=== PATIENT | female | born 1970 | race Caucasian/White ===

== ENCOUNTER 2016-03-28 22:19 | Emergency (ER) | payer MEDICARE ==
[2016-03-28] MEDS ORDERED: AMBIEN10 M1 JT (22:26)
[2016-03-28] MEDS ORDERED: ASPIRIN ADULT L81 M1 PO (22:26)
[2016-03-28] MEDS ORDERED: AMLODIPINE BESYL5 MG PO (22:26)
[2016-03-28 23:05] LABS: ALBUMIN 3.7 gm/dl (3.1-4.5); BILIRUBIN, TOTAL 0.3 mg/dl (0.2-1.0); POTASSIUM 3.6 mmol/L (3.5-5.1); TOTAL PROTEIN 7.6 gm/dL (6.4-8.2)
[2016-03-28 23:08] LABS: BASO % 0.4 % (0.0-1.0); EOS # 0.2 10*3/uL (0.0-0.4); EOS % 3.6 % (1.0-4.0); HEMATOCRIT 38.3 % (37.0-47.0); HEMOGLOBIN 12.3 g/dl (12.0-16.0); IG # 0.1 10*3/uL (0.0-0.1); LYMPH # 1.9 10*3/uL (1.3-4.4); LYMPH % 28.1 % (27.0-41.0); MEAN CELL VOLUME 95.8 fl (81.0-99.0); MEAN CORPUSCULAR HGB 30.8 pg (27.0-31.0); MEAN CORPUSCULAR HGB CONC 32.1 g/dl (33.0-37.0); MEAN PLATELET VOLUME 10.4 fl (9.6-12.3); MONO # 0.4 10*3/uL (0.1-1.0); MONO % 6.4 % (3.0-9.0); NEUT # 4.1 10*3/uL (2.3-7.9); NEUT % 60.6 % (47.0-73.0); PLATELET COUNT AUTOMATED 208 10*3/uL (130-400); RED CELL DISTRI WIDTH 13.5 % (0-14.5); WHITE BLOOD COUNT 6.7 10*3/uL (4.8-10.8)
[2016-03-28 23:16] LABS: PROTHROMBIN TIME 10.4 SECONDS (9.0-12.4)
[2016-03-29] MEDS ORDERED: PERCOCET 325 MG1 TA2 PO (00:53)
== END 2016-03-29 00:59 | disposition home or self-care (01) ==
LOC: ED 22:19
PROVIDERS: Emergency Medicine
DX: I89.0 Lymphedema, not elsewhere classified (principal); M79.605 Pain in left leg; Z79.82 Long term (current) use of aspirin

== ENCOUNTER 2016-08-04 22:24 | Inpatient (IN) | payer OTHER ==
[~2016-08-04] VITALS: Ht 165.1 cm; Wt 137.4 kg
--- NOTE | ~2016-08-04 | PR ---
[place], [place] PROGRESS NOTE NAME: STERLING PAN [facility] #: [id number] UNIT #: [id number] ROOM: 406 DOCTOR: JERARDO ESQUIVEL MD BIRTHDATE: [birth year] DOS: 08/07/2016 SUBJECTIVE: The patient was seen today 08/07/2016 at her bedside for followup of chest pain. 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 Unfortunately, we have not yet been able to confirm that with the records from that hospital. She came in to the hospital on this occasion because of cellulitis on her left leg. She did admit that she had been having more episodes of anginal lately. She also noted that the character of the pain had changed. We were therefore asked to assess her. In the hospital, she did not show any signs of acute coronary injury; however, the myocardial perfusion study did show a small area of inferior ischemia. There was no transient cavity dilation seen and left ventricular size and function were normal. Therefore, the study was abnormal, but fairly low risk. Typically, in patients with Prinzmetal angina, their nuclear studies are normal. It is probable therefore that she has developed true atherosclerotic coronary artery disease on top of vasospastic angina. Diltiazem may still be the best drug for this and we did adjust the dose while she was here. She had been on amlodipine, but this was stopped because it might contribute to her leg swelling. She does have severe lymphedema and this contributed to her presenting cellulitis. In the hospital, her cellulitis has improved and she is now anxious for discharge. She has had no further chest pain. PHYSICAL EXAMINATION: VITAL SIGNS: Today, her pulse is 86 and regular, blood pressure 110/87. She is afebrile. She weighs 137.4 kg and has a body mass index of 50.4. NECK: Supple. She has no jugular distention. Carotids are full. She has no bruits. LUNGS: Respirations are unlabored. Her chest is clear to auscultation and percussion. HEART: Has a regular rhythm with a fourth heart sound, but no third heart sound or murmur. The PMI is not displaced. She has no precordial heave, lift or thrill. ABDOMEN: Soft and normoactive without masses, organomegaly or bruits. EXTREMITIES: Showed lymphedema, but no pitting edema. Peripheral pulses are palpable in the feet. IMPRESSION: 1. History of Prinzmetal angina. Documentation unfortunately is lacking at this time. 2. Admission to hospital on 08/14/2016 with the chest pain, myocardial infarction ruled out. 3. Pharmacologic stress test 08/06/2016 showed a small area of inferior completely reversible ischemia. Ejection fraction is 80% and there is no transient cavity dilation. The test was felt to be abnormal, but low risk. Medical therapy was recommended. [place], [place] PROGRESS NOTE NAME: STERLING PAN UNIT #: [id number] ROOM: 406 DOCTOR: JERARDO ESQUIVEL MD BIRTHDATE: [birth year] 4. History of lymphedema with superimposed cellulitis. PLAN: The patient is currently on diltiazem for prophylaxis against Prinzmetal angina. Hopefully, this will help protect her from typical angina as well. She is also on isosorbide mononitrate. We will recommend that she be discharged to home and will follow up with her in the office in the next few weeks. We thank the hospitalist physicians for asking our advice regarding her care. JERARDO ESQUIVEL MD CM:PNTRANS [id number] JERARDO ESQUIVEL MD 08/08/16 0718 interface
--- NOTE | ~2016-08-04 | PR ---
[place], [place] PROGRESS NOTE NAME: STERLING PAN UNIT #: [id number] ROOM: 406 DOCTOR: JERARDO ESQUIVEL MD BIRTHDATE: [birth year] DOS: 08/06/2016 SUBJECTIVE: The patient was seen at her bedside today, 08/06/2016, for followup of atypical chest pain in a patient with a history of Prinzmetal angina. Her pains have resolved. She had a rough morning because she has poor IV access and had to undergo multiple sticks before a reliable IV could be obtained. PHYSICAL EXAMINATION: VITAL SIGNS: Today, her pulse is 77 and regular, blood pressure 105/64. She is afebrile. She weighs 137.4 kg and has a body mass index of 50.4. NECK: Supple. She has no jugular distention. Carotids are full. LUNGS: Respirations are unlabored. Chest is clear to auscultation and percussion. She has no presacral edema or chest wall tenderness. HEART: Regular rhythm. She has a fourth heart sound, but no third heart sound or murmur. The PMI is not displaced. She has no precordial heave, lift or thrill. ABDOMEN: Soft and normally active without masses, organomegaly or bruits. EXTREMITIES: Do show lymphedema and localized cellulitis as noted previously. LABORATORY DATA: An echocardiogram done on 08/05/2016 showed normal left ventricular size with mild concentric left ventricular hypertrophy, ejection fraction 60-65%, grade 2 diastolic relaxation abnormalities, mild left atrial enlargement. No other significant abnormalities. CBC has remained unremarkable. Serial troponins have all been normal. IMPRESSION: 1. Chest pain in patient with history of Prinzmetal angina. The patient does admit that her pain character has changed over the years, and she has not had a recent evaluation. We are therefore going to proceed with a pharmacologic stress testing today. 2. Cellulitis being evaluated and managed by her primary team. PLAN: We are waiting any records from her previous hospitalizations in [place] where the diagnosis of Prinzmetal angina was made. We will make further recommendations based upon the results of her stress testing. I thank the hospitalist group for asking our advice regarding her care. [place], [place] PROGRESS NOTE NAME: STERLING PAN UNIT #: [id number] ROOM: [facility] DOCTOR: JERARDO ESQUIVEL MD BIRTHDATE: [birth year] JERARDO ESQUIVEL MD CM:PNTRANS [id number] JERARDO ESQUIVEL MD 08/07/16 0046 interface
--- NOTE | ~2016-08-04 | ST ---
[place], [place] EXERCISE STRESS TEST REPORT [id number] UNIT #: [id number] ROOM: 406 DOCTOR: JERARDO ESQUIVEL MD BIRTHDATE: [birth year] DOS: 08/06/2016 PHARMACOLOGIC STRESS TEST INDICATIONS: Chest pain, history of Prinzmetal angina. PROCEDURE: The patient was given a rapid infusion of regadenoson 0.4 mg intravenously followed by a saline flush. She had no specific symptoms in her chest, but she "felt funny". Her resting heart rate of 71 des to 101 with the infusion. The resting blood pressure of 100/60 fell to 90/70. Her resting electrocardiogram showed nonspecific T-wave flattening. She did not have any diagnostic changes with the infusion. Forty seconds after the infusion of regadenoson, she was given radionuclide IV. IMPRESSION: 1. Well tolerated infusion of regadenoson. 2. Radionuclide administered. Please see the separately reported imaging study for further details of the patient's stress test results. JERARDO ESQUIVEL MD CM:STRESS:EXERCISE STRESS TEST REPORT [id number] JERARDO ESQUIVEL MD
[~2016-08-04 22:24] MED LIST: AMBIEN10 M1 JT; AMLODIPINE BESYL5 MG PO; ASPIRIN ADULT L81 M1 PO; PERCOCET 325 MG1 TA2 PO
[2016-08-04 22:34] VITALS: BP 112/66
[2016-08-04] MEDS ORDERED: SERTRALINE HYD100 MG PO (23:06)
[2016-08-04] MEDS ORDERED: REMERON15 M2 PO (23:06)
[2016-08-04] MEDS ORDERED: SEROQUEL100 MG PO (23:07)
[2016-08-04] MEDS ORDERED: OMEPRAZOLE40 MG PO (23:07)
[2016-08-04] MEDS ORDERED: CYCLOBENZAPRINE10 MG PO (23:07)
[2016-08-04] MEDS ORDERED: HYDROXYZINE PAM50 MG PO (23:08)
[2016-08-04 23:15] LABS: BASO % 0.5 % (0.0-1.0); EOS # 0.2 10*3/uL (0.0-0.4); EOS % 2.6 % (1.0-4.0); HEMATOCRIT 38.4 % (37.0-47.0); HEMOGLOBIN 12.4 g/dl (12.0-16.0); LYMPH # 2.2 10*3/uL (1.3-4.4); LYMPH % 28.8 % (27.0-41.0); MEAN CELL VOLUME 92.8 fl (81.0-99.0); MEAN CORPUSCULAR HGB CONC 32.3 g/dl (33.0-37.0); MEAN PLATELET VOLUME 10.3 fl (9.6-12.3); MONO # 0.5 10*3/uL (0.1-1.0); MONO % 6.3 % (3.0-9.0); NEUT # 4.7 10*3/uL (2.3-7.9); NEUT % 61.4 % (47.0-73.0); PLATELET COUNT AUTOMATED 214 10*3/uL (130-400); RED BLOOD COUNT 4.14 10*6/uL (4.10-5.10); RED CELL DISTRI WIDTH 13.2 % (0-14.5); WHITE BLOOD COUNT 7.6 10*3/uL (4.8-10.8)
[2016-08-04 23:25] LABS: PROTHROMBIN TIME 10.7 SECONDS (9.0-12.4)
[2016-08-04 23:32] LABS: ALBUMIN 3.7 gm/dl (3.1-4.5); ALKALINE PHOSPHATASE 83 U/L (45-117); BILIRUBIN, TOTAL 0.2 mg/dl (0.2-1.0); BUN 11 mg/dl (7-24); CARBON DIOXIDE 26 mmol/L (21-32); CHLORIDE 105 mmol/L (98-107); EST GLOM FILT AFRICAN AMERICAN > 60 ml/min; GLUCOSE 106 mg/dL (65-99); MAGNESIUM 2.2 mg/dL (1.5-2.1); POTASSIUM 4.3 mmol/L (3.5-5.1); SGOT/AST 7 IU/L (3-35); SGPT/ALT 13 U/L (12-78); SODIUM 140 mmol/L (136-145); TOTAL PROTEIN 6.9 gm/dL (6.4-8.2)
[2016-08-04 23:33] LABS: TROPONIN I < 0.015 ng/ml (<0.045)
[2016-08-04] MEDS ORDERED: DIAZEPAM10 M1 PO (23:35)
[2016-08-04 23:36] VITALS: BP 101/65
[2016-08-05] VITALS (9 sets, daily range): BP systolic 99–123; BP diastolic 64–88
[2016-08-05 06:54] LABS: BASO % 0.6 % (0.0-1.0); EOS # 0.2 10*3/uL (0.0-0.4); EOS % 3.1 % (1.0-4.0); HEMATOCRIT 37.8 % (37.0-47.0); HEMOGLOBIN 12.3 g/dl (12.0-16.0); IG # 0.1 10*3/uL (0.0-0.1); LYMPH # 2.2 10*3/uL (1.3-4.4); LYMPH % 32.8 % (27.0-41.0); MEAN CELL VOLUME 93.3 fl (81.0-99.0); MEAN CORPUSCULAR HGB 30.4 pg (27.0-31.0); MEAN CORPUSCULAR HGB CONC 32.5 g/dl (33.0-37.0); MEAN PLATELET VOLUME 10.5 fl (9.6-12.3); MONO # 0.5 10*3/uL (0.1-1.0); MONO % 7.8 % (3.0-9.0); NEUT # 3.8 10*3/uL (2.3-7.9); PLATELET COUNT AUTOMATED 207 10*3/uL (130-400); RED BLOOD COUNT 4.05 10*6/uL (4.10-5.10); RED CELL DISTRI WIDTH 13.3 % (0-14.5); WHITE BLOOD COUNT 6.8 10*3/uL (4.8-10.8)
[2016-08-05 07:28] LABS: BUN 10 mg/dl (7-24); CARBON DIOXIDE 29 mmol/L (21-32); CHLORIDE 103 mmol/L (98-107); CHOLESTEROL 156 mg/dL (<200); EST GLOM FILT AFRICAN AMERICAN > 60 ml/min; GLUCOSE 84 mg/dL (65-99); POTASSIUM 4.1 mmol/L (3.5-5.1); SODIUM 138 mmol/L (136-145); TRIGLYCERIDES 100 mg/dl (<150); VLDL CHOLESTEROL 20 mg/dL (6-40)
[2016-08-05 07:29] LABS: HEMOGLOBIN A1c 5.3 % (4.8-5.6)
[2016-08-05 07:57] LABS: HDL CHOLESTEROL 56 mg/dl (40-60); LDL CHOLESTEROL 80 mg/dL (9-159)
[2016-08-06] VITALS: BP 105/64
[2016-08-06 08:00] VITALS: BP 110/60
[2016-08-06 12:00] VITALS: BP 118/80
[2016-08-06 16:00] VITALS: BP 102/62
[2016-08-06 20:00] VITALS: BP 119/73
[2016-08-07] VITALS: BP 120/66
[2016-08-07 08:00] VITALS: BP 114/70
[2016-08-07] MEDS ORDERED: DILTIAZEM 24HR120 MG PO (10:16)
[2016-08-07] MEDS ORDERED: D-1000 185 MG-11 TAB PO (10:16)
[2016-08-07] MEDS ORDERED: NYSTOP100000 U/G T (10:16)
[2016-08-07] MEDS ORDERED: SEPTRA DS 800 M1 TAB PO (10:16)
[2016-08-07] MEDS ORDERED: DOXYCYCLINE100 M3 PO (10:16)
[2016-08-07] MEDS ORDERED: IMDUR SA30 MG PO (10:16)
[2016-08-07] MEDS ORDERED: HYDROCODONE BIT1 T11 PO (10:18)
[2016-08-07 12:00] VITALS: BP 110/87
[2016-08-07] MEDS ORDERED: ULTRAM50 MG PO (15:07)
[2016-08-07] MEDS ORDERED: DILTIAZEM HYDR180 M2 PO (15:55)
== END 2016-08-07 16:05 | disposition home or self-care (01) | DRG 603 ==
LOC: ED 22:24 → EDHOLD 08-05 01:00 → 4E 08-05 01:00
PROVIDERS: Emergency Medicine Emergency Medical Services; Internal Medicine
PROC: 3E073KZ Introduction of Other Diagnostic Substance into Coronary Artery, Percutaneous Approach (ICD-10-PCS; principal; 2016-08-06)
PROC: 4A02XM4 Measurement of Cardiac Total Activity, External Approach (ICD-10-PCS; principal; 2016-08-06)
DX: L03.116 Cellulitis of left lower limb (principal); I20.1 Angina pectoris with documented spasm; I50.32 Chronic diastolic (congestive) heart failure; Z68.42 Body mass index [BMI] 45.0-49.9, adult; E66.01 Morbid (severe) obesity due to excess calories; G47.33 Obstructive sleep apnea (adult) (pediatric); F32.9 Major depressive disorder, single episode, unspecified; F41.9 Anxiety disorder, unspecified; R73.9 Hyperglycemia, unspecified; L30.4 Erythema intertrigo; E55.9 Vitamin D deficiency, unspecified; Z90.49 Acquired absence of other specified parts of digestive tract; Z79.82 Long term (current) use of aspirin; Z80.42 Family history of malignant neoplasm of prostate; Z98.891 History of uterine scar from previous surgery; Z79.899 Other long term (current) drug therapy; Z98.51 Tubal ligation status; Z98.84 Bariatric surgery status; Z85.41 Personal history of malignant neoplasm of cervix uteri; Z92.21 Personal history of antineoplastic chemotherapy; Z85.89 Personal history of malignant neoplasm of other organs and systems; Z80.8 Family history of malignant neoplasm of other organs or systems; M94.0 Chondrocostal junction syndrome [Tietze]; Q82.0 Hereditary lymphedema

== ENCOUNTER 2016-10-10 18:00 | Inpatient (IN) | payer OTHER ==
[~2016-10-10] VITALS: Ht 165.1 cm; Wt 140.3 kg
[~2016-10-10 18:00] MED LIST changes: +CYCLOBENZAPRINE10 MG PO; +D-1000 185 MG-11 TAB PO; +DIAZEPAM10 M1 PO; +DILTIAZEM 24HR120 MG PO; +DILTIAZEM HYDR180 M2 PO; +DOXYCYCLINE100 M3 PO; +HYDROCODONE BIT1 T11 PO; +HYDROXYZINE PAM50 MG PO; +IMDUR SA30 MG PO; +NYSTOP100000 U/G T; +OMEPRAZOLE40 MG PO; +REMERON15 M2 PO; +SEPTRA DS 800 M1 TAB PO; +SEROQUEL100 MG PO; +SERTRALINE HYD100 MG PO; +ULTRAM50 MG PO
[2016-10-10 18:32] LABS: BASO % 0.5 % (0.0-1.0); EOS # 0.2 10*3/uL (0.0-0.4); EOS % 2.1 % (1.0-4.0); HEMATOCRIT 39.6 % (37.0-47.0); HEMOGLOBIN 12.7 g/dl (12.0-16.0); IG # 0.1 10*3/uL (0.0-0.1); LYMPH # 1.9 10*3/uL (1.3-4.4); LYMPH % 25.2 % (27.0-41.0); MEAN CELL VOLUME 89.8 fl (81.0-99.0); MEAN CORPUSCULAR HGB 28.8 pg (27.0-31.0); MEAN CORPUSCULAR HGB CONC 32.1 g/dl (33.0-37.0); MEAN PLATELET VOLUME 10.5 fl (9.6-12.3); MONO # 0.4 10*3/uL (0.1-1.0); MONO % 5.5 % (3.0-9.0); NEUT % 65.9 % (47.0-73.0); PLATELET COUNT AUTOMATED 270 10*3/uL (130-400); RED BLOOD COUNT 4.41 10*6/uL (4.10-5.10); RED CELL DISTRI WIDTH 12.7 % (0-14.5); WHITE BLOOD COUNT 7.5 10*3/uL (4.8-10.8)
[2016-10-10 18:43] LABS: PROTHROMBIN TIME 10.8 SECONDS (9.0-12.4)
[2016-10-10 18:49] LABS: ALBUMIN 3.7 gm/dl (3.1-4.5); ALKALINE PHOSPHATASE 104 U/L (45-117); BILIRUBIN, TOTAL 0.3 mg/dl (0.2-1.0); BUN 12 mg/dl (7-24); CARBON DIOXIDE 24 mmol/L (21-32); CHLORIDE 105 mmol/L (98-107); EST GLOM FILT AFRICAN AMERICAN > 60 ml/min; GLUCOSE 118 mg/dL (65-99); MAGNESIUM 1.8 mg/dL (1.5-2.1); POTASSIUM 3.7 mmol/L (3.5-5.1); SGOT/AST 10 IU/L (3-35); SGPT/ALT 21 U/L (12-78); SODIUM 138 mmol/L (136-145); TOTAL PROTEIN 7.3 gm/dL (6.4-8.2)
[2016-10-10 18:51] LABS: TROPONIN I < 0.015 ng/ml (<0.045)
[2016-10-10] MEDS ORDERED: ZANAFLEX4 M2 PO (18:56)
[2016-10-10] MEDS ORDERED: CLARITIN10 MG PO (18:56)
[2016-10-10] MEDS ORDERED: IMDUR SA30 MG PO (18:57)
[2016-10-10] MEDS ORDERED: MEDROXYPROGESTE10 M1 PO (18:57)
[2016-10-10] MEDS ORDERED: CLONAZEPAM1 MG PO (18:57)
[2016-10-10] MEDS ORDERED: OXCARBAZEPINE150 MG PO (18:58)
[2016-10-10 19:12] VITALS: BP 142/99
[2016-10-10 20:00] VITALS: BP 127/79
[2016-10-10] MEDS ORDERED: NYSTATIN1 EAC3 MC (21:01)
[2016-10-10] MEDS ORDERED: D-1000 185 MG-11 TAB PO (21:02)
[2016-10-11] VITALS: BP 115/72
[2016-10-11 00:26] LABS: CPK 81 U/L (26-192)
[2016-10-11 00:31] LABS: CKMB < 0.5 ng/ml (0.5-3.6)
[2016-10-11 06:38] LABS: BASO % 0.6 % (0.0-1.0); EOS # 0.2 10*3/uL (0.0-0.4); EOS % 2.6 % (1.0-4.0); HEMATOCRIT 40.6 % (37.0-47.0); HEMOGLOBIN 12.9 g/dl (12.0-16.0); IG # 0.1 10*3/uL (0.0-0.1); LYMPH # 2.2 10*3/uL (1.3-4.4); LYMPH % 32.1 % (27.0-41.0); MEAN CELL VOLUME 91.9 fl (81.0-99.0); MEAN CORPUSCULAR HGB 29.2 pg (27.0-31.0); MEAN CORPUSCULAR HGB CONC 31.8 g/dl (33.0-37.0); MEAN PLATELET VOLUME 10.5 fl (9.6-12.3); MONO # 0.4 10*3/uL (0.1-1.0); MONO % 6.1 % (3.0-9.0); NEUT % 57.7 % (47.0-73.0); PLATELET COUNT AUTOMATED 263 10*3/uL (130-400); RED BLOOD COUNT 4.42 10*6/uL (4.10-5.10); RED CELL DISTRI WIDTH 12.9 % (0-14.5); WHITE BLOOD COUNT 6.9 10*3/uL (4.8-10.8)
[2016-10-11 06:44] LABS: CKMB < 0.5 ng/ml (0.5-3.6); CPK 65 U/L (26-192)
[2016-10-11 06:59] LABS: PROTHROMBIN TIME 10.9 SECONDS (9.0-12.4)
[2016-10-11 07:04] LABS: BUN 14 mg/dl (7-24); CARBON DIOXIDE 28 mmol/L (21-32); CHLORIDE 105 mmol/L (98-107); CHOLESTEROL 184 mg/dL (<200); EST GLOM FILT AFRICAN AMERICAN > 60 ml/min; GLUCOSE 87 mg/dL (65-99); HDL CHOLESTEROL 49 mg/dl (40-60); LDL CHOLESTEROL 111 mg/dL (9-159); POTASSIUM 4.2 mmol/L (3.5-5.1); SODIUM 139 mmol/L (136-145); TRIGLYCERIDES 120 mg/dl (<150); VLDL CHOLESTEROL 24 mg/dL (6-40)
[2016-10-11 07:11] LABS: FREE T4 0.78 ng/dl (0.76-1.46)
[2016-10-11 07:27] LABS: HEMOGLOBIN A1c 5.8 % (4.8-5.6)
[2016-10-11 07:37] LABS: FOLIC ACID 16.43 ng/mL (>5.38); VITAMIN D, 25-HYDROXY 13.7 ng/mL (30-100)
[2016-10-11 08:00] VITALS: BP 132/86
[2016-10-11 12:00] VITALS: BP 118/80
[2016-10-11 12:39] LABS: CPK 72 U/L (26-192)
[2016-10-11 12:45] LABS: CKMB < 0.5 ng/ml (0.5-3.6)
[2016-10-11 16:00] VITALS: BP 142/99
[2016-10-11] MEDS ORDERED: DILTIAZEM CD240 MG PO (19:47)
[2016-10-11] MEDS ORDERED: D-1000 185 MG-11 TAB PO (19:47)
[2016-10-11 20:00] VITALS: BP 120/75
[2016-10-12] VITALS: BP 120/83
[2016-10-12 06:30] LABS: BASO % 0.3 % (0.0-1.0); EOS # 0.2 10*3/uL (0.0-0.4); EOS % 2.7 % (1.0-4.0); HEMATOCRIT 37.8 % (37.0-47.0); HEMOGLOBIN 11.7 g/dl (12.0-16.0); LYMPH # 1.6 10*3/uL (1.3-4.4); LYMPH % 25.3 % (27.0-41.0); MEAN CELL VOLUME 92.4 fl (81.0-99.0); MEAN CORPUSCULAR HGB 28.6 pg (27.0-31.0); MEAN PLATELET VOLUME 10.5 fl (9.6-12.3); MONO # 0.4 10*3/uL (0.1-1.0); MONO % 6.1 % (3.0-9.0); NEUT # 4.1 10*3/uL (2.3-7.9); PLATELET COUNT AUTOMATED 236 10*3/uL (130-400); RED BLOOD COUNT 4.09 10*6/uL (4.10-5.10); RED CELL DISTRI WIDTH 12.9 % (0-14.5); WHITE BLOOD COUNT 6.3 10*3/uL (4.8-10.8)
== END 2016-10-12 06:35 | disposition short-term general hospital (02) | DRG 311 ==
LOC: ED 18:00 → EDHOLD 18:55 → 5E 19:35
PROVIDERS: Emergency Medicine; Internal Medicine; Internal Medicine Cardiovascular Disease
DX: I20.1 Angina pectoris with documented spasm (principal); I50.32 Chronic diastolic (congestive) heart failure; Z68.43 Body mass index [BMI] 50.0-59.9, adult; F41.9 Anxiety disorder, unspecified; Z85.41 Personal history of malignant neoplasm of cervix uteri; F32.9 Major depressive disorder, single episode, unspecified; G47.33 Obstructive sleep apnea (adult) (pediatric); Z90.49 Acquired absence of other specified parts of digestive tract; Z98.84 Bariatric surgery status; Z80.42 Family history of malignant neoplasm of prostate; K21.9 Gastro-esophageal reflux disease without esophagitis; I89.0 Lymphedema, not elsewhere classified; E66.9 Obesity, unspecified; Z79.82 Long term (current) use of aspirin; Z79.899 Other long term (current) drug therapy

== ENCOUNTER 2017-01-04 13:51 | Inpatient (IN) | payer OTHER ==
[~2017-01-04] VITALS: Ht 152.4 cm; Wt 137.9 kg
[~2017-01-04 13:51] MED LIST changes: +CLARITIN10 MG PO; +CLONAZEPAM1 MG PO; +DILTIAZEM CD240 MG PO; +MEDROXYPROGESTE10 M1 PO; +NYSTATIN1 EAC3 T; +OXCARBAZEPINE150 MG PO; -REMERON15 M2 PO; +REMERON30 M1 PO; +ZANAFLEX4 M2 PO
[2017-01-04 13:55] VITALS: BP 107/72
[2017-01-04 15:29] LABS: BILIRUBIN NEGATIVE (NEGATIVE); BLOOD 3+ (NEGATIVE); CLARITY CLOUDY (CLEAR); GLUCOSE NEGATIVE (NEGATIVE); KETONE NEGATIVE (NEGATIVE); LEUKO ESTERASE TRACE (NEGATIVE); NITRITE NEGATIVE (NEGATIVE); PH 6.5 (5.0-9.0); UROBILINOGEN 0.2 E.U./dl (0.2-1.0)
[2017-01-04 15:34] LABS: HEMATOCRIT 40.7 % (37.0-47.0); HEMOGLOBIN 12.8 g/dl (12.0-16.0); MEAN CELL VOLUME 90.8 fl (81.0-99.0); MEAN CORPUSCULAR HGB 28.6 pg (27.0-31.0); MEAN CORPUSCULAR HGB CONC 31.4 g/dl (33.0-37.0); MEAN PLATELET VOLUME 10.8 fl (9.6-12.3); PLATELET COUNT AUTOMATED 211 10*3/uL (130-400); RED BLOOD COUNT 4.48 10*6/uL (4.10-5.10); RED CELL DISTRI WIDTH 15.5 % (0-14.5); WHITE BLOOD COUNT 14.2 10*3/uL (4.8-10.8)
[2017-01-04 15:39] LABS: COLOR RED (YELLOW)
[2017-01-04 15:40] LABS: BACTERIA 3+; EPITHELIAL CELLS 40-45; RBC TNTC rbc/hpf (0-2)
[2017-01-04 15:49] LABS: ALBUMIN 4.1 gm/dl (3.1-4.5); CREATININE 1.32 mg/dL (0.55-1.02); POTASSIUM 4.5 mmol/L (3.5-5.1); TOTAL PROTEIN 8.3 gm/dL (6.4-8.2)
[2017-01-04 15:53] LABS: TOTAL CELLS COUNTED 100 #CELLS
[2017-01-04 15:54] LABS: PLATELET SUFFICIENCY NORMAL (NORMAL); POLYCHROMASIA SLIGHT
--- NOTE | 2017-01-04 17:27 | NUR ---
PATIENT HAS NORMAL SALINE, AND ZOSYN RUNNING AT TIME OF ADMISSION
[2017-01-04] MEDS ORDERED: POTASSIUM CHLO20 ME3 PO (17:34)
[2017-01-04] MEDS ORDERED: LASIX20 MG PO (17:34)
--- NOTE | 2017-01-04 17:44 | NUR ---
[facility] , under the services of JUAN Maxwell DO with a diagnosis of CELLULITIS. Chief complaint is PAIN LEFT LEG. Patient arrived via bed from ER. Monitor applied. Initial assessment completed. Vital signs taken and recorded. JUAN MAXWELL DO notified of admission to the unit. Orders received. See assessment for past medical history, medications and allergies. Patient and/or family oriented to unit. [facility] visitation policy reviewed. Clothing/patient valuable form completed. CURRY GOVEA
--- NOTE | 2017-01-04 18:29 | NUR ---
MORPHINE GIVEN FOR C/O LEFT LEG PAIN. RATES 8/10 ON PAIN SCALE. WILL MONITOR.
[2017-01-04 18:32] VITALS: BP 100/66
[2017-01-04 20:00] VITALS: BP 133/71
--- NOTE | 2017-01-04 21:20 | NUR ---
MEDICATED WITH NORCO PER PRN ORDER FOR C/O PAIN.
--- NOTE | 2017-01-04 22:40 | NUR ---
MEDICATED WITH MORPHINE PER PRN ORDER FOR C/O PAIN. PT STATES NORCO NOT EFFECTIVE.
[2017-01-05] VITALS: BP 120/76
--- NOTE | 2017-01-05 01:39 | NUR ---
PRN ZOFRAN GIVEN FOR PT. C/O NAUSEA AT THIS TIME. WILL MONITOR EFFECT.
--- NOTE | 2017-01-05 03:17 | NUR ---
PRN MORPHINE GIVEN FOR PT. C/O LEFT LEG PAIN RATING A 8/10. WILL MONITOR EFFECT. PRN RESTORIL GIVEN PER PT. REQUEST FOR INSOMINA. WILL MONITOR EFFECT.
--- NOTE | 2017-01-05 03:37 | NUR ---
PRN MORPHINE AND RESTORIL APPEAR EFFECTIVE. PT. IS SLEEPING COMFORTABLY WITH CPAP IN PLACE, CALL LIGHT IN REACH, AND HOB ELEVATED. RESPIRATIONS ARE EASY AND REGULAR.
--- NOTE | 2017-01-05 05:33 | NUR ---
PRN NORCO GIVEN PER PT. REQUEST FOR LEFT LEG PAIN RATING A 7/10. WILL MONITOR EFFECT.
--- NOTE | 2017-01-05 06:00 | NUR ---
PRN NORCO SEEMS TO BE EFFECTIVE. PT IS RESTING COMFORTABLY WITH CPAP IN PLACE, HOB ELEVATED, AND CALL LIGHT IN REACH. RESPIRATIONS ARE EASY AND REGULAR.
[2017-01-05 06:24] LABS: ACT PARTIAL THROMBO TIME 26.9 SECONDS (20.8-31.5); ALBUMIN 3.1 gm/dl (3.1-4.5); BASO % 0.1 % (0.0-1.0); CREATININE 1.18 mg/dL (0.55-1.02); EOS # 0.1 10*3/uL (0.0-0.4); EOS % 0.6 % (1.0-4.0); FREE T4 1.15 ng/dl (0.76-1.46); HEMATOCRIT 34.7 % (37.0-47.0); HEMOGLOBIN 10.8 g/dl (12.0-16.0); INTERNATIONAL NORM RATIO 1.1 (2.0-3.5); LYMPH # 0.6 10*3/uL (1.3-4.4); LYMPH % 6.8 % (27.0-41.0); MAGNESIUM 2.3 mg/dL (1.5-2.1); MEAN CELL VOLUME 92.8 fl (81.0-99.0); MEAN CORPUSCULAR HGB 28.9 pg (27.0-31.0); MEAN CORPUSCULAR HGB CONC 31.1 g/dl (33.0-37.0); MEAN PLATELET VOLUME 11.4 fl (9.6-12.3); MONO # 0.4 10*3/uL (0.1-1.0); MONO % 4.8 % (3.0-9.0); NEUT % 87.1 % (47.0-73.0); PHOSPHOROUS 2.7 mg/dL (2.5-4.9); PLATELET COUNT AUTOMATED 188 10*3/uL (130-400); POTASSIUM 3.9 mmol/L (3.5-5.1); RED BLOOD COUNT 3.74 10*6/uL (4.10-5.10); RED CELL DISTRI WIDTH 15.9 % (0-14.5); TOTAL PROTEIN 6.5 gm/dL (6.4-8.2); WHITE BLOOD COUNT 8.1 10*3/uL (4.8-10.8)
[2017-01-05 06:28] LABS: THYROID STIM HORMONE (HS) 1.27 uIU/ml (0.358-4.75)
[2017-01-05 08:00] VITALS: BP 117/73
--- NOTE | 2017-01-05 08:13 | NUR ---
Animal Feeder in to talk to patient. Patient states lives at HOME with HER BOYFRIEND. There are A FEW steps in the home. Physician: ROSANA Pharmacy: [facility] Home health services: NONE Patient's level of ADLs: INDEPENDENT Patient has working utilities: YES DME: WALKER/CPAP Follow-up physician's appointment after d/c: WILL BE MADE PRIOR TO DC Does patient want to access PORTAL?: Discharge plan HOME. JULIA KIM
[2017-01-05 08:40] LABS: VITAMIN D, 25-HYDROXY 7.3 ng/mL (30-100)
[2017-01-05] MEDS ORDERED: Diltiazem180 MG PO (11:11)
[2017-01-05 12:00] VITALS: BP 112/80
[2017-01-05 16:00] VITALS: BP 118/74
--- NOTE | 2017-01-05 16:05 | NUR ---
Pt. recieved/requested pain medication as ordered. Verbalized relief. Resp are easy, nonlabored. Visiting with family. No distress noted at this time.
[2017-01-05 20:00] VITALS: BP 125/59
--- NOTE | 2017-01-05 21:45 | NUR ---
MEDICATED WITH MORPHINE PER PRN ORDER FOR C/O PAIN.
--- NOTE | 2017-01-05 23:45 | NUR ---
CONTACTED DR. ROSS IN REGARDS TO PTS. LOW BP OF 80/58. DR. ROSS ORDEREED NS FLUID BOLUS 1L AT 999/HR. WILL ASSESS PT. DURING AND AFTER ADM.
--- NOTE | 2017-01-06 01:39 | NUR ---
DR. ROSS NOTIFIED AT THIS TIME OF PTS. BP OF 110/82 AFTER FLUID BOLUS. PT. TOLERATED BOLUS WITHOUT C/O SOB OR CP.
[2017-01-06 08:00] VITALS: BP 102/57
--- NOTE | 2017-01-06 08:50 | NUR ---
PT C/O LEFT LEG PAIN. RATES IT 10/04. REQUESTS PRN MORPHINE SULFATE 2 MG VIA IV. MORPHINE ADMINISTERED AT THIS TIME. WILL MONTIOR EFFECTIVENESS. CALL LIGHT IN REACH.
[2017-01-06 12:00] VITALS: BP 108/57
[2017-01-06 16:00] VITALS: BP 92/50
[2017-01-06 20:00] VITALS: BP 96/56
[2017-01-07] VITALS: BP 88/49
[2017-01-07 06:52] LABS: BASO % 0.4 % (0.0-1.0); EOS # 0.2 10*3/uL (0.0-0.4); EOS % 5.1 % (1.0-4.0); HEMATOCRIT 31.8 % (37.0-47.0); HEMOGLOBIN 9.7 g/dl (12.0-16.0); LYMPH # 1.1 10*3/uL (1.3-4.4); LYMPH % 23.9 % (27.0-41.0); MEAN CELL VOLUME 94.9 fl (81.0-99.0); MEAN CORPUSCULAR HGB CONC 30.5 g/dl (33.0-37.0); MONO # 0.3 10*3/uL (0.1-1.0); MONO % 5.8 % (3.0-9.0); NEUT # 2.9 10*3/uL (2.3-7.9); NEUT % 64.1 % (47.0-73.0); PLATELET COUNT AUTOMATED 168 10*3/uL (130-400); RED BLOOD COUNT 3.35 10*6/uL (4.10-5.10); RED CELL DISTRI WIDTH 15.6 % (0-14.5); WHITE BLOOD COUNT 4.5 10*3/uL (4.8-10.8)
[2017-01-07 07:15] LABS: BUN 9 mg/dl (7-24); CHLORIDE 106 mmol/L (98-107); CREATININE 0.97 mg/dL (0.55-1.02); POTASSIUM 4.2 mmol/L (3.5-5.1); SODIUM 139 mmol/L (136-145)
[2017-01-07 08:00] VITALS: BP 109/66
--- NOTE | 2017-01-07 08:38 | NUR ---
PT C/O LEFT LEG PAIN. MORPHINE SULFATE 2 MG ADMNISTERED VIA IV. WILL MONITOR FOR EFFECTIVENESS. CALL LIGHT IN REACH.
[2017-01-07 12:00] VITALS: BP 124/76
[2017-01-07] MEDS ORDERED: DOXYCYCLINE100 M3 PO (12:10)
[2017-01-07] MEDS ORDERED: NORCO 5/325 PO (12:10)
--- NOTE | 2017-01-07 13:55 | NUR ---
Pt declined pneumovac after scanning and opening. States she took it 2 years ago.
--- NOTE | 2017-01-07 14:04 | NUR ---
Discharge instructions reviewed with patient/family. Patient receptive and verbalizes understanding. Follow-up care arranged. Written instructions given to patient/family. MICHAEL GONSALEZ
== END 2017-01-07 14:04 | disposition home or self-care (01) | DRG 871 ==
LOC: ED 13:51 → 4E 16:10 → EDHOLD 16:10 → 4E 16:22
PROVIDERS: Hospitalist; Internal Medicine; Nurse Practitioner; ADMIT Emergency Medicine
PROC: 5A09357 Assistance with Respiratory Ventilation, Less than 24 Consecutive Hours, Continuous Positive Airway Pressure (ICD-10-PCS; principal; 2017-01-06)
DX: A41.9 Sepsis, unspecified organism (principal); N17.0 Acute kidney failure with tubular necrosis; Z68.43 Body mass index [BMI] 50.0-59.9, adult; I50.32 Chronic diastolic (congestive) heart failure; I20.1 Angina pectoris with documented spasm; E66.01 Morbid (severe) obesity due to excess calories; L03.116 Cellulitis of left lower limb; R65.20 Severe sepsis without septic shock; I89.0 Lymphedema, not elsewhere classified; F32.9 Major depressive disorder, single episode, unspecified; N18.3 Chronic kidney disease, stage 3 (moderate); F41.9 Anxiety disorder, unspecified; G47.33 Obstructive sleep apnea (adult) (pediatric); K21.9 Gastro-esophageal reflux disease without esophagitis; Z79.82 Long term (current) use of aspirin; Z79.899 Other long term (current) drug therapy; Z90.49 Acquired absence of other specified parts of digestive tract; Z98.891 History of uterine scar from previous surgery; Z98.51 Tubal ligation status; Z98.84 Bariatric surgery status; Z80.42 Family history of malignant neoplasm of prostate; Z80.8 Family history of malignant neoplasm of other organs or systems; Z92.21 Personal history of antineoplastic chemotherapy

== ENCOUNTER 2017-01-15 17:13 | Emergency (ER) | payer OTHER ==
[~2017-01-15] VITALS: Ht 165.1 cm; Wt 137.9 kg
[~2017-01-15 17:13] MED LIST changes: +Diltiazem180 MG PO; +LASIX20 MG PO; +NORCO 5/325 PO; +POTASSIUM CHLO20 ME3 PO
[2017-01-15 17:51] LABS: BASO % 0.3 % (0.0-1.0); EOS # 0.1 10*3/uL (0.0-0.4); EOS % 1.7 % (1.0-4.0); HEMATOCRIT 38.4 % (37.0-47.0); HEMOGLOBIN 11.9 g/dl (12.0-16.0); LYMPH # 1.7 10*3/uL (1.3-4.4); MEAN CELL VOLUME 91.9 fl (81.0-99.0); MEAN CORPUSCULAR HGB 28.5 pg (27.0-31.0); MEAN PLATELET VOLUME 10.8 fl (9.6-12.3); MONO # 0.4 10*3/uL (0.1-1.0); MONO % 5.8 % (3.0-9.0); NEUT # 4.8 10*3/uL (2.3-7.9); NEUT % 67.5 % (47.0-73.0); PLATELET COUNT AUTOMATED 280 10*3/uL (130-400); RED BLOOD COUNT 4.18 10*6/uL (4.10-5.10); RED CELL DISTRI WIDTH 14.6 % (0-14.5); WHITE BLOOD COUNT 7.1 10*3/uL (4.8-10.8)
[2017-01-15 18:05] LABS: ALBUMIN 3.9 gm/dl (3.1-4.5); ALKALINE PHOSPHATASE 97 U/L (45-117); BUN 11 mg/dl (7-24); CHLORIDE 102 mmol/L (98-107); CREATININE 1.17 mg/dL (0.55-1.02); SGOT/AST 13 IU/L (3-35); SGPT/ALT 25 U/L (12-78); SODIUM 136 mmol/L (136-145); TOTAL PROTEIN 7.6 gm/dL (6.4-8.2)
[2017-01-15] MEDS ORDERED: NYSTATIN CREAM15 GM T (18:12)
== END 2017-01-15 17:33 | disposition home or self-care (01) ==
LOC: ED 17:13
PROVIDERS: Nurse Practitioner Family
DX: L30.8 Other specified dermatitis (principal); I10 Essential (primary) hypertension; Z90.49 Acquired absence of other specified parts of digestive tract; Z98.51 Tubal ligation status

== ENCOUNTER 2017-02-22 10:04 | Inpatient (IN) | payer OTHER ==
[~2017-02-22] VITALS: Ht 165.1 cm; Wt 139.4 kg
[~2017-02-22 10:04] MED LIST changes: +NYSTATIN CREAM15 GM T
[2017-02-22 10:39] LABS: HEMATOCRIT 37.4 % (37.0-47.0); HEMOGLOBIN 11.9 g/dl (12.0-16.0); MEAN CORPUSCULAR HGB 28.3 pg (27.0-31.0); MEAN CORPUSCULAR HGB CONC 31.8 g/dl (33.0-37.0); MEAN PLATELET VOLUME 11.3 fl (9.6-12.3); PLATELET COUNT AUTOMATED 175 10*3/uL (130-400); RED CELL DISTRI WIDTH 13.9 % (0-14.5); WHITE BLOOD COUNT 17.2 10*3/uL (4.8-10.8)
[2017-02-22 10:52] LABS: ACT PARTIAL THROMBO TIME 27.3 SECONDS (20.8-31.5); INTERNATIONAL NORM RATIO 1.2 (2.0-3.5)
[2017-02-22 10:55] LABS: ALBUMIN 3.6 gm/dl (3.1-4.5); ALKALINE PHOSPHATASE 65 U/L (45-117); BUN 11 mg/dl (7-24); CHLORIDE 104 mmol/L (98-107); CREATININE 1.27 mg/dL (0.55-1.02); POTASSIUM 3.6 mmol/L (3.5-5.1); SGOT/AST 6 IU/L (3-35); SGPT/ALT 16 U/L (12-78); SODIUM 135 mmol/L (136-145); TOTAL PROTEIN 7.2 gm/dL (6.4-8.2)
[2017-02-22 10:59] LABS: TROPONIN I < 0.015 ng/ml (<0.045)
[2017-02-22 11:00] VITALS: BP 120/43
[2017-02-22 11:08] LABS: BASOPHILS 1 % (0-1); TOTAL CELLS COUNTED 100 #CELLS
[2017-02-22 11:09] LABS: PLATELET SUFFICIENCY NORMAL (NORMAL)
[2017-02-22 12:00] VITALS: BP 158/98
[2017-02-22 13:55] LABS: BILIRUBIN NEGATIVE (NEGATIVE); BLOOD 1+ (NEGATIVE); CLARITY CLEAR (CLEAR); COLOR YELLOW (YELLOW); GLUCOSE NEGATIVE (NEGATIVE); KETONE NEGATIVE (NEGATIVE); LEUKO ESTERASE NEGATIVE (NEGATIVE); NITRITE NEGATIVE (NEGATIVE); PH 6.5 (5.0-9.0); SPECIFIC GRAVITY <= 1.005 (1.005-1.030); UROBILINOGEN 0.2 E.U./dl (0.2-1.0)
[2017-02-22 14:05] LABS: BACTERIA 1+
[2017-02-22 14:21] VITALS: BP 102/67
[2017-02-22] MEDS ORDERED: PERCOCET 5-3251 EACH PO (14:22)
[2017-02-22] MEDS ORDERED: TRAZODONE150 MG PO (14:23)
[2017-02-22] MEDS ORDERED: CETIRIZINE10 MG PO (14:23)
[2017-02-22] MEDS ORDERED: BACITRACIN 500U30 GM T (14:24)
--- NOTE | 2017-02-22 15:42 | NUR ---
PATIENT GIVEN NORCO PER PATIENT REQUEST FOR LEFT LOWER LEG PAIN RATED 8/10 AND DESCRIBED A THROBBING PAIN. WILL CONTINUE TO MONITOR AND REASSESS.
--- NOTE | 2017-02-22 15:45 | NUR ---
WOUND ORDERS RECEIVED.
[2017-02-22 16:00] VITALS: BP 109/67
--- NOTE | 2017-02-22 16:40 | NUR ---
WOUD DRESSING APPLIED PER ORDERS. PATIENT TOLERATED WELL WITH MINIMAL PAIN. CALL LIGHT WITHIN REACH.
--- NOTE | 2017-02-22 16:45 | NUR ---
PAIN MEDICATION HAS BEEN EFFECTIVE. PATIENT RESTING COMFORTABLY IN THE BED. PATIENT RATES PAIN A 3/10 AND TOLERABLE AT THIS TIME. CALL LIGHT IS WITHIN REACH. WILL CONTINUE TO MONITOR.
--- NOTE | 2017-02-22 18:57 | NUR ---
PATIENT RESTING COMFORTABLY IN THE BED. PATIENT WHERES A C-PAP WHEN SLEEPING. PATIENT HAS EDEMA IN THE LOWER EXTREMITIES AND A WOUND TO THE LEFT LEG. PATIENT HAS OCCASIONAL PAIN IN THAT LEG, BUT HAD NO PAIN UPON ASSESSMENT. NO FURTHER REQUESTS AT THIS TIME. CALL LIGHT WITHIN REACH.
[2017-02-22 20:00] VITALS: BP 108/53
--- NOTE | 2017-02-22 20:46 | NUR ---
PT REQUESTED PAIN MEDICATION FOR PAIN OF LEFT LOWER LEG FROM THE KNEE TO THE ANKLE. PAIN IS RATED AT 8 OUT OF 10 AND DESCRIBED CONSTANT AND THROBBING. PRN TYLENOL GIVEN. WILL CONTINUE TO MONITOR.
--- NOTE | 2017-02-22 21:13 | NUR ---
PER PT, TYLENOL WAS INEFFECTIVE FOR PAIN MANAGEMENT. SPOKE WITH THE DOCTOR EARLIER. AWAITING PHARMACY TO PROFILE NEW ORDERS. WILL CONTINUE TO MONITOR.
--- NOTE | 2017-02-22 23:00 | NUR ---
PT REQUESTED PAIN MEDICATION FOR PAIN OF THE BLE. PAIN RATED AT 8 OUT OF 10. PER PT, TYLENOL WAS INEFFECTTIVE FOR PAIN MGMT EARLIER. PAIN IS CONSTANT AND THROBBING. MORPHINE GIVEN. WILL CONTINUE TO MONITOR.
--- NOTE | 2017-02-22 23:42 | NUR ---
PER PT, PRN MORPHINE WAS EFFECTIVE FOR PAIN MANAGEMENT. PAIN IS NOW RATED AT 2 OUT OF 10. WILL CONTINUE TO MONITOR.
[2017-02-23] VITALS (7 sets, daily range): BP systolic 81–104; BP diastolic 41–70
--- NOTE | 2017-02-23 03:43 | NUR ---
24HR CHART CHECK COMPLETED.
--- NOTE | 2017-02-23 04:25 | NUR ---
PT REQUESTED PRN PAIN MEDICATION FOR BILAT LOWER LEG PAIN. PAIN IS RATED AT 7 OUT OF 10 AND IS DESCRIBED CONSTANT AND THROBBING. PRN PERCOCET GIVEN. WILL CONTINUE TO MONITOR.
--- NOTE | 2017-02-23 05:12 | NUR ---
PER PT, PRN PERCOCET WAS INEFECTIVE FOR PAIN MANAGEMENT. PAIN IS STILL RATED A 7/8 OUT OF 10. PT STATED SHE WOULD "WAIT ANOTHER HOUR TO SEE HOW IT DOES". WILL CONTINUE TO MONITOR.
[2017-02-23 07:23] LABS: BASO % 0.3 % (0.0-1.0); EOS # 0.1 10*3/uL (0.0-0.4); EOS % 1.3 % (1.0-4.0); HEMATOCRIT 32.6 % (37.0-47.0); HEMOGLOBIN 10.1 g/dl (12.0-16.0); LYMPH % 12.7 % (27.0-41.0); MEAN CELL VOLUME 91.3 fl (81.0-99.0); MEAN CORPUSCULAR HGB 28.3 pg (27.0-31.0); MEAN PLATELET VOLUME 11.5 fl (9.6-12.3); MONO # 0.4 10*3/uL (0.1-1.0); MONO % 4.4 % (3.0-9.0); NEUT # 6.4 10*3/uL (2.3-7.9); NEUT % 80.8 % (47.0-73.0); PLATELET COUNT AUTOMATED 145 10*3/uL (130-400); RED BLOOD COUNT 3.57 10*6/uL (4.10-5.10); RED CELL DISTRI WIDTH 14.1 % (0-14.5)
--- NOTE | 2017-02-23 07:34 | NUR ---
PT REQUESTED MEDICATION FOR PAIN OF THE LEFT LEG. PAIN RATED AT 7 OUT OF 10 AND DESCRIBED CONSTANT AND THROBBING. PRN MORPHINE GIVEN. WILL CONTINUE TO MONITOR.
--- NOTE | 2017-02-23 07:43 | NUR ---
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
[2017-02-23 07:54] LABS: ALBUMIN 2.9 gm/dl (3.1-4.5); BUN 17 mg/dl (7-24); CHLORIDE 104 mmol/L (98-107); CHOLESTEROL 95 mg/dL (<200); CREATININE 1.09 mg/dL (0.55-1.02); PHOSPHOROUS 3.2 mg/dL (2.5-4.9); POTASSIUM 3.4 mmol/L (3.5-5.1); SGOT/AST 3 IU/L (3-35); SGPT/ALT 15 U/L (12-78); SODIUM 135 mmol/L (136-145); TRIGLYCERIDES 113 mg/dl (<150); VLDL CHOLESTEROL 23 mg/dL (6-40)
[2017-02-23 08:00] LABS: ALKALINE PHOSPHATASE 61 U/L (45-117); FREE T4 0.99 ng/dl (0.76-1.46); HDL CHOLESTEROL 33 mg/dl (40-60); LDL CHOLESTEROL 39 mg/dL (9-159); THYROID STIM HORMONE (HS) 0.859 uIU/ml (0.358-4.75); TOTAL PROTEIN 6.1 gm/dL (6.4-8.2)
[2017-02-23 08:30] LABS: VITAMIN D, 25-HYDROXY 9.2 ng/mL (30-100)
--- NOTE | 2017-02-23 08:30 | NUR ---
PRN PAIN MED EFFECTIVE, PT REPORTS 4/10 PAIN TO LEFT LOWER LEG.
--- NOTE | 2017-02-23 09:00 | NUR ---
Transition Teacher in to talk to patient. Patient states lives at home with boyfriend. There are no steps in the home. Physician: [place] [facility]: [facility] Home health services: none Patient's level of ADLs: MINIMAL ASSIST Patient has working utilities: all working DME: [facility] Follow-up physician's appointment after d/c: will be made by hospitalist nurse director upon discharge Does patient want to access PORTAL?: no Discharge plan discussed with patient, patient was on cpap at this time, asked case management to come back later. KAREN NGO
--- NOTE | 2017-02-23 10:43 | NUR ---
PHYSICAL THERAPY Nursing screen received on this patient. Chart review reveals PT referral appropriate. Requested PT orders at d/c planning. Mini Li,PT
--- NOTE | 2017-02-23 11:50 | NUR ---
PRN PAIN MED GIVEN FOR PT REPORT 7/10 LEFT LOWER LEG PAIN.
--- NOTE | 2017-02-23 12:50 | NUR ---
PRN PAIN MED EFFECTIVE, PT REPORTS HER PAIN 4/10 TOLEFT LOWER LEG.
--- NOTE | 2017-02-23 13:08 | NUR ---
STERLING PAN [id number] Please refer to the physician's history and physical for past medical history, comorbid conditions, and allergies. Diagnosis: LEFT LEG CELLULITIS SEPSIS Luis Score: 19,LOW OR NO RISK WOUND DESCRIPTIONS: Location of the wound: left lower leg under fold Type of wound: Thickness: Partial Size: 0.3cm x 3cm x 0.1cm Tunneling: none Undermining: none Sinus Tract: none Presence of Exudate: Serous Amount: Light Color: [place] Odor: None Periwound Skin Appearance: Normal Wound edges: approximated Pain (associated with wound): patient states tender to touch when assessed How does patient state this happened? patient states she noticed area a couple days ago but not sure how it happened Surface the patient is resting on: Isoflex SKIN PREVENTION RECOMMENDATION: 1. Pressure redistribution support surface as appropriate 2. Elevate heels 3. Remove boots/TEDS every shift and reapply 4. Head of bed 30 degrees as tolerated 5. Assess nutrition and hydration 6. Manage moisture 7. Avoid the use of containment devices while in bed 8. Use absorptive products on surfaces limit layers of linens on bed 9. Turn and reposition every 1-2 hours in bed and every 1 hour in chair as tolerated 10. Weight shifts every 15 minutes while up in chair 11. Offloading with pillows or device to keep heels elevated off bed 12. Monitor skin at least every shift 13. Inspect under medical devices twice a day WOUND TREATMENT RECOMMENDATIONS: Continue current orders.
--- NOTE | 2017-02-23 13:49 | NUR ---
Patient was ambulating into the bathroom upon arrival for Occupational Therapy. Patient stated "it takes me a while". OTR offered to return at a later time. Dalia Dominguez OTR/Jarrod
--- NOTE | 2017-02-23 13:51 | NUR ---
PHYSICAL THERAPY PAtient eating lunch and on way to restroom. Mini Li,PT
--- NOTE | 2017-02-23 14:21 | NUR ---
PRN ZOFRAN GIVEN FOR PT REPORT NAUSEA.
--- NOTE | 2017-02-23 15:21 | NUR ---
PRN ZOFRAN EFFECTIVE, PT DENIES NAUSEA.
--- NOTE | 2017-02-23 15:23 | NUR ---
PHYSICAL THERAPY PAtient respetfully declines PT this date due to pain and edema. Requests another day. Will check on patient tomorrow. Thank you for this referral. Mini Li,PT
--- NOTE | 2017-02-23 16:19 | NUR ---
Patient approached for Occupational Therapy evaluation this date on 4. Patient reports that she is independent in all mobility, xfers and self care and did not require an OT evaluation at this time. D/C OT referral at this time. Thank you for this referral. Dalia Dominguez OTR/l
--- NOTE | 2017-02-23 17:10 | NUR ---
PRN PAIN MED GIVEN FOR PT REPORT 7/10 LEFT LOWER LEG PAIN.
--- NOTE | 2017-02-23 18:10 | NUR ---
PRN PAIN MED EFFECTIVE, PT REPORTS PAIN 5/10 TO LEFT LOWER LEG.
--- NOTE | 2017-02-23 20:30 | NUR ---
SPOKE WITH DR. SANTACRUZ AT THIS TIME. PATIENT REQUESTING DOSE OF MORPHINE FOR NIGHTTIME DUE TO THE CELLULITIS IN HER LEG BEING MORE PAINFUL THAN HER USUAL LYMPHEDEMA PAIN. DR. SANTACRUZ NOTIFIED THAT PATIENT HAS 1MG THIS MORNING AND THAT THIS WAS EFFECTIVE. PATIENTS BLOOD PRESSURE 104/68. DR. SANTACRUZ NOTIFIED THAT SHE WAS RUNNING LOW, BUT JUST FINISHED A BAG OF NORMAL SALINE. DR. SANTACRUZ STATED SHE WOULD PUT IN FOR THE MORPHINE AND TO KEEP A CLOSE EYE OUT ON THE BLOOD PRESSURE
[2017-02-24] VITALS: BP 104/59
--- NOTE | 2017-02-24 03:02 | NUR ---
PRN PERCOCET GIVEN FOR PT COMPLAINTS OF LEG PAIN RATING IT A 7 OUT OF 10. CALL LIGHT WITHIN REACH, WILL MONITOR
--- NOTE | 2017-02-24 04:00 | NUR ---
PRN MEDICATION APPEARS EFFECTIVE, PT SLEEPING
[2017-02-24 06:00] LABS: ALBUMIN 2.9 gm/dl (3.1-4.5); ALKALINE PHOSPHATASE 53 U/L (45-117); BUN 12 mg/dl (7-24); CHLORIDE 106 mmol/L (98-107); CREATININE 0.93 mg/dL (0.55-1.02); POTASSIUM 3.8 mmol/L (3.5-5.1); SGOT/AST 5 IU/L (3-35); SGPT/ALT 15 U/L (12-78); SODIUM 136 mmol/L (136-145)
[2017-02-24 06:04] LABS: BASO % 0.2 % (0.0-1.0); EOS # 0.1 10*3/uL (0.0-0.4); EOS % 2.7 % (1.0-4.0); HEMATOCRIT 32.5 % (37.0-47.0); HEMOGLOBIN 9.9 g/dl (12.0-16.0); LYMPH # 1.1 10*3/uL (1.3-4.4); LYMPH % 20.8 % (27.0-41.0); MEAN CELL VOLUME 92.1 fl (81.0-99.0); MEAN CORPUSCULAR HGB CONC 30.5 g/dl (33.0-37.0); MEAN PLATELET VOLUME 12.1 fl (9.6-12.3); MONO # 0.3 10*3/uL (0.1-1.0); MONO % 5.9 % (3.0-9.0); NEUT # 3.7 10*3/uL (2.3-7.9); PLATELET COUNT AUTOMATED 169 10*3/uL (130-400); RED BLOOD COUNT 3.53 10*6/uL (4.10-5.10); RED CELL DISTRI WIDTH 14.2 % (0-14.5); WHITE BLOOD COUNT 5.2 10*3/uL (4.8-10.8)
[2017-02-24 08:00] VITALS: BP 96/68
--- NOTE | 2017-02-24 09:00 | NUR ---
case coordinator visits with patient, patient denies any home needs
[2017-02-24 12:00] VITALS: BP 119/62
--- NOTE | 2017-02-24 14:42 | NUR ---
PHYSICAL THERAPY PAtient requests no PT this date secondary to Sever LE pain. Patient reports Ambulating to restroom multiple times daily. This PT inquired if patient needed wh alker to assist with decreasing pain LE- patient refused. Will check on patient at a later date. Thank you for this referral. Mini Li,PT
[2017-02-24 15:12] LABS: RETICULOCYTE % 1.08 % (0.50-2.50)
[2017-02-24 15:25] LABS: IRON 12 ug/dL (50-170); TOTAL IRON BINDING CAPACITY 243 ug/dl (250-450)
[2017-02-24 16:00] VITALS: BP 109/72
[2017-02-24 20:00] VITALS: BP 108/37; BP 112/73
--- NOTE | 2017-02-24 20:04 | NUR ---
patient medicated slowly with 1 mg morphine as per prn order for c/o lower leg pain. rated pain a 8/10 with 10 being the worst. see emar. reinforced use of call light.
--- NOTE | 2017-02-24 22:00 | NUR ---
MEDICATION GIVEN EARLIER EFFECTIVE FOR PAIN.
[2017-02-25] VITALS: BP 100/64; BP 136/70
--- NOTE | 2017-02-25 03:48 | NUR ---
PATIENT MEDICATED WITH PERCOCET PER PRN ORDER AND PATIENT REQUEST FOR C/O L. LEG PAIN. RATED PAIN A 7-8/10 WITH 10 BEING THE WORST. SEE EMAR. REINFORCED USE OF CALL LIGHT.
[2017-02-25 07:12] LABS: HEMATOCRIT 33.5 % (37.0-47.0); HEMOGLOBIN 10.5 g/dl (12.0-16.0); MEAN CELL VOLUME 93.1 fl (81.0-99.0); MEAN CORPUSCULAR HGB 29.2 pg (27.0-31.0); MEAN CORPUSCULAR HGB CONC 31.3 g/dl (33.0-37.0); MEAN PLATELET VOLUME 11.9 fl (9.6-12.3); PLATELET COUNT AUTOMATED 173 10*3/uL (130-400); WHITE BLOOD COUNT 4.4 10*3/uL (4.8-10.8)
[2017-02-25 07:32] LABS: BUN 9 mg/dl (7-24); CHLORIDE 107 mmol/L (98-107); CREATININE 0.92 mg/dL (0.55-1.02); POTASSIUM 4.1 mmol/L (3.5-5.1); SODIUM 137 mmol/L (136-145)
[2017-02-25 08:00] VITALS: BP 97/57
[2017-02-25 08:00] LABS: PLATELET SUFFICIENCY NORMAL (NORMAL); TOTAL CELLS COUNTED 100 #CELLS
[2017-02-25] MEDS ORDERED: Vitamin D PO (09:06)
[2017-02-25] MEDS ORDERED: CEPHALEXIN500 M1 PO (09:08)
[2017-02-25] MEDS ORDERED: FEROSUL325 M1 PO (09:08)
--- NOTE | 2017-02-25 09:37 | NUR ---
case management visits with patient, patient states she is probably going home today and denies any home needs
--- NOTE | 2017-02-25 10:30 | NUR ---
PHYSICAL THERAPY Per d/c planning patient being discharged this date. saigecristino Li,PT
--- NOTE | 2017-02-25 10:43 | NUR ---
[facility] Discharge instructions reviewed with patient/family. Patient receptive and verbalizes understanding. Follow-up care arranged. Written instructions given to patient/family. CURRY GOVEA
== END 2017-02-25 10:43 | disposition home or self-care (01) | DRG 872 ==
LOC: ED 10:04 → EDHOLD 13:03 → 4E 13:03
PROVIDERS: Emergency Medicine; Registered Nurse; Student in an Organized Health Care Education/Training Program; ADMIT Emergency Medicine
PROC: 5A09357 Assistance with Respiratory Ventilation, Less than 24 Consecutive Hours, Continuous Positive Airway Pressure (ICD-10-PCS; principal; 2017-02-22)
PROC: 5A09357 Assistance with Respiratory Ventilation, Less than 24 Consecutive Hours, Continuous Positive Airway Pressure (ICD-10-PCS; 2017-02-23)
DX: A41.9 Sepsis, unspecified organism (principal); I20.1 Angina pectoris with documented spasm; I95.9 Hypotension, unspecified; E44.0 Moderate protein-calorie malnutrition; I50.32 Chronic diastolic (congestive) heart failure; E66.01 Morbid (severe) obesity due to excess calories; L03.116 Cellulitis of left lower limb; Z68.43 Body mass index [BMI] 50.0-59.9, adult; D50.9 Iron deficiency anemia, unspecified; I89.0 Lymphedema, not elsewhere classified; N18.9 Chronic kidney disease, unspecified; F32.9 Major depressive disorder, single episode, unspecified; F41.9 Anxiety disorder, unspecified; E55.9 Vitamin D deficiency, unspecified; G47.33 Obstructive sleep apnea (adult) (pediatric); R00.1 Bradycardia, unspecified; D64.9 Anemia, unspecified; Z90.49 Acquired absence of other specified parts of digestive tract; Z98.51 Tubal ligation status; Z80.42 Family history of malignant neoplasm of prostate; Z79.82 Long term (current) use of aspirin; Z79.1 Long term (current) use of non-steroidal anti-inflammatories (NSAID); Z79.899 Other long term (current) drug therapy

== ENCOUNTER 2017-03-09 14:14 | Inpatient (IN) | payer OTHER ==
[~2017-03-09] VITALS: Ht 165.1 cm; Wt 143.9 kg
[~2017-03-09 14:14] MED LIST changes: +BACITRACIN 500U30 GM T; +CEPHALEXIN500 M1 PO; +CETIRIZINE10 MG PO; +FEROSUL325 M1 PO; +PERCOCET 5-3251 EACH PO; +TRAZODONE150 MG PO; +Vitamin D PO
[2017-03-09 14:23] VITALS: BP 129/84
[2017-03-09 14:37] LABS: BASO % 0.3 % (0.0-1.0); EOS # 0.1 10*3/uL (0.0-0.4); EOS % 1.4 % (1.0-4.0); HEMATOCRIT 36.4 % (37.0-47.0); HEMOGLOBIN 11.1 g/dl (12.0-16.0); LYMPH # 1.3 10*3/uL (1.3-4.4); LYMPH % 19.7 % (27.0-41.0); MEAN CELL VOLUME 91.5 fl (81.0-99.0); MEAN CORPUSCULAR HGB 27.9 pg (27.0-31.0); MEAN CORPUSCULAR HGB CONC 30.5 g/dl (33.0-37.0); MEAN PLATELET VOLUME 11.2 fl (9.6-12.3); MONO # 0.4 10*3/uL (0.1-1.0); MONO % 5.7 % (3.0-9.0); NEUT # 4.7 10*3/uL (2.3-7.9); NEUT % 72.3 % (47.0-73.0); PLATELET COUNT AUTOMATED 224 10*3/uL (130-400); RED BLOOD COUNT 3.98 10*6/uL (4.10-5.10); RED CELL DISTRI WIDTH 14.1 % (0-14.5); WHITE BLOOD COUNT 6.5 10*3/uL (4.8-10.8)
[2017-03-09 14:49] LABS: ACT PARTIAL THROMBO TIME 24.8 SECONDS (20.8-31.5)
[2017-03-09 15:00] LABS: ALBUMIN 3.7 gm/dl (3.1-4.5); ALKALINE PHOSPHATASE 80 U/L (45-117); BUN 9 mg/dl (7-24); CHLORIDE 103 mmol/L (98-107); CREATININE 1.09 mg/dL (0.55-1.02); POTASSIUM 3.8 mmol/L (3.5-5.1); SGOT/AST 14 IU/L (3-35); SGPT/ALT 25 U/L (12-78); SODIUM 139 mmol/L (136-145)
[2017-03-09 15:02] LABS: TROPONIN I < 0.015 ng/ml (<0.045)
[2017-03-09 15:08] VITALS: BP 128/74
[2017-03-09 15:22] VITALS: BP 138/70
--- NOTE | 2017-03-09 15:42 | NUR ---
PT MEDICATED PER EMAR. WILL CONT TO MONITOR.
[2017-03-09 16:00] VITALS: BP 144/84
--- NOTE | 2017-03-09 16:15 | NUR ---
PT REPORTS RELIEF AFTER MORPHINE ADMIN. STABLE AND READY FOR TRANSPORT.
--- NOTE | 2017-03-09 16:30 | NUR ---
Time: 1629 A 47 year old FEMALE admitted to 5E under services of JAQUELIN GUILLORY DO. Pt. arrived via bed from ER. Chief complaint: CHEST PAIN, CELLULITIS. CADEN GUERRERO
--- NOTE | 2017-03-09 16:40 | NUR ---
DR. MARTINEZ IN TO SEE PATIENT AND DISCUSS CHEST PAIN AND CELLULITIS.
[2017-03-09 16:45] VITALS: BP 144/84
--- NOTE | 2017-03-09 17:00 | NUR ---
PICTURES OF WOUNDS TAKEN, CONSENT SIGNED, REHABILITATION WORKER AWARE OF WOUNDS AND PHOTOS. NO WOUND ORDERS YET.
--- NOTE | 2017-03-09 18:58 | NUR ---
PATIENT GIVEN NORCO PER PATIENT REQUEST FOR LEG AND CHEST PAIN RATED A 6/10 AND DESCRIBED A THROBBING PAIN. WILL CONTINUE TO MONITOR AND REASSESS.
--- NOTE | 2017-03-09 19:52 | NUR ---
PT HAD EMESIS AFTER ADMINISTRATION OF PAIN MEDICATION, WAS GIVEN ZOFRAN FOR NAUSEA BUT PT EJECTED PAIN PILL THAT WAS GIVEN PREVIOUSLY WITH EMESIS. DR HARRISON NOTIFIED AND PUT IN ORDER FOR ONE TIME ROSLYN HEIGHTS. WILL MONITOR FOR EFFECTIVENESS.
[2017-03-09 20:00] VITALS: BP 124/79
--- NOTE | 2017-03-09 21:32 | NUR ---
PT MEDICATED WITH NORCO FOR C/O CHEST PAIN 6/10 AND LEG PAIN RATED 8/10. WILL MONITOR EFFECTIVENESS.
[2017-03-10] VITALS: BP 90/68
[2017-03-10 00:05] VITALS: BP 90/68
--- NOTE | 2017-03-10 00:13 | NUR ---
DR HARRISON NOTIFIED OF PATIENTS MANUAL BP OF 90/68 AND NO RELIEF OF PAIN AFTER MEDICATION. NO FURTHER EMESIS NOTED. PT REMAINS SEATED IN BED WITH CALL LIGHT IN REACH.
--- NOTE | 2017-03-10 00:45 | NUR ---
CALLED TO CONFIRM FLUID ORDER ON PT WHO HAS CHRONIC LYMPHEDEMA. DR HARRISON GAVE VERBAL ORDER OF NS @125/hr.
[2017-03-10 04:00] VITALS: BP 84/52
[2017-03-10 06:46] LABS: BASO % 0.6 % (0.0-1.0); EOS # 0.1 10*3/uL (0.0-0.4); EOS % 2.2 % (1.0-4.0); HEMOGLOBIN 10.1 g/dl (12.0-16.0); LYMPH # 1.8 10*3/uL (1.3-4.4); LYMPH % 35.8 % (27.0-41.0); MEAN CELL VOLUME 91.4 fl (81.0-99.0); MEAN CORPUSCULAR HGB CONC 30.6 g/dl (33.0-37.0); MEAN PLATELET VOLUME 11.5 fl (9.6-12.3); MONO # 0.3 10*3/uL (0.1-1.0); MONO % 6.5 % (3.0-9.0); NEUT # 2.7 10*3/uL (2.3-7.9); NEUT % 54.7 % (47.0-73.0); PLATELET COUNT AUTOMATED 208 10*3/uL (130-400); RED BLOOD COUNT 3.61 10*6/uL (4.10-5.10); RED CELL DISTRI WIDTH 14.1 % (0-14.5); WHITE BLOOD COUNT 4.9 10*3/uL (4.8-10.8)
[2017-03-10 06:56] LABS: ALBUMIN 3.4 gm/dl (3.1-4.5); ALKALINE PHOSPHATASE 62 U/L (45-117); BUN 10 mg/dl (7-24); CHLORIDE 105 mmol/L (98-107); PHOSPHOROUS 4.3 mg/dL (2.5-4.9); POTASSIUM 3.9 mmol/L (3.5-5.1); SGOT/AST 14 IU/L (3-35); SGPT/ALT 20 U/L (12-78); SODIUM 139 mmol/L (136-145); TOTAL PROTEIN 6.3 gm/dL (6.4-8.2)
[2017-03-10 08:00] VITALS: BP 102/60
--- NOTE | 2017-03-10 09:00 | NUR ---
Basket Person in to talk to patient. Patient states lives at home with boyfriend. There are few steps in the home. Physician: [place] [facility]: [facility] Home health services: none Patient's level of ADLs: MINIMAL ASSIST Patient has working utilities: all working DME: cpap, walker Follow-up physician's appointment after d/c: will be made by hospitalist nurse director upon discharge Does patient want to access PORTAL?: no Discharge plan discussed with patientm patient lives at home with boyfriend, she uses a walker for ambulation, patient states she will be going back home when able. she also stated she would like to have VNA, but isn't sure if her insurance would cover it, will have planner internship contact local VNA and see if they take patient's insurance. KAREN NGO
[2017-03-10 09:10] VITALS: BP 108/80
--- NOTE | 2017-03-10 09:20 | NUR ---
MEDICATED WITH PRN PO PERCOCET FOR C/O CHEST AND BILATERAL LEGS PAIN.
--- NOTE | 2017-03-10 11:35 | NUR ---
PRN PO PERCOCET NOT EFFECTIVE AT ALL FOR CHEST PAIN OR BILATERAL LEGS PAIN, PER PATIENT. PHONED DR. ALAMO, WHO IS REVIEWING HER CHART.
--- NOTE | 2017-03-10 11:52 | NUR ---
DISCHARGE ORDERS HAVE BEEN ENTERED.
--- NOTE | 2017-03-10 12:00 | NUR ---
WOUND PHOTOS NOT TAKEN PRIOR TO DISCHARGE D/T PATIENT WILL BE DISCHARGED LESS THAN 24 HOURS AFTER ADMISSION.
--- NOTE | 2017-03-10 12:29 | NUR ---
Discharge instructions reviewed with patient. Patient receptive and verbalizes understanding. Follow-up care arranged. Written instructions given to patient. PATIENT FINISHING LUNCH, TAKING AFTERNOON MEDICATIONS, PLANS TO VISIT A FRIEND IN ER BY WHEELCHAIR BEFORE LEAVING ER LOBBY FOR HOME BY PRIVATE VEHICLE WITH RELATIVE. JULIAN FISCHER
--- NOTE | 2017-03-10 12:56 | NUR ---
PATIENT DISCHARGED TO ER [facility].
== END 2017-03-10 12:56 | disposition home or self-care (01) | DRG 391 ==
LOC: ED 14:14 → 5E 16:02 → EDHOLD 16:02 → 5E 16:04
PROVIDERS: Emergency Medicine; Internal Medicine; ADMIT Internal Medicine
DX: K21.9 Gastro-esophageal reflux disease without esophagitis (principal); N17.0 Acute kidney failure with tubular necrosis; E66.01 Morbid (severe) obesity due to excess calories; I50.32 Chronic diastolic (congestive) heart failure; I20.1 Angina pectoris with documented spasm; Z68.43 Body mass index [BMI] 50.0-59.9, adult; F41.9 Anxiety disorder, unspecified; R07.89 Other chest pain; D64.9 Anemia, unspecified; G47.33 Obstructive sleep apnea (adult) (pediatric); F32.9 Major depressive disorder, single episode, unspecified; B37.2 Candidiasis of skin and nail; E55.9 Vitamin D deficiency, unspecified; I89.0 Lymphedema, not elsewhere classified; Z79.82 Long term (current) use of aspirin; Z79.899 Other long term (current) drug therapy; Z90.49 Acquired absence of other specified parts of digestive tract; Z98.51 Tubal ligation status; Z98.891 History of uterine scar from previous surgery; Z72.89 Other problems related to lifestyle; Z80.8 Family history of malignant neoplasm of other organs or systems; Z85.41 Personal history of malignant neoplasm of cervix uteri

== ENCOUNTER → 2017-05-17 | Outpatient (CLI) | payer OTHER ==
[2017-05-19 00:02] LABS: CLONAZEPAM (KLONOPIN),SERUM 8 ng/mL (20-70)
== END | disposition home or self-care (01) ==
LOC: LAB 14:57
PROVIDERS: Nurse Practitioner Family
DX: F31.32 Bipolar disorder, current episode depressed, moderate (principal)

== ENCOUNTER 2017-05-28 18:03 | Inpatient (IN) | payer OTHER ==
[~2017-05-28] VITALS: Ht 165.1 cm; Wt 133.6 kg
--- NOTE | ~2017-05-28 | EKG ---
[place], [place] ELECTROCARDIOGRAM REPORT NAME: STERLING PAN UNIT #: [id number] ROOM: 426 DOCTOR: ROSE MONTALVO,NAVEED BIRTHDATE: [birth year] DOS: 05/28/2017 TIME: 2111 hours IMPRESSION: 1. Sinus rhythm. 2. Low voltage complex. 3. Nonspecific ST-T changes. 4. Prolonged QT interval. NAVEED ROSE MD CM:EKGRPT:ELECTROCARDIOGRAM REPORT [id number] NAVEED ROSE MD
--- NOTE | ~2017-05-28 | EKG ---
[place], [place] ELECTROCARDIOGRAM REPORT NAME: STERLING PAN UNIT #: [id number] ROOM: 426 DOCTOR: ROSE MONTALVO,NAVEED BIRTHDATE: [birth year] DOS: 05/28/2017 TIME: 1807 hours. IMPRESSION: 1. Sinus rhythm, sinus tachycardia. 2. Borderline left atrial enlargement. 3. Low voltage in the precordial leads. 4. Nondiagnostic lateral ST-T changes. 5. Baseline artifacts. NAVEED ROSE MD CM:EKGRPT:ELECTROCARDIOGRAM REPORT [id number] NAVEED ROSE MD
--- NOTE | ~2017-05-28 | CON ---
[place], [place] REPORT OF CONSULTATION NAME: STERLING PAN [facility] #: [id number] UNIT #: [id number] ROOM: 426 DOCTOR: NAVEED ROSE MD BIRTHDATE: [birth year] DOS: 05/29/2017 REASON FOR CONSULTATION: Chest pain and shortness of breath. HISTORY OF PRESENT ILLNESS: The patient is a 47-year-old patient with history of Prinzmetal angina, lymphedema, was presented to the hospital for chest pain and also some dyspnea. She describes intermittent chest pain in the midsternal area at rest. This pain is the heavy feeling with some radiation to the left arm. She did take 2 sublingual nitroglycerin which helped her pain for a short period and then the pain recurred. She also noted to have some redness in the left leg as well as bilateral edema. She also complained of mild exertional dyspnea, but no PND, no fever and chills, no cough. No palpitation or dizziness. No neurologic symptoms. No genitourinary symptoms. She did have a cardiac catheterization about a year ago in [place] and was told that she has Prinzmetal angina. Cardiology consulted for further recommendations. REVIEW OF SYSTEMS: Review of the 8 systems negative except as mentioned above. PAST MEDICAL HISTORY: 1. Prinzmetal angina. 2. Lymphedema. 3. Anemia. 4. Morbid obesity. 5. Anxiety. 6. Obstructive sleep apnea. PAST SURGICAL HISTORY: History of cholecystectomy, gastric bypass, tonsillectomy, tubal ligation and . SOCIAL HISTORY: The patient does not smoke or use illicit drugs. Occasional social alcohol. FAMILY HISTORY: Father had prostate cancer and lymphedema. Mother at the age of 22, cause is suicide. ALLERGIES: Reviewed. HOME MEDICATIONS: Reviewed. PHYSICAL EXAMINATION: VITAL SIGNS: Blood pressure 120/80, pulse 68, respiration is 18, weight 133.5 kilos with a BMI 49. GENERAL: The patient is alert, oriented, no acute distress. HEENT: Pupils round. No jaundice. Tongue was moist. NECK: Supple, no distended neck veins, no carotid bruit. CHEST: Symmetrical, nontender. LUNGS: Clear to auscultation bilaterally. HEART: Regular rhythm, no S3. ABDOMEN: Obese. Bowel sounds normal. EXTREMITIES: The patient bilateral edema as well as some left leg redness. [place], [place] REPORT OF CONSULTATION NAME: STERLING PAN UNIT #: [id number] ROOM: 426 DOCTOR: ROSE MONTALVO,NAVEED BIRTHDATE: [birth year] Distal pulses are fair. RECTAL: Deferred. NEUROLOGIC: The patient is alert, oriented. No focal neurologic deficit. REVIEW OF THE DIAGNOSTIC TESTS: EKG, labs, and imaging studies reviewed. Her CK-MB and troponins are negative x 1. Hemoglobin 11.2, creatinine 1.12. IMPRESSION: 1. Chest pain, atypical, so far cardiac enzymes are unremarkable, the patient had a cardiac catheterization about a year ago, showed no significant obstructive disease. 2. History of Prinzmetal angina. 3. Anemia. Monitor her hemoglobins. 4. Abrmt-oi-wuhzbqv kidney disease. 5. Lymphedema of the left leg cellulitis. 6. Morbid obesity. RECOMMENDATIONS: 1. Continue current medications. 2. Cycle her cardiac enzymes. 3. The patient had a stress test a few months ago. 4. No further cardiac testing at this time. 5. Risk factor modification was discussed. 6. If the blood pressure tolerates, consider calcium channel blockers for her Prinzmetal angina. NAVEED ROSE MD CM:CONSTR:REPORT OF CONSULTATION 0023 05/30/17 0909 interface
--- NOTE | ~2017-05-28 | EKG ---
[place], [place] ELECTROCARDIOGRAM REPORT NAME: STERLING PAN UNIT #: [id number] ROOM: 426 DOCTOR: ROSE MONTALVO,NAVEED BIRTHDATE: [birth year] DOS: 05/28/2017 TIME: 2345 hours IMPRESSION: 1. Sinus rhythm. 2. Low voltage complexes. 3. Nonspecific ST-T changes. 4. Prolonged QT interval, consider drugs or electrolyte imbalance. NAVEED ROSE MD CM:EKGRPT:ELECTROCARDIOGRAM REPORT 1203 1258 NAVEED ROSE MD
[2017-05-28 18:12] VITALS: BP 114/67
[2017-05-28] MEDS ORDERED: AMITRIPTYLINE100 M1 PO (18:33)
[2017-05-28 18:45] LABS: HEMATOCRIT 38.1 % (37.0-47.0); HEMOGLOBIN 11.7 g/dl (12.0-16.0); MEAN CELL VOLUME 91.6 fl (81.0-99.0); MEAN CORPUSCULAR HGB 28.1 pg (27.0-31.0); MEAN CORPUSCULAR HGB CONC 30.7 g/dl (33.0-37.0); MEAN PLATELET VOLUME 11.2 fl (9.6-12.3); PLATELET COUNT AUTOMATED 180 10*3/uL (130-400); RED BLOOD COUNT 4.16 10*6/uL (4.10-5.10); RED CELL DISTRI WIDTH 13.7 % (0-14.5); WHITE BLOOD COUNT 13.6 10*3/uL (4.8-10.8)
[2017-05-28 18:55] LABS: ACT PARTIAL THROMBO TIME 26.3 SECONDS (20.8-31.5); INTERNATIONAL NORM RATIO 1.1 (2.0-3.5)
[2017-05-28 19:03] LABS: ALBUMIN 3.4 gm/dl (3.1-4.5); ALKALINE PHOSPHATASE 81 U/L (45-117); BUN 15 mg/dl (7-24); CHLORIDE 101 mmol/L (98-107); CREATININE 1.32 mg/dL (0.55-1.02); POTASSIUM 4.2 mmol/L (3.5-5.1); SGOT/AST 14 IU/L (3-35); SGPT/ALT 17 U/L (12-78); SODIUM 137 mmol/L (136-145); TOTAL PROTEIN 7.2 gm/dL (6.4-8.2)
[2017-05-28 19:04] LABS: TOTAL CELLS COUNTED 100 #CELLS
[2017-05-28 19:05] LABS: PLATELET SUFFICIENCY NORMAL (NORMAL); POLYCHROMASIA SLIGHT; TROPONIN I < 0.015 ng/ml (<0.045)
[2017-05-28 19:12] VITALS: BP 114/67
[2017-05-28 19:39] VITALS: BP 118/85
[2017-05-28 20:16] VITALS: BP 113/93
[2017-05-28] MEDS ORDERED: FEOSOL325 MG PO (20:57)
[2017-05-28 21:30] VITALS: BP 113/72; BP 113/73
[2017-05-29] VITALS: BP 98/50
[2017-05-29 06:29] LABS: BASO % 0.2 % (0.0-1.0); EOS # 0.2 10*3/uL (0.0-0.4); EOS % 1.9 % (1.0-4.0); HEMATOCRIT 33.2 % (37.0-47.0); HEMOGLOBIN 10.2 g/dl (12.0-16.0); LYMPH # 1.3 10*3/uL (1.3-4.4); LYMPH % 15.6 % (27.0-41.0); MEAN CORPUSCULAR HGB 28.6 pg (27.0-31.0); MEAN CORPUSCULAR HGB CONC 30.7 g/dl (33.0-37.0); MEAN PLATELET VOLUME 11.4 fl (9.6-12.3); MONO # 0.4 10*3/uL (0.1-1.0); MONO % 4.8 % (3.0-9.0); NEUT # 6.4 10*3/uL (2.3-7.9); NEUT % 77.1 % (47.0-73.0); PLATELET COUNT AUTOMATED 169 10*3/uL (130-400); RED BLOOD COUNT 3.57 10*6/uL (4.10-5.10); RED CELL DISTRI WIDTH 13.8 % (0-14.5); WHITE BLOOD COUNT 8.3 10*3/uL (4.8-10.8)
[2017-05-29 06:54] LABS: ACT PARTIAL THROMBO TIME 30.7 SECONDS (20.8-31.5); BUN 14 mg/dl (7-24); CHLORIDE 105 mmol/L (98-107); CHOLESTEROL 112 mg/dL (<200); CREATININE 1.12 mg/dL (0.55-1.02); INTERNATIONAL NORM RATIO 1.1 (2.0-3.5); POTASSIUM 3.9 mmol/L (3.5-5.1); SODIUM 139 mmol/L (136-145); TRIGLYCERIDES 87 mg/dl (<150); VLDL CHOLESTEROL 17 mg/dL (6-40)
[2017-05-29 07:05] LABS: HDL CHOLESTEROL 48 mg/dl (40-60); LDL CHOLESTEROL 47 mg/dL (9-159)
[2017-05-29 08:00] VITALS: BP 120/80
[2017-05-29 12:00] VITALS: BP 99/66
[2017-05-29 16:00] VITALS: BP 88/52; BP 92/56
[2017-05-29 18:01] VITALS: BP 82/52
[2017-05-29 20:00] VITALS: BP 108/64
[2017-05-30] VITALS: BP 102/67
[2017-05-30 05:55] VITALS: BP 122/78
[2017-05-30 06:39] LABS: BASO % 0.4 % (0.0-1.0); EOS # 0.2 10*3/uL (0.0-0.4); HEMATOCRIT 36.8 % (37.0-47.0); HEMOGLOBIN 11.2 g/dl (12.0-16.0); LYMPH # 1.1 10*3/uL (1.3-4.4); LYMPH % 22.3 % (27.0-41.0); MEAN CELL VOLUME 94.1 fl (81.0-99.0); MEAN CORPUSCULAR HGB 28.6 pg (27.0-31.0); MEAN CORPUSCULAR HGB CONC 30.4 g/dl (33.0-37.0); MEAN PLATELET VOLUME 11.4 fl (9.6-12.3); MONO # 0.3 10*3/uL (0.1-1.0); MONO % 6.6 % (3.0-9.0); NEUT # 3.3 10*3/uL (2.3-7.9); NEUT % 65.9 % (47.0-73.0); PLATELET COUNT AUTOMATED 194 10*3/uL (130-400); RED BLOOD COUNT 3.91 10*6/uL (4.10-5.10); RED CELL DISTRI WIDTH 13.9 % (0-14.5)
[2017-05-30 07:26] LABS: CHLORIDE 103 mmol/L (98-107); POTASSIUM 4.6 mmol/L (3.5-5.1); SODIUM 138 mmol/L (136-145)
[2017-05-30 07:35] LABS: ALKALINE PHOSPHATASE 76 U/L (45-117); BUN 12 mg/dl (7-24); SGOT/AST 10 IU/L (3-35); SGPT/ALT 17 U/L (12-78); TOTAL PROTEIN 6.8 gm/dL (6.4-8.2)
[2017-05-30 08:00] VITALS: BP 99/62
[2017-05-30 12:00] VITALS: BP 100/82
[2017-05-30 16:00] VITALS: BP 116/77
[2017-05-30 20:00] VITALS: BP 109/65
[2017-05-31] VITALS: BP 110/70
[2017-05-31 06:20] LABS: BASO % 0.6 % (0.0-1.0); EOS # 0.2 10*3/uL (0.0-0.4); HEMATOCRIT 33.1 % (37.0-47.0); HEMOGLOBIN 10.2 g/dl (12.0-16.0); LYMPH # 1.3 10*3/uL (1.3-4.4); LYMPH % 26.9 % (27.0-41.0); MEAN CELL VOLUME 93.2 fl (81.0-99.0); MEAN CORPUSCULAR HGB 28.7 pg (27.0-31.0); MEAN CORPUSCULAR HGB CONC 30.8 g/dl (33.0-37.0); MEAN PLATELET VOLUME 11.4 fl (9.6-12.3); MONO # 0.3 10*3/uL (0.1-1.0); MONO % 6.6 % (3.0-9.0); NEUT # 2.9 10*3/uL (2.3-7.9); NEUT % 60.3 % (47.0-73.0); PLATELET COUNT AUTOMATED 181 10*3/uL (130-400); RED BLOOD COUNT 3.55 10*6/uL (4.10-5.10); RED CELL DISTRI WIDTH 13.7 % (0-14.5); WHITE BLOOD COUNT 4.8 10*3/uL (4.8-10.8)
[2017-05-31 06:30] LABS: ALBUMIN 2.9 gm/dl (3.1-4.5); ALKALINE PHOSPHATASE 65 U/L (45-117); BUN 11 mg/dl (7-24); CHLORIDE 103 mmol/L (98-107); CREATININE 1.02 mg/dL (0.55-1.02); POTASSIUM 4.3 mmol/L (3.5-5.1); SGOT/AST 10 IU/L (3-35); SGPT/ALT 15 U/L (12-78); SODIUM 140 mmol/L (136-145); TOTAL PROTEIN 6.2 gm/dL (6.4-8.2)
[2017-05-31 08:00] VITALS: BP 106/71
[2017-05-31] MEDS ORDERED: B12,B-12,B 12500 MC1 PO (11:59)
[2017-05-31] MEDS ORDERED: NATURE'S BLEND F1 MG PO (11:59)
[2017-05-31] MEDS ORDERED: CEPHALEXIN500 M1 PO (11:59)
== END 2017-05-31 13:51 | disposition home or self-care (01) | DRG 871 ==
LOC: ED 18:03 → 4E 20:23 → EDHOLD 20:23 → 4E 20:25
PROVIDERS: Emergency Medicine; Internal Medicine; Student in an Organized Health Care Education/Training Program
PROC: 5A09357 Assistance with Respiratory Ventilation, Less than 24 Consecutive Hours, Continuous Positive Airway Pressure (ICD-10-PCS; principal; 2017-05-30)
DX: A41.9 Sepsis, unspecified organism (principal); N17.0 Acute kidney failure with tubular necrosis; E66.01 Morbid (severe) obesity due to excess calories; I20.1 Angina pectoris with documented spasm; I50.32 Chronic diastolic (congestive) heart failure; Z68.42 Body mass index [BMI] 45.0-49.9, adult; L03.116 Cellulitis of left lower limb; E53.8 Deficiency of other specified B group vitamins; R73.9 Hyperglycemia, unspecified; I89.0 Lymphedema, not elsewhere classified; F32.9 Major depressive disorder, single episode, unspecified; F41.9 Anxiety disorder, unspecified; G47.33 Obstructive sleep apnea (adult) (pediatric); E55.9 Vitamin D deficiency, unspecified; N18.3 Chronic kidney disease, stage 3 (moderate); G89.29 Other chronic pain; K21.9 Gastro-esophageal reflux disease without esophagitis; D64.9 Anemia, unspecified; Z79.899 Other long term (current) drug therapy; Z85.41 Personal history of malignant neoplasm of cervix uteri; Z92.21 Personal history of antineoplastic chemotherapy; Z90.49 Acquired absence of other specified parts of digestive tract; Z90.89 Acquired absence of other organs; Z98.51 Tubal ligation status; Z98.84 Bariatric surgery status; Z81.8 Family history of other mental and behavioral disorders; Z84.89 Family history of other specified conditions; Z79.82 Long term (current) use of aspirin

== ENCOUNTER 2017-09-07 15:46 | Inpatient (IN) | payer OTHER ==
[~2017-09-07] VITALS: Ht 165.1 cm; Wt 134.9 kg
[~2017-09-07 15:46] MED LIST changes: +AMITRIPTYLINE100 M1 PO; +B12,B-12,B 12500 MC1 PO; +FEOSOL325 MG PO; +NATURE'S BLEND F1 MG PO
[2017-09-07 15:50] VITALS: BP 101/60
[2017-09-07 16:15] VITALS: BP 102/64
[2017-09-07 16:35] LABS: HEMATOCRIT 40.9 % (37.0-47.0); HEMOGLOBIN 12.9 g/dl (12.0-16.0); MEAN CELL VOLUME 91.5 fl (81.0-99.0); MEAN CORPUSCULAR HGB 28.9 pg (27.0-31.0); MEAN CORPUSCULAR HGB CONC 31.5 g/dl (33.0-37.0); MEAN PLATELET VOLUME 11.8 fl (9.6-12.3); PLATELET COUNT AUTOMATED 177 10*3/uL (130-400); RED BLOOD COUNT 4.47 10*6/uL (4.10-5.10); RED CELL DISTRI WIDTH 13.9 % (0-14.5); WHITE BLOOD COUNT 13.6 10*3/uL (4.8-10.8)
[2017-09-07 16:44] LABS: ACT PARTIAL THROMBO TIME 23.9 SECONDS (20.8-31.5); INTERNATIONAL NORM RATIO 1.1 (2.0-3.5)
[2017-09-07 16:53] LABS: ALBUMIN 3.8 gm/dl (3.1-4.5); ALKALINE PHOSPHATASE 82 U/L (45-117); BUN 13 mg/dl (7-24); CHLORIDE 101 mmol/L (98-107); CREATININE 1.58 mg/dL (0.55-1.02); SGOT/AST 77 IU/L (3-35); SGPT/ALT 55 U/L (12-78); SODIUM 134 mmol/L (136-145); TOTAL PROTEIN 7.9 gm/dL (6.4-8.2)
[2017-09-07 16:55] LABS: TROPONIN I < 0.015 ng/ml (<0.045)
[2017-09-07 17:00] VITALS: BP 92/57
[2017-09-07 17:00] LABS: PLATELET SUFFICIENCY NORMAL (NORMAL); TOTAL CELLS COUNTED 100 #CELLS
[2017-09-07 18:16] VITALS: BP 93/54
[2017-09-07] MEDS ORDERED: NITROSTAT0.4 MG SL (18:36)
[2017-09-07 18:37] VITALS: BP 95/58
[2017-09-07] MEDS ORDERED: NORVASC5 MG PO (18:37)
[2017-09-07 20:00] VITALS: BP 96/50
[2017-09-08] VITALS: BP 104/65
[2017-09-08 08:00] VITALS: BP 108/69
[2017-09-08 08:22] LABS: HEMATOCRIT 37.1 % (37.0-47.0); HEMOGLOBIN 11.3 g/dl (12.0-16.0); MEAN CELL VOLUME 92.5 fl (81.0-99.0); MEAN CORPUSCULAR HGB 28.2 pg (27.0-31.0); MEAN CORPUSCULAR HGB CONC 30.5 g/dl (33.0-37.0); MEAN PLATELET VOLUME 11.5 fl (9.6-12.3); PLATELET COUNT AUTOMATED 160 10*3/uL (130-400); RED BLOOD COUNT 4.01 10*6/uL (4.10-5.10); RED CELL DISTRI WIDTH 14.1 % (0-14.5); WHITE BLOOD COUNT 13.1 10*3/uL (4.8-10.8)
[2017-09-08 08:41] LABS: ALBUMIN 3.2 gm/dl (3.1-4.5); CREATININE 1.34 mg/dL (0.55-1.02); PHOSPHOROUS 2.4 mg/dL (2.5-4.9); POTASSIUM 3.7 mmol/L (3.5-5.1); TOTAL PROTEIN 7.1 gm/dL (6.4-8.2)
[2017-09-08 08:49] LABS: THYROID STIM HORMONE (HS) 0.603 uIU/ml (0.358-4.75); TOTAL CELLS COUNTED 100 #CELLS
[2017-09-08 08:50] LABS: PLATELET SUFFICIENCY NORMAL (NORMAL)
[2017-09-08 09:54] LABS: VITAMIN D, 25-HYDROXY 13.1 ng/mL (30-100)
[2017-09-08 12:00] VITALS: BP 91/54
[2017-09-08 16:00] VITALS: BP 91/66
[2017-09-08 20:00] VITALS: BP 126/88; BP 92/60
[2017-09-09] VITALS: BP 109/65
[2017-09-09 07:35] LABS: ALBUMIN 3.1 gm/dl (3.1-4.5); CREATININE 1.21 mg/dL (0.55-1.02); TOTAL PROTEIN 6.7 gm/dL (6.4-8.2)
[2017-09-09 07:36] LABS: POTASSIUM 4.8 mmol/L (3.5-5.1)
[2017-09-09 08:00] VITALS: BP 106/62
[2017-09-09 09:00] LABS: BASO % 0.2 % (0.0-1.0); EOS # 0.1 10*3/uL (0.0-0.4); EOS % 1.5 % (1.0-4.0); HEMATOCRIT 34.6 % (37.0-47.0); HEMOGLOBIN 10.7 g/dl (12.0-16.0); LYMPH % 10.9 % (27.0-41.0); MEAN CELL VOLUME 93.8 fl (81.0-99.0); MEAN CORPUSCULAR HGB CONC 30.9 g/dl (33.0-37.0); MEAN PLATELET VOLUME 11.7 fl (9.6-12.3); MONO # 0.5 10*3/uL (0.1-1.0); MONO % 5.6 % (3.0-9.0); NEUT # 7.2 10*3/uL (2.3-7.9); NEUT % 81.3 % (47.0-73.0); PLATELET COUNT AUTOMATED 153 10*3/uL (130-400); RED BLOOD COUNT 3.69 10*6/uL (4.10-5.10); RED CELL DISTRI WIDTH 14.4 % (0-14.5); WHITE BLOOD COUNT 8.9 10*3/uL (4.8-10.8)
[2017-09-09 12:00] VITALS: BP 99/71
[2017-09-09 16:00] VITALS: BP 96/51
[2017-09-09 20:00] VITALS: BP 98/66
[2017-09-10] VITALS: BP 114/76
[2017-09-10 06:13] LABS: BASO % 0.3 % (0.0-1.0); EOS # 0.2 10*3/uL (0.0-0.4); EOS % 2.4 % (1.0-4.0); HEMATOCRIT 35.8 % (37.0-47.0); HEMOGLOBIN 10.8 g/dl (12.0-16.0); LYMPH # 1.2 10*3/uL (1.3-4.4); LYMPH % 18.2 % (27.0-41.0); MEAN CORPUSCULAR HGB 28.6 pg (27.0-31.0); MEAN CORPUSCULAR HGB CONC 30.2 g/dl (33.0-37.0); MEAN PLATELET VOLUME 11.4 fl (9.6-12.3); MONO # 0.5 10*3/uL (0.1-1.0); MONO % 7.2 % (3.0-9.0); NEUT # 4.5 10*3/uL (2.3-7.9); NEUT % 71.3 % (47.0-73.0); PLATELET COUNT AUTOMATED 174 10*3/uL (130-400); RED BLOOD COUNT 3.77 10*6/uL (4.10-5.10); RED CELL DISTRI WIDTH 14.4 % (0-14.5); WHITE BLOOD COUNT 6.4 10*3/uL (4.8-10.8)
[2017-09-10 06:38] LABS: BUN 11 mg/dl (7-24); CHLORIDE 105 mmol/L (98-107); CREATININE 1.02 mg/dL (0.55-1.02); POTASSIUM 4.1 mmol/L (3.5-5.1); SODIUM 138 mmol/L (136-145)
[2017-09-10 08:00] VITALS: BP 104/65
[2017-09-10 12:00] VITALS: BP 107/64
[2017-09-10 16:00] VITALS: BP 109/75
[2017-09-10 20:00] VITALS: BP 113/83
[2017-09-11] VITALS: BP 101/62
[2017-09-11 08:00] VITALS: BP 116/76
[2017-09-11] MEDS ORDERED: DOXYCYCLINE100 M3 PO (08:42)
[2017-09-11] MEDS ORDERED: LEVAQUIN750 M1 PO (08:42)
[2017-09-11 12:00] VITALS: BP 126/88
== END 2017-09-11 12:20 | disposition home or self-care (01) | DRG 871 ==
LOC: ED 15:46 → EDHOLD 17:30 → 5E 17:30
PROVIDERS: Emergency Medicine; Internal Medicine; Internal Medicine Hospice and Palliative Medicine
PROC: 5A09357 Assistance with Respiratory Ventilation, Less than 24 Consecutive Hours, Continuous Positive Airway Pressure (ICD-10-PCS; principal; 2017-09-10)
DX: A41.9 Sepsis, unspecified organism (principal); N17.0 Acute kidney failure with tubular necrosis; E87.1 Hypo-osmolality and hyponatremia; I20.1 Angina pectoris with documented spasm; E66.01 Morbid (severe) obesity due to excess calories; I50.32 Chronic diastolic (congestive) heart failure; L03.116 Cellulitis of left lower limb; Z68.42 Body mass index [BMI] 45.0-49.9, adult; Z85.41 Personal history of malignant neoplasm of cervix uteri; R65.20 Severe sepsis without septic shock; B95.5 Unspecified streptococcus as the cause of diseases classified elsewhere; F32.9 Major depressive disorder, single episode, unspecified; I89.0 Lymphedema, not elsewhere classified; F41.9 Anxiety disorder, unspecified; E55.9 Vitamin D deficiency, unspecified; G47.33 Obstructive sleep apnea (adult) (pediatric); Z90.49 Acquired absence of other specified parts of digestive tract; Z98.51 Tubal ligation status; Z98.891 History of uterine scar from previous surgery; Z79.82 Long term (current) use of aspirin; Z79.899 Other long term (current) drug therapy; Z98.84 Bariatric surgery status; Z80.42 Family history of malignant neoplasm of prostate; Z80.7 Family history of other malignant neoplasms of lymphoid, hematopoietic and related tissues

== ENCOUNTER 2017-10-10 13:02 | Inpatient (IN) | payer OTHER ==
[~2017-10-10] VITALS: Ht 152.4 cm; Wt 128.8 kg
[~2017-10-10 13:02] MED LIST changes: +LEVAQUIN750 M1 PO; +NITROSTAT0.4 MG SL; +NORVASC5 MG PO
[2017-10-10 13:05] VITALS: BP 130/86
[2017-10-10 13:24] VITALS: BP 123/46
[2017-10-10 14:01] LABS: HEMATOCRIT 37.1 % (37.0-47.0); HEMOGLOBIN 11.5 g/dl (12.0-16.0); MEAN CELL VOLUME 92.3 fl (81.0-99.0); MEAN CORPUSCULAR HGB 28.6 pg (27.0-31.0); MEAN PLATELET VOLUME 10.9 fl (9.6-12.3); PLATELET COUNT AUTOMATED 163 10*3/uL (130-400); RED BLOOD COUNT 4.02 10*6/uL (4.10-5.10); RED CELL DISTRI WIDTH 14.4 % (0-14.5); WHITE BLOOD COUNT 13.9 10*3/uL (4.8-10.8)
[2017-10-10 14:12] LABS: ALBUMIN 3.7 gm/dl (3.1-4.5); CREATININE 1.25 mg/dL (0.55-1.02); POTASSIUM 4.4 mmol/L (3.5-5.1); TOTAL PROTEIN 7.5 gm/dL (6.4-8.2)
[2017-10-10 14:13] VITALS: BP 104/48
[2017-10-10 14:15] LABS: TOTAL CELLS COUNTED 100 #CELLS
[2017-10-10 14:16] LABS: PLATELET SUFFICIENCY NORMAL (NORMAL); POLYCHROMASIA SLIGHT
[2017-10-10 16:27] VITALS: BP 108/63
[2017-10-10 17:30] VITALS: BP 105/48
[2017-10-10 20:00] VITALS: BP 123/80
[2017-10-11] VITALS: BP 105/56
[2017-10-11 06:39] LABS: BASO % 0.1 % (0.0-1.0); EOS # 0.1 10*3/uL (0.0-0.4); EOS % 1.5 % (1.0-4.0); HEMOGLOBIN 10.6 g/dl (12.0-16.0); LYMPH # 0.8 10*3/uL (1.3-4.4); MEAN CELL VOLUME 95.1 fl (81.0-99.0); MEAN CORPUSCULAR HGB 28.8 pg (27.0-31.0); MEAN CORPUSCULAR HGB CONC 30.3 g/dl (33.0-37.0); MEAN PLATELET VOLUME 11.4 fl (9.6-12.3); MONO # 0.3 10*3/uL (0.1-1.0); MONO % 3.5 % (3.0-9.0); NEUT # 7.5 10*3/uL (2.3-7.9); NEUT % 85.2 % (47.0-73.0); PLATELET COUNT AUTOMATED 140 10*3/uL (130-400); RED BLOOD COUNT 3.68 10*6/uL (4.10-5.10); RED CELL DISTRI WIDTH 14.6 % (0-14.5); WHITE BLOOD COUNT 8.8 10*3/uL (4.8-10.8)
[2017-10-11 06:57] LABS: BUN 11 mg/dl (7-24); CHLORIDE 106 mmol/L (98-107); POTASSIUM 4.3 mmol/L (3.5-5.1); SODIUM 137 mmol/L (136-145)
[2017-10-11 07:01] LABS: ALKALINE PHOSPHATASE 80 U/L (45-117); CREATININE 1.14 mg/dL (0.55-1.02); PHOSPHOROUS 2.7 mg/dL (2.5-4.9); SGOT/AST 13 IU/L (3-35); SGPT/ALT 17 U/L (12-78); TOTAL PROTEIN 6.5 gm/dL (6.4-8.2)
[2017-10-11 08:00] VITALS: BP 98/58
[2017-10-11 12:00] VITALS: BP 90/66
[2017-10-11 16:00] VITALS: BP 114/65
[2017-10-11 20:00] VITALS: BP 107/66
[2017-10-12] VITALS: BP 130/88
[2017-10-12 06:48] LABS: BASO % 0.4 % (0.0-1.0); EOS # 0.2 10*3/uL (0.0-0.4); EOS % 3.8 % (1.0-4.0); LYMPH % 17.7 % (27.0-41.0); MEAN CELL VOLUME 95.1 fl (81.0-99.0); MEAN CORPUSCULAR HGB 28.8 pg (27.0-31.0); MEAN CORPUSCULAR HGB CONC 30.3 g/dl (33.0-37.0); MEAN PLATELET VOLUME 11.6 fl (9.6-12.3); MONO # 0.4 10*3/uL (0.1-1.0); MONO % 6.9 % (3.0-9.0); NEUT # 3.9 10*3/uL (2.3-7.9); NEUT % 70.7 % (47.0-73.0); PLATELET COUNT AUTOMATED 156 10*3/uL (130-400); RED BLOOD COUNT 3.47 10*6/uL (4.10-5.10); RED CELL DISTRI WIDTH 14.6 % (0-14.5); WHITE BLOOD COUNT 5.5 10*3/uL (4.8-10.8)
[2017-10-12 06:49] LABS: BUN 10 mg/dl (7-24); CHLORIDE 108 mmol/L (98-107); CREATININE 1.16 mg/dL (0.55-1.02); POTASSIUM 4.5 mmol/L (3.5-5.1); SODIUM 140 mmol/L (136-145)
[2017-10-12 08:00] VITALS: BP 128/77
[2017-10-12 12:00] VITALS: BP 111/65
[2017-10-12 16:00] VITALS: BP 125/77
[2017-10-12 20:00] VITALS: BP 118/85
[2017-10-13] VITALS: BP 121/86
[2017-10-13 07:06] LABS: BASO % 0.4 % (0.0-1.0); EOS # 0.3 10*3/uL (0.0-0.4); EOS % 5.1 % (1.0-4.0); HEMATOCRIT 33.1 % (37.0-47.0); HEMOGLOBIN 9.9 g/dl (12.0-16.0); LYMPH # 1.3 10*3/uL (1.3-4.4); LYMPH % 26.2 % (27.0-41.0); MEAN CELL VOLUME 95.9 fl (81.0-99.0); MEAN CORPUSCULAR HGB 28.7 pg (27.0-31.0); MEAN CORPUSCULAR HGB CONC 29.9 g/dl (33.0-37.0); MONO # 0.3 10*3/uL (0.1-1.0); MONO % 6.1 % (3.0-9.0); PLATELET COUNT AUTOMATED 171 10*3/uL (130-400); RED BLOOD COUNT 3.45 10*6/uL (4.10-5.10); RED CELL DISTRI WIDTH 14.3 % (0-14.5); WHITE BLOOD COUNT 4.9 10*3/uL (4.8-10.8)
[2017-10-13 07:26] LABS: ALKALINE PHOSPHATASE 77 U/L (45-117); BUN 9 mg/dl (7-24); CHLORIDE 107 mmol/L (98-107); CREATININE 1.11 mg/dL (0.55-1.02); POTASSIUM 4.2 mmol/L (3.5-5.1); SGOT/AST 9 IU/L (3-35); SGPT/ALT 9 U/L (12-78); SODIUM 141 mmol/L (136-145); TOTAL PROTEIN 6.7 gm/dL (6.4-8.2)
[2017-10-13 08:00] VITALS: BP 121/90
[2017-10-13 12:00] VITALS: BP 145/99
[2017-10-13] MEDS ORDERED: ZYVOX600 MG PO (12:52)
[2017-10-13] MEDS ORDERED: AUGMENTIN 875-875 MG PO (12:53)
[2017-11-05] MEDS ORDERED: VITAMIN D-32000 UNIT PO (10:46)
[2017-11-05] MEDS ORDERED: METOCLOPRAMIDE H5 M1 PO (10:46)
[2017-11-05] MEDS ORDERED: CLINDAMYCIN HC300 MG PO (10:47)
== END 2017-10-13 13:30 | disposition home or self-care (01) | DRG 871 ==
LOC: ED 13:02 → 5E 14:27 → EDHOLD 14:27 → 5E 14:41
PROVIDERS: Internal Medicine; Nurse Practitioner Family
PROC: 5A09357 Assistance with Respiratory Ventilation, Less than 24 Consecutive Hours, Continuous Positive Airway Pressure (ICD-10-PCS; principal; 2017-10-12)
DX: A41.9 Sepsis, unspecified organism (principal); N17.0 Acute kidney failure with tubular necrosis; E87.1 Hypo-osmolality and hyponatremia; E44.1 Mild protein-calorie malnutrition; L03.116 Cellulitis of left lower limb; I50.32 Chronic diastolic (congestive) heart failure; Z68.42 Body mass index [BMI] 45.0-49.9, adult; R65.20 Severe sepsis without septic shock; D64.9 Anemia, unspecified; S81.801A Unspecified open wound, right lower leg, initial encounter; I89.0 Lymphedema, not elsewhere classified; F41.9 Anxiety disorder, unspecified; F32.9 Major depressive disorder, single episode, unspecified; G47.33 Obstructive sleep apnea (adult) (pediatric); E66.01 Morbid (severe) obesity due to excess calories; E55.9 Vitamin D deficiency, unspecified; Z79.82 Long term (current) use of aspirin; Z79.899 Other long term (current) drug therapy; Z90.49 Acquired absence of other specified parts of digestive tract; Z98.51 Tubal ligation status; Z98.84 Bariatric surgery status; Z81.8 Family history of other mental and behavioral disorders; Z80.42 Family history of malignant neoplasm of prostate

== ENCOUNTER 2017-12-05 13:30 | Inpatient (IN) | payer OTHER ==
[~2017-12-05] VITALS: Ht 165.1 cm; Wt 130.8 kg
--- NOTE | ~2017-12-05 | EKG ---
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: Emmie Martins : 1970 Requested By: JUAN LOVE Order Number: [id number] Reading MD: Montez Jaramillo MD Measurements Intervals [place] Rate: 97 P: 35 NC: 140 QRS: -14 QRSD: 109 T: 65 QT: 352 QTc: 447 Interpretive Statements Sinus rhythm Probable left atrial enlargement Low voltage, precordial leads Borderline T wave abnormalities Compared to ECG 11/02/2017 04:25:25 Low QRS voltage now present T-wave abnormality now present Intraventricular conduction delay no longer present Electronically Signed On 12-07-2017 13:33:09 PDT by Montez Jaramillo MD CM:EKGRPT:ELECTROCARDIOGRAM REPORT 1343 1333 JUAN GUTHRIE DRAFT REPORT JUAN LOVE DO
--- NOTE | ~2017-12-05 | PROC NOTE ---
[place], [place] PROCEDURE NOTE NAME: STERLING PAN [facility] #: [id number] UNIT #: [id number] ROOM: 404 DOCTOR: FELECIA NYE BIRTHDATE: [birth year] DOS: 12/06/2017 MODIFIED BARIUM SWALLOW LOCATION: [facility], room 404, bed 1. ORDERING PHYSICIAN: Dr. Cruz. RADIOLOGIST: Dr. Ulrich. BACKGROUND INFORMATION: The patient is a 47-year-old female who is seen for a modified barium swallow. This test was ordered due to dysphagia. The patient reports that she has been experiencing a feeling of foods sticking in her throat. She also reported a history of reflux with a recent episode of aspirating material that had refluxed during the night. Further medical history includes cervical cancer, anxiety, CHF, GERD and sleep apnea. The patient did report wearing CPAP at night. For today's assessment, she reported respiratory status as within normal limits and was not requiring oxygen. She currently receives a renal diet with regular food consistency and thin liquid. She was able to follow all commands without difficulty. Oral peripheral examination revealed presence of natural teeth, which were in good condition. Lingual, labial and buccal skills were within normal limits in terms of strength, range of motion and coordination. METHODS AND MATERIALS USED FOR THE EXAM: The patient was positioned in the lateral plane and the exam was viewed under fluoroscopy. The patient was presented with a variety of consistencies to assess swallowing skills including applesauce mixed with barium presented in half teaspoon amounts, barium-coated cookie and sandwich taken in bite size pieces and thin liquid barium taken by cup and straw. ORAL PHASE: Unremarkable. PHARYNGEAL PHASE: Unremarkable. ESOPHAGEAL PHASE: This phase of the swallow was not formally assessed during this exam. IMPRESSIONS AND RECOMMENDATIONS: Based upon assessment results, this 47-year-old patient presents with oral and pharyngeal swallowing skills that are within normal limits. Recommend the patient remain on present renal diet with the use of safe swallow precautions such as chewing thoroughly, alternating liquid and solid and eating slowly. No followup therapy is warranted at this time. Results and recommendations of the assessment were shared with the patient. The patient was also educated on reflux precautions and she verbalized understanding of all information provided. Thank you very much for this referral. Should you have any questions regarding this patient, please contact the speech pathologist at [phone]. [place], [place] PROCEDURE NOTE NAME: STERLING PAN UNIT #: [id number] ROOM: 404 DOCTOR: FELECIA NYE BIRTHDATE: [birth year] FELECIA NYE CM:PROCNOTE:PROCEDURE NOTE 1418 [id number] FELECIA NYE
[~2017-12-05 13:30] MED LIST changes: +AUGMENTIN 875-875 MG PO; +CLINDAMYCIN HC300 MG PO; +METOCLOPRAMIDE H5 M1 PO; +VITAMIN D-32000 UNIT PO; +ZYVOX600 MG PO
[2017-12-05 13:47] VITALS: BP 140/91
[2017-12-05 14:06] LABS: BASO % 0.4 % (0.0-1.0); EOS # 0.2 10*3/uL (0.0-0.4); EOS % 2.8 % (1.0-4.0); HEMATOCRIT 35.3 % (37.0-47.0); LYMPH # 1.4 10*3/uL (1.3-4.4); LYMPH % 18.2 % (27.0-41.0); MEAN CELL VOLUME 91.2 fl (81.0-99.0); MEAN CORPUSCULAR HGB 28.4 pg (27.0-31.0); MEAN CORPUSCULAR HGB CONC 31.2 g/dl (33.0-37.0); MEAN PLATELET VOLUME 10.7 fl (9.6-12.3); MONO # 0.4 10*3/uL (0.1-1.0); MONO % 4.8 % (3.0-9.0); NEUT # 5.6 10*3/uL (2.3-7.9); PLATELET COUNT AUTOMATED 246 10*3/uL (130-400); RED BLOOD COUNT 3.87 10*6/uL (4.10-5.10); RED CELL DISTRI WIDTH 14.3 % (0-14.5); WHITE BLOOD COUNT 7.7 10*3/uL (4.8-10.8)
[2017-12-05 14:21] LABS: ACT PARTIAL THROMBO TIME 20.9 SECONDS (20.8-31.5)
[2017-12-05 15:30] LABS: ALBUMIN 3.4 gm/dl (3.1-4.5); ALKALINE PHOSPHATASE 79 U/L (45-117); BUN 13 mg/dl (7-24); CHLORIDE 106 mmol/L (98-107); CREATININE 1.28 mg/dL (0.55-1.02); LIPASE 110 U/L (73-393); POTASSIUM 5.6 mmol/L (3.5-5.1); SGOT/AST 26 IU/L (3-35); SGPT/ALT 17 U/L (12-78); SODIUM 138 mmol/L (136-145); TOTAL PROTEIN 7.1 gm/dL (6.4-8.2)
[2017-12-05 15:32] LABS: BETA-HCG, QUANT < 1.0 mIU/mL (1-3); TROPONIN I < 0.015 ng/ml (<0.045)
[2017-12-05 17:16] VITALS: BP 118/81
[2017-12-05 17:40] VITALS: BP 128/80
[2017-12-05 20:00] VITALS: BP 122/93
[2017-12-06] VITALS: BP 107/86
[2017-12-06 06:16] LABS: BASO % 0.4 % (0.0-1.0); EOS # 0.2 10*3/uL (0.0-0.4); EOS % 2.8 % (1.0-4.0); HEMATOCRIT 35.8 % (37.0-47.0); HEMOGLOBIN 10.7 g/dl (12.0-16.0); LYMPH # 1.2 10*3/uL (1.3-4.4); LYMPH % 15.6 % (27.0-41.0); MEAN CELL VOLUME 93.7 fl (81.0-99.0); MEAN CORPUSCULAR HGB CONC 29.9 g/dl (33.0-37.0); MEAN PLATELET VOLUME 9.9 fl (9.6-12.3); MONO # 0.5 10*3/uL (0.1-1.0); NEUT # 5.7 10*3/uL (2.3-7.9); NEUT % 74.3 % (47.0-73.0); PLATELET COUNT AUTOMATED 252 10*3/uL (130-400); RED BLOOD COUNT 3.82 10*6/uL (4.10-5.10); RED CELL DISTRI WIDTH 14.4 % (0-14.5); WHITE BLOOD COUNT 7.6 10*3/uL (4.8-10.8)
[2017-12-06 06:43] LABS: ALBUMIN 3.7 gm/dl (3.1-4.5); CREATININE 1.22 mg/dL (0.55-1.02); PHOSPHOROUS 4.3 mg/dL (2.5-4.9); TOTAL PROTEIN 7.2 gm/dL (6.4-8.2)
[2017-12-06 06:45] LABS: POTASSIUM 4.2 mmol/L (3.5-5.1)
[2017-12-06] MEDS ORDERED: REGLAN5 MG PO (08:17)
[2017-12-06 12:00] VITALS: BP 132/82
[2017-12-06 16:00] VITALS: BP 106/74
[2017-12-06 20:00] VITALS: BP 107/57
[2017-12-07] VITALS: BP 110/68
[2017-12-07 06:16] LABS: BASO % 0.5 % (0.0-1.0); EOS # 0.2 10*3/uL (0.0-0.4); EOS % 3.8 % (1.0-4.0); HEMATOCRIT 36.3 % (37.0-47.0); HEMOGLOBIN 11.1 g/dl (12.0-16.0); LYMPH # 1.6 10*3/uL (1.3-4.4); LYMPH % 25.9 % (27.0-41.0); MEAN CELL VOLUME 93.3 fl (81.0-99.0); MEAN CORPUSCULAR HGB 28.5 pg (27.0-31.0); MEAN CORPUSCULAR HGB CONC 30.6 g/dl (33.0-37.0); MEAN PLATELET VOLUME 9.9 fl (9.6-12.3); MONO # 0.4 10*3/uL (0.1-1.0); MONO % 6.1 % (3.0-9.0); NEUT # 3.9 10*3/uL (2.3-7.9); NEUT % 62.7 % (47.0-73.0); PLATELET COUNT AUTOMATED 249 10*3/uL (130-400); RED BLOOD COUNT 3.89 10*6/uL (4.10-5.10); RED CELL DISTRI WIDTH 14.4 % (0-14.5); WHITE BLOOD COUNT 6.3 10*3/uL (4.8-10.8)
[2017-12-07 06:42] LABS: ALBUMIN 3.5 gm/dl (3.1-4.5); ALKALINE PHOSPHATASE 104 U/L (45-117); BUN 13 mg/dl (7-24); CHLORIDE 104 mmol/L (98-107); CREATININE 0.98 mg/dL (0.55-1.02); POTASSIUM 4.7 mmol/L (3.5-5.1); SGOT/AST 16 IU/L (3-35); SGPT/ALT 23 U/L (12-78); SODIUM 137 mmol/L (136-145)
[2017-12-07] MEDS ORDERED: CYMBALTA30 MG PO (11:39)
[2017-12-07 12:00] VITALS: BP 117/77
[2017-12-07 16:00] VITALS: BP 101/69; BP 115/72
[2017-12-07 20:00] VITALS: BP 106/75
[2017-12-08] VITALS: BP 109/66
[2017-12-08 06:45] LABS: BUN 16 mg/dl (7-24); CHLORIDE 105 mmol/L (98-107); CREATININE 1.07 mg/dL (0.55-1.02); POTASSIUM 5.5 mmol/L (3.5-5.1); SODIUM 136 mmol/L (136-145)
[2017-12-08 07:54] VITALS: BP 106/73
[2017-12-08 08:00] VITALS: BP 106/73
[2017-12-08 12:00] VITALS: BP 113/75
[2017-12-08 16:00] VITALS: BP 111/52
[2017-12-08 20:00] VITALS: BP 113/76
[2017-12-09] VITALS: BP 125/86
[2017-12-09 07:05] LABS: BUN 14 mg/dl (7-24); CHLORIDE 103 mmol/L (98-107); CREATININE 0.96 mg/dL (0.55-1.02); POTASSIUM 4.5 mmol/L (3.5-5.1); SODIUM 136 mmol/L (136-145)
[2017-12-09 08:00] VITALS: BP 126/73
[2017-12-09] MEDS ORDERED: VISTARIL50 MG PO (08:32)
[2017-12-09] MEDS ORDERED: TUMERIC (08:34)
[2017-12-09 12:00] VITALS: BP 123/78
[2017-12-09] MEDS ORDERED: CLINDAMYCIN HC300 MG PO (13:24)
[2018-02-15] MEDS ORDERED: Percocet 325 MG1 TAB PO (10:28)
[2018-02-16] MEDS ORDERED: DOXYCYCLINE100 M3 PO (10:36)
[2018-02-16] MEDS ORDERED: AQUAPHOR396 GM T (10:36)
== END 2017-12-09 13:45 | disposition home or self-care (01) | DRG 602 ==
LOC: ED 13:30 → 4E 16:37 → EDHOLD 16:37 → 4E 16:42
PROVIDERS: Emergency Medicine; Internal Medicine
PROC: 5A09357 Assistance with Respiratory Ventilation, Less than 24 Consecutive Hours, Continuous Positive Airway Pressure (ICD-10-PCS; principal; 2017-12-06)
PROC: BD1BYZZ Fluoroscopy of Mouth/Oropharynx using Other Contrast (ICD-10-PCS; principal; 2017-12-06)
DX: L03.116 Cellulitis of left lower limb (principal); N17.0 Acute kidney failure with tubular necrosis; I20.1 Angina pectoris with documented spasm; I50.32 Chronic diastolic (congestive) heart failure; Z68.42 Body mass index [BMI] 45.0-49.9, adult; G47.33 Obstructive sleep apnea (adult) (pediatric); I89.0 Lymphedema, not elsewhere classified; R13.10 Dysphagia, unspecified; E87.5 Hyperkalemia; F41.9 Anxiety disorder, unspecified; D64.9 Anemia, unspecified; E83.41 Hypermagnesemia; R79.89 Other specified abnormal findings of blood chemistry; R91.8 Other nonspecific abnormal finding of lung field; F32.9 Major depressive disorder, single episode, unspecified; K21.9 Gastro-esophageal reflux disease without esophagitis; N18.9 Chronic kidney disease, unspecified; E66.01 Morbid (severe) obesity due to excess calories; Z85.41 Personal history of malignant neoplasm of cervix uteri; Z92.21 Personal history of antineoplastic chemotherapy; Z79.82 Long term (current) use of aspirin; Z79.899 Other long term (current) drug therapy; Z98.891 History of uterine scar from previous surgery; Z90.49 Acquired absence of other specified parts of digestive tract; Z98.51 Tubal ligation status; Z98.84 Bariatric surgery status; Z80.42 Family history of malignant neoplasm of prostate; Z84.89 Family history of other specified conditions

== ENCOUNTER 2017-12-20 12:35 | Inpatient (IN) | payer OTHER ==
[2017-12-20] VITALS (7 sets, daily range): BP systolic 96–144; BP diastolic 63–93
[~2017-12-20] VITALS: Ht 165.1 cm; Wt 135.8 kg
--- NOTE | ~2017-12-20 | EKG ---
[place], [place] ELECTROCARDIOGRAM REPORT NAME: STERLING PAN UNIT #: [id number] ROOM: 406 DOCTOR: ASHWINI DRAFT REPORT BIRTHDATE: [birth year] [facility] Test Date: 2017-12-20 Test Time: 12:53:16 Pat Name: STERLING PAN Department: Room: 406 Gender: F Matrix Plater: EKG.PA : 1970 Requested By: JUAN LOVE Order Number: [id number] Reading MD: Fozia Fenton MD Measurements Intervals [place] Rate: 85 P: 38 NJ: 137 QRS: -10 QRSD: 107 T: QT: 379 QTc: 451 Interpretive Statements Sinus rhythm Low voltage, precordial leads Borderline T abnormalities, anterior leads Compared to ECG 12/05/2017 13:43:19 No significant changes Electronically Signed On 12-21-2017 12:05:20 PDT by Fozia Fenton MD CM:EKGRPT:ELECTROCARDIOGRAM REPORT 1253 1205 JUAN GUTHRIE DRAFT REPORT JUAN LOVE DO
[~2017-12-20 12:35] MED LIST changes: +CYMBALTA30 MG PO; +REGLAN5 MG PO; +TUMERIC; +VISTARIL50 MG PO
[2017-12-20 13:26] LABS: BASO % 0.5 % (0.0-1.0); EOS # 0.2 10*3/uL (0.0-0.4); EOS % 2.5 % (1.0-4.0); HEMATOCRIT 34.4 % (37.0-47.0); HEMOGLOBIN 10.8 g/dl (12.0-16.0); LYMPH # 1.1 10*3/uL (1.3-4.4); LYMPH % 18.4 % (27.0-41.0); MEAN CORPUSCULAR HGB 28.6 pg (27.0-31.0); MEAN CORPUSCULAR HGB CONC 31.4 g/dl (33.0-37.0); MEAN PLATELET VOLUME 9.9 fl (9.6-12.3); MONO # 0.4 10*3/uL (0.1-1.0); MONO % 6.2 % (3.0-9.0); NEUT # 4.2 10*3/uL (2.3-7.9); NEUT % 71.6 % (47.0-73.0); PLATELET COUNT AUTOMATED 235 10*3/uL (130-400); RED BLOOD COUNT 3.78 10*6/uL (4.10-5.10); RED CELL DISTRI WIDTH 14.6 % (0-14.5); WHITE BLOOD COUNT 5.9 10*3/uL (4.8-10.8)
[2017-12-20 13:34] LABS: ACT PARTIAL THROMBO TIME 23.5 SECONDS (20.8-31.5)
[2017-12-20 13:42] LABS: ALBUMIN 3.4 gm/dl (3.1-4.5); ALKALINE PHOSPHATASE 73 U/L (45-117); BUN 11 mg/dl (7-24); CHLORIDE 104 mmol/L (98-107); CREATININE 1.02 mg/dL (0.55-1.02); LIPASE 92 U/L (73-393); POTASSIUM 4.4 mmol/L (3.5-5.1); SGOT/AST 8 IU/L (3-35); SGPT/ALT 18 U/L (12-78); SODIUM 138 mmol/L (136-145); TOTAL PROTEIN 7.2 gm/dL (6.4-8.2)
[2017-12-20 13:43] LABS: BETA-HCG, QUANT < 1.0 mIU/mL (1-3); TROPONIN I < 0.015 ng/ml (<0.045)
[2017-12-21] VITALS: BP 111/63
[2017-12-21 06:23] LABS: BASO % 0.7 % (0.0-1.0); EOS # 0.3 10*3/uL (0.0-0.4); HEMATOCRIT 33.7 % (37.0-47.0); HEMOGLOBIN 10.2 g/dl (12.0-16.0); LYMPH # 1.5 10*3/uL (1.3-4.4); LYMPH % 27.3 % (27.0-41.0); MEAN CELL VOLUME 93.9 fl (81.0-99.0); MEAN CORPUSCULAR HGB 28.4 pg (27.0-31.0); MEAN CORPUSCULAR HGB CONC 30.3 g/dl (33.0-37.0); MEAN PLATELET VOLUME 11.8 fl (9.6-12.3); MONO # 0.4 10*3/uL (0.1-1.0); MONO % 6.6 % (3.0-9.0); NEUT # 3.3 10*3/uL (2.3-7.9); NEUT % 59.7 % (47.0-73.0); PLATELET COUNT AUTOMATED 168 10*3/uL (130-400); RED BLOOD COUNT 3.59 10*6/uL (4.10-5.10); RED CELL DISTRI WIDTH 14.6 % (0-14.5); WHITE BLOOD COUNT 5.5 10*3/uL (4.8-10.8)
[2017-12-21 06:29] LABS: ALBUMIN 3.1 gm/dl (3.1-4.5); ALKALINE PHOSPHATASE 74 U/L (45-117); BUN 13 mg/dl (7-24); CHLORIDE 104 mmol/L (98-107); CREATININE 1.05 mg/dL (0.55-1.02); PHOSPHOROUS 3.9 mg/dL (2.5-4.9); POTASSIUM 4.5 mmol/L (3.5-5.1); SGOT/AST 17 IU/L (3-35); SGPT/ALT 17 U/L (12-78); SODIUM 137 mmol/L (136-145); TOTAL PROTEIN 6.6 gm/dL (6.4-8.2)
[2017-12-21 12:00] VITALS: BP 111/60
[2017-12-21] MEDS ORDERED: CLINDAMYCIN HC300 MG PO (13:06)
[2018-02-15] MEDS ORDERED: Percocet 325 MG1 TAB PO (10:28)
[2018-02-16] MEDS ORDERED: DOXYCYCLINE100 M3 PO (10:36)
[2018-02-16] MEDS ORDERED: AQUAPHOR396 GM T (10:36)
== END 2017-12-21 15:25 | disposition home or self-care (01) | DRG 603 ==
LOC: ED 12:35 → 4E 15:12 → EDHOLD 15:12 → 4E 15:39
PROVIDERS: Emergency Medicine; Registered Nurse
DX: L03.115 Cellulitis of right lower limb (principal); I20.1 Angina pectoris with documented spasm; I50.32 Chronic diastolic (congestive) heart failure; I89.0 Lymphedema, not elsewhere classified; F32.9 Major depressive disorder, single episode, unspecified; F41.9 Anxiety disorder, unspecified; G47.33 Obstructive sleep apnea (adult) (pediatric); E55.9 Vitamin D deficiency, unspecified; E66.01 Morbid (severe) obesity due to excess calories; K21.9 Gastro-esophageal reflux disease without esophagitis; D64.9 Anemia, unspecified; R79.89 Other specified abnormal findings of blood chemistry; Z80.42 Family history of malignant neoplasm of prostate; Z84.89 Family history of other specified conditions; Z79.82 Long term (current) use of aspirin; Z79.899 Other long term (current) drug therapy

== ENCOUNTER 2018-01-07 14:41 | Emergency (ER) | payer OTHER ==
[~2018-01-07] VITALS: Ht 165.1 cm; Wt 131.5 kg
[2018-01-07 15:37] LABS: BASO % 0.5 % (0.0-1.0); EOS # 0.2 10*3/uL (0.0-0.4); EOS % 2.9 % (1.0-4.0); HEMATOCRIT 36.6 % (37.0-47.0); HEMOGLOBIN 11.4 g/dl (12.0-16.0); LYMPH # 1.5 10*3/uL (1.3-4.4); LYMPH % 22.6 % (27.0-41.0); MEAN CELL VOLUME 91.7 fl (81.0-99.0); MEAN CORPUSCULAR HGB 28.6 pg (27.0-31.0); MEAN CORPUSCULAR HGB CONC 31.1 g/dl (33.0-37.0); MEAN PLATELET VOLUME 10.1 fl (9.6-12.3); MONO # 0.2 10*3/uL (0.1-1.0); MONO % 3.6 % (3.0-9.0); NEUT # 4.6 10*3/uL (2.3-7.9); NEUT % 69.9 % (47.0-73.0); PLATELET COUNT AUTOMATED 289 10*3/uL (130-400); RED BLOOD COUNT 3.99 10*6/uL (4.10-5.10); RED CELL DISTRI WIDTH 14.6 % (0-14.5); WHITE BLOOD COUNT 6.6 10*3/uL (4.8-10.8)
[2018-01-07 15:50] LABS: ALBUMIN 3.8 gm/dl (3.1-4.5); CREATININE 1.29 mg/dL (0.55-1.02); POTASSIUM 4.4 mmol/L (3.5-5.1); TOTAL PROTEIN 7.9 gm/dL (6.4-8.2)
[2018-01-07] MEDS ORDERED: ZANTAC 150150 MG PO (16:11)
[2018-02-15] MEDS ORDERED: Percocet 325 MG1 TAB PO (10:28)
[2018-02-16] MEDS ORDERED: DOXYCYCLINE100 M3 PO (10:36)
[2018-02-16] MEDS ORDERED: AQUAPHOR396 GM T (10:36)
== END 2018-01-07 16:25 | disposition home or self-care (01) ==
LOC: ED 14:41
PROVIDERS: Nurse Practitioner Family
DX: R11.10 Vomiting, unspecified (principal); R03.0 Elevated blood-pressure reading, without diagnosis of hypertension; R21 Rash and other nonspecific skin eruption; R05 Cough; I50.32 Chronic diastolic (congestive) heart failure; K21.9 Gastro-esophageal reflux disease without esophagitis; E66.01 Morbid (severe) obesity due to excess calories; Z90.49 Acquired absence of other specified parts of digestive tract; Z85.41 Personal history of malignant neoplasm of cervix uteri; Z79.2 Long term (current) use of antibiotics; Z79.899 Other long term (current) drug therapy

== ENCOUNTER 2018-01-17 11:49 | Emergency (ER) | payer OTHER ==
[~2018-01-17] VITALS: Ht 170.1 cm
--- NOTE | ~2018-01-17 | EKG ---
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: Kelly Henao : 1970 Requested By: TIEN BROWN Order Number: [id number] Reading MD: Jacinta Soliz MD Measurements Intervals [place] Rate: 107 P: 22 NV: 95 QRS: -1 QRSD: 107 T: 164 QT: 317 QTc: 423 Interpretive Statements Sinus tachycardia Probable left atrial enlargement Low voltage, precordial leads Abnormal R-wave progression, early transition Nonspecific T abnrm, anterolateral leads Compared to ECG 12/20/2017 12:53:16 Sinus rhythm no longer present T-wave abnormality no longer present Electronically Signed On 01-20-2018 12:06:21 PDT by Jacinta Soliz MD CM:EKGRPT:ELECTROCARDIOGRAM REPORT 1154 1206 TIEN MARADIAGA DRAFT REPORT TIEN BROWN M.D.
[~2018-01-17 11:49] MED LIST changes: +ZANTAC 150150 MG PO
[2018-01-17 13:20] LABS: HEMATOCRIT 35.4 % (37.0-47.0); HEMOGLOBIN 11.4 g/dl (12.0-16.0); MEAN CELL VOLUME 88.1 fl (81.0-99.0); MEAN CORPUSCULAR HGB 28.4 pg (27.0-31.0); MEAN CORPUSCULAR HGB CONC 32.2 g/dl (33.0-37.0); MEAN PLATELET VOLUME 10.5 fl (9.6-12.3); PLATELET COUNT AUTOMATED 210 10*3/uL (130-400); RED BLOOD COUNT 4.02 10*6/uL (4.10-5.10); RED CELL DISTRI WIDTH 14.1 % (0-14.5); WHITE BLOOD COUNT 15.4 10*3/uL (4.8-10.8)
[2018-01-17 13:37] LABS: ALBUMIN 3.6 gm/dl (3.1-4.5); ALKALINE PHOSPHATASE 80 U/L (45-117); BUN 15 mg/dl (7-24); CHLORIDE 105 mmol/L (98-107); POTASSIUM 5.2 mmol/L (3.5-5.1); SGOT/AST 14 IU/L (3-35); SGPT/ALT 20 U/L (12-78); SODIUM 141 mmol/L (136-145); TOTAL PROTEIN 7.6 gm/dL (6.4-8.2)
[2018-01-17 13:38] LABS: TROPONIN I < 0.015 ng/ml (<0.045)
[2018-01-17 13:43] LABS: TOTAL CELLS COUNTED 100 #CELLS
[2018-01-17 13:44] LABS: PLATELET SUFFICIENCY NORMAL (NORMAL)
[2018-01-17] MEDS ORDERED: LEVOFLOXACIN500 MG PO (16:16)
[2018-02-15] MEDS ORDERED: Percocet 325 MG1 TAB PO (10:28)
[2018-02-16] MEDS ORDERED: DOXYCYCLINE100 M3 PO (10:36)
[2018-02-16] MEDS ORDERED: AQUAPHOR396 GM T (10:36)
== END 2018-01-17 16:22 | disposition home or self-care (01) ==
LOC: ED 11:49
PROVIDERS: Emergency Medicine
DX: L03.116 Cellulitis of left lower limb (principal); R00.0 Tachycardia, unspecified; I50.32 Chronic diastolic (congestive) heart failure; K21.9 Gastro-esophageal reflux disease without esophagitis; E66.01 Morbid (severe) obesity due to excess calories; Z79.2 Long term (current) use of antibiotics; Z79.82 Long term (current) use of aspirin; Z79.899 Other long term (current) drug therapy; Z90.49 Acquired absence of other specified parts of digestive tract; Z98.890 Other specified postprocedural states

== ENCOUNTER 2018-04-01 21:42 | Inpatient (IN) | payer OTHER ==
[~2018-04-01] VITALS: Ht 165.1 cm; Wt 146.1 kg
--- NOTE | ~2018-04-01 | CON ---
[place], [place] REPORT OF CONSULTATION [id number] UNIT #: [id number] ROOM: 407 DOCTOR: GEREMIAS KC,JUNE BIRTHDATE: [birth year] DOS: HISTORY OF PRESENT ILLNESS: The patient is a pleasant 48-year-old obese female with chronic lymphedema of her lower extremities. She was admitted with a sudden onset of redness and pain and increased edema in the left lower extremity. She was admitted yesterday. She was started on IV vancomycin. She has had significant improvement of the erythema since her max temp at home was 100.2. She has had issues with recurrent cellulitis due to her lymphedema. She has had no fevers in patient. Again, she has had significant improvement of her symptoms. Her blood cultures remained sterile. Denies any associated symptoms such as nausea, vomiting, cough, shortness of breath or rash, etc. PAST MEDICAL AND SURGICAL HISTORY: As above as well as anxiety, cervical cancer, CHF, depression, GERD, morbid obesity, normocytic anemia, obstructive sleep apnea, Prinzmetal angina, vitamin D deficiency, cholecystectomy, gastric bypass, tonsillectomy, tubal ligation and . SOCIAL HISTORY: Nonsmoker. No illicit drug use. Occasional alcohol use. FAMILY MEDICAL HISTORY: Father with prostate cancer and lymphedema. Mother at the age of 22 from suicide. Three siblings alive and well. ALLERGIES: Only seasonal allergies. CURRENT MEDICATIONS: Include Klonopin, Elavil, vancomycin, Feosol, Lovenox, Cymbalta, vitamin D, aspirin, Zanaflex, Zyrtec, morphine, Restoril, Zofran, milk of mag, Dulcolax, [place] and Tylenol. LABORATORY DATA: WBC is 11.1 yesterday on admission, today at around 7.7. Platelets 234. BUN 13, creatinine 1.12. LFTs within normal limits. Cultures as reviewed above. REVIEW OF SYSTEMS: As above in history of present illness. PHYSICAL EXAMINATION: VITAL SIGNS: Temp 98.0, pulse 80, respirations 20 and BP 106/59. GENERAL: A 48-year-old female, in no acute distress. HEENT: Normocephalic, no thrush. Mucous membranes pink and moist. NECK: Supple. LUNGS: Clear to auscultation bilaterally. Respirations even and unlabored. HEART: Regular rhythm. No murmur appreciated. ABDOMEN: Soft, obese, nondistended. EXTREMITIES: Lymphedema, bilateral lower extremities. Edema increased of the left lower extremity with a faint pink to the leg. Skin is intact. No signs of tinea pedis. SKIN: Warm, dry, free of rashes. Left upper extremity, Hep-Lock. No phlebitis. ASSESSMENT: Cellulitis of the left lower extremity, recurrent due to her [place], [place] REPORT OF CONSULTATION NAME: STERLING PAN UNIT #: [id number] ROOM: 407 DOCTOR: GEREMIAS KCJUNE BIRTHDATE: [birth year] lymphedema. PLAN: We had a discussion regarding the need for her to receive lymphedema therapy. She changed insurances as of the first of the year and can now afford the copayment to go. We discussed [place] lymphedema therapy as a possible alternative. She is going to see her family physician once she is discharged for an official referral. From an infectious disease standpoint tomorrow, she could be changed over to doxycycline 100 mg p.o. b.i.d. as well as Keflex 500 mg p.o. q. 6 hours and discharge on those for an additional 7 days of treatment. PETE ARCHULETA CNP Kriss Ca MD CM:CONSTR:REPORT OF CONSULTATION 1607 04/03/18 0209 interface
--- NOTE | ~2018-04-01 | PR ---
[place], [place] PROGRESS NOTE NAME: [facility]LING PAN [id number] UNIT #: [id number] ROOM: 407 DOCTOR: CRISTINA MONTALVO,JEREMIAH BIRTHDATE: [birth year] DOS: 04/03/2018 ADDENDUM This is an addendum to the progress note done by the nurse practitioner, Luba Soliz. I agree with the assessment and plan made by the nurse practitioner Luba Soliz. I reviewed the labs and imaging and made the necessary changes in the note. Jeremiah Evans MD CM:PNTRANS 1908 0824 JEREMIAH EVANS MD 05/04/18 0829 interface
--- NOTE | ~2018-04-01 | PR ---
[place], [place] PROGRESS NOTE NAME: STERLING PAN UNIT #: [id number] ROOM: 407 DOCTOR: GEREMIAS KCJUNE BIRTHDATE: [birth year] DOS: 04/03/2018 SUBJECTIVE: The patient is a 48-year-old morbidly obese female being followed for a left lower extremity cellulitis. She has chronic lymphedema of her lower extremities. She is doing well on IV vancomycin, has had improvement of her left leg erythema and discomfort. She does still feel some flu-like symptoms of just being achy and tired, but no nausea, vomiting or diarrhea. She has been afebrile. Further review of systems is unremarkable. LABORATORY DATA: BUN 13, creatinine 1.06. Vancomycin trough 18.3. PHYSICAL EXAMINATION: VITAL SIGNS: Temperature 98.0, pulse 74, respirations 20, BP 112/69. GENERAL: A 48-year-old morbidly obese female, in no acute distress. HEAD, EYES, EARS, NOSE AND THROAT: Normocephalic. No thrush. LUNGS: Clear to auscultation bilaterally. Respirations even and unlabored. HEART: Regular rhythm. No murmur appreciated. ABDOMEN: Soft, obese. EXTREMITIES: Bilateral lower extremity lymphedema with slight increase in edema of the left lower extremity, faint pinkness residual. No open wounds. No tinea pedis. ASSESSMENT: Left lower extremity cellulitis, recurrent due to lymphedema. PLAN: As I previously discussed with the patient, she is going to see her primary care physician and work on referral for lymphedema therapy in the area as well as she could be discharged from an Infectious Diseases' standpoint. I will switch her over to doxycycline and Keflex, which I would continue for another 7 days. I did discuss with her instructions for taking the doxycycline including avoiding calcium for an hour before and an hour after as well as photosensitivity and to take with food if she has issues with nausea with it. JUNE YAMINI ARCHULETA [place], [place] PROGRESS NOTE NAME: STERLING PAN UNIT #: [id number] ROOM: 407 DOCTOR: GEREMIAS KC BIRTHDATE: [birth year] Kriss Ca MD CM:ZHANNA 1142 1153 JUNE GEREMIAS KC 04/03/18 1329 interface
--- NOTE | ~2018-04-01 | CON ---
[place], [place] REPORT OF CONSULTATION NAME: STERLING PAN UNIT #: [id number] ROOM: 407 DOCTOR: KRISS CA MD BIRTHDATE: [birth year] DOS: 04/01/2018 ADDENDUM This is an addendum to the consult note done by the nurse practitioner, Luba Soliz. I reviewed the labs and imaging, agree with the assessment and plan. Made the necessary changes in the note. Kriss Ca MD CM:CONSTR:REPORT OF CONSULTATION 1909 05/04/18 0829 interface
[~2018-04-01 21:42] MED LIST changes: +AQUAPHOR396 GM T; +LEVOFLOXACIN500 MG PO; +Percocet 325 MG1 TAB PO
[2018-04-01 21:44] VITALS: BP 133/52
[2018-04-01 22:17] LABS: BASO % 0.3 % (0.0-1.0); EOS # 0.2 10*3/uL (0.0-0.4); EOS % 1.8 % (1.0-4.0); HEMATOCRIT 36.1 % (37.0-47.0); HEMOGLOBIN 10.7 g/dl (12.0-16.0); LYMPH % 9.4 % (27.0-41.0); MEAN CELL VOLUME 90.3 fl (81.0-99.0); MEAN CORPUSCULAR HGB 26.8 pg (27.0-31.0); MEAN CORPUSCULAR HGB CONC 29.6 g/dl (33.0-37.0); MEAN PLATELET VOLUME 10.6 fl (9.6-12.3); MONO # 0.4 10*3/uL (0.1-1.0); MONO % 3.2 % (3.0-9.0); NEUT # 9.4 10*3/uL (2.3-7.9); NEUT % 84.8 % (47.0-73.0); PLATELET COUNT AUTOMATED 262 10*3/uL (130-400); RED CELL DISTRI WIDTH 14.6 % (0-14.5); WHITE BLOOD COUNT 11.1 10*3/uL (4.8-10.8)
[2018-04-01 22:33] LABS: ALBUMIN 3.8 gm/dl (3.1-4.5); CREATININE 1.18 mg/dL (0.55-1.02); POTASSIUM 4.1 mmol/L (3.5-5.1); TOTAL PROTEIN 8.1 gm/dL (6.4-8.2)
[2018-04-01 22:41] VITALS: BP 101/59
--- NOTE | 2018-04-01 22:51 | NUR ---
PER PATIENT PAIN MEDICATION WAS UNEFFECTIVE
[2018-04-02] VITALS: BP 125/63
[2018-04-02 00:30] VITALS: BP 125/63
--- NOTE | 2018-04-02 00:30 | NUR ---
A 48, admitted to , under the services of ROBLES Mcclure DO with a diagnosis of Cellulitis of Left Lower Extremity. Chief complaint is Cellulitis. Patient arrived via stretcher from ER. Monitor applied. Initial assessment completed. Vital signs taken and recorded. ROBLES MCCLURE DO notified of admission to the unit. Orders received. See assessment for past medical history, medications and allergies. Patient and/or family oriented to unit. [address] visitation policy reviewed. Patients home medications and pharmacy were updated and verified. Clothing/patient valuable form completed. MERCY VO
--- NOTE | 2018-04-02 01:30 | NUR ---
Notified that patients home medications were verified and updated.
--- NOTE | 2018-04-02 02:30 | NUR ---
[place] given per patient request for pain in her left leg. Patient rates pain 8/10. Will monitor.
--- NOTE | 2018-04-02 03:15 | NUR ---
[place] effective. Patient asleep with respirations >12.
--- NOTE | 2018-04-02 04:30 | NUR ---
Left a message with 's answering service regarding consult for chronic lymphedema.
[2018-04-02 06:05] LABS: BUN 13 mg/dl (7-24); CHLORIDE 105 mmol/L (98-107); CREATININE 1.12 mg/dL (0.55-1.02); POTASSIUM 4.2 mmol/L (3.5-5.1); SODIUM 136 mmol/L (136-145)
--- NOTE | 2018-04-02 06:17 | NUR ---
Morphine given per patient request for pain rated 7/10 in her left leg. Will monitor.
[2018-04-02 06:35] LABS: BASO % 0.3 % (0.0-1.0); EOS # 0.2 10*3/uL (0.0-0.4); HEMATOCRIT 31.1 % (37.0-47.0); HEMOGLOBIN 9.1 g/dl (12.0-16.0); LYMPH # 1.1 10*3/uL (1.3-4.4); LYMPH % 13.7 % (27.0-41.0); MEAN CELL VOLUME 90.1 fl (81.0-99.0); MEAN CORPUSCULAR HGB 26.4 pg (27.0-31.0); MEAN CORPUSCULAR HGB CONC 29.3 g/dl (33.0-37.0); MEAN PLATELET VOLUME 10.2 fl (9.6-12.3); MONO # 0.5 10*3/uL (0.1-1.0); NEUT # 5.8 10*3/uL (2.3-7.9); NEUT % 75.4 % (47.0-73.0); PLATELET COUNT AUTOMATED 234 10*3/uL (130-400); RED BLOOD COUNT 3.45 10*6/uL (4.10-5.10); RED CELL DISTRI WIDTH 14.7 % (0-14.5); WHITE BLOOD COUNT 7.7 10*3/uL (4.8-10.8)
--- NOTE | 2018-04-02 06:55 | NUR ---
Morphine effective. Patient satisfied.
[2018-04-02 08:00] VITALS: BP 110/64
--- NOTE | 2018-04-02 08:00 | NUR ---
PT DOES NOT WANT DRESSING APPLIED TO SMALL SCABBED AREA LEFT LOWER EXTREMITY
--- NOTE | 2018-04-02 08:30 | NUR ---
D/C FLUIDS PER DR. BALDWIN. DR. BALDWIN IN TO SEE PATIENT
--- NOTE | 2018-04-02 10:42 | NUR ---
PT REQUESTING MUSCLE RELAXER, GIVEN SEE MAY. PT STATES PAIN LEFT LOWER EXTREMITY 11/04, MORPHINE GIVEN
--- NOTE | 2018-04-02 11:15 | NUR ---
PAIN MEDICATION EFFECTVE AT THIS TIME
[2018-04-02 12:00] VITALS: BP 106/59
--- NOTE | 2018-04-02 12:38 | NUR ---
PT WOKE UP AND STATES PAIN IN LEFT LOWER LEG IS NOW A 6, REQUESTING NORCO. GIVEN. SEE MAR
--- NOTE | 2018-04-02 13:30 | NUR ---
NORCO EFFECTIVE FOR PAIN
[2018-04-02 16:00] VITALS: BP 102/61; BP 106/59
--- NOTE | 2018-04-02 18:40 | NUR ---
PT COMPLAIN OF LEFT LEG PAIN 10/04. MORPHINE GIVEN. SEE MAR
--- NOTE | 2018-04-02 19:52 | NUR ---
MEDICATED WITH PRN ZANAFLEX FOR C/O LOWER BACK PAIN, WILL MONITOR
[2018-04-02 20:00] VITALS: BP 113/65
--- NOTE | 2018-04-02 20:45 | NUR ---
PHARMACIST AWARE OF NO VANC TROUGH BEING ORDERED
--- NOTE | 2018-04-02 21:52 | NUR ---
24 HR chart check completed.
--- NOTE | 2018-04-02 21:55 | NUR ---
MEDICATED WITH PRN NORCO FOR C/O LEG PAIN RATED 7/10 ON A 0/10 PAIN SCALE. WILL MONITOR
[2018-04-03] VITALS: BP 98/50
--- NOTE | 2018-04-03 00:39 | NUR ---
MEDICATED WITH PRN MORPHINE FOR C/O PAIN IN LEFT LEG RATED 7/10 ON A 0/10 PAIN SCALE
--- NOTE | 2018-04-03 02:06 | NUR ---
PATIENT RESTING IN BED WITH EYES CLOSED. RESPS EASY AND REGULAR. MEDICATION SEEMS EFFECTIVE
[2018-04-03 04:00] VITALS: BP 112/62
--- NOTE | 2018-04-03 04:06 | NUR ---
MEDICATED WITH PRN NORCO FOR C/O LEFT LOWER LEG PAIN RATED 6/10 ON A 0/10 PAIN SCALE
--- NOTE | 2018-04-03 07:22 | NUR ---
TOOK OVER CARE OF PT. PT RESTING IN BED, RESPIRATIONS EASY. EASILY AROUSED. ASSESSMENT COMPELTE. PT C/O PAIN. WILL MEDICATE HER WITH MEDS AVAILABLE IN [facility]. LEGS EDEMATOUS. IV SITE IN TACT. ALL SAFETY MEASURES IN PLACE. CALL LIGHT IN REACH.
[2018-04-03 08:00] VITALS: BP 112/69
--- NOTE | 2018-04-03 08:06 | NUR ---
PT C/O PAIN TO LLE, RATES IT 11/04. REQUESTS MEDICATION. NORCO 5-325 MG TABLET GIVEN AT THIS TIME. WILL MONITOR FOR EFFECTIVENESS. CALL LIGHT IN REACH.
--- NOTE | 2018-04-03 09:00 | NUR ---
Transit Planner in to talk to patient. Patient states lives at home with a roommate. There are 10 steps in the home. Physician: Dr. Nessa Duffy Pharmacy: [facility] Home health services: none Patient's level of ADLs: INDEPENDENT Patient has working utilities: yes DME: c-pap Follow-up physician's appointment after d/c: will be made by the hospitalist nurse director upon discharge Does patient want to access PORTAL?: no Discharge plan discussed with patient. She lives at home with a roommate. She is independent in her ADLs and ambulation. If she goes to [facility] she states she will use the electric scooter. Discussed home health care services and she denies any home needs at this time. When medically stable she will be discharged to home. BARBER PECK
--- NOTE | 2018-04-03 09:06 | NUR ---
ADRIAN EFFECTIVE PER PT.
[2018-04-03 10:07] LABS: BUN 13 mg/dl (7-24); CHLORIDE 104 mmol/L (98-107); CREATININE 1.06 mg/dL (0.55-1.02); POTASSIUM 4.4 mmol/L (3.5-5.1); SODIUM 137 mmol/L (136-145)
--- NOTE | 2018-04-03 10:21 | NUR ---
PT STATES THAT LLE IS CAUSING HER PAIN AGAIN, RATES IT A 9/10. MORPHINE GIVEN VIA IV AT THIS TIME. TOLERATED WELL. WILL MONITOR FOR EFFECTIVENESS. CALL LIGHT IN REACH.
--- NOTE | 2018-04-03 10:32 | NUR ---
STERLING PAN [id number] Please refer to the physician's history and physical for past medical history, comorbid conditions, and allergies. Diagnosis: CELLULITIS OF LEFT LOWER EXTREMITY Luis Score: 22,LOW OR NO RISK WOUND DESCRIPTIONS: Location of the wound: Left lateral lower leg Type of wound: Thickness: Partial Size: 0.6cm x 0.5cm x <0.1cm Tunneling: none Undermining: none Sinus Tract: none Presence of Exudate: Amount: None Color: Brown Odor: None Periwound Skin Appearance: Normal Wound edges: Closed. Intact scab. Pain (associated with wound): Denied at time of assessment. How does patient state this happened? Patient states this the same area that she has had problems with in the past. Patient states this area looks good compared to previous admissions. If wound is on legs/feet or hands, capillary refill time, pulses, color temp, sensation: Cap refill < 3 seconds. Surface the patient is resting on: Position Pro SKIN PREVENTION RECOMMENDATION: 1. Pressure redistribution support surface as appropriate 2. Elevate heels 3. Remove boots/TEDS every shift and reapply 4. Head of bed 30 degrees as tolerated 5. Assess nutrition and hydration 6. Manage moisture 7. Avoid the use of containment devices while in bed 8. Use absorptive products on surfaces limit layers of linens on bed 9. Turn and reposition every 1-2 hours in bed and every 1 hour in chair as tolerated 10. Weight shifts every 15 minutes while up in chair 11. Offloading with pillows or device to keep heels elevated off bed 12. Monitor skin at least every shift 13. Inspect under medical devices twice a day WOUND TREATMENT RECOMMENDATIONS: Patient requesting to leave area open to air at this time.
--- NOTE | 2018-04-03 11:27 | NUR ---
Dr. Fleming notified of wound care recommendations. Per Dr. Fleming's request recommendations were printed and placed in hospitalist's office.
--- NOTE | 2018-04-03 11:28 | NUR ---
MORPHINE EFFECTIVE AT THIS TIME. PT STATES THAT PAIN IS NOW A 2. WILL CONTINUE TO MONITOR. CALL LIGHT IN REACH.
[2018-04-03 12:00] VITALS: BP 115/67
[2018-04-03] MEDS ORDERED: DOXYCYCLINE MO100 M1 PO (12:24)
[2018-04-03] MEDS ORDERED: KEFLEX 500 MG E2 CAP PO (12:24)
--- NOTE | 2018-04-03 15:18 | NUR ---
Discharge instructions reviewed with patient/family. Patient receptive and verbalizes understanding. Follow-up care arranged. Written instructions given to patient/family. MICHAEL HOWARD
--- NOTE | 2018-04-03 15:18 | NUR ---
DISCHARGE PHOTOS OBTAINED ON PT
[2018-05-31] MEDS ORDERED: CEPHALEXIN500 M1 PO (15:33)
[2018-06-12] MEDS ORDERED: DOXYCYCLINE100 M3 PO (15:32)
[2018-06-12] MEDS ORDERED: PERCOCET 5-3251 EACH PO (15:33)
== END 2018-04-03 15:18 | disposition home or self-care (01) | DRG 603 ==
LOC: ED 21:42 → EDHOLD 23:04 → 4E 23:04
PROVIDERS: Family Medicine; Internal Medicine; Physician Assistant; ADMIT Internal Medicine
DX: L03.116 Cellulitis of left lower limb (principal); I50.32 Chronic diastolic (congestive) heart failure; I20.1 Angina pectoris with documented spasm; Z68.43 Body mass index [BMI] 50.0-59.9, adult; I89.0 Lymphedema, not elsewhere classified; K21.9 Gastro-esophageal reflux disease without esophagitis; E66.01 Morbid (severe) obesity due to excess calories; G47.33 Obstructive sleep apnea (adult) (pediatric); E55.9 Vitamin D deficiency, unspecified; D64.9 Anemia, unspecified; N18.3 Chronic kidney disease, stage 3 (moderate); F32.9 Major depressive disorder, single episode, unspecified; R00.0 Tachycardia, unspecified; Z88.9 Allergy status to unspecified drugs, medicaments and biological substances; Z90.49 Acquired absence of other specified parts of digestive tract; Z98.84 Bariatric surgery status; Z98.891 History of uterine scar from previous surgery; Z98.51 Tubal ligation status

== ENCOUNTER 2018-04-24 15:42 | Emergency (ER) | payer OTHER ==
[~2018-04-24] VITALS: Ht 165.1 cm; Wt 136.1 kg
--- NOTE | ~2018-04-24 | EKG ---
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
[~2018-04-24 15:42] MED LIST changes: +DOXYCYCLINE MO100 M1 PO; +KEFLEX 500 MG E2 CAP PO
[2018-04-24 16:59] LABS: BASO % 0.5 % (0.0-1.0); EOS # 0.1 10*3/uL (0.0-0.4); EOS % 2.4 % (1.0-4.0); HEMATOCRIT 34.6 % (37.0-47.0); HEMOGLOBIN 10.2 g/dl (12.0-16.0); LYMPH # 1.2 10*3/uL (1.3-4.4); MEAN CELL VOLUME 88.5 fl (81.0-99.0); MEAN CORPUSCULAR HGB 26.1 pg (27.0-31.0); MEAN CORPUSCULAR HGB CONC 29.5 g/dl (33.0-37.0); MEAN PLATELET VOLUME 10.9 fl (9.6-12.3); MONO # 0.4 10*3/uL (0.1-1.0); MONO % 6.3 % (3.0-9.0); NEUT # 4.1 10*3/uL (2.3-7.9); NEUT % 70.5 % (47.0-73.0); PLATELET COUNT AUTOMATED 266 10*3/uL (130-400); RED BLOOD COUNT 3.91 10*6/uL (4.10-5.10); RED CELL DISTRI WIDTH 14.6 % (0-14.5); WHITE BLOOD COUNT 5.9 10*3/uL (4.8-10.8)
[2018-04-24 17:12] LABS: ACT PARTIAL THROMBO TIME 24.1 SECONDS (20.8-31.5)
[2018-04-24 17:15] LABS: ALBUMIN 3.8 gm/dl (3.1-4.5); ALKALINE PHOSPHATASE 89 U/L (45-117); BUN 14 mg/dl (7-24); CHLORIDE 109 mmol/L (98-107); CREATININE 1.32 mg/dL (0.55-1.02); LIPASE 85 U/L (73-393); POTASSIUM 4.2 mmol/L (3.5-5.1); SGOT/AST 10 IU/L (3-35); SGPT/ALT 15 U/L (12-78); SODIUM 142 mmol/L (136-145); TOTAL PROTEIN 7.4 gm/dL (6.4-8.2)
[2018-04-24 17:16] LABS: TROPONIN I < 0.015 ng/ml (<0.045)
[2018-05-31] MEDS ORDERED: CEPHALEXIN500 M1 PO (15:33)
[2018-06-12] MEDS ORDERED: DOXYCYCLINE100 M3 PO (15:32)
[2018-06-12] MEDS ORDERED: PERCOCET 5-3251 EACH PO (15:33)
== END 2018-04-24 17:53 | disposition home or self-care (01) ==
LOC: ED 15:42
PROVIDERS: Nurse Practitioner Family
DX: S81.802A Unspecified open wound, left lower leg, initial encounter (principal); I50.32 Chronic diastolic (congestive) heart failure; N18.9 Chronic kidney disease, unspecified; K21.9 Gastro-esophageal reflux disease without esophagitis; E66.01 Morbid (severe) obesity due to excess calories; Z91.048 Other nonmedicinal substance allergy status; Z79.899 Other long term (current) drug therapy; Z79.82 Long term (current) use of aspirin; Z90.49 Acquired absence of other specified parts of digestive tract; X58.XXXA Exposure to other specified factors, initial encounter; Y93.89 Activity, other specified; Y92.098 Other place in other non-institutional residence as the place of occurrence of the external cause; Y99.8 Other external cause status

== ENCOUNTER 2018-05-14 15:10 | Inpatient (IN) | payer OTHER ==
[~2018-05-14] VITALS: Ht 165.1 cm; Wt 136.1 kg
--- NOTE | ~2018-05-14 | EKG ---
[place], [place] ELECTROCARDIOGRAM REPORT NAME: STERLING PAN UNIT #: [id number] ROOM: 408 DOCTOR: ASHWINI DRAFT REPORT BIRTHDATE: [birth year] [facility] Test Date: 2018-05-14 Test Time: 20:52:12 Pat Name: STERLING PAN Department: Room: 408 Gender: F Ordnance Mechanic: Octavio Rueda : 1970 Requested By: TIEN BROWN Order Number: [id number] Reading MD: Octavio Dominguez MD Measurements Intervals [place] Rate: 101 P: 41 MO: 118 QRS: 2 QRSD: 99 T: 60 QT: 321 QTc: 417 Interpretive Statements Sinus tachycardia Probable left atrial enlargement Low voltage, precordial leads Borderline T abnormalities, anterior leads No change from earlier ECG this date T-wave abnormality still present Electronically Signed On 05-14-2018 20:44:17 PST by Octavio Dominguez MD CM:EKGRPT:ELECTROCARDIOGRAM REPORT 51 43 TIEN MARADIAGA DRAFT REPORT TIEN BROWN M.D.
--- NOTE | ~2018-05-14 | EKG ---
[place], [place] ELECTROCARDIOGRAM REPORT NAME: STERLING PAN UNIT #: [id number] ROOM: 408 DOCTOR: ASHWINI DRAFT REPORT BIRTHDATE: [birth year] [facility] Test Date: 2018-05-14 Test Time: 15:14:42 Pat Name: STERLING PAN Department: Room: 408 Gender: F Custom Decorating Consultant: Octavio Rueda : 1970 Requested By: TIEN BROWN Order Number: [id number] Reading MD: Octavio Dominguez MD Measurements Intervals [place] Rate: 102 P: 46 UT: 127 QRS: -5 QRSD: 95 T: 57 QT: 317 QTc: 414 Interpretive Statements Sinus tachycardia Abnormal R-wave progression, early transition Borderline T abnormalities, anterior leads Compared to ECG 04/24/2018 16:30:14 Sinus rhythm no longer present T-wave abnormality still present Electronically Signed On 05-14-2018 20:38:16 PST by Octavio Dominguez MD CM:EKGRPT:ELECTROCARDIOGRAM REPORT [id number] TIEN MARADIAGA DRAFT REPORT TIEN BROWN M.D.
--- NOTE | ~2018-05-14 | EKG ---
[place], [place] ELECTROCARDIOGRAM REPORT NAME: STERLING PAN UNIT #: [id number] ROOM: 408 DOCTOR: ASHWINI DRAFT REPORT BIRTHDATE: [birth year] [facility] Test Date: 2018-05-14 Test Time: 18:01:49 Pat Name: STERLING PAN Department: Room: 408 Gender: F Viticulture Teacher: Any Donaldson : 1970 Requested By: TIEN BROWN Order Number: [id number] Reading MD: Octavio Dominguez MD Measurements Intervals [place] Rate: 89 P: 38 MS: 127 QRS: -1 QRSD: 99 T: 57 QT: 356 QTc: 434 Interpretive Statements Sinus rhythm Low voltage, precordial leads Borderline T abnormalities, anterior leads No change from earlier ECG this date Electronically Signed On 05-14-2018 20:41:18 PST by Octavio Dominguez MD CM:EKGRPT:ELECTROCARDIOGRAM REPORT 40 TIEN MARADIAGA DRAFT REPORT TIEN BROWN M.D.
[2018-05-14 15:12] VITALS: BP 123/70
[2018-05-14 15:58] LABS: BASO % 0.5 % (0.0-1.0); EOS # 0.2 10*3/uL (0.0-0.4); EOS % 2.4 % (1.0-4.0); HEMATOCRIT 39.5 % (37.0-47.0); HEMOGLOBIN 11.2 g/dl (12.0-16.0); LYMPH # 1.3 10*3/uL (1.3-4.4); LYMPH % 15.4 % (27.0-41.0); MEAN CELL VOLUME 89.4 fl (81.0-99.0); MEAN CORPUSCULAR HGB 25.3 pg (27.0-31.0); MEAN CORPUSCULAR HGB CONC 28.4 g/dl (33.0-37.0); MEAN PLATELET VOLUME 11.4 fl (9.6-12.3); MONO # 0.4 10*3/uL (0.1-1.0); MONO % 4.2 % (3.0-9.0); NEUT # 6.4 10*3/uL (2.3-7.9); NEUT % 77.1 % (47.0-73.0); PLATELET COUNT AUTOMATED 236 10*3/uL (130-400); RED BLOOD COUNT 4.42 10*6/uL (4.10-5.10); RED CELL DISTRI WIDTH 14.6 % (0-14.5); WHITE BLOOD COUNT 8.4 10*3/uL (4.8-10.8)
[2018-05-14 16:08] LABS: ACT PARTIAL THROMBO TIME 19.9 SECONDS (20.8-31.5)
[2018-05-14 16:13] LABS: ALBUMIN 3.9 gm/dl (3.1-4.5); ALKALINE PHOSPHATASE 114 U/L (45-117); BUN 13 mg/dl (7-24); CHLORIDE 109 mmol/L (98-107); CREATININE 1.24 mg/dL (0.55-1.02); POTASSIUM 3.7 mmol/L (3.5-5.1); SGOT/AST 8 IU/L (3-35); SGPT/ALT 15 U/L (12-78); SODIUM 143 mmol/L (136-145); TOTAL PROTEIN 8.4 gm/dL (6.4-8.2)
[2018-05-14 16:15] LABS: TROPONIN I < 0.015 ng/ml (<0.045)
--- NOTE | 2018-05-14 16:30 | NUR ---
MULTIPLE ATTEMPTS ERICA MADE TO START AN IV ACCESS WITH NO SUCCESS MADE AWARE KAREEN LONG RN.
[2018-05-14 16:40] VITALS: BP 112/68
[2018-05-14 18:20] VITALS: BP 110/70
--- NOTE | 2018-05-14 20:09 | NUR ---
AT THIS TIME PATIENT REPORTS THAT SOME OF HER LYMPHEDEMA FOLDS MAY BE REDDENED. UPON EXAMINATION TO LLE FOLD REVEALS REDNESS WITHOUT SEEPAGE/DRAINAGE.
--- NOTE | 2018-05-14 20:15 | NUR ---
REPORT GIVEN TO NATALIE LAW. [facility] TO TRANSPORT PATIENT TO FLOOR. IVF INFUSING.
[2018-05-14 20:30] VITALS: BP 116/68
--- NOTE | 2018-05-14 20:30 | NUR ---
A 48, admitted to 4E, under the services of ROBLES Mcclure DO with a diagnosis of CHEST PAIN. Chief complaint is CHEST PAIN. Patient arrived via stretcher from ER. Monitor applied. Initial assessment completed. Vital signs taken and recorded. ROBLES MCCLURE DO notified of admission to the unit. Orders received. See assessment for past medical history, medications and allergies. Patient and/or family oriented to unit. [facility] visitation policy reviewed. Clothing/patient valuable form completed. NATALIE BANKS
--- NOTE | 2018-05-14 21:05 | NUR ---
SPOKE TO REGARDING PATIENT'S C/O INTERMITTENT THROBBING CHEST PAIN RATED 7/10 AND ALSO LLL PAIN RATED 7/10. NEW ORDER RECEIVED FOR 1X DOSE OF NORCO 5/325. ALSO AWARE THAT PATIENT'S HOME MED REC UP TO DATE. INSTRUCTED TO ORDER HOME ZANAFLEX.
--- NOTE | 2018-05-14 22:22 | NUR ---
NOTIFIED OF PATIENT BRINGING IN CPAP FROM HOME. CPAP MACHINE HAS BEEN INSPECTED BY MAINTENANCE. INSTRUCTED TO PUT IN ORDER FOR USE AT HOME SETTINGS.
--- NOTE | 2018-05-14 23:36 | NUR ---
PATIENT IS STILL COMPLAINING OF LLL PAIN AND L SIDED CHEST PAIN THAT COMES AND GOES. STATES EARLIER MEDICATIONS HELPED HER CHRONIC BACK PAIN, BUT NOT HER LEG/CHEST PAIN. PT RATING THIS PAIN 7/10 SHE IS EATING NABILA CRACKERS AND PEANUT BUTTER. NEW ORDER RECEIVED FOR IV MORPHINE 2MG X1 DOSE NOW.
[2018-05-15] VITALS: BP 98/58
--- NOTE | 2018-05-15 00:20 | NUR ---
NOTIFIED OF BP 98/52 MANUALLY. DISCUSSED IV MORPHINE TO BE GIVEN BUT HAS NOT YET BEEN ADMINISTERED. INSTRUCTED TO HOLD IV MORPHINE. ALSO DISCUSSED TEMP 101.3 AND PO TYLENOL GIVEN FOR THIS. INSTRUCTED TO INCREASE FLUIDS TO 100 ML/HR JUST FOR THE REMAINDER OF THIS BAG. STATES SHE WILL LOOK AT CHART AND ORDER PAIN MEDICATION AFTER REVIEWING LABS, ETC.
--- NOTE | 2018-05-15 00:23 | NUR ---
IVF INCREASED TO 100 ML/HR PER 'S ORDER.
--- NOTE | 2018-05-15 00:36 | NUR ---
CALLED BACK. STATES TO TURN IV FLUIDS UP TO 125/HR FOR THE REST OF THIS BAG AND FOR THE NEXT BAG. IVF INCREASED PER ORDER. AWAITING PO MOTRIN AND IV VANC TO BE VERIFIED AND PROFILED.
--- NOTE | 2018-05-15 01:04 | NUR ---
PO MOTRIN ADMINISTERED PER ONE TIME ORDER FOR C/O PAIN IN L LEG AND PAIN IN CHEST RATED 7/10. PATIENT IN AND OUT OF SLEEP WHILE RN ASSESSING PT. IVF INFUSING AT 125/HR. WILL MONITOR. CALL LIGHT IN REACH.
[2018-05-15 04:00] VITALS: BP 104/58
[2018-05-15 06:22] LABS: HEMATOCRIT 33.5 % (37.0-47.0); HEMOGLOBIN 9.7 g/dl (12.0-16.0); MEAN CELL VOLUME 88.9 fl (81.0-99.0); MEAN CORPUSCULAR HGB 25.7 pg (27.0-31.0); MEAN PLATELET VOLUME 11.1 fl (9.6-12.3); PLATELET COUNT AUTOMATED 224 10*3/uL (130-400); RED BLOOD COUNT 3.77 10*6/uL (4.10-5.10); RED CELL DISTRI WIDTH 14.8 % (0-14.5); WHITE BLOOD COUNT 14.8 10*3/uL (4.8-10.8)
[2018-05-15 06:47] LABS: ALBUMIN 3.1 gm/dl (3.1-4.5); CREATININE 1.18 mg/dL (0.55-1.02); PHOSPHOROUS 3.7 mg/dL (2.5-4.9); POTASSIUM 4.1 mmol/L (3.5-5.1); TOTAL PROTEIN 6.8 gm/dL (6.4-8.2)
[2018-05-15 07:30] VITALS: BP 108/66
[2018-05-15 07:36] LABS: TOTAL CELLS COUNTED 100 #CELLS
[2018-05-15 07:37] LABS: OVALOCYTES FEW; PLATELET SUFFICIENCY NORMAL (NORMAL)
--- NOTE | 2018-05-15 07:53 | NUR ---
PT UP IN BED ON HER LAPTOP, WAITING FOR BREAKFAST, WILL CONTINUE TO MONITOR. CESILIA TELLO
--- NOTE | 2018-05-15 09:00 | NUR ---
Plate Colorer in to talk to patient. Patient states lives at home with roommate. There are few steps in the home. Physician: kiko shahid [facility]acy: [facility] health services: none Patient's level of ADLs: INDEPENDENT Patient has working utilities: all working DME: cpap Follow-up physician's appointment after d/c: will be made by hospitalist nurse director upon discharge Does patient want to access PORTAL?: no Discharge plan discussed with patient, patient lives at home with roommate, she states she is independent in adls, patient states she will be going home whena able and denies any home needs. KAREN NGO
--- NOTE | 2018-05-15 10:01 | NUR ---
GAVE PT ZANAFLEX (TIZANIDINE) AT 0942 D/T LOVER BACK PAIN PER PT. REQUEST. CESILIA RODRIGUEZ SPTHADCC
[2018-05-15 12:00] VITALS: BP 86/54
--- NOTE | 2018-05-15 12:00 | NUR ---
TOOK PTS BP MANUALLY X2 86/54, ASYMPTOMATIC AT THIS TIME, IV FLUIDS STILL INFUSING, PT SLEEPING, WILL CONTINUE TO MONITOR. CESILIA RODRIGUEZ SPNRCC
--- NOTE | 2018-05-15 13:33 | NUR ---
PT SLEEPING IN BED, NO COMPLAINTS AT THIS TIME. CESILIA RODRIGUEZ SPNRCC
--- NOTE | 2018-05-15 15:49 | NUR ---
PT MEDICATED WITH PRN PERCOCET FOR C/O LEFT LOWER EXTREMITY PAIN THAT SHE RATES 11/04. WILL REACCESS.
[2018-05-15 16:00] VITALS: BP 115/65
--- NOTE | 2018-05-15 18:15 | NUR ---
PT MEDICATED WITH ADDITIONAL 5/325 OF PERCOCET FOR C/O LEFT LOWER EXTREMITY PAIN. DOSE INCREASED TO 7.5/325 Q6H.
--- NOTE | 2018-05-15 19:16 | NUR ---
ASSUMED CARE OF PT AT THIS TIME. PATIENT IS AWAKE, SITTING UP IN BED, A&OX3. NO COMPLAINTS VOICED AT THIS TIME. WILL MONITOR. CALL LIGHT LEFT IN REACH.
[2018-05-15 20:00] VITALS: BP 108/60
--- NOTE | 2018-05-15 20:09 | NUR ---
PATIENT MEDICATED WITH PRN ZANAFLEX FOR C/O CHRONIC BACK PAIN WITH SPASMS. PO KLONOPIN ALSO ADMINISTERED AT THIS TIME PER ORDER. WILL MONITOR. CALL LIGHT IN REACH.
[2018-05-16] VITALS: BP 99/58
[2018-05-16 04:30] VITALS: BP 82/50; BP 88/43
--- NOTE | 2018-05-16 04:53 | NUR ---
NOTIFIED OF BP LOW AT 82/50 MANUALLY. NEW ORDERS TO FOLLOW.
[2018-05-16 06:18] LABS: BASO % 0.3 % (0.0-1.0); EOS # 0.2 10*3/uL (0.0-0.4); HEMATOCRIT 31.1 % (37.0-47.0); HEMOGLOBIN 9.1 g/dl (12.0-16.0); LYMPH # 1.3 10*3/uL (1.3-4.4); LYMPH % 16.6 % (27.0-41.0); MEAN CELL VOLUME 89.4 fl (81.0-99.0); MEAN CORPUSCULAR HGB 26.1 pg (27.0-31.0); MEAN CORPUSCULAR HGB CONC 29.3 g/dl (33.0-37.0); MEAN PLATELET VOLUME 11.4 fl (9.6-12.3); MONO # 0.5 10*3/uL (0.1-1.0); MONO % 6.7 % (3.0-9.0); NEUT # 5.6 10*3/uL (2.3-7.9); PLATELET COUNT AUTOMATED 210 10*3/uL (130-400); RED BLOOD COUNT 3.48 10*6/uL (4.10-5.10); RED CELL DISTRI WIDTH 14.9 % (0-14.5); WHITE BLOOD COUNT 7.6 10*3/uL (4.8-10.8)
[2018-05-16 06:44] LABS: BUN 11 mg/dl (7-24); CHLORIDE 107 mmol/L (98-107); CREATININE 0.96 mg/dL (0.55-1.02); SODIUM 138 mmol/L (136-145)
--- NOTE | 2018-05-16 06:46 | NUR ---
PATIENT'S DAUGHTER UPDATED ON STATUS.
[2018-05-16 08:00] VITALS: BP 107/54
--- NOTE | 2018-05-16 08:00 | NUR ---
PT MEDICATED WITH PRN PERCOCET FOR C/O LLE PAIN. PT RATES PAIN 11/04. WILL REACCESS.
--- NOTE | 2018-05-16 09:00 | NUR ---
PRN PERCOCET EFFECTIVE PER PT.
[2018-05-16 09:15] VITALS: BP 98/48
[2018-05-16 16:00] VITALS: BP 95/59
[2018-05-16 20:00] VITALS: BP 110/73
--- NOTE | 2018-05-16 22:19 | NUR ---
PO PERCOCET ADMINISTERED PER PRN ORDER FOR C/O PAIN IN LLL RATED 8/10. WILL MONITOR EFFECTIVENESS. CALL LIGHT IN REACH.
--- NOTE | 2018-05-16 23:06 | NUR ---
PATIENT STATES EARLIER MEDICATION WAS EFFECTIVE. WILL CONTINUE TO MONITOR.
[2018-05-17] VITALS: BP 111/63
--- NOTE | 2018-05-17 01:37 | NUR ---
PATIENT MEDCIATED WITH PO ZANAFLEX PER PRN ORDER FOR C/O PAIN/SPASMS IN BACK. WILL MONITOR EFFECTIVENESS. CALL LIGHT LEFT IN REACH.
--- NOTE | 2018-05-17 02:34 | NUR ---
EARLIER MEDICATION APPEARS EFFECTIVE. PATIENT ASLEEP IN BED. RESPIRATIONS EASY. NO S/S OF DISTRESS NOTED. WILL CONTINUE TO MONITOR.
[2018-05-17 07:57] LABS: BASO % 0.6 % (0.0-1.0); EOS # 0.3 10*3/uL (0.0-0.4); EOS % 5.2 % (1.0-4.0); HEMATOCRIT 31.9 % (37.0-47.0); LYMPH # 1.2 10*3/uL (1.3-4.4); LYMPH % 22.9 % (27.0-41.0); MEAN CELL VOLUME 90.1 fl (81.0-99.0); MEAN CORPUSCULAR HGB 25.4 pg (27.0-31.0); MEAN CORPUSCULAR HGB CONC 28.2 g/dl (33.0-37.0); MEAN PLATELET VOLUME 11.3 fl (9.6-12.3); MONO # 0.4 10*3/uL (0.1-1.0); MONO % 7.6 % (3.0-9.0); NEUT # 3.3 10*3/uL (2.3-7.9); NEUT % 62.9 % (47.0-73.0); PLATELET COUNT AUTOMATED 223 10*3/uL (130-400); RED BLOOD COUNT 3.54 10*6/uL (4.10-5.10); RED CELL DISTRI WIDTH 14.6 % (0-14.5); WHITE BLOOD COUNT 5.2 10*3/uL (4.8-10.8)
[2018-05-17 08:00] VITALS: BP 97/57
[2018-05-17 08:30] LABS: BUN 14 mg/dl (7-24); CHLORIDE 108 mmol/L (98-107); CREATININE 1.03 mg/dL (0.55-1.02); POTASSIUM 4.3 mmol/L (3.5-5.1); SODIUM 140 mmol/L (136-145)
--- NOTE | 2018-05-17 09:00 | NUR ---
case management visits with patient, patient states she will be going home when able and denies any home needs
--- NOTE | 2018-05-17 11:11 | NUR ---
PT COMPLAIN OF PAIN TO LEFT LOWER LEG 6 ON 1-10 SCALE, REQUESTED PERCOCET AT 0930. PT COOPERATIVE PLEASANT. EDUCATED ON KEEPING SKIN CLEAN AND INTACT WITH CARE. NO AREAS OF CONCERN NOTED. DR. ORTEZ ON THE UNIT TO SEE PT. DID DISCUSS DISCHARGE WITH PATIENT
[2018-05-17] MEDS ORDERED: KEFLEX500 M1 PO (11:51)
[2018-05-17] MEDS ORDERED: PERCOCET 7.5-31 EACH PO (11:51)
[2018-05-17] MEDS ORDERED: VIBRAMYCIN100 MG PO (11:51)
[2018-05-17 12:00] VITALS: BP 129/73
--- NOTE | 2018-05-17 13:03 | NUR ---
Discharge instructions reviewed with patient/family. Patient receptive and verbalizes understanding. Follow-up care arranged. Written instructions given to patient/family. HEPLOCK REMOVED FROM RIGHT ARM. PT PLEASANT ALERT AND ORIENTED RENUKA DUTTA
--- NOTE | 2018-05-17 13:40 | NUR ---
PT OFF THE FLOOR AT THIS TIME WITH ALL BELONGINGS. AMBULATED SELF, REFUSED [facility] TRANSPORT.
[2018-05-31] MEDS ORDERED: CEPHALEXIN500 M1 PO (15:33)
[2018-06-12] MEDS ORDERED: DOXYCYCLINE100 M3 PO (15:32)
[2018-06-12] MEDS ORDERED: PERCOCET 5-3251 EACH PO (15:33)
[2018-10-06] MEDS ORDERED: ZOLOFT100 MG PO (11:48)
[2018-10-07] MEDS ORDERED: ZANAFLEX CAPSULE6 MG PO (13:42)
[2018-10-08] MEDS ORDERED: HYDROCODONE-AC1 EAC1 PO (10:52)
[2018-10-08] MEDS ORDERED: CEPHALEXIN500 M1 PO (10:52)
[2018-10-08] MEDS ORDERED: VITAMIN D50000 UNIT PO (11:25)
== END 2018-05-17 13:40 | disposition home or self-care (01) | DRG 872 ==
LOC: ED 15:10 → EDHOLD 18:03 → 4E 18:03
PROVIDERS: Emergency Medicine; Internal Medicine; Internal Medicine Nephrology; ADMIT Internal Medicine
DX: A41.9 Sepsis, unspecified organism (principal); L03.116 Cellulitis of left lower limb; I20.1 Angina pectoris with documented spasm; I50.32 Chronic diastolic (congestive) heart failure; F32.9 Major depressive disorder, single episode, unspecified; D64.9 Anemia, unspecified; R07.89 Other chest pain; N18.3 Chronic kidney disease, stage 3 (moderate); E55.9 Vitamin D deficiency, unspecified; K21.9 Gastro-esophageal reflux disease without esophagitis; E66.01 Morbid (severe) obesity due to excess calories; G47.33 Obstructive sleep apnea (adult) (pediatric); F41.9 Anxiety disorder, unspecified; Z87.01 Personal history of pneumonia (recurrent); Z85.41 Personal history of malignant neoplasm of cervix uteri; Z92.21 Personal history of antineoplastic chemotherapy; Z90.49 Acquired absence of other specified parts of digestive tract; Z98.84 Bariatric surgery status; Z98.51 Tubal ligation status; Z98.891 History of uterine scar from previous surgery; Z80.42 Family history of malignant neoplasm of prostate; Z79.82 Long term (current) use of aspirin; Z79.899 Other long term (current) drug therapy

== ENCOUNTER 2018-06-17 13:32 | Emergency (ER) | payer OTHER ==
[~2018-06-17] VITALS: Ht 165.1 cm; Wt 136.1 kg
--- NOTE | ~2018-06-17 | EKG ---
[place], [place] ELECTROCARDIOGRAM REPORT NAME: STERLING PAN UNIT #: [id number] ROOM: DOCTOR: EPIPHANY DRAFT REPORT BIRTHDATE: [address] [facility] Test Date: 2018-06-17 Test Time: 13:37:37 Pat Name: STERLING PAN Department: Room: Gender: F Media Job Titles: Emmie Martins : 1970 Requested By: TIEN BROWN Order Number: [id number] Reading MD: Fozia Fenton Measurements Intervals [place] Rate: 98 P: 46 MI: 121 QRS: 1 QRSD: 84 T: 57 QT: 446 QTc: 570 Interpretive Statements Sinus rhythm Probable left atrial enlargement Low voltage, precordial leads Nonspecific T abnormalities, lateral leads Prolonged QT interval Compared to ECG 06/12/2018 14:34:55 Prolonged QT interval now present T-wave abnormality still present Electronically Signed On 06-18-2018 11:05:50 PDT by Fozia Fenton CM:EKGRPT:ELECTROCARDIOGRAM REPORT [id number] TIEN MARADIAGA DRAFT REPORT TIEN BROWN M.D.
--- NOTE | ~2018-06-17 | EKG ---
[place], [place] ELECTROCARDIOGRAM REPORT NAME: STERLING PAN UNIT #: [id number] ROOM: DOCTOR: EPIPHANY DRAFT REPORT BIRTHDATE: [birth year] [facility] Test Date: 2018-06-17 Test Time: 15:33:16 Pat Name: STERLING PAN Department: Room: Gender: F Strip Polisher: PRESTON : 1970 Requested By: TIEN BROWN Order Number: [id number] Reading MD: Fozia Fenton Measurements Intervals [place] Rate: 95 P: 26 CT: 129 QRS: 1 QRSD: 94 T: 45 QT: 451 QTc: 567 Interpretive Statements Sinus rhythm Probable left atrial enlargement Low voltage, precordial leads Borderline T abnormalities, anterior leads Prolonged QT interval Compared to ECG 06/12/2018 14:34:55 Prolonged QT interval now present T-wave abnormality still present Electronically Signed On 06-18-2018 11:06:13 PDT by Fozia Fenton CM:EKGRPT:ELECTROCARDIOGRAM REPORT [id number] TIEN MARADIAGA DRAFT REPORT TIEN BROWN M.D.
[~2018-06-17 13:32] MED LIST changes: +KEFLEX500 M1 PO; +PERCOCET 7.5-31 EACH PO; +VIBRAMYCIN100 MG PO
[2018-06-17 14:44] LABS: ALBUMIN 3.8 gm/dl (3.1-4.5); ALKALINE PHOSPHATASE 106 U/L (45-117); BUN 12 mg/dl (7-24); CHLORIDE 108 mmol/L (98-107); CREATININE 1.06 mg/dL (0.55-1.02); POTASSIUM 4.6 mmol/L (3.5-5.1); SGOT/AST 17 IU/L (3-35); SGPT/ALT 26 U/L (12-78); SODIUM 141 mmol/L (136-145); TOTAL PROTEIN 7.6 gm/dL (6.4-8.2)
[2018-06-17 14:45] LABS: TROPONIN I < 0.015 ng/ml (<0.045)
[2018-06-17 15:34] LABS: BASO % 0.4 % (0.0-1.0); EOS % 0.6 % (1.0-4.0); HEMATOCRIT 35.2 % (37.0-47.0); HEMOGLOBIN 10.5 g/dl (12.0-16.0); LYMPH # 0.3 10*3/uL (1.3-4.4); LYMPH % 6.1 % (27.0-41.0); MEAN CELL VOLUME 86.9 fl (81.0-99.0); MEAN CORPUSCULAR HGB 25.9 pg (27.0-31.0); MEAN CORPUSCULAR HGB CONC 29.8 g/dl (33.0-37.0); MONO # 0.5 10*3/uL (0.1-1.0); MONO % 9.4 % (3.0-9.0); NEUT % 83.1 % (47.0-73.0); PLATELET COUNT AUTOMATED 216 10*3/uL (130-400); RED BLOOD COUNT 4.05 10*6/uL (4.10-5.10); RED CELL DISTRI WIDTH 14.9 % (0-14.5); WHITE BLOOD COUNT 4.8 10*3/uL (4.8-10.8)
[2018-06-17 15:45] LABS: ACT PARTIAL THROMBO TIME 22.3 SECONDS (20.8-31.5)
[2018-06-17] MEDS ORDERED: TAMIFLU 75MG CA75 MG PO (17:17)
[2018-10-06] MEDS ORDERED: ZOLOFT100 MG PO (11:48)
[2018-10-07] MEDS ORDERED: ZANAFLEX CAPSULE6 MG PO (13:42)
[2018-10-08] MEDS ORDERED: CEPHALEXIN500 M1 PO (10:52)
[2018-10-08] MEDS ORDERED: HYDROCODONE-AC1 EAC1 PO (10:52)
[2018-10-08] MEDS ORDERED: VITAMIN D50000 UNIT PO (11:25)
== END 2018-06-17 17:22 | disposition home or self-care (01) ==
LOC: ED 13:32
PROVIDERS: Emergency Medicine
DX: J10.1 Influenza due to other identified influenza virus with other respiratory manifestations (principal); E66.01 Morbid (severe) obesity due to excess calories; K21.9 Gastro-esophageal reflux disease without esophagitis; I50.33 Acute on chronic diastolic (congestive) heart failure; Z79.899 Other long term (current) drug therapy; Z79.82 Long term (current) use of aspirin

== ENCOUNTER 2018-08-27 19:58 | Inpatient (IN) | payer MEDICARE ==
[2018-08-27] VITALS (7 sets, daily range): BP systolic 110–132; BP diastolic 50–84
[~2018-08-27] VITALS: Ht 165.1 cm; Wt 153.0 kg
--- NOTE | ~2018-08-27 | EKG ---
[place], [place] ELECTROCARDIOGRAM REPORT NAME: STERLING PAN UNIT #: [id number] ROOM: 402 DOCTOR: ASHWINI DRAFT REPORT BIRTHDATE: [birth year] [facility] Test Date: 2018-08-27 Test Time: 19:58:37 Pat Name: STERLING PAN Department: Room: 402 Gender: F [place] Seamer: : 1970 Requested By: DALILA TAMEZ Order Number: [id number] Reading MD: Jacinta Soliz MD Measurements Intervals [place] Rate: 88 P: 47 ID: 131 QRS: 7 QRSD: 98 T: 117 QT: 463 QTc: 561 Interpretive Statements Sinus rhythm Low voltage, precordial leads Nonspecific T abnrm, anterolateral leads Prolonged QT interval Baseline wander in lead(s) I,III,aVL Compared to ECG 06/17/2018 15:33:16 T-wave abnormality no longer present Electronically Signed On 08-29-2018 13:37:45 PDT by Jacinta Soliz MD CM:EKGRPT:ELECTROCARDIOGRAM REPORT 57 1337 DALILA GUTHRIE DRAFT REPORT DALILA TAMEZ DO
--- NOTE | ~2018-08-27 | EKG ---
[place], [place] ELECTROCARDIOGRAM REPORT NAME: STERLING PAN UNIT #: [id number] ROOM: 402 DOCTOR: ASHWINI DRAFT REPORT BIRTHDATE: [birth year] [facility] Test Date: 2018-08-28 Test Time: 01:31:26 Pat Name: STERLING PAN Department: Room: 402 Gender: F Director Outpatient Services: : 1970 Requested By: DALILA TAMEZ Order Number: [id number] Reading MD: Jacinta Soliz MD Measurements Intervals [place] Rate: 89 P: 45 AK: 125 QRS: 5 QRSD: 101 T: QT: 516 QTc: 629 Interpretive Statements Sinus rhythm Low voltage, precordial leads Borderline T abnormalities, lateral leads Prolonged QT interval Compared to ECG 06/17/2018 15:33:16 No significant changes Electronically Signed On 08-29-2018 13:38:02 PDT by Jacinta Soliz MD CM:EKGRPT:ELECTROCARDIOGRAM REPORT [id number] 1338 DALILA GUTHRIE DRAFT REPORT DALILA TAMEZ DO
--- NOTE | ~2018-08-27 | EKG ---
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
[~2018-08-27 19:58] MED LIST changes: +TAMIFLU 75MG CA75 MG PO
[2018-08-27 20:14] LABS: BASO % 0.5 % (0.0-1.0); EOS # 0.2 10*3/uL (0.0-0.4); EOS % 2.3 % (1.0-4.0); HEMOGLOBIN 10.1 g/dl (12.0-16.0); LYMPH # 1.5 10*3/uL (1.3-4.4); LYMPH % 23.7 % (27.0-41.0); MEAN CELL VOLUME 84.7 fl (81.0-99.0); MEAN CORPUSCULAR HGB 24.5 pg (27.0-31.0); MEAN CORPUSCULAR HGB CONC 28.9 g/dl (33.0-37.0); MEAN PLATELET VOLUME 10.6 fl (9.6-12.3); MONO # 0.4 10*3/uL (0.1-1.0); MONO % 5.7 % (3.0-9.0); NEUT # 4.3 10*3/uL (2.3-7.9); NEUT % 67.2 % (47.0-73.0); PLATELET COUNT AUTOMATED 252 10*3/uL (130-400); RED BLOOD COUNT 4.13 10*6/uL (4.10-5.10); RED CELL DISTRI WIDTH 16.1 % (0-14.5); WHITE BLOOD COUNT 6.5 10*3/uL (4.8-10.8)
[2018-08-27 20:24] LABS: ACT PARTIAL THROMBO TIME 22.5 SECONDS (20.0-32.1)
[2018-08-27 20:33] LABS: ALBUMIN 3.7 gm/dl (3.1-4.5); ALKALINE PHOSPHATASE 91 U/L (45-117); BUN 9 mg/dl (7-24); CHLORIDE 108 mmol/L (98-107); POTASSIUM 3.7 mmol/L (3.5-5.1); SGOT/AST 15 IU/L (3-35); SGPT/ALT 18 U/L (12-78); SODIUM 143 mmol/L (136-145); TOTAL PROTEIN 7.1 gm/dL (6.4-8.2)
[2018-08-27 20:34] LABS: TROPONIN I < 0.015 ng/ml (<0.045)
--- NOTE | 2018-08-27 23:21 | NUR ---
PATIENT IN BED ALERT AND ORIENTED. RESP EASY AND NONLABORED. NO DISTRESS NOTED. CONT SUB ARC OPERATOR AND PULSE OX IN PLACE AT THIS TIME. CALL LIGHT WITHIN REACH. RN WILL CONT TO MONITOR
[2018-08-28 01:10] VITALS: BP 133/82
[2018-08-28 02:37] VITALS: BP 144/89
--- NOTE | 2018-08-28 02:37 | NUR ---
A 48, admitted to , under the services of JAQUELIN Ramirez DO with a diagnosis of ELEVATED D DIMER,CHEST PAIN. Chief complaint is CHEST PAIN. Patient arrived via stretcher from ER. Monitor applied. Initial assessment completed. Vital signs taken and recorded. JAQUELIN RAMIREZ DO notified of admission to the unit. Orders received. See assessment for past medical history, medications and allergies. Patient and/or family oriented to unit. [facility] visitation policy reviewed. Clothing/patient valuable form completed. MICHAEL FERNANDES
[2018-08-28] MEDS ORDERED: SEROQUEL100 MG PO (02:56)
[2018-08-28] MEDS ORDERED: ZANAFLEX6 MG PO (02:56)
[2018-08-28] MEDS ORDERED: REMERON15 M2 PO (02:56)
[2018-08-28] MEDS ORDERED: KLONOPIN0.5 MG PO (02:57)
[2018-08-28] MEDS ORDERED: BUSPIRONE15 MG PO (02:57)
--- NOTE | 2018-08-28 03:24 | NUR ---
DR ARRIOLA CALLED TO INFORM THAT HOME MEDICATIONS ARE UP TO DATE. ALSO THAT PATIENT HAS 2 WOUNDS LOCATED ON HER RIGHT LOWER LEG AND POSTERIOR LEFT LOWER LEG IN FOLDS- USES NYSTATIN AT HOME. PATIENT REQUESTING PAIN MEDICATION STRONGER THAN NORCO FOR CHEST PAIN RATED 8/10- DR ARRIOLA AWARE. WAITING FOR NEW ORDERS.
--- NOTE | 2018-08-28 04:15 | NUR ---
PATIENT REQUESTING PAIN MEDICATION FOR CHEST PAIN RATED 8/10 ON 0/10 SCALE. NORCO ADMINISTERED PRESCRIBED. WILL MONITOR FOR EFFECTIVENESS.
[2018-08-28 06:23] LABS: BASO % 0.5 % (0.0-1.0); EOS # 0.1 10*3/uL (0.0-0.4); EOS % 1.8 % (1.0-4.0); HEMATOCRIT 33.9 % (37.0-47.0); HEMOGLOBIN 9.8 g/dl (12.0-16.0); LYMPH # 1.9 10*3/uL (1.3-4.4); LYMPH % 24.3 % (27.0-41.0); MEAN CORPUSCULAR HGB 24.6 pg (27.0-31.0); MEAN CORPUSCULAR HGB CONC 28.9 g/dl (33.0-37.0); MEAN PLATELET VOLUME 10.7 fl (9.6-12.3); MONO # 0.6 10*3/uL (0.1-1.0); MONO % 7.1 % (3.0-9.0); NEUT # 5.1 10*3/uL (2.3-7.9); NEUT % 65.8 % (47.0-73.0); PLATELET COUNT AUTOMATED 249 10*3/uL (130-400); RED BLOOD COUNT 3.99 10*6/uL (4.10-5.10); RED CELL DISTRI WIDTH 16.2 % (0-14.5); WHITE BLOOD COUNT 7.8 10*3/uL (4.8-10.8)
[2018-08-28 06:33] LABS: BUN 13 mg/dl (7-24); CHLORIDE 108 mmol/L (98-107); POTASSIUM 3.8 mmol/L (3.5-5.1); SODIUM 143 mmol/L (136-145)
--- NOTE | 2018-08-28 08:51 | NUR ---
STERLING PAN [id number] Please refer to the physician's history and physical for past medical history, comorbid conditions, and allergies. Diagnosis: D-DIMER, ELEVATED, CHEST PAIN Luis Score: 14,MODERATE RISK WOUND DESCRIPTIONS: Wound Number: 1 Location of the wound: right lower extremity medial fold Thickness: Partial Size: 0.1cm x 4.5cm x 0.1cm Tunneling: none Undermining: none Sinus Tract: none Presence of Exudate: Serous Amount: Light Color: Red Odor: None Periwound Skin Appearance: Edema Wound edges: approximated Pain (associated with wound): tender to touch How does patient state this happened? pt states she gets these areas all the time and just moved back and hasnt been able to follow up with the lymphedema clinic adivse her that lymphedema is now offered in the therapy center out in [facility] Wound Number: 2 Location of the wound: posterior left lower leg Thickness: Partial Size: 0.2cm x 0.9cm x 0.1cm Tunneling: none Undermining: none Sinus Tract: none Presence of Exudate: Serous Amount: Light Color: Red Odor: None Periwound Skin Appearance: Edema Wound edges: approximated Pain (associated with wound): tender to touch How does patient state this happened? pt states she gets these areas all the time and just moved back and hasnt been able to follow up with the lymphedema clinic adivse her that lymphedema is now offered in the therapy center out in [facility] Surface the patient is resting on: Isoflex SKIN PREVENTION RECOMMENDATION: 1. Pressure redistribution support surface as appropriate 2. Elevate heels 3. Remove boots/TEDS every shift and reapply 4. Head of bed 30 degrees as tolerated 5. Assess nutrition and hydration 6. Manage moisture 7. Avoid the use of containment devices while in bed 8. Use absorptive products on surfaces limit layers of linens on bed 9. Turn and reposition every 1-2 hours in bed and every 1 hour in chair as tolerated 10. Weight shifts every 15 minutes while up in chair 11. Offloading with pillows or device to keep heels elevated off bed 12. Monitor skin at least every shift 13. Inspect under medical devices twice a day WOUND TREATMENT RECOMMENDATIONS: Cleanse right lower extremity medial fold and posterior left lower leg with soap and water pat area dry then apply nystatin powder tid.
--- NOTE | 2018-08-28 09:55 | NUR ---
Dr. Olivares notified of wound care orders recommendations he stated to give them to Dr. Burrell I asked if it was okay for me to give them to Jennifer Wick and for her to give them to her he stated that was okay.
--- NOTE | 2018-08-28 10:13 | NUR ---
[place] given per patient request for c/o chest pain rated 7/10. Will monitor.
--- NOTE | 2018-08-28 10:50 | NUR ---
Patient states Va[place] helps a little. Patient exhibits no signs of distress.
--- NOTE | 2018-08-28 11:52 | NUR ---
Left a message with Marilyn regarding consult for Prinzmetal Angina. Physician to follow up at bedside.
[2018-08-28 12:00] VITALS: BP 107/67; BP 94/60
--- NOTE | 2018-08-28 14:09 | NUR ---
[place] given per patient c/o chest pain. Will monitor.
--- NOTE | 2018-08-28 15:05 | NUR ---
Patient states [place] not effective. States pain is still 7/10. Patient agrees to take Motrin.
[2018-08-28 16:00] VITALS: BP 106/47; BP 124/69
--- NOTE | 2018-08-28 16:41 | NUR ---
PATIENT ASKED FOR PAIN MEDICATION. I TOLD HER HE ORDERED MOTRIN AND EXPLAINED THE DOSAGE CHANGE IN HER IMDUR. PATIENT COMMUNICATED UNDERSTANDING AND ALSO WANTED TO KNOW WHEN SHE WOULD BE DISCHARGED. I TOLD HER WE HAVE NOT HEARD ANYTHING ABOUT A DISCHARGE YET SO WE WILL CONTINUE TO OBSERVE HER UNTIL DISCHARGE IS OKAY WITH ALL PHYSICIANS.
--- NOTE | 2018-08-28 19:40 | NUR ---
PATIENT RESTING IN BED WITH NO NEEDS MADE. DENIES CHEST PAIN AT THIS TIME. BED IN LOWEST PSOTIION, CALL LIGHT IN REACH
[2018-08-28 20:00] VITALS: BP 121/63
--- NOTE | 2018-08-28 21:57 | NUR ---
DR KLEIN AWARE OF PATIENT C/O CHEST PAIN. STATES TO GIVE THE NORCO EARLY
--- NOTE | 2018-08-28 22:06 | NUR ---
MEDICATED WITH PRN NORCO FOR C/O CHEST PAIN PER DR KLEIN. WILL MONITOR
[2018-08-29] VITALS: BP 100/61
--- NOTE | 2018-08-29 01:03 | NUR ---
24 HR chart check completed.
--- NOTE | 2018-08-29 05:47 | NUR ---
MEDICATED WITH PRN NORCO FOR C/O PAIN IN CHEST RATED 7/10 ON A 0/10 PAIN SCALE. WILL MONITOR
[2018-08-29 06:52] LABS: BASO % 0.5 % (0.0-1.0); EOS # 0.2 10*3/uL (0.0-0.4); EOS % 3.6 % (1.0-4.0); HEMATOCRIT 31.8 % (37.0-47.0); HEMOGLOBIN 9.1 g/dl (12.0-16.0); LYMPH # 1.4 10*3/uL (1.3-4.4); LYMPH % 31.6 % (27.0-41.0); MEAN CELL VOLUME 86.4 fl (81.0-99.0); MEAN CORPUSCULAR HGB 24.7 pg (27.0-31.0); MEAN CORPUSCULAR HGB CONC 28.6 g/dl (33.0-37.0); MEAN PLATELET VOLUME 10.5 fl (9.6-12.3); MONO # 0.4 10*3/uL (0.1-1.0); MONO % 8.1 % (3.0-9.0); NEUT # 2.5 10*3/uL (2.3-7.9); NEUT % 55.7 % (47.0-73.0); PLATELET COUNT AUTOMATED 203 10*3/uL (130-400); RED BLOOD COUNT 3.68 10*6/uL (4.10-5.10); RED CELL DISTRI WIDTH 16.6 % (0-14.5); WHITE BLOOD COUNT 4.4 10*3/uL (4.8-10.8)
[2018-08-29 07:13] LABS: BUN 12 mg/dl (7-24); CHLORIDE 109 mmol/L (98-107); CREATININE 0.94 mg/dL (0.55-1.02); POTASSIUM 3.8 mmol/L (3.5-5.1); SODIUM 142 mmol/L (136-145)
[2018-08-29 08:00] VITALS: BP 122/78
--- NOTE | 2018-08-29 09:00 | NUR ---
Lap Winder in to talk to patient. Patient states lives at home with roomate. There are few steps in the home. Physician: kiko shahid [facility]: none Patient's level of ADLs: MINIMAL ASSIST Patient has working utilities: all working DME: cpap Follow-up physician's appointment after d/c: will be made by hospitalist nurse director upon discharge Does patient want to access PORTAL?: no Discharge plan discussed with patient, patient lives at home with roomate, she stated she is slow but gets around, patient states she is independent in adls and ambulation, patient states she will be going home when able and denies any home needs. KAREN NGO
[2018-08-29 12:00] VITALS: BP 128/76
[2018-08-29] MEDS ORDERED: IMDUR SA60 M1 PO (12:51)
--- NOTE | 2018-08-29 15:54 | NUR ---
Discharge instructions reviewed with patient/family. Patient receptive and verbalizes understanding. Follow-up care arranged. Written instructions given to patient/family. Patient was educated on medication changes and to follow up visit scheduled next week and to also follow up with lymphedema clinic and cardiology as directed. Patient ambulated from unit with all personal belongings accounted for. [facility] VO
[2018-10-06] MEDS ORDERED: ZOLOFT100 MG PO (11:48)
[2018-10-07] MEDS ORDERED: ZANAFLEX CAPSULE6 MG PO (13:42)
[2018-10-08] MEDS ORDERED: CEPHALEXIN500 M1 PO (10:52)
[2018-10-08] MEDS ORDERED: HYDROCODONE-AC1 EAC1 PO (10:52)
[2018-10-08] MEDS ORDERED: VITAMIN D50000 UNIT PO (11:25)
== END 2018-08-29 15:54 | disposition home or self-care (01) | DRG 311 ==
LOC: ED 19:58 → 4E 08-28 00:49 → EDHOLD 08-28 00:49 → 4E 08-28 03:08
PROVIDERS: Emergency Medicine; Internal Medicine; ADMIT Internal Medicine
PROC: 5A09357 Assistance with Respiratory Ventilation, Less than 24 Consecutive Hours, Continuous Positive Airway Pressure (ICD-10-PCS; principal; 2018-08-29)
DX: I20.1 Angina pectoris with documented spasm (principal); I50.32 Chronic diastolic (congestive) heart failure; Z68.43 Body mass index [BMI] 50.0-59.9, adult; R79.89 Other specified abnormal findings of blood chemistry; R00.0 Tachycardia, unspecified; E66.01 Morbid (severe) obesity due to excess calories; G47.33 Obstructive sleep apnea (adult) (pediatric); F41.9 Anxiety disorder, unspecified; E55.9 Vitamin D deficiency, unspecified; I89.0 Lymphedema, not elsewhere classified; D64.9 Anemia, unspecified; K21.9 Gastro-esophageal reflux disease without esophagitis; E87.8 Other disorders of electrolyte and fluid balance, not elsewhere classified; F32.9 Major depressive disorder, single episode, unspecified; Z86.711 Personal history of pulmonary embolism; Z86.718 Personal history of other venous thrombosis and embolism; Z92.21 Personal history of antineoplastic chemotherapy; Z85.41 Personal history of malignant neoplasm of cervix uteri; Z90.49 Acquired absence of other specified parts of digestive tract; Z98.84 Bariatric surgery status; Z98.891 History of uterine scar from previous surgery; Z98.51 Tubal ligation status; Z82.49 Family history of ischemic heart disease and other diseases of the circulatory system; Z81.8 Family history of other mental and behavioral disorders; Z80.42 Family history of malignant neoplasm of prostate; Z84.89 Family history of other specified conditions; Z79.82 Long term (current) use of aspirin; Z79.899 Other long term (current) drug therapy

== ENCOUNTER 2018-09-05 14:24 | Emergency (ER) | payer MEDICARE ==
[~2018-09-05] VITALS: Ht 165.1 cm; Wt 151.5 kg
[~2018-09-05 14:24] MED LIST changes: +BUSPIRONE15 MG PO; +IMDUR SA60 M1 PO; +KLONOPIN0.5 MG PO; +REMERON15 M2 PO; +ZANAFLEX6 MG PO
[2018-09-05 15:02] LABS: HEMATOCRIT 32.5 % (37.0-47.0); HEMOGLOBIN 9.3 g/dl (12.0-16.0); MEAN CELL VOLUME 86.7 fl (81.0-99.0); MEAN CORPUSCULAR HGB 24.8 pg (27.0-31.0); MEAN CORPUSCULAR HGB CONC 28.6 g/dl (33.0-37.0); MEAN PLATELET VOLUME 11.6 fl (9.6-12.3); PLATELET COUNT AUTOMATED 193 10*3/uL (130-400); RED BLOOD COUNT 3.75 10*6/uL (4.10-5.10); RED CELL DISTRI WIDTH 17.5 % (0-14.5); WHITE BLOOD COUNT 14.2 10*3/uL (4.8-10.8)
[2018-09-05 15:18] LABS: ALBUMIN 3.5 gm/dl (3.1-4.5); ALKALINE PHOSPHATASE 86 U/L (45-117); BUN 9 mg/dl (7-24); CHLORIDE 108 mmol/L (98-107); CREATININE 1.09 mg/dL (0.55-1.02); POTASSIUM 4.2 mmol/L (3.5-5.1); SGOT/AST 12 IU/L (3-35); SGPT/ALT 20 U/L (12-78); SODIUM 140 mmol/L (136-145); TOTAL PROTEIN 6.9 gm/dL (6.4-8.2)
[2018-09-05 15:29] LABS: TOTAL CELLS COUNTED 100 #CELLS
[2018-09-05 15:30] LABS: OVALOCYTES FEW; PLATELET SUFFICIENCY NORMAL (NORMAL)
[2018-09-05] MEDS ORDERED: CLINDAMYCIN HC300 MG PO (16:34)
[2018-09-05] MEDS ORDERED: NORCO 5-325 TA1 EACH PO ×2 (16:40→16:42)
[2018-10-06] MEDS ORDERED: ZOLOFT100 MG PO (11:48)
[2018-10-07] MEDS ORDERED: ZANAFLEX CAPSULE6 MG PO (13:42)
[2018-10-08] MEDS ORDERED: CEPHALEXIN500 M1 PO (10:52)
[2018-10-08] MEDS ORDERED: HYDROCODONE-AC1 EAC1 PO (10:52)
[2018-10-08] MEDS ORDERED: VITAMIN D50000 UNIT PO (11:25)
== END 2018-09-05 16:44 | disposition home or self-care (01) ==
LOC: ED 14:24
PROVIDERS: Physician Assistant
DX: L03.116 Cellulitis of left lower limb (principal); I89.0 Lymphedema, not elsewhere classified; Z79.899 Other long term (current) drug therapy; Z79.82 Long term (current) use of aspirin; Z90.49 Acquired absence of other specified parts of digestive tract

== ENCOUNTER 2019-01-29 20:13 | Inpatient (IN) | payer OTHER ==
[~2019-01-29] VITALS: Ht 165.1 cm; Wt 131.5 kg
[2019-01-29] VITALS (7 sets, daily range): BP systolic 110–147; BP diastolic 54–79
[~2019-01-29 20:13] MED LIST changes: +HYDROCODONE-AC1 EAC1 PO; +NORCO 5-325 TA1 EACH PO; +VITAMIN D50000 UNIT PO; +ZANAFLEX CAPSULE6 MG PO; +ZOLOFT100 MG PO
--- NOTE | 2019-01-29 21:17 | NUR ---
PATIENT UP AND AMBULATORY TO THE RESTROOM AT THIS TIME.
[2019-01-29 21:23] LABS: ALBUMIN 4.4 gm/dl (3.1-4.5); ALKALINE PHOSPHATASE 97 U/L (45-117); BUN 12 mg/dl (7-24); CHLORIDE 110 mmol/L (98-107); CREATININE 1.29 mg/dL (0.55-1.02); POTASSIUM 3.8 mmol/L (3.5-5.1); SGOT/AST 46 IU/L (3-35); SGPT/ALT 27 U/L (12-78); SODIUM 141 mmol/L (136-145); TOTAL PROTEIN 8.1 gm/dL (6.4-8.2)
[2019-01-29 21:26] LABS: TROPONIN I < 0.015 ng/ml (<0.045)
[2019-01-29 21:41] LABS: BASO # 0.1 10*3/uL (0.0-0.1); BASO % 0.5 % (0.0-1.0); EOS # 0.2 10*3/uL (0.0-0.4); EOS % 1.5 % (1.0-4.0); HEMATOCRIT 42.7 % (37.0-47.0); HEMOGLOBIN 13.1 g/dl (12.0-16.0); LYMPH # 2.2 10*3/uL (1.3-4.4); MEAN CORPUSCULAR HGB 27.3 pg (27.0-31.0); MEAN CORPUSCULAR HGB CONC 30.7 g/dl (33.0-37.0); MEAN PLATELET VOLUME 11.3 fl (9.6-12.3); MONO # 0.6 10*3/uL (0.1-1.0); MONO % 6.2 % (3.0-9.0); PLATELET COUNT AUTOMATED 272 10*3/uL (130-400); RED CELL DISTRI WIDTH 17.8 % (0-14.5); WHITE BLOOD COUNT 10.2 10*3/uL (4.8-10.8)
[2019-01-30] VITALS (8 sets, daily range): BP systolic 95–145; BP diastolic 56–94
--- NOTE | 2019-01-30 03:55 | NUR ---
PATIENT C.O GENERALIZED PAIN AT THIS TIME. PATIENT GIVEN NORCO PRN MEDICATION. RN WILL CONT TO MONITOR PATIENT. CALL LIGHT WITHIN REACH.
--- NOTE | 2019-01-30 05:55 | NUR ---
PATIENT HAD ONE EPISODE OF EMESIS AT THIS TIME. PATIENT GIVEN 4MG OF ZOFRAN PRN ORDER AT THIS TIME. RN WILL CONT TO MONITOR.
--- NOTE | 2019-01-30 06:11 | NUR ---
PATIENT REFUSES WOUND PHOTOS.
[2019-01-30 06:12] LABS: BASO % 0.5 % (0.0-1.0); EOS # 0.2 10*3/uL (0.0-0.4); EOS % 2.3 % (1.0-4.0); LYMPH # 1.8 10*3/uL (1.3-4.4); LYMPH % 22.6 % (27.0-41.0); MEAN CELL VOLUME 89.4 fl (81.0-99.0); MEAN CORPUSCULAR HGB 27.5 pg (27.0-31.0); MEAN CORPUSCULAR HGB CONC 30.8 g/dl (33.0-37.0); MONO # 0.6 10*3/uL (0.1-1.0); MONO % 7.8 % (3.0-9.0); NEUT # 5.3 10*3/uL (2.3-7.9); NEUT % 66.4 % (47.0-73.0); PLATELET COUNT AUTOMATED 256 10*3/uL (130-400); RED BLOOD COUNT 4.36 10*6/uL (4.10-5.10); RED CELL DISTRI WIDTH 17.9 % (0-14.5); WHITE BLOOD COUNT 7.9 10*3/uL (4.8-10.8)
[2019-01-30 06:17] LABS: BUN 12 mg/dl (7-24); CHLORIDE 106 mmol/L (98-107); CHOLESTEROL 156 mg/dL (<200); CREATININE 1.04 mg/dL (0.55-1.02); HDL CHOLESTEROL 56 mg/dl (40-60); LDL CHOLESTEROL 70 mg/dL (9-159); PHOSPHOROUS 4.8 mg/dL (2.5-4.9); POTASSIUM 4.2 mmol/L (3.5-5.1); SODIUM 139 mmol/L (136-145); TRIGLYCERIDES 149 mg/dl (<150); VLDL CHOLESTEROL 30 mg/dL (6-40)
--- NOTE | 2019-01-30 07:25 | NUR ---
PT HAD LARGE CLEAR EMESIS.
--- NOTE | 2019-01-30 09:33 | NUR ---
COMPLAINS OF NAUSEA.
--- NOTE | 2019-01-30 09:46 | NUR ---
A 48, admitted to [facility], under the services of CRIS Conde DO with a diagnosis of CHEST PAIN. Chief complaint is CHEST PAIN. Patient arrived via stretcher from ER. Monitor applied. Initial assessment completed. Vital signs taken and recorded. CRIS CONDE DO notified of admission to the unit. Orders received. See assessment for past medical history, medications and allergies. Patient and/or family oriented to unit. [facility] visitation policy reviewed. Clothing/patient valuable form completed. JERE MARSHALL
[2019-01-30] MEDS ORDERED: Percocet 325 MG1 TAB PO (10:33)
--- NOTE | 2019-01-30 10:35 | NUR ---
PATIENT MED REC UP TO DATE PER PATIENT.
--- NOTE | 2019-01-30 11:02 | NUR ---
PT MEDICATED WITH ZOFRAN FOR C/O NAUSEA PER HIS REQUEST.
--- NOTE | 2019-01-30 11:44 | NUR ---
MEDICATED WITH NORCO FOR C/O SOME CHEST PAIN. NAUSEA BETTER.
--- NOTE | 2019-01-30 12:11 | NUR ---
A 48, admitted to 5E, under the services of CRIS Conde DO with a diagnosis of CHEST PAIN R/O OR. Chief complaint is LEFT SIDED CHEST PRESSURE. Patient arrived via ambulatory from ER. Monitor applied. Initial assessment completed. Vital signs taken and recorded. CRIS CONDE DO notified of admission to the unit. Orders received. See assessment for past medical history, medications and allergies. Patient and/or family oriented to unit. [facility] visitation policy reviewed. Clothing/patient valuable form completed. JERE RUFF
--- NOTE | 2019-01-30 14:10 | NUR ---
DR HUNG'S OFFICE MADE AWARE OF NEW CONSULT.
--- NOTE | 2019-01-30 14:27 | NUR ---
PT CONTINUES TO COMPLAIN OF LEFT SIDED CHEST PRESSURE, STATES NORCO IS NOT HELPING. SPOKE WITH DR MORSE, ALSO MADE AWARE OF UPDATED MED REC.
--- NOTE | 2019-01-30 14:28 | NUR ---
Mailroom Supervisor in to talk to patient. Patient states lives at home with a roommate. There are 10 steps in the home. Physician: Dr. Nessa Duffy Pharmacy: [facility] Home health services: none Patient's level of ADLs: INDEPENDENT Patient has working utilities: yes DME: c-pap Follow-up physician's appointment after d/c: will be made by the hospitalist nurse director upon discharge Does patient want to access PORTAL?: no Discharge plan discussed with patient. She lives at home with a roommate. She is independent in her ADLs and ambulation. If she goes to [facility] she states she will use the electric scooter. Discussed home health care services and she denies any home needs at this time. When medically stable she will be discharged to home. Her roommate will provide transportation on discharge. BARBER PECK
--- NOTE | 2019-01-30 16:10 | NUR ---
MEDICATED WITH IV PHENERGAN FOR COMPLAINTS OF NAUSEA, PT ALSO COMPLAINS OF CONTINUED LEFT SIDED CHEST PRESSURE, MEDICATED WITH PERCOCET, GIVEN ZANAFLEX FOR BACK SPASMS. WILL MONITOR FOR EFFECTIVENESS.
--- NOTE | 2019-01-30 23:33 | NUR ---
PATIENT ADMINISTERED MULTIPLE PRN MEDICATIONS FOR VARIOUS COMPLAINTS. RN WILL MONITOR FOR RELEIF
[2019-01-31] VITALS: BP 110/75
--- NOTE | 2019-01-31 00:45 | NUR ---
PATIENT RESTING SOUNDLY AFTER EARLIER MEDICATION ADMINISTRATION. WEARING OWN CPAP
--- NOTE | 2019-01-31 05:50 | NUR ---
STERLING PAN [id number] Please refer to the physician's history and physical for past medical history, comorbid conditions, and allergies. Diagnosis: CHEST PAIN Luis Score: 18,AT RISK WOUND DESCRIPTIONS: Wound Number: 1 Location of the wound: right lower extremity Thickness: Partial Size: 0.3cm x 2.0cm x 0.1cm Tunneling: none Undermining: none Sinus Tract: none Presence of Exudate: Serous Amount: Light Color: Red Odor: None Periwound Skin Appearance: Erythema Wound edges: approximated Pain (associated with wound): none at time of assessment How does patient state this happened? pt unable to state how this happened Surface the patient is resting on: Isoflex SKIN PREVENTION RECOMMENDATION: 1. Pressure redistribution support surface as appropriate 2. Elevate heels 3. Remove boots/TEDS every shift and reapply 4. Head of bed 30 degrees as tolerated 5. Assess nutrition and hydration 6. Manage moisture 7. Avoid the use of containment devices while in bed 8. Use absorptive products on surfaces limit layers of linens on bed 9. Turn and reposition every 1-2 hours in bed and every 1 hour in chair as tolerated 10. Weight shifts every 15 minutes while up in chair 11. Offloading with pillows or device to keep heels elevated off bed 12. Monitor skin at least every shift 13. Inspect under medical devices twice a day WOUND TREATMENT RECOMMENDATIONS: Cleanse right lower extremity with nss and apply nystatin powder every 8 hours then apply 4x4s per patient request Patient stated she will continue to care for these areas at home. This nurse informed her about the lymphedema clinic at the therapy center she stated that her co pay is to high since she needs to be seen 3 times per week she also stated she lashanda make her own follow up appointment in the wound care center since she needs to arrange it around her transportation.
[2019-01-31 06:26] LABS: BUN 13 mg/dl (7-24); CHLORIDE 105 mmol/L (98-107); CREATININE 1.04 mg/dL (0.55-1.02); POTASSIUM 3.8 mmol/L (3.5-5.1); SODIUM 140 mmol/L (136-145)
--- NOTE | 2019-01-31 06:28 | NUR ---
PATIENT ADMINISTERED MULTIPLE PRN MEDICATIONS FOR VARIUOS COMPLAINTS. RN WILL MONITOR FOR RELIEF
[2019-01-31 06:30] LABS: BASO % 0.4 % (0.0-1.0); EOS # 0.1 10*3/uL (0.0-0.4); EOS % 2.9 % (1.0-4.0); HEMATOCRIT 36.8 % (37.0-47.0); LYMPH # 1.7 10*3/uL (1.3-4.4); LYMPH % 35.7 % (27.0-41.0); MEAN CELL VOLUME 91.3 fl (81.0-99.0); MEAN CORPUSCULAR HGB 27.3 pg (27.0-31.0); MEAN CORPUSCULAR HGB CONC 29.9 g/dl (33.0-37.0); MONO # 0.4 10*3/uL (0.1-1.0); MONO % 8.7 % (3.0-9.0); NEUT # 2.5 10*3/uL (2.3-7.9); NEUT % 51.7 % (47.0-73.0); PLATELET COUNT AUTOMATED 199 10*3/uL (130-400); RED BLOOD COUNT 4.03 10*6/uL (4.10-5.10); WHITE BLOOD COUNT 4.8 10*3/uL (4.8-10.8)
[2019-01-31 07:55] VITALS: BP 106/56
--- NOTE | 2019-01-31 07:56 | NUR ---
PT REQUESTED AND RECEIVED PO PERCOCET PER PRN ORDER FOR C/O CHEST PAIN. ALSO REQUESTED ZANAFLEX PO PER PRN ORDER FOR C/O MUSCLE SPASMS. PT GIVEN IV PHENERGAN PER PRN ORDER FOR C/O NAUSEA. WILL MONITOR EFFECTIVENESS. VSS. CALL LIGHT WITHIN REACH. SEE SHIFT ASSESSMENT.
--- NOTE | 2019-01-31 10:16 | NUR ---
UA/UC SENT PER ORDER.
[2019-01-31 10:24] LABS: BILIRUBIN 1+ (NEGATIVE); BLOOD 2+ (NEGATIVE); CLARITY SL CLOUDY (CLEAR); COLOR YELLOW (YELLOW); GLUCOSE NEGATIVE (NEGATIVE); KETONE TRACE (NEGATIVE); LEUKO ESTERASE TRACE (NEGATIVE); NITRITE NEGATIVE (NEGATIVE); SPECIFIC GRAVITY 1.025 (1.005-1.030); UROBILINOGEN 0.2 E.U./dl (0.2-1.0)
[2019-01-31 10:41] LABS: BACTERIA 2+; EPITHELIAL CELLS 41-50; YEAST 1+
--- NOTE | 2019-01-31 11:00 | NUR ---
Manager Of Investigations in to see patient. No new needs or request at this time. She denies any home needs. When medically stable she will be discharged to home. Awaiting Dr. Jaramillo consult.
[2019-01-31 12:00] VITALS: BP 90/57
[2019-01-31] MEDS ORDERED: PHENERGAN25 M3 PO (14:04)
[2019-01-31] MEDS ORDERED: NATURE'S BLEND F1 MG PO (14:04)
[2019-01-31] MEDS ORDERED: AMLODIPINE BESYL5 MG PO (14:04)
[2019-01-31] MEDS ORDERED: KEFLEX 500 MG E2 CAP PO (14:04)
[2019-01-31] MEDS ORDERED: ZOFRAN4 MG PO (14:04)
--- NOTE | 2019-01-31 16:04 | NUR ---
FLU VACCINE GIVEN PER REQUEST.
--- NOTE | 2019-01-31 16:05 | NUR ---
Discharge instructions reviewed with patient/family. Patient receptive and verbalizes understanding. Follow-up care arranged. Written instructions given to patient/family. ROBERT CAMPOVERDE.
== END 2019-01-31 16:05 | disposition home or self-care (01) | DRG 313 ==
LOC: ED 20:13 → EDHOLD 22:38 → 5E 01-30 11:42
PROVIDERS: Emergency Medicine; Internal Medicine; Student in an Organized Health Care Education/Training Program; ADMIT Family Medicine
DX: R07.89 Other chest pain (principal); I20.1 Angina pectoris with documented spasm; L03.115 Cellulitis of right lower limb; I50.32 Chronic diastolic (congestive) heart failure; Z68.42 Body mass index [BMI] 45.0-49.9, adult; E55.9 Vitamin D deficiency, unspecified; E87.8 Other disorders of electrolyte and fluid balance, not elsewhere classified; R74.0 Nonspecific elevation of levels of transaminase and lactic acid dehydrogenase [LDH]; E66.01 Morbid (severe) obesity due to excess calories; R00.1 Bradycardia, unspecified; N18.3 Chronic kidney disease, stage 3 (moderate); E53.8 Deficiency of other specified B group vitamins; I89.0 Lymphedema, not elsewhere classified; F41.9 Anxiety disorder, unspecified; K21.9 Gastro-esophageal reflux disease without esophagitis; G47.33 Obstructive sleep apnea (adult) (pediatric); F32.9 Major depressive disorder, single episode, unspecified; Z98.891 History of uterine scar from previous surgery; Z90.49 Acquired absence of other specified parts of digestive tract; Z98.51 Tubal ligation status; Z79.82 Long term (current) use of aspirin; Z98.84 Bariatric surgery status; Z82.49 Family history of ischemic heart disease and other diseases of the circulatory system; Z80.42 Family history of malignant neoplasm of prostate; Z85.41 Personal history of malignant neoplasm of cervix uteri

== ENCOUNTER 2019-03-02 09:08 | Inpatient (IN) | payer OTHER ==
[~2019-03-02] VITALS: Ht 165.1 cm; Wt 130.4 kg
[~2019-03-02 09:08] MED LIST changes: +PHENERGAN25 M3 PO; +ZOFRAN4 MG PO
[2019-03-02 09:10] VITALS: BP 130/79
[2019-03-02 10:07] LABS: BASO % 0.3 % (0.0-1.0); EOS # 0.1 10*3/uL (0.0-0.4); EOS % 1.1 % (1.0-4.0); HEMATOCRIT 41.6 % (37.0-47.0); HEMOGLOBIN 12.8 g/dl (12.0-16.0); LYMPH # 0.8 10*3/uL (1.3-4.4); LYMPH % 6.1 % (27.0-41.0); MEAN CELL VOLUME 94.5 fl (81.0-99.0); MEAN CORPUSCULAR HGB 29.1 pg (27.0-31.0); MEAN CORPUSCULAR HGB CONC 30.8 g/dl (33.0-37.0); MONO # 0.5 10*3/uL (0.1-1.0); MONO % 3.9 % (3.0-9.0); NEUT # 10.9 10*3/uL (2.3-7.9); NEUT % 88.2 % (47.0-73.0); PLATELET COUNT AUTOMATED 224 10*3/uL (130-400); RED CELL DISTRI WIDTH 16.9 % (0-14.5); WHITE BLOOD COUNT 12.3 10*3/uL (4.8-10.8)
[2019-03-02 10:42] LABS: ALBUMIN 3.8 gm/dl (3.1-4.5); CREATININE 1.21 mg/dL (0.55-1.02); POTASSIUM 4.3 mmol/L (3.5-5.1); TOTAL PROTEIN 8.1 gm/dL (6.4-8.2)
[2019-03-02 10:43] LABS: TROPONIN I 0.151 ng/ml (<0.045)
--- NOTE | 2019-03-02 10:43 | NUR ---
CRITICAL LAB TROPONIN 0.151, CARLOS IT ARCHITECT NOTIFIED.
[2019-03-02 11:06] VITALS: BP 96/54
--- NOTE | 2019-03-02 11:32 | NUR ---
PT NOTED WITH ABRASION TO RIGHT FOREARM.
--- NOTE | 2019-03-02 11:41 | NUR ---
PTS IV IN THE R WRIST DID INFILTRATE WHICH WE DID PLACE WARM HEAT TO. NEW IV NOW PLACED #20 IN THE LEFT FOREARM BY NURSE VICTORIA.
[2019-03-02 11:48] LABS: BILIRUBIN NEGATIVE (NEGATIVE); BLOOD TRACE-INTACT (NEGATIVE); CLARITY CLEAR (CLEAR); COLOR YELLOW (YELLOW); GLUCOSE NEGATIVE (NEGATIVE); KETONE NEGATIVE (NEGATIVE); LEUKO ESTERASE NEGATIVE (NEGATIVE); NITRITE NEGATIVE (NEGATIVE); SPECIFIC GRAVITY <= 1.005 (1.005-1.030); UROBILINOGEN 0.2 E.U./dl (0.2-1.0)
--- NOTE | 2019-03-02 12:28 | NUR ---
GOT BED PLACEMENT. PT IN CT AT THIS TIME THUS DELAYING TRANSPORT TO THE FLOOR.
--- NOTE | 2019-03-02 12:48 | NUR ---
TROP 0.118. RODOLFO GILMAN MADE AWARE.
--- NOTE | 2019-03-02 12:58 | NUR ---
PT STILL IN CT. UN ABLE TO TRANSPORT PT TO THE FLOOR DUE TO BEING AWAY FROM THE DEPT FOR TESTING.
[2019-03-02 13:45] VITALS: BP 112/63
--- NOTE | 2019-03-02 13:45 | NUR ---
A 49, admitted to , under the services of ROBLES Mcclure DO with a diagnosis of CELLULITIS, ELVEATED TROPONIN. Chief complaint is FEVER, CHILLS, PAIN LLE. Patient arrived via ambulatory from ER. Monitor applied. Initial assessment completed. Vital signs taken and recorded. ROBLES MCCLURE DO notified of admission to the unit. Orders received. See assessment for past medical history, medications and allergies. Patient and/or family oriented to unit. [facility] visitation policy reviewed. Clothing/patient valuable form completed. JERE RUFF
--- NOTE | 2019-03-02 14:16 | NUR ---
MEDICATED WITH MORPHINE FOR COMPLAINTS OF LEFT LOWER EXTREMITY PAIN, PT RATES PAIN 7/10. WILL MONITOR FOR EFFECTIVENESS.
--- NOTE | 2019-03-02 14:25 | NUR ---
DR HARRISON MADE AWARE OF UPDATED MED REC,
--- NOTE | 2019-03-02 14:45 | NUR ---
PT STATES EARLIER MORPHINE HELPED WITH LEFT LOWER LEG PAIN. RESTING MORE COMFORTABLY.
--- NOTE | 2019-03-02 14:56 | NUR ---
DR WRIGHT MADE AWARE OF NEW CONSULT.
[2019-03-02 16:00] VITALS: BP 102/49
--- NOTE | 2019-03-02 16:53 | NUR ---
DR HARRISON MADE AWARE OF CRITICAL TROPONIN OF 0.105, WHICH IS TRENDING DOWN.
--- NOTE | 2019-03-02 17:35 | NUR ---
MEDICATED WITH PERCOCET AND ZANAFLEX FOR COMPLAINTS OF 8/10 LEFT LOWER LEG PAIN. WILL MONITOR FOR EFFECTIVENESS.
--- NOTE | 2019-03-02 18:46 | NUR ---
PT RESTING COMFORTABLY, EARLIER MEDICATIONS EFFECTIVE.
[2019-03-02 20:00] VITALS: BP 96/61
--- NOTE | 2019-03-02 21:00 | NUR ---
PT RESTING QUIETLY IN BED.
[2019-03-03] VITALS: BP 88/36
--- NOTE | 2019-03-03 00:16 | NUR ---
PATIENT REQUESTING PAIN MEDICATION FOR BILATERAL LEG PAIN. MORPHINE ADMINISTERED PRESCRIBED. WILL MONITOR FOR EFFECTIVENESS.
--- NOTE | 2019-03-03 02:07 | NUR ---
PT C/O LLE PAIN. MEDICATED W/PERCOCET. CALL LIGHT IN REACH.
[2019-03-03 02:33] VITALS: BP 105/67
--- NOTE | 2019-03-03 03:00 | NUR ---
PT STATES THAT PERCOCET WAS EFFECTIVE FOR PAIN RELIEF. PT AWAKE ON ON LAPTOP. CALL LIGHT IN REACH.
[2019-03-03 07:10] LABS: BASO % 0.5 % (0.0-1.0); EOS # 0.3 10*3/uL (0.0-0.4); EOS % 4.5 % (1.0-4.0); HEMATOCRIT 36.1 % (37.0-47.0); HEMOGLOBIN 10.8 g/dl (12.0-16.0); LYMPH # 1.5 10*3/uL (1.3-4.4); LYMPH % 24.6 % (27.0-41.0); MEAN CELL VOLUME 96.5 fl (81.0-99.0); MEAN CORPUSCULAR HGB 28.9 pg (27.0-31.0); MEAN CORPUSCULAR HGB CONC 29.9 g/dl (33.0-37.0); MONO # 0.6 10*3/uL (0.1-1.0); MONO % 8.9 % (3.0-9.0); NEUT # 3.8 10*3/uL (2.3-7.9); PLATELET COUNT AUTOMATED 174 10*3/uL (130-400); RED BLOOD COUNT 3.74 10*6/uL (4.10-5.10); RED CELL DISTRI WIDTH 17.1 % (0-14.5); WHITE BLOOD COUNT 6.2 10*3/uL (4.8-10.8)
[2019-03-03 07:16] LABS: ACT PARTIAL THROMBO TIME 28.5 SECONDS (20.0-32.1)
[2019-03-03 07:35] LABS: BUN 8 mg/dl (7-24); CHLORIDE 111 mmol/L (98-107); CHOLESTEROL 124 mg/dL (<200); CREATININE 0.95 mg/dL (0.55-1.02); PHOSPHOROUS 2.9 mg/dL (2.5-4.9); POTASSIUM 3.9 mmol/L (3.5-5.1); SGOT/AST 11 IU/L (3-35); SGPT/ALT 26 U/L (12-78); SODIUM 142 mmol/L (136-145); TOTAL PROTEIN 6.4 gm/dL (6.4-8.2); TRIGLYCERIDES 91 mg/dl (<150); VLDL CHOLESTEROL 18 mg/dL (6-40)
[2019-03-03 07:42] LABS: ALKALINE PHOSPHATASE 89 U/L (45-117); FREE T4 0.81 ng/dl (0.76-1.46); HDL CHOLESTEROL 40 mg/dl (40-60); LDL CHOLESTEROL 66 mg/dL (9-159)
[2019-03-03 07:56] LABS: VITAMIN D, 25-HYDROXY 20.2 ng/mL (30-100)
--- NOTE | 2019-03-03 08:36 | NUR ---
PT MEDICATED WITH MORPHINE 2MG IV AT HER REQUEST FOR C/O LEFT LOWER LEG PAIN TO CELLULITIS AREA.
--- NOTE | 2019-03-03 09:39 | NUR ---
PT STATED MORPHINE WAS EFFECTIVE IN EASING HER LEG PAIN.
[2019-03-03 12:00] VITALS: BP 98/63
--- NOTE | 2019-03-03 14:09 | NUR ---
PERCOCET GIVEN FOR PAIN TO LLE. WILL MONITOR FOR EFFECTIVENESS. CALL LIGHT IN REACH.
--- NOTE | 2019-03-03 15:09 | NUR ---
PERCOCET EFFECTIVE PER PT.
[2019-03-03 16:00] VITALS: BP 91/53
--- NOTE | 2019-03-03 18:23 | NUR ---
PT GIVEN MORPHINE AT THIS TIME FOR C/O PAIN TO LLE. WILL MONITOR FOR EFFECTIVENESS. IV ATB INFUSING PER ORDERS. CALL LIGHT IN REACH.
--- NOTE | 2019-03-03 19:23 | NUR ---
MORPHINE EFFECTIVE PER PT.
[2019-03-03 20:00] VITALS: BP 100/62; BP 93/52
--- NOTE | 2019-03-03 20:35 | NUR ---
PT A&Ox3 SITTING IN BED WATCHING TV AT THIS TIME. PT C/O BILATERAL LEG PAIN, LEFT MORE THAN RIGHT- NO PAIN MEDICATION DO AT THIS TIME. SEE ASSESSMENT. CALL LIGHT WITHIN REACH. WILL MONITOR.
--- NOTE | 2019-03-03 21:55 | NUR ---
PATIENT REQUESTING MEDICATION FOR BILATERAL LOWER EXTREMITY PAIN. ZANAFLEX AND PERCOCET ADMINISTERED PRESCRIBED. WILL MONITOR FOR EFFECTIVENESS.
--- NOTE | 2019-03-03 22:55 | NUR ---
PATIENT STATES THAT ZANAFLEX AND PERCOCET IS EFFECTIVE FOR BILATERAL LEG PAIN. WILL MONITOR.
[2019-03-04] VITALS: BP 98/55
--- NOTE | 2019-03-04 01:16 | NUR ---
PATIENT RESTING WITH EYES CLOSED ON HOME CPAP AT THIS TIME. WILL MONITOR.
--- NOTE | 2019-03-04 02:00 | NUR ---
PATIENT RESTING WITH EYES CLOSED.RESPIRATIONS EASY AND UNLABORED ON HOME CPAP.CALL LIGHT WITHIN REACH. WILL MONITOR.
--- NOTE | 2019-03-04 04:00 | NUR ---
PATIENT RESTING WITH EYES CLOSED AT THIS TIME. RESPIRATIONS EASY AND UNLABORED ON HOME CPAP. CALL LIGHT WITHIN REACH. WILL MONITOR.
--- NOTE | 2019-03-04 04:27 | NUR ---
24 HR chart check completed.
--- NOTE | 2019-03-04 06:04 | NUR ---
PATIENT RESTING WITH EYES CLOSED. RESPIRATIONS EASY AND UNLABORED ON HOME CPAP MACHINE. CALL LIGHT IN REACH. WILL MONITOR.
[2019-03-04 06:23] LABS: BASO % 0.4 % (0.0-1.0); EOS # 0.4 10*3/uL (0.0-0.4); EOS % 6.2 % (1.0-4.0); HEMATOCRIT 36.8 % (37.0-47.0); HEMOGLOBIN 11.1 g/dl (12.0-16.0); LYMPH # 1.8 10*3/uL (1.3-4.4); LYMPH % 31.3 % (27.0-41.0); MEAN CELL VOLUME 96.1 fl (81.0-99.0); MEAN CORPUSCULAR HGB CONC 30.2 g/dl (33.0-37.0); MEAN PLATELET VOLUME 12.1 fl (9.6-12.3); MONO # 0.5 10*3/uL (0.1-1.0); MONO % 8.3 % (3.0-9.0); NEUT % 52.9 % (47.0-73.0); PLATELET COUNT AUTOMATED 171 10*3/uL (130-400); RED BLOOD COUNT 3.83 10*6/uL (4.10-5.10); RED CELL DISTRI WIDTH 17.2 % (0-14.5); WHITE BLOOD COUNT 5.7 10*3/uL (4.8-10.8)
[2019-03-04 06:30] LABS: BUN 10 mg/dl (7-24); CHLORIDE 111 mmol/L (98-107); CREATININE 0.91 mg/dL (0.55-1.02); POTASSIUM 4.4 mmol/L (3.5-5.1); SODIUM 142 mmol/L (136-145)
[2019-03-04 08:00] VITALS: BP 110/60
--- NOTE | 2019-03-04 08:17 | NUR ---
PATIENT MEDICATED WITH PERCOCET AT THIS TIME FOR PAIN IN POSTERIOR LEFT LEG 11/04. WILL MONITOR FOR EFFECTIVENESS.
--- NOTE | 2019-03-04 10:14 | NUR ---
PT STATES PERCOCET INEFFECTIVE. MEDICATED WITH MORPHINE UPON REQUEST. WILL MONITOR.
[2019-03-04 12:00] VITALS: BP 124/76
--- NOTE | 2019-03-04 14:23 | NUR ---
MOPRHINE GIVEN PER ORDER AND UPON REQUEST FOR INCREASED LEG PAIN 12/05. WILL MONITOR.
--- NOTE | 2019-03-04 15:00 | NUR ---
PER PT, MORPHINE EFFECTIVE.
[2019-03-04 16:00] VITALS: BP 103/63
--- NOTE | 2019-03-04 16:26 | NUR ---
PATIENT TRANSFERRED UP TO 5E, REPORT GIVEN TO ANUJA.
--- NOTE | 2019-03-04 17:28 | NUR ---
PRN PERCOCET AND ZANFLEX GIVEN FOR C/O OF GENERALIZED PAIN RATING 5/10
[2019-03-04 20:00] VITALS: BP 101/64
--- NOTE | 2019-03-04 20:33 | NUR ---
ID STATES THAT SHE IS IN PAIN AND IS REQUESTING PAIN MEDICATIONS, HER PAIN IS STATED TO BE A 7/10. PRN MORPHINE IV IS GIVEN AT THIS TIME. WILL CONTINUE TO MONITOR THE PATIENT/ CALL LIGHT WITHIN REACH
--- NOTE | 2019-03-04 21:40 | NUR ---
PT STATES THAT HER PAIN IS BETTER NOW AND RATES IT A 3/10, WILL CONTINUE TO MONITOR THE PATIENT.
[2019-03-05] VITALS: BP 102/64
--- NOTE | 2019-03-05 02:50 | NUR ---
24 HR chart check completed.
--- NOTE | 2019-03-05 03:31 | NUR ---
PT TEARFUL STATING SHE IS IN PAIN RATING IT A 7/10. SHE SI REQEUSTING MEDICATION TO HELP. PRN PERCOCET PO IS GIVEN AT THIS TIME. WILL CONTINUE TO MONITOR THE PATIENT.
--- NOTE | 2019-03-05 04:26 | NUR ---
PT RE-EVALUATED AT THIS TIME, PT SLEEPING. RESPIRATIONS REGULAR RELAXED AND EASY. SIDERAILS UP. WILL CONTINUE TO MONITOR.
--- NOTE | 2019-03-05 05:00 | NUR ---
Patient sleeping. Respirations relaxed and easy. Siderails up . [place] on. DARIAN OBRIEN
--- NOTE | 2019-03-05 06:13 | NUR ---
STERLING PAN [id number] Please refer to the physician's history and physical for past medical history, comorbid conditions, and allergies. Diagnosis: ELEVATED TROPONIN I LEVEL CELLULITIS Luis Score: 20,LOW OR NO RISK WOUND DESCRIPTIONS: Wound Number: 1 Location of the wound: left lower extremity Thickness: Full Size: 2.2cm x 3.8cm x 0.1cm Tunneling: none Undermining: none Sinus Tract: none Presence of Exudate: Serous Amount: Light Color: Yellow, red, brown Odor: None Periwound Skin Appearance: Edema Wound edges: approximated Pain (associated with wound): tender to touch How does patient state this happened? pt states she is unable to follow up in the therapy center for the lymphedema clinic due to her copay with her insurance. she states area opened up on this past . patient stated she will follow up with her pcp due to her copay with the insuance and if they are unable to manage she will follow up in the wound care center patient states she already has the contact information Surface the patient is resting on: Isoflex SKIN PREVENTION RECOMMENDATION: 1. Pressure redistribution support surface as appropriate 2. Elevate heels 3. Remove boots/TEDS every shift and reapply 4. Head of bed 30 degrees as tolerated 5. Assess nutrition and hydration 6. Manage moisture 7. Avoid the use of containment devices while in bed 8. Use absorptive products on surfaces limit layers of linens on bed 9. Turn and reposition every 1-2 hours in bed and every 1 hour in chair as tolerated 10. Weight shifts every 15 minutes while up in chair 11. Offloading with pillows or device to keep heels elevated off bed 12. Monitor skin at least every shift 13. Inspect under medical devices twice a day WOUND TREATMENT RECOMMENDATIONS: D/C nystatin powder. Full thickness guidelines: Cleanse left lower extremity with nss and apply sureprep around the wound therahoney sheet to wound bed and apply abd pad or 4x4 or protection.
--- NOTE | 2019-03-05 06:22 | NUR ---
PT STATES THAT SHE IS IN PAIN IN THE LOWER LEFT LEG, RATING IT A 8/10. PRN MORPHINE IV IS GIVEN AT THIS TIME. WILL CONTINUE TO MONITOR THE PATIENT.
[2019-03-05 06:23] LABS: BASO % 0.6 % (0.0-1.0); EOS # 0.2 10*3/uL (0.0-0.4); EOS % 3.7 % (1.0-4.0); HEMATOCRIT 37.2 % (37.0-47.0); HEMOGLOBIN 11.3 g/dl (12.0-16.0); LYMPH # 1.3 10*3/uL (1.3-4.4); MEAN CELL VOLUME 95.9 fl (81.0-99.0); MEAN CORPUSCULAR HGB 29.1 pg (27.0-31.0); MEAN CORPUSCULAR HGB CONC 30.4 g/dl (33.0-37.0); MEAN PLATELET VOLUME 11.6 fl (9.6-12.3); MONO # 0.3 10*3/uL (0.1-1.0); MONO % 7.1 % (3.0-9.0); NEUT # 2.8 10*3/uL (2.3-7.9); NEUT % 59.3 % (47.0-73.0); PLATELET COUNT AUTOMATED 185 10*3/uL (130-400); RED BLOOD COUNT 3.88 10*6/uL (4.10-5.10); RED CELL DISTRI WIDTH 17.2 % (0-14.5); WHITE BLOOD COUNT 4.6 10*3/uL (4.8-10.8)
[2019-03-05 06:34] LABS: BUN 6 mg/dl (7-24); CREATININE 0.99 mg/dL (0.55-1.02)
--- NOTE | 2019-03-05 07:20 | NUR ---
ARRIVED ON SHIFT, INTRODUCED TO PATIENT, NO NEEDS VOICED AT THIS TIME, WHITE BOARD UPDATED, NO NEEDS VOICED AT THIS TIME.
[2019-03-05 08:00] VITALS: BP 153/86
[2019-03-05] MEDS ORDERED: DOXYCYCLINE100 M3 PO (08:21)
[2019-03-05 08:28] VITALS: BP 130/78
--- NOTE | 2019-03-05 09:25 | NUR ---
Discharge instructions reviewed with patient. Patient receptive and verbalizes understanding. Follow-up care arranged. Written instructions given to patient, REMOVED IV, ESCORTED VIA W/C BY NELIA BAKER
== END 2019-03-05 09:30 | disposition home or self-care (01) | DRG 602 ==
LOC: ED 09:08 → EDHOLD 12:07 → 4E 12:16 → 5E 03-04 16:25
PROVIDERS: Family Medicine; Nurse Practitioner Family; ADMIT Internal Medicine
DX: L03.116 Cellulitis of left lower limb (principal); N17.0 Acute kidney failure with tubular necrosis; I50.32 Chronic diastolic (congestive) heart failure; Z68.42 Body mass index [BMI] 45.0-49.9, adult; J98.11 Atelectasis; R79.89 Other specified abnormal findings of blood chemistry; R31.9 Hematuria, unspecified; R91.8 Other nonspecific abnormal finding of lung field; F32.9 Major depressive disorder, single episode, unspecified; G47.33 Obstructive sleep apnea (adult) (pediatric); E55.9 Vitamin D deficiency, unspecified; I89.0 Lymphedema, not elsewhere classified; K21.9 Gastro-esophageal reflux disease without esophagitis; J98.6 Disorders of diaphragm; I25.10 Atherosclerotic heart disease of native coronary artery without angina pectoris; F41.1 Generalized anxiety disorder; N18.3 Chronic kidney disease, stage 3 (moderate); E66.01 Morbid (severe) obesity due to excess calories; E53.8 Deficiency of other specified B group vitamins; Z86.718 Personal history of other venous thrombosis and embolism; Z85.41 Personal history of malignant neoplasm of cervix uteri; Z90.49 Acquired absence of other specified parts of digestive tract; Z98.51 Tubal ligation status; Z98.84 Bariatric surgery status; Z98.891 History of uterine scar from previous surgery; Z80.42 Family history of malignant neoplasm of prostate; Z82.49 Family history of ischemic heart disease and other diseases of the circulatory system; Z81.8 Family history of other mental and behavioral disorders; Z84.89 Family history of other specified conditions; Z79.82 Long term (current) use of aspirin; Z79.899 Other long term (current) drug therapy

== ENCOUNTER 2019-03-22 13:01 | Inpatient (IN) | payer OTHER ==
[~2019-03-22] VITALS: Ht 165.1 cm; Wt 127.1 kg
[2019-03-22] VITALS (7 sets, daily range): BP systolic 123–143; BP diastolic 78–91
[2019-03-22 13:41] LABS: BASO % 0.3 % (0.0-1.0); EOS # 0.1 10*3/uL (0.0-0.4); EOS % 1.7 % (1.0-4.0); HEMOGLOBIN 12.3 g/dl (12.0-16.0); LYMPH # 1.4 10*3/uL (1.3-4.4); LYMPH % 20.1 % (27.0-41.0); MEAN CELL VOLUME 97.8 fl (81.0-99.0); MEAN CORPUSCULAR HGB 30.1 pg (27.0-31.0); MEAN CORPUSCULAR HGB CONC 30.8 g/dl (33.0-37.0); MEAN PLATELET VOLUME 11.1 fl (9.6-12.3); MONO # 0.5 10*3/uL (0.1-1.0); MONO % 7.3 % (3.0-9.0); NEUT % 70.2 % (47.0-73.0); PLATELET COUNT AUTOMATED 203 10*3/uL (130-400); RED BLOOD COUNT 4.09 10*6/uL (4.10-5.10); WHITE BLOOD COUNT 7.1 10*3/uL (4.8-10.8)
[2019-03-22 13:56] LABS: ALBUMIN 3.5 gm/dl (3.1-4.5); ALKALINE PHOSPHATASE 70 U/L (45-117); BUN 12 mg/dl (7-24); CHLORIDE 111 mmol/L (98-107); CREATININE 1.05 mg/dL (0.55-1.02); POTASSIUM 3.8 mmol/L (3.5-5.1); SGOT/AST 13 IU/L (3-35); SGPT/ALT 19 U/L (12-78); SODIUM 142 mmol/L (136-145); TOTAL PROTEIN 6.4 gm/dL (6.4-8.2)
[2019-03-22 13:58] LABS: TROPONIN I < 0.015 ng/ml (<0.045)
[2019-03-22 14:27] LABS: ACT PARTIAL THROMBO TIME 23.9 SECONDS (20.0-32.1)
--- NOTE | 2019-03-22 14:46 | NUR ---
VITALS DOCUMENTED PRIOR TO ADMINISTERING MEDICATION WNL, WILL CONTINUE TO MONITOR, CONTINOUS PULSE OX
--- NOTE | 2019-03-22 15:04 | NUR ---
MORPHINE EFFECTIVE FOR PAIN. PATIENT RESTING COMFORTABLY. STABLE AND READY FOR TRANSPORT TO INPATIENT ROOM.;
--- NOTE | 2019-03-22 15:51 | NUR ---
SPOKE WITH DR FOFANA REGARDING PT CONSULT FOR MEDICAL MANAGENT FOR PT ADMITTED UNDER DR DIGGS.
--- NOTE | 2019-03-22 16:37 | NUR ---
DR SANDOVAL NOTIFED OF UPDATED MED REC.
--- NOTE | 2019-03-22 16:41 | NUR ---
DR MOREIRA IN TO SEE PT.
--- NOTE | 2019-03-22 16:51 | NUR ---
A 49, admitted to , under the services of LAKEISHA Chavarria MD with a diagnosis of chest pain. Chief complaint is chest pain. Patient arrived via bed from ER. Monitor applied. Initial assessment completed. Vital signs taken and recorded. LAKEISHA CHAVARRIA MD notified of admission to the unit. Orders received. See assessment for past medical history, medications and allergies. Patient and/or family oriented to unit. [address] visitation policy reviewed. Clothing/patient valuable form completed. Vaccinated for the flu this season. Skin warm, dry, & intact. No wounds on admission. TIERNEY,INSE
--- NOTE | 2019-03-22 17:25 | NUR ---
PRN ZANAFLEX AND PERCOCET ADMINISTERED PRESCRIBED FOR PT C/O CHEST PRESSURE AND LYMPHEDEMA PAIN. WILL CONTINUE TO MONITOR.
--- NOTE | 2019-03-22 19:02 | NUR ---
DR LEE NOTIFIED OF PATIENTS REQUEST FOR MORPHINE FOR "BREAK THROUGH PAIN". STATES SHE WILL REVIEW THE CHART. NO NEW ORDERS AT THIS TIME.
--- NOTE | 2019-03-22 19:53 | NUR ---
MADE AWARE THAT PATIENT IS HAVING 8/10 CHEST PAIN. STATED THAT PERCOCET WAS NOT GREATLY EFFECTIVE AND THAT MORPHINE HAD HELPED EARLIER. STATED TO PLACE AN ORDER FOR NITRO SL.
--- NOTE | 2019-03-22 20:35 | NUR ---
MADE AWARE THAT NITRO IS INEFFECTIVE, PAIN STIL 11/04. STATED TO PLACE ORDER FOR TUMS
--- NOTE | 2019-03-22 21:30 | NUR ---
INFORMED INFORMED THAT TUMS WERE NOT EFFECTIVE. STATED TO PLACE ORDER FOR 1MG MORPHINE IV.
--- NOTE | 2019-03-22 21:42 | NUR ---
PATIENT MEDICATED WITH X1 DOSE MORPHINE FOR CHEST PAIN 11/04. WILL MONITOR
--- NOTE | 2019-03-22 22:42 | NUR ---
MORPHINE EFFECTIVE FOR CHEST PAIN
[2019-03-23] VITALS: BP 111/81
--- NOTE | 2019-03-23 05:53 | NUR ---
PATIENT MEDICATED WITH PERCOCET FOR C/O 10/04 CHEST PAIN. WILL MONITOR
[2019-03-23 06:45] LABS: BASO % 0.6 % (0.0-1.0); EOS # 0.2 10*3/uL (0.0-0.4); EOS % 3.9 % (1.0-4.0); HEMATOCRIT 40.2 % (37.0-47.0); HEMOGLOBIN 12.2 g/dl (12.0-16.0); LYMPH # 1.7 10*3/uL (1.3-4.4); LYMPH % 31.6 % (27.0-41.0); MEAN CELL VOLUME 100.2 fl (81.0-99.0); MEAN CORPUSCULAR HGB 30.4 pg (27.0-31.0); MEAN CORPUSCULAR HGB CONC 30.3 g/dl (33.0-37.0); MEAN PLATELET VOLUME 11.4 fl (9.6-12.3); MONO # 0.4 10*3/uL (0.1-1.0); MONO % 8.2 % (3.0-9.0); NEUT # 2.9 10*3/uL (2.3-7.9); PLATELET COUNT AUTOMATED 180 10*3/uL (130-400); RED BLOOD COUNT 4.01 10*6/uL (4.10-5.10); WHITE BLOOD COUNT 5.4 10*3/uL (4.8-10.8)
[2019-03-23 06:49] LABS: BUN 15 mg/dl (7-24); CHLORIDE 107 mmol/L (98-107); CREATININE 0.96 mg/dL (0.55-1.02); PHOSPHOROUS 4.4 mg/dL (2.5-4.9); POTASSIUM 3.6 mmol/L (3.5-5.1); SODIUM 141 mmol/L (136-145)
--- NOTE | 2019-03-23 09:00 | NUR ---
Sales Marketing in to talk to patient. Patient states lives at home with roommate. There are few steps in the home. Physician: kiko shahid [facility] [place] [facility]: none Patient's level of ADLs: INDEPENDENT Patient has working utilities: all working DME: cpap Follow-up physician's appointment after d/c: will be made by hospitalist nurse director upon discharge Does patient want to access PORTAL?: no Discharge plan discussed with patient, she states she lives at home with roommate, she is independent in adls and ambulation, she states she will be returning home when medically stable, patient denies any home needs. [employer]EN [employer]
[2019-03-23] MEDS ORDERED: PREDNISONE10 MG PO (11:45)
--- NOTE | 2019-03-23 11:46 | NUR ---
ONE TIME TORADOL ADMINISTERED PRESCRIBED.
[2019-03-23 12:00] VITALS: BP 132/88
--- NOTE | 2019-03-23 12:54 | NUR ---
PT STATES THE TORADOL WAS EFFECTIVE.
--- NOTE | 2019-03-23 13:13 | NUR ---
HEP LOCK REMOVED. PT TOLERATED WELL. TELEPACK REMOVED AND PLACED IN NURSES STATION IN YELLOW BIN.
--- NOTE | 2019-03-23 13:14 | NUR ---
Discharge instructions reviewed with patient/family. Patient receptive and verbalizes understanding. Follow-up care arranged. Written instructions given to patient/family. INES TIERNEY
== END 2019-03-23 13:14 | disposition home or self-care (01) | DRG 205 ==
LOC: ED 13:01 → 4E 14:26 → EDHOLD 14:26 → 4E 15:02
PROVIDERS: Emergency Medicine; Family Medicine; ADMIT Family Medicine
DX: M94.0 Chondrocostal junction syndrome [Tietze] (principal); N17.0 Acute kidney failure with tubular necrosis; I50.32 Chronic diastolic (congestive) heart failure; E44.1 Mild protein-calorie malnutrition; Z68.42 Body mass index [BMI] 45.0-49.9, adult; I13.0 Hypertensive heart and chronic kidney disease with heart failure and stage 1 through stage 4 chronic kidney disease, or unspecified chronic kidney disease; R00.0 Tachycardia, unspecified; R73.9 Hyperglycemia, unspecified; E87.8 Other disorders of electrolyte and fluid balance, not elsewhere classified; N18.3 Chronic kidney disease, stage 3 (moderate); I89.0 Lymphedema, not elsewhere classified; E66.01 Morbid (severe) obesity due to excess calories; G47.33 Obstructive sleep apnea (adult) (pediatric); F32.9 Major depressive disorder, single episode, unspecified; F41.9 Anxiety disorder, unspecified; R91.8 Other nonspecific abnormal finding of lung field; E55.9 Vitamin D deficiency, unspecified; K21.9 Gastro-esophageal reflux disease without esophagitis; D75.89 Other specified diseases of blood and blood-forming organs; E53.8 Deficiency of other specified B group vitamins; Z85.41 Personal history of malignant neoplasm of cervix uteri; Z92.21 Personal history of antineoplastic chemotherapy; Z90.49 Acquired absence of other specified parts of digestive tract; Z98.51 Tubal ligation status; Z98.84 Bariatric surgery status; Z98.891 History of uterine scar from previous surgery; Z82.49 Family history of ischemic heart disease and other diseases of the circulatory system; Z80.42 Family history of malignant neoplasm of prostate; Z81.8 Family history of other mental and behavioral disorders; Z79.82 Long term (current) use of aspirin; Z79.899 Other long term (current) drug therapy

== ENCOUNTER 2019-04-02 12:10 | Inpatient (IN) | payer OTHER ==
[~2019-04-02] VITALS: Ht 165.1 cm; Wt 129.9 kg
[~2019-04-02 12:10] MED LIST changes: +PREDNISONE10 MG PO
[2019-04-02 12:25] VITALS: BP 150/89
[2019-04-02 13:37] LABS: BASO % 0.4 % (0.0-1.0); EOS # 0.2 10*3/uL (0.0-0.4); HEMATOCRIT 40.4 % (37.0-47.0); HEMOGLOBIN 12.2 g/dl (12.0-16.0); LYMPH # 1.1 10*3/uL (1.3-4.4); LYMPH % 22.8 % (27.0-41.0); MEAN CELL VOLUME 100.2 fl (81.0-99.0); MEAN CORPUSCULAR HGB 30.3 pg (27.0-31.0); MEAN CORPUSCULAR HGB CONC 30.2 g/dl (33.0-37.0); MEAN PLATELET VOLUME 11.1 fl (9.6-12.3); MONO # 0.4 10*3/uL (0.1-1.0); MONO % 9.5 % (3.0-9.0); NEUT # 2.9 10*3/uL (2.3-7.9); NEUT % 62.1 % (47.0-73.0); PLATELET COUNT AUTOMATED 200 10*3/uL (130-400); RED BLOOD COUNT 4.03 10*6/uL (4.10-5.10); RED CELL DISTRI WIDTH 16.3 % (0-14.5); WHITE BLOOD COUNT 4.6 10*3/uL (4.8-10.8)
[2019-04-02 13:48] LABS: ACT PARTIAL THROMBO TIME 23.3 SECONDS (20.0-32.1)
[2019-04-02 13:51] LABS: ALBUMIN 3.7 gm/dl (3.1-4.5); ALKALINE PHOSPHATASE 78 U/L (45-117); BUN 10 mg/dl (7-24); CHLORIDE 107 mmol/L (98-107); LIPASE 70 U/L (73-393); SGOT/AST 15 IU/L (3-35); SGPT/ALT 18 U/L (12-78); SODIUM 140 mmol/L (136-145); TOTAL PROTEIN 6.8 gm/dL (6.4-8.2)
[2019-04-02 13:56] LABS: BETA-HCG, QUANT < 1.0 mIU/mL (1-3); TROPONIN I < 0.015 ng/ml (<0.045)
[2019-04-02 14:05] VITALS: BP 144/82
[2019-04-02 15:15] VITALS: BP 142/82
[2019-04-02 16:21] VITALS: BP 142/82
[2019-04-02 18:04] VITALS: BP 148/88
[2019-04-02 20:00] VITALS: BP 121/87
[2019-04-03] VITALS: BP 109/67
[2019-04-03 00:36] VITALS: BP 116/72
[2019-04-03 07:48] LABS: BASO % 0.6 % (0.0-1.0); EOS # 0.3 10*3/uL (0.0-0.4); EOS % 5.5 % (1.0-4.0); HEMATOCRIT 38.2 % (37.0-47.0); HEMOGLOBIN 11.7 g/dl (12.0-16.0); LYMPH # 1.3 10*3/uL (1.3-4.4); LYMPH % 27.1 % (27.0-41.0); MEAN CELL VOLUME 100.5 fl (81.0-99.0); MEAN CORPUSCULAR HGB 30.8 pg (27.0-31.0); MEAN CORPUSCULAR HGB CONC 30.6 g/dl (33.0-37.0); MEAN PLATELET VOLUME 11.1 fl (9.6-12.3); MONO # 0.4 10*3/uL (0.1-1.0); MONO % 8.7 % (3.0-9.0); NEUT # 2.7 10*3/uL (2.3-7.9); NEUT % 57.7 % (47.0-73.0); PLATELET COUNT AUTOMATED 175 10*3/uL (130-400); RED CELL DISTRI WIDTH 16.4 % (0-14.5); WHITE BLOOD COUNT 4.7 10*3/uL (4.8-10.8)
[2019-04-03 08:00] VITALS: BP 118/78
[2019-04-03 08:03] LABS: ALBUMIN 3.4 gm/dl (3.1-4.5); ALKALINE PHOSPHATASE 64 U/L (45-117); BUN 10 mg/dl (7-24); CHLORIDE 107 mmol/L (98-107); CREATININE 0.93 mg/dL (0.55-1.02); PHOSPHOROUS 4.3 mg/dL (2.5-4.9); POTASSIUM 3.9 mmol/L (3.5-5.1); SGOT/AST 13 IU/L (3-35); SGPT/ALT 20 U/L (12-78); SODIUM 140 mmol/L (136-145); TOTAL PROTEIN 6.2 gm/dL (6.4-8.2)
[2019-04-03 12:00] VITALS: BP 90/60
[2019-04-03 13:59] VITALS: BP 92/60
== END 2019-04-03 16:07 | disposition home or self-care (01) | DRG 206 ==
LOC: ED 12:10 → 4E 14:42 → EDHOLD 14:42 → 4E 17:32
PROVIDERS: Emergency Medicine; Registered Nurse; ADMIT Internal Medicine
DX: M94.0 Chondrocostal junction syndrome [Tietze] (principal); I50.32 Chronic diastolic (congestive) heart failure; E44.1 Mild protein-calorie malnutrition; Z68.42 Body mass index [BMI] 45.0-49.9, adult; R91.8 Other nonspecific abnormal finding of lung field; E66.01 Morbid (severe) obesity due to excess calories; G47.33 Obstructive sleep apnea (adult) (pediatric); I89.0 Lymphedema, not elsewhere classified; K21.9 Gastro-esophageal reflux disease without esophagitis; E55.9 Vitamin D deficiency, unspecified; N18.3 Chronic kidney disease, stage 3 (moderate); E53.8 Deficiency of other specified B group vitamins; D75.89 Other specified diseases of blood and blood-forming organs; F41.9 Anxiety disorder, unspecified; F32.9 Major depressive disorder, single episode, unspecified; Z85.41 Personal history of malignant neoplasm of cervix uteri; Z90.49 Acquired absence of other specified parts of digestive tract; Z98.84 Bariatric surgery status; Z98.51 Tubal ligation status; Z80.42 Family history of malignant neoplasm of prostate; Z82.49 Family history of ischemic heart disease and other diseases of the circulatory system; Z79.82 Long term (current) use of aspirin; Z79.899 Other long term (current) drug therapy

== ENCOUNTER 2019-04-23 15:26 | Emergency (ER) | payer OTHER ==
[~2019-04-23] VITALS: Ht 165.1 cm; Wt 122.5 kg
[2019-04-23 16:30] LABS: BASO # 0.1 10*3/uL (0.0-0.1); BASO % 0.7 % (0.0-1.0); EOS # 0.3 10*3/uL (0.0-0.4); EOS % 4.3 % (1.0-4.0); LYMPH # 1.5 10*3/uL (1.3-4.4); MEAN CELL VOLUME 101.4 fl (81.0-99.0); MEAN CORPUSCULAR HGB 31.4 pg (27.0-31.0); MEAN PLATELET VOLUME 11.5 fl (9.6-12.3); MONO # 0.4 10*3/uL (0.1-1.0); MONO % 6.3 % (3.0-9.0); NEUT # 4.7 10*3/uL (2.3-7.9); NEUT % 67.3 % (47.0-73.0); PLATELET COUNT AUTOMATED 233 10*3/uL (130-400); RED BLOOD COUNT 4.14 10*6/uL (4.10-5.10); RED CELL DISTRI WIDTH 14.8 % (0-14.5)
[2019-04-23 16:41] LABS: ACT PARTIAL THROMBO TIME 24.6 SECONDS (20.0-32.1)
[2019-04-23 16:45] LABS: ALBUMIN 4.1 gm/dl (3.1-4.5); ALKALINE PHOSPHATASE 68 U/L (45-117); BUN 8 mg/dl (7-24); CHLORIDE 111 mmol/L (98-107); CREATININE 1.03 mg/dL (0.55-1.02); POTASSIUM 3.8 mmol/L (3.5-5.1); SGOT/AST 13 IU/L (3-35); SGPT/ALT 20 U/L (12-78); SODIUM 140 mmol/L (136-145); TOTAL PROTEIN 7.4 gm/dL (6.4-8.2)
[2019-04-23] MEDS ORDERED: DOXYCYCLINE100 M3 PO (18:39)
== END 2019-04-23 18:52 | disposition home or self-care (01) ==
LOC: ED 15:26
PROVIDERS: Nurse Practitioner Family
DX: L03.116 Cellulitis of left lower limb (principal); R79.1 Abnormal coagulation profile; N18.3 Chronic kidney disease, stage 3 (moderate); I50.32 Chronic diastolic (congestive) heart failure; K21.9 Gastro-esophageal reflux disease without esophagitis; E66.01 Morbid (severe) obesity due to excess calories; Z79.899 Other long term (current) drug therapy; Z79.82 Long term (current) use of aspirin; Z68.42 Body mass index [BMI] 45.0-49.9, adult

== ENCOUNTER → 2019-06-01 | Outpatient (CLI) | payer OTHER | END | disposition home or self-care (01) | LOC: CT 10:17 | DX: R91.8 Other nonspecific abnormal finding of lung field (principal) ==

== ENCOUNTER → 2019-08-22 | Outpatient (CLI) | payer OTHER | END | disposition home or self-care (01) | LOC: US 08-15 10:00 | DX: E04.1 Nontoxic single thyroid nodule (principal) ==

== ENCOUNTER 2019-11-18 12:55 | Inpatient (IN) | payer OTHER ==
[~2019-11-18] VITALS: Ht 165.1 cm; Wt 130.4 kg
[2019-11-18 13:01] VITALS: BP 137/50
[2019-11-18 14:16] LABS: HEMATOCRIT 38.8 % (37.0-47.0); MEAN CELL VOLUME 95.6 fl (81.0-99.0); MEAN CORPUSCULAR HGB 29.3 pg (27.0-31.0); MEAN CORPUSCULAR HGB CONC 30.7 g/dl (33.0-37.0); MEAN PLATELET VOLUME 10.9 fl (9.6-12.3); PLATELET COUNT AUTOMATED 222 10*3/uL (130-400); RED BLOOD COUNT 4.06 10*6/uL (4.10-5.10); RED CELL DISTRI WIDTH 15.4 % (0-14.5); WHITE BLOOD COUNT 14.7 10*3/uL (4.8-10.8)
[2019-11-18 14:32] LABS: ALBUMIN 3.3 gm/dl (3.1-4.5); CREATININE 1.23 mg/dL (0.55-1.02); POTASSIUM 4.1 mmol/L (3.5-5.1); TOTAL PROTEIN 6.9 gm/dL (6.4-8.2)
[2019-11-18 14:55] LABS: PLATELET SUFFICIENCY NORMAL (NORMAL); TOTAL CELLS COUNTED 100 #CELLS
[2019-11-18 15:00] VITALS: BP 130/58
--- NOTE | 2019-11-18 15:15 | NUR ---
PT WITHOUT PAIN RELIEF FROM MEDS,IVY SCHULTZ PA-C NOTIFIED.
--- NOTE | 2019-11-18 15:21 | NUR ---
PT WITH USE OF CPAP @ NIGHT AND HAS HER CPAP WITH HER.
--- NOTE | 2019-11-18 15:53 | NUR ---
4 MG MORPHINE ORDERED FOR PT PAIN MANUAL B/P MORPHINE WITHHILD PROVIDER NOTIFIED
[2019-11-18 15:54] VITALS: BP 84/56
--- NOTE | 2019-11-18 16:22 | NUR ---
PT WITH 2 SMALL SCRATCHES TO RLE NO PICTURES TAKEN AFTER REEVAL PER IVY HOFFMAN PA-C,AREAS W/O BLEEDING OR EXUDATE.
[2019-11-18 16:26] VITALS: BP 83/56
--- NOTE | 2019-11-18 16:37 | NUR ---
MORPHINE WITHHELD FROM PT DUE TO LOW B/P MEDICATION WASTED WITNESSED BY JACKIE LAW
[2019-11-18 16:50] VITALS: BP 97/81
--- NOTE | 2019-11-18 16:50 | NUR ---
A 49, admitted to , under the services of LOLA Overton DO with a diagnosis of CELLULITIS L LEG. Chief complaint is L LEG PAIN. Patient arrived via stretcher from ER. Monitor applied. Initial assessment completed. Vital signs taken and recorded. LOLA OVERTON DO notified of admission to the unit. Orders received. See assessment for past medical history, medications and allergies. Patient and/or family oriented to unit. [address] visitation policy reviewed. Clothing/patient valuable form completed. MADAN BATISTA
--- NOTE | 2019-11-18 18:03 | NUR ---
ANSWERING SERVICE FOR DR. EVANS CALLED.
--- NOTE | 2019-11-18 18:11 | NUR ---
DR. GARCIA AND DR. RIVAS AWARE OF CONSULTS. THEY BOTH WILL SEE PATIENT TOMORROW 11/18.
--- NOTE | 2019-11-18 19:00 | NUR ---
ASSUMED CARE FOR THIS PT AT THIS TIME. PT AWAKE IN BED WATCHING TV. HEAT TURNED ON IN ROOM PER PT REQUEST. CALL LIGHT IN REACH.
[2019-11-18 20:00] VITALS: BP 127/85
--- NOTE | 2019-11-18 20:00 | NUR ---
PT C/O LLE PAIN. 10/04 MEDICATED W/NORCO. LLE RED/WARM/SWOLLEN. CALL LIGHT IN REACH.
--- NOTE | 2019-11-18 20:06 | NUR ---
DR. DIAL NOTIFIED OF PT'S MED REC UTD AND PT WANTING HER PERCOCET. TO TAKE A LOOK AT IT. PT HAS HOME CPAP IN ROOM MAINTENANCE NOTIFIED OF NEED FOR SAFETY CHECK.
--- NOTE | 2019-11-18 22:44 | NUR ---
PERCOCET ADMINISTERED FOR PT C/O LEFT LEG PAIN RATED AN 8/10. LEG IS RED, AND TENDER TO TOUCH. WILL MONITOR.
--- NOTE | 2019-11-18 23:30 | NUR ---
24 HOUR CHART CHECK COMPLETE.
--- NOTE | 2019-11-18 23:40 | NUR ---
PT STATES PERCOCET "RELIEVED HER PAIN MAYBE JUST A TINY BIT". WILL CONTIUE TO MONITOR. NO S/S OF DISTRESS NOTED. PATIENT CALMY SITTING IN BED ON HER LAPTOP.
[2019-11-19] VITALS: BP 138/85
--- NOTE | 2019-11-19 00:47 | NUR ---
MORPHINE ADMINISTERED FOR PT C/O CONTINUED PAIN. ON ARRIVAL TO ROOM PATIENT SITTING IN BED WITH NO S/S OF DISTRESS. RESPIRATIONS EASY AND UNLABORED. AT THIS TIME, PATIENT ON HER LAPTOP AND LAUGHING WHILE CARRYING ON A CONVERSATION WITH ME. STATES HER PAIN IS AN 8/10. WILL MONITOR AND REASSESS.
--- NOTE | 2019-11-19 01:40 | NUR ---
PT ASLEEP AT THIS TIME. MORPHINE APPEARS TO BE EFFECTIVE.
[2019-11-19 06:47] LABS: BASO % 0.4 % (0.0-1.0); EOS # 0.3 10*3/uL (0.0-0.4); EOS % 3.5 % (1.0-4.0); LYMPH # 1.1 10*3/uL (1.3-4.4); LYMPH % 14.5 % (27.0-41.0); MEAN CELL VOLUME 97.6 fl (81.0-99.0); MEAN CORPUSCULAR HGB CONC 29.8 g/dl (33.0-37.0); MEAN PLATELET VOLUME 11.6 fl (9.6-12.3); MONO # 0.5 10*3/uL (0.1-1.0); MONO % 6.4 % (3.0-9.0); NEUT # 5.5 10*3/uL (2.3-7.9); NEUT % 74.9 % (47.0-73.0); PLATELET COUNT AUTOMATED 203 10*3/uL (130-400); RED CELL DISTRI WIDTH 15.6 % (0-14.5); WHITE BLOOD COUNT 7.3 10*3/uL (4.8-10.8)
[2019-11-19 07:04] LABS: ALBUMIN 3.5 gm/dl (3.1-4.5); BUN 15 mg/dl (7-24); CHLORIDE 112 mmol/L (98-107); CHOLESTEROL 146 mg/dL (<200); CREATININE 1.09 mg/dL (0.55-1.02); POTASSIUM 3.8 mmol/L (3.5-5.1); SGOT/AST 8 IU/L (3-35); SGPT/ALT 16 U/L (12-78); SODIUM 143 mmol/L (136-145); TOTAL PROTEIN 7.6 gm/dL (6.4-8.2); TRIGLYCERIDES 127 mg/dl (<150); VLDL CHOLESTEROL 25 mg/dL (6-40)
[2019-11-19 07:11] LABS: ALKALINE PHOSPHATASE 64 U/L (45-117); FREE T4 0.91 ng/dl (0.76-1.46); HDL CHOLESTEROL 50 mg/dl (40-60); LDL CHOLESTEROL 71 mg/dL (9-159); THYROID STIM HORMONE (HS) 0.962 uIU/ml (0.358-4.75)
[2019-11-19 07:17] LABS: ACT PARTIAL THROMBO TIME 27.1 SECONDS (20.0-32.1)
[2019-11-19 07:36] LABS: VITAMIN D, 25-HYDROXY 15.9 ng/mL (30-100)
[2019-11-19 08:00] VITALS: BP 128/90
--- NOTE | 2019-11-19 08:16 | NUR ---
PATIENT C/O 8/10 LEFT LEG PAIN AT THIS TIME AND MEDICATED WITH IV MORPHINE PER ORDER. WILL MONITOR FOR EFFECTIVENESS.
--- NOTE | 2019-11-19 08:48 | NUR ---
PHYSICAL THERAPY Screen received, pt admitted for LLE pain, Cellulitis. Please consult PT if pts funcitional status declines from baseline. Thank you. Rajat Martin SPT Liliana Ross PT
--- NOTE | 2019-11-19 09:00 | NUR ---
Grain Trimmer in to talk to patient. Patient states lives at home with friend. There are no steps in the home. Physician: [facility] [place] [facility]: none Patient's level of ADLs: INDEPENDENT Patient has working utilities: all working DME: none Follow-up physician's appointment after d/c: will be made by hospitalist nurse director upon discharge Does patient want to access PORTAL?: no Discharge plan discussed with patient, she lives at home, is independent in adls and ambulation, she states she will return home when discharged and denies any home needs, case management will follow. KAREN [employer]
--- NOTE | 2019-11-19 09:16 | NUR ---
PER PATIENT, PRN MEDICATION HAS BEEN EFFECTIVE. CALL LIGHT IN REACH.
--- NOTE | 2019-11-19 11:24 | NUR ---
PT MEDICATED WITH PO PERCOCET AT THIS TIME FOR COMPLAINTS OF 7/10 LEFT LEG PAIN. WILL MONITOR FOR EFFECTIVENESS.
[2019-11-19 12:00] VITALS: BP 139/92
[2019-11-19 16:00] VITALS: BP 124/77
--- NOTE | 2019-11-19 16:20 | NUR ---
Nursing screen received and chart reviewed. Patient admitted for sepsis, LLE cellulitis, LLE pain, and hypotension. If patient has a decline in ADLs, transfers, or functional mobility, please send OT orders. Thank you. Estefania Winters OTR/L
--- NOTE | 2019-11-19 16:40 | NUR ---
[facility] NURSE WAS CALLED TO PATIENTS ROOM AND THE PATIENT STATED THAT DR. EVANS HAS RELEASED HER FOR DISCHARGE AND SHE WANTED ME TO PASS IT ON TO THE PRIMARY TEAM. DR. FORTUNE NOTIFIED.
[2019-11-19] MEDS ORDERED: KEFLEX500 M1 PO (16:58)
--- NOTE | 2019-11-19 18:15 | NUR ---
PT DISCHARGED HOME AT THIS TIME. REFUSED WHEELCHAIR. PRESCRIPTIONS,F/U CARE AND HOME CARE DISCUSSED.
== END 2019-11-19 19:13 | disposition home or self-care (01) | DRG 871 ==
LOC: ED 12:55 → 4E 16:13 → EDHOLD 16:13 → 4E 16:24
PROVIDERS: Physician Assistant; Social Worker Clinical; ADMIT Internal Medicine; ATTEND Internal Medicine
DX: A41.9 Sepsis, unspecified organism (principal); N17.0 Acute kidney failure with tubular necrosis; L03.116 Cellulitis of left lower limb; E44.0 Moderate protein-calorie malnutrition; I50.32 Chronic diastolic (congestive) heart failure; F33.9 Major depressive disorder, recurrent, unspecified; Z68.42 Body mass index [BMI] 45.0-49.9, adult; F41.9 Anxiety disorder, unspecified; G47.33 Obstructive sleep apnea (adult) (pediatric); E66.01 Morbid (severe) obesity due to excess calories; R65.20 Severe sepsis without septic shock; D64.9 Anemia, unspecified; E87.8 Other disorders of electrolyte and fluid balance, not elsewhere classified; R73.9 Hyperglycemia, unspecified; E83.41 Hypermagnesemia; K21.9 Gastro-esophageal reflux disease without esophagitis; N18.3 Chronic kidney disease, stage 3 (moderate); Z82.49 Family history of ischemic heart disease and other diseases of the circulatory system; Z80.42 Family history of malignant neoplasm of prostate

== ENCOUNTER 2019-12-14 14:06 | Inpatient (IN) | payer OTHER ==
[~2019-12-14] VITALS: Ht 165.1 cm; Wt 127.7 kg
[2019-12-14 14:19] VITALS: BP 134/68
[2019-12-14 14:46] LABS: BASO % 0.1 % (0.0-1.0); EOS # 0.2 10*3/uL (0.0-0.4); EOS % 1.6 % (1.0-4.0); HEMATOCRIT 40.1 % (37.0-47.0); LYMPH # 0.8 10*3/uL (1.3-4.4); LYMPH % 8.4 % (27.0-41.0); MEAN CELL VOLUME 97.8 fl (81.0-99.0); MEAN CORPUSCULAR HGB 29.8 pg (27.0-31.0); MEAN CORPUSCULAR HGB CONC 30.4 g/dl (33.0-37.0); MEAN PLATELET VOLUME 11.3 fl (9.6-12.3); MONO # 0.3 10*3/uL (0.1-1.0); MONO % 2.8 % (3.0-9.0); NEUT # 8.1 10*3/uL (2.3-7.9); NEUT % 86.8 % (47.0-73.0); PLATELET COUNT AUTOMATED 188 10*3/uL (130-400); RED CELL DISTRI WIDTH 16.6 % (0-14.5); WHITE BLOOD COUNT 9.3 10*3/uL (4.8-10.8)
[2019-12-14 15:00] LABS: ACT PARTIAL THROMBO TIME 26.3 SECONDS (20.0-32.1)
[2019-12-14 15:02] LABS: ALBUMIN 3.8 gm/dl (3.1-4.5); ALKALINE PHOSPHATASE 77 U/L (45-117); BUN 11 mg/dl (7-24); CHLORIDE 110 mmol/L (98-107); CREATININE 1.03 mg/dL (0.55-1.02); LIPASE 55 U/L (73-393); POTASSIUM 3.5 mmol/L (3.5-5.1); SGOT/AST 6 IU/L (3-35); SGPT/ALT 17 U/L (12-78); SODIUM 141 mmol/L (136-145); TOTAL PROTEIN 7.6 gm/dL (6.4-8.2)
[2019-12-14 16:05] VITALS: BP 136/71
[2019-12-14 16:42] VITALS: BP 120/73
[2019-12-14 20:03] VITALS: BP 127/69
[2019-12-15] VITALS: BP 129/68
[2019-12-15 06:18] LABS: BASO % 0.4 % (0.0-1.0); EOS # 0.2 10*3/uL (0.0-0.4); EOS % 3.9 % (1.0-4.0); HEMATOCRIT 35.6 % (37.0-47.0); LYMPH # 1.1 10*3/uL (1.3-4.4); LYMPH % 21.2 % (27.0-41.0); MEAN CELL VOLUME 98.3 fl (81.0-99.0); MEAN CORPUSCULAR HGB 29.8 pg (27.0-31.0); MEAN CORPUSCULAR HGB CONC 30.3 g/dl (33.0-37.0); MEAN PLATELET VOLUME 11.5 fl (9.6-12.3); MONO # 0.4 10*3/uL (0.1-1.0); MONO % 7.1 % (3.0-9.0); NEUT # 3.4 10*3/uL (2.3-7.9); NEUT % 66.8 % (47.0-73.0); PLATELET COUNT AUTOMATED 172 10*3/uL (130-400); RED BLOOD COUNT 3.62 10*6/uL (4.10-5.10); RED CELL DISTRI WIDTH 16.5 % (0-14.5); WHITE BLOOD COUNT 5.1 10*3/uL (4.8-10.8)
[2019-12-15 06:21] LABS: BUN 11 mg/dl (7-24); CHLORIDE 111 mmol/L (98-107); CREATININE 0.98 mg/dL (0.55-1.02); POTASSIUM 3.7 mmol/L (3.5-5.1); SODIUM 142 mmol/L (136-145)
[2019-12-15 08:00] VITALS: BP 126/82
[2019-12-15 12:00] VITALS: BP 135/84
[2019-12-15 16:00] VITALS: BP 141/89
[2019-12-15 20:00] VITALS: BP 153/82
[2019-12-16] VITALS: BP 130/77
[2019-12-16 06:24] LABS: BASO % 0.4 % (0.0-1.0); EOS # 0.3 10*3/uL (0.0-0.4); EOS % 5.4 % (1.0-4.0); HEMATOCRIT 37.6 % (37.0-47.0); LYMPH # 1.3 10*3/uL (1.3-4.4); LYMPH % 25.5 % (27.0-41.0); MEAN CELL VOLUME 98.2 fl (81.0-99.0); MEAN CORPUSCULAR HGB CONC 30.6 g/dl (33.0-37.0); MEAN PLATELET VOLUME 11.5 fl (9.6-12.3); MONO # 0.4 10*3/uL (0.1-1.0); MONO % 7.4 % (3.0-9.0); NEUT # 3.1 10*3/uL (2.3-7.9); NEUT % 60.5 % (47.0-73.0); PLATELET COUNT AUTOMATED 193 10*3/uL (130-400); RED BLOOD COUNT 3.83 10*6/uL (4.10-5.10); RED CELL DISTRI WIDTH 16.3 % (0-14.5); WHITE BLOOD COUNT 5.2 10*3/uL (4.8-10.8)
[2019-12-16 06:59] LABS: CHLORIDE 109 mmol/L (98-107); SODIUM 142 mmol/L (136-145)
[2019-12-16 07:02] LABS: BUN 13 mg/dl (7-24); CREATININE 0.89 mg/dL (0.55-1.02)
[2019-12-16 08:00] VITALS: BP 108/50
[2019-12-16 12:00] VITALS: BP 111/54
[2019-12-16] MEDS ORDERED: CEPHALEXIN500 M1 PO ×2 (13:16)
== END 2019-12-16 13:21 | disposition home or self-care (01) | DRG 603 ==
LOC: ED 14:06 → EDHOLD 15:41 → 4E 16:00
PROVIDERS: Internal Medicine; Nurse Practitioner Family; ADMIT Internal Medicine; ATTEND Internal Medicine
DX: L03.116 Cellulitis of left lower limb (principal); I50.32 Chronic diastolic (congestive) heart failure; Z68.42 Body mass index [BMI] 45.0-49.9, adult; E87.8 Other disorders of electrolyte and fluid balance, not elsewhere classified; R79.82 Elevated C-reactive protein (CRP); R00.0 Tachycardia, unspecified; F32.9 Major depressive disorder, single episode, unspecified; F41.9 Anxiety disorder, unspecified; G47.33 Obstructive sleep apnea (adult) (pediatric); E55.9 Vitamin D deficiency, unspecified; K21.9 Gastro-esophageal reflux disease without esophagitis; N18.3 Chronic kidney disease, stage 3 (moderate); I89.0 Lymphedema, not elsewhere classified; E66.01 Morbid (severe) obesity due to excess calories; Z90.49 Acquired absence of other specified parts of digestive tract; Z98.51 Tubal ligation status; Z82.49 Family history of ischemic heart disease and other diseases of the circulatory system; Z80.42 Family history of malignant neoplasm of prostate

== ENCOUNTER → 2020-01-04 | Outpatient (CLI) | payer OTHER | END | disposition home or self-care (01) | LOC: CT 09:48 | PROVIDERS: ATTEND Family Medicine | DX: R60.0 Localized edema (principal); I77.1 Stricture of artery ==

== ENCOUNTER → 2020-02-26 | Outpatient (CLI) | payer MEDICARE | END | disposition home or self-care (01) | LOC: COVID19 14:36 | PROVIDERS: ATTEND Student in an Organized Health Care Education/Training Program | DX: Z20.828 Contact with and (suspected) exposure to other viral communicable diseases (principal) ==

== ENCOUNTER 2020-05-10 12:25 | Emergency (ER) | payer MEDICARE ==
[~2020-05-10] VITALS: Wt 117.9 kg
[2020-05-10 13:04] LABS: HEMATOCRIT 46.8 % (37.0-47.0); MEAN CELL VOLUME 102.6 fl (81.0-99.0); MEAN CORPUSCULAR HGB 32.5 pg (27.0-31.0); MEAN CORPUSCULAR HGB CONC 31.6 g/dl (33.0-37.0); MEAN PLATELET VOLUME 10.9 fl (9.6-12.3); PLATELET COUNT AUTOMATED 227 10*3/uL (130-400); RED BLOOD COUNT 4.56 10*6/uL (4.10-5.10); WHITE BLOOD COUNT 10.7 10*3/uL (4.8-10.8)
[2020-05-10 13:16] LABS: ACT PARTIAL THROMBO TIME 22.8 SECONDS (20.0-32.1)
[2020-05-10 13:20] LABS: ALBUMIN 3.7 gm/dl (3.1-4.5); CREATININE 1.29 mg/dL (0.55-1.02); POTASSIUM 4.6 mmol/L (3.5-5.1); TOTAL PROTEIN 7.1 gm/dL (6.4-8.2)
[2020-05-10 13:22] LABS: PLATELET SUFFICIENCY NORMAL (NORMAL); TOTAL CELLS COUNTED 100 #CELLS
[2020-05-10 13:23] LABS: TROPONIN I 0.694 ng/ml (<0.045)
== END 2020-05-10 13:26 | disposition short-term general hospital (02) ==
LOC: ED 12:25
PROVIDERS: Emergency Medicine
DX: I46.9 Cardiac arrest, cause unspecified (principal); R56.9 Unspecified convulsions; F41.9 Anxiety disorder, unspecified; K21.9 Gastro-esophageal reflux disease without esophagitis; F32.9 Major depressive disorder, single episode, unspecified; N18.30 Chronic kidney disease, stage 3 unspecified; G47.30 Sleep apnea, unspecified; Z79.899 Other long term (current) drug therapy; Z79.82 Long term (current) use of aspirin; Z90.49 Acquired absence of other specified parts of digestive tract; Z98.890 Other specified postprocedural states

== ENCOUNTER 2020-06-01 14:18 | Emergency (ER) | payer OTHER ==
[~2020-06-01] VITALS: Ht 165.1 cm; Wt 126.6 kg
[2020-06-01 15:00] LABS: BASO % 0.3 % (0.0-1.0); EOS # 0.2 10*3/uL (0.0-0.4); EOS % 2.3 % (1.0-4.0); HEMATOCRIT 42.2 % (37.0-47.0); LYMPH # 0.8 10*3/uL (1.3-4.4); LYMPH % 9.4 % (27.0-41.0); MEAN CELL VOLUME 95.5 fl (81.0-99.0); MEAN CORPUSCULAR HGB 32.1 pg (27.0-31.0); MEAN CORPUSCULAR HGB CONC 33.6 g/dl (33.0-37.0); MEAN PLATELET VOLUME 10.5 fl (9.6-12.3); MONO # 0.4 10*3/uL (0.1-1.0); MONO % 4.2 % (3.0-9.0); NEUT # 7.4 10*3/uL (2.3-7.9); NEUT % 83.5 % (47.0-73.0); PLATELET COUNT AUTOMATED 269 10*3/uL (130-400); RED BLOOD COUNT 4.42 10*6/uL (4.10-5.10); RED CELL DISTRI WIDTH 12.4 % (0-14.5); WHITE BLOOD COUNT 8.9 10*3/uL (4.8-10.8)
[2020-06-01 15:19] LABS: ALBUMIN 3.9 gm/dl (3.1-4.5); ALKALINE PHOSPHATASE 127 U/L (45-117); BUN 21 mg/dl (7-24); CHLORIDE 109 mmol/L (98-107); CREATININE 1.13 mg/dL (0.55-1.02); POTASSIUM 2.9 mmol/L (3.5-5.1); SGOT/AST 25 IU/L (3-35); SGPT/ALT 31 U/L (12-78); SODIUM 141 mmol/L (136-145); TOTAL PROTEIN 7.2 gm/dL (6.4-8.2); TROPONIN I 0.026 ng/ml (<0.045)
[2020-06-01 15:22] LABS: ACT PARTIAL THROMBO TIME 24.8 SECONDS (20.0-32.1)
== END 2020-06-01 19:21 | disposition short-term general hospital (02) ==
LOC: ED 14:18
PROVIDERS: Emergency Medicine
DX: T82.198A Other mechanical complication of other cardiac electronic device, initial encounter (principal); E87.6 Hypokalemia; R07.81 Pleurodynia; R07.89 Other chest pain; R55 Syncope and collapse; Z79.2 Long term (current) use of antibiotics; Z79.899 Other long term (current) drug therapy; Z79.82 Long term (current) use of aspirin; Z98.84 Bariatric surgery status; Z90.49 Acquired absence of other specified parts of digestive tract; Z90.89 Acquired absence of other organs; Z98.51 Tubal ligation status; Z98.890 Other specified postprocedural states; Z86.718 Personal history of other venous thrombosis and embolism; Z85.828 Personal history of other malignant neoplasm of skin; Y83.8 Other surgical procedures as the cause of abnormal reaction of the patient, or of later complication, without mention of misadventure at the time of the procedure; Y92.89 Other specified places as the place of occurrence of the external cause

== ENCOUNTER 2020-06-08 16:00 | Emergency (ER) | payer OTHER ==
[~2020-06-08] VITALS: Ht 165.1 cm; Wt 120.2 kg
[2020-06-08 16:31] LABS: BASO % 0.3 % (0.0-1.0); EOS # 0.5 10*3/uL (0.0-0.4); EOS % 7.1 % (1.0-4.0); HEMATOCRIT 44.1 % (37.0-47.0); LYMPH # 1.3 10*3/uL (1.3-4.4); MEAN CELL VOLUME 99.5 fl (81.0-99.0); MEAN CORPUSCULAR HGB 32.1 pg (27.0-31.0); MEAN CORPUSCULAR HGB CONC 32.2 g/dl (33.0-37.0); MEAN PLATELET VOLUME 10.9 fl (9.6-12.3); MONO # 0.4 10*3/uL (0.1-1.0); MONO % 5.3 % (3.0-9.0); NEUT # 5.3 10*3/uL (2.3-7.9); NEUT % 69.8 % (47.0-73.0); PLATELET COUNT AUTOMATED 182 10*3/uL (130-400); RED BLOOD COUNT 4.43 10*6/uL (4.10-5.10); RED CELL DISTRI WIDTH 12.4 % (0-14.5); WHITE BLOOD COUNT 7.6 10*3/uL (4.8-10.8)
[2020-06-08 16:41] LABS: ACT PARTIAL THROMBO TIME 25.1 SECONDS (20.0-32.1)
[2020-06-08 16:47] LABS: ALBUMIN 3.7 gm/dl (3.1-4.5); ALKALINE PHOSPHATASE 110 U/L (45-117); BUN 14 mg/dl (7-24); CHLORIDE 108 mmol/L (98-107); CREATININE 1.04 mg/dL (0.55-1.02); POTASSIUM 3.6 mmol/L (3.5-5.1); SGOT/AST 8 IU/L (3-35); SGPT/ALT 20 U/L (12-78); SODIUM 143 mmol/L (136-145); TOTAL PROTEIN 7.6 gm/dL (6.4-8.2)
[2020-06-08 16:48] LABS: TROPONIN I < 0.015 ng/ml (<0.045)
== END 2020-06-08 18:36 | disposition home or self-care (01) ==
LOC: ED 16:00
PROVIDERS: Emergency Medicine
DX: G89.18 Other acute postprocedural pain (principal); R07.89 Other chest pain; E66.9 Obesity, unspecified; F41.9 Anxiety disorder, unspecified; F32.9 Major depressive disorder, single episode, unspecified; K21.9 Gastro-esophageal reflux disease without esophagitis; E66.01 Morbid (severe) obesity due to excess calories; Z95.810 Presence of automatic (implantable) cardiac defibrillator; Z79.899 Other long term (current) drug therapy; Z79.2 Long term (current) use of antibiotics; Z79.82 Long term (current) use of aspirin; Z68.42 Body mass index [BMI] 45.0-49.9, adult; Z85.41 Personal history of malignant neoplasm of cervix uteri; Z86.718 Personal history of other venous thrombosis and embolism

== ENCOUNTER 2020-06-16 19:51 | Observation (INO) | payer OTHER ==
[~2020-06-16] VITALS: Ht 165.1 cm; Wt 134.4 kg
[2020-06-16 20:10] VITALS: BP 134/82
[2020-06-16 20:15] LABS: BASO % 0.6 % (0.0-1.0); EOS # 0.5 10*3/uL (0.0-0.4); EOS % 6.7 % (1.0-4.0); LYMPH # 1.9 10*3/uL (1.3-4.4); LYMPH % 26.5 % (27.0-41.0); MEAN CELL VOLUME 98.6 fl (81.0-99.0); MEAN CORPUSCULAR HGB 32.5 pg (27.0-31.0); MEAN CORPUSCULAR HGB CONC 32.9 g/dl (33.0-37.0); MEAN PLATELET VOLUME 10.8 fl (9.6-12.3); MONO # 0.5 10*3/uL (0.1-1.0); MONO % 6.5 % (3.0-9.0); NEUT # 4.2 10*3/uL (2.3-7.9); NEUT % 59.3 % (47.0-73.0); PLATELET COUNT AUTOMATED 217 10*3/uL (130-400); RED BLOOD COUNT 4.16 10*6/uL (4.10-5.10); RED CELL DISTRI WIDTH 12.2 % (0-14.5)
[2020-06-16 20:31] LABS: ALBUMIN 3.6 gm/dl (3.1-4.5); ALKALINE PHOSPHATASE 110 U/L (45-117); BUN 17 mg/dl (7-24); CHLORIDE 105 mmol/L (98-107); CREATININE 1.05 mg/dL (0.55-1.02); POTASSIUM 3.9 mmol/L (3.5-5.1); SGOT/AST 7 IU/L (3-35); SGPT/ALT 18 U/L (12-78); SODIUM 141 mmol/L (136-145)
[2020-06-16 20:34] LABS: TROPONIN I < 0.015 ng/ml (<0.045)
[2020-06-16 21:27] VITALS: BP 136/80
[2020-06-16 21:45] VITALS: BP 118/71
[2020-06-16] MEDS ORDERED: METOPROLOL SUCC25 M2 PO (22:05)
[2020-06-16] MEDS ORDERED: PROMETHAZINE12.5 M5 PO (22:06)
[2020-06-16] MEDS ORDERED: DONEPEZIL HYDROC5 MG PO (22:08)
[2020-06-16] MEDS ORDERED: GABAPENTIN100 M2 PO (22:08)
[2020-06-16] MEDS ORDERED: HYDROCHLOROTH12.5 M3 PO (22:09)
[2020-06-16] MEDS ORDERED: HYDROXYZINE PAM50 MG PO (22:10)
[2020-06-16] MEDS ORDERED: NIFEDIPINE ER30 M1 PO (22:10)
[2020-06-16] MEDS ORDERED: NITROGLYCERIN0.4 MG SL (22:10)
[2020-06-17] VITALS: BP 110/74
[2020-06-17 06:20] LABS: BASO % 0.4 % (0.0-1.0); EOS # 0.5 10*3/uL (0.0-0.4); EOS % 6.3 % (1.0-4.0); HEMATOCRIT 43.9 % (37.0-47.0); LYMPH # 2.3 10*3/uL (1.3-4.4); LYMPH % 27.5 % (27.0-41.0); MEAN CELL VOLUME 99.3 fl (81.0-99.0); MEAN CORPUSCULAR HGB 31.9 pg (27.0-31.0); MEAN CORPUSCULAR HGB CONC 32.1 g/dl (33.0-37.0); MEAN PLATELET VOLUME 10.8 fl (9.6-12.3); MONO # 0.5 10*3/uL (0.1-1.0); MONO % 6.4 % (3.0-9.0); PLATELET COUNT AUTOMATED 220 10*3/uL (130-400); RED BLOOD COUNT 4.42 10*6/uL (4.10-5.10); RED CELL DISTRI WIDTH 12.2 % (0-14.5); WHITE BLOOD COUNT 8.5 10*3/uL (4.8-10.8)
[2020-06-17 06:33] LABS: BUN 16 mg/dl (7-24); CHLORIDE 106 mmol/L (98-107); CREATININE 1.01 mg/dL (0.55-1.02); POTASSIUM 3.8 mmol/L (3.5-5.1); SODIUM 142 mmol/L (136-145)
[2020-06-17 12:00] VITALS: BP 115/59
[2020-06-17 16:00] VITALS: BP 128/78
== END 2020-06-17 20:03 | disposition home or self-care (01) ==
LOC: ED 19:51 → EDHOLD 20:59 → 5E 22:33
PROVIDERS: Internal Medicine; ADMIT Internal Medicine; ATTEND Internal Medicine
DX: R07.89 Other chest pain (principal); N18.30 Chronic kidney disease, stage 3 unspecified; I20.1 Angina pectoris with documented spasm; F41.9 Anxiety disorder, unspecified; K21.9 Gastro-esophageal reflux disease without esophagitis; F32.9 Major depressive disorder, single episode, unspecified; E66.01 Morbid (severe) obesity due to excess calories; D64.9 Anemia, unspecified; I50.32 Chronic diastolic (congestive) heart failure; G47.33 Obstructive sleep apnea (adult) (pediatric); E44.0 Moderate protein-calorie malnutrition; Z68.42 Body mass index [BMI] 45.0-49.9, adult; Z95.810 Presence of automatic (implantable) cardiac defibrillator

== ENCOUNTER 2020-06-22 05:28 | Emergency (ER) | payer OTHER ==
[~2020-06-22 05:28] MED LIST changes: +DONEPEZIL HYDROC5 MG PO; +GABAPENTIN100 M2 PO; +HYDROCHLOROTH12.5 M3 PO; +METOPROLOL SUCC25 M2 PO; +NIFEDIPINE ER30 M1 PO; +NITROGLYCERIN0.4 MG SL; +PROMETHAZINE12.5 M5 PO
[2020-06-22 05:57] LABS: BASO # 0.1 10*3/uL (0.0-0.1); BASO % 0.7 % (0.0-1.0); EOS # 0.4 10*3/uL (0.0-0.4); EOS % 4.7 % (1.0-4.0); HEMATOCRIT 44.5 % (37.0-47.0); LYMPH # 2.3 10*3/uL (1.3-4.4); LYMPH % 30.7 % (27.0-41.0); MEAN CORPUSCULAR HGB 32.6 pg (27.0-31.0); MEAN CORPUSCULAR HGB CONC 33.3 g/dl (33.0-37.0); MEAN PLATELET VOLUME 10.8 fl (9.6-12.3); MONO # 0.5 10*3/uL (0.1-1.0); MONO % 6.1 % (3.0-9.0); NEUT # 4.2 10*3/uL (2.3-7.9); NEUT % 57.3 % (47.0-73.0); PLATELET COUNT AUTOMATED 275 10*3/uL (130-400); RED BLOOD COUNT 4.54 10*6/uL (4.10-5.10); RED CELL DISTRI WIDTH 12.3 % (0-14.5); WHITE BLOOD COUNT 7.4 10*3/uL (4.8-10.8)
[2020-06-22 06:43] LABS: ALBUMIN 3.8 gm/dl (3.1-4.5); ALKALINE PHOSPHATASE 107 U/L (45-117); BUN 14 mg/dl (7-24); CHLORIDE 104 mmol/L (98-107); CREATININE 1.05 mg/dL (0.55-1.02); POTASSIUM 3.6 mmol/L (3.5-5.1); SGOT/AST 14 IU/L (3-35); SGPT/ALT 17 U/L (12-78); SODIUM 139 mmol/L (136-145); TOTAL PROTEIN 7.4 gm/dL (6.4-8.2)
[2020-06-22 06:45] LABS: ACT PARTIAL THROMBO TIME 25.6 SECONDS (20.0-32.1)
[2020-06-22 06:46] LABS: TROPONIN I < 0.015 ng/ml (<0.045)
== END 2020-06-22 09:42 | disposition short-term general hospital (02) ==
LOC: ED 05:28
PROVIDERS: Internal Medicine
DX: T82.129A Displacement of unspecified cardiac electronic device, initial encounter (principal); Z95.810 Presence of automatic (implantable) cardiac defibrillator; Z79.899 Other long term (current) drug therapy; Z79.82 Long term (current) use of aspirin; Z98.61 Coronary angioplasty status; Z90.49 Acquired absence of other specified parts of digestive tract; Z98.84 Bariatric surgery status; Z98.51 Tubal ligation status; Z98.890 Other specified postprocedural states; Z96.22 Myringotomy tube(s) status; Y83.8 Other surgical procedures as the cause of abnormal reaction of the patient, or of later complication, without mention of misadventure at the time of the procedure; Y92.89 Other specified places as the place of occurrence of the external cause

== ENCOUNTER → 2020-07-03 | Outpatient (CLI) | payer OTHER ==
[~2020-07-03] MED LIST changes: -ASPIRIN ADULT L81 M1 PO; +B-12500 MC1 PO; +MELATONIN5 M7 PO; +QUALITY CHOICE81 M1 PO
[2020-07-03 11:27] LABS: ALBUMIN 3.5 gm/dl (3.1-4.5); ALKALINE PHOSPHATASE 108 U/L (45-117); BUN 20 mg/dl (7-24); CHLORIDE 106 mmol/L (98-107); CHOLESTEROL 149 mg/dL (<200); CREATININE 1.12 mg/dL (0.55-1.02); HDL CHOLESTEROL 50 mg/dl (40-60); IRON 51 ug/dL (50-170); LDL CHOLESTEROL 76 mg/dL (9-159); POTASSIUM 4.8 mmol/L (3.5-5.1); SGOT/AST 7 IU/L (3-35); SGPT/ALT 13 U/L (12-78); SODIUM 138 mmol/L (136-145); T3 UPTAKE 31 % (31-39); TOTAL IRON BINDING CAPACITY 247 ug/dl (250-450); TOTAL PROTEIN 6.9 gm/dL (6.4-8.2); TRIGLYCERIDES 115 mg/dl (<150); VLDL CHOLESTEROL 23 mg/dL (6-40)
[2020-07-03 11:33] LABS: FERRITIN 38.7 ng/mL (10.0-291.0); FREE T4 0.72 ng/dl (0.76-1.46); THYROID STIM HORMONE (HS) 0.647 uIU/ml (0.358-4.75); VITAMIN D, 25-HYDROXY 39.8 ng/mL (30-100)
== END | disposition home or self-care (01) ==
LOC: LAB 10:19
PROVIDERS: ATTEND Internal Medicine Endocrinology, Diabetes & Metabolism
DX: E55.9 Vitamin D deficiency, unspecified (principal); D50.9 Iron deficiency anemia, unspecified; R94.6 Abnormal results of thyroid function studies; E66.01 Morbid (severe) obesity due to excess calories; Z79.899 Other long term (current) drug therapy; Z98.84 Bariatric surgery status

== ENCOUNTER → 2020-08-07 | Outpatient (CLI) | payer OTHER | END | disposition home or self-care (01) | LOC: US 14:30 → LAB 15:56 | PROVIDERS: ATTEND Student in an Organized Health Care Education/Training Program | DX: R60.0 Localized edema (principal); I50.9 Heart failure, unspecified; G47.33 Obstructive sleep apnea (adult) (pediatric) ==

== ENCOUNTER 2020-08-10 10:16 | Emergency (ER) | payer OTHER ==
[~2020-08-10] VITALS: Ht 170.1 cm; Wt 131.1 kg
[2020-08-10 10:44] LABS: BASO % 0.5 % (0.0-1.0); EOS # 0.5 10*3/uL (0.0-0.4); EOS % 8.1 % (1.0-4.0); HEMATOCRIT 38.8 % (37.0-47.0); LYMPH # 1.4 10*3/uL (1.3-4.4); LYMPH % 24.7 % (27.0-41.0); MEAN CELL VOLUME 98.7 fl (81.0-99.0); MEAN CORPUSCULAR HGB 31.6 pg (27.0-31.0); MONO # 0.4 10*3/uL (0.1-1.0); MONO % 6.8 % (3.0-9.0); NEUT # 3.4 10*3/uL (2.3-7.9); NEUT % 59.5 % (47.0-73.0); PLATELET COUNT AUTOMATED 192 10*3/uL (130-400); RED BLOOD COUNT 3.93 10*6/uL (4.10-5.10); RED CELL DISTRI WIDTH 12.8 % (0-14.5); WHITE BLOOD COUNT 5.7 10*3/uL (4.8-10.8)
[2020-08-10 10:54] LABS: ACT PARTIAL THROMBO TIME 26.6 SECONDS (20.0-32.1); INTERNATIONAL NORM RATIO 1.1 (2.0-3.5)
[2020-08-10 11:04] LABS: ALBUMIN 3.4 gm/dl (3.1-4.5); ALKALINE PHOSPHATASE 105 U/L (45-117); BUN 16 mg/dl (7-24); CHLORIDE 106 mmol/L (98-107); CREATININE 1.09 mg/dL (0.55-1.02); POTASSIUM 3.3 mmol/L (3.5-5.1); SGOT/AST 11 IU/L (3-35); SGPT/ALT 16 U/L (12-78); SODIUM 139 mmol/L (136-145); TOTAL PROTEIN 7.2 gm/dL (6.4-8.2)
[2020-08-10 11:05] LABS: TROPONIN I 0.023 ng/ml (<0.045)
[2020-08-13] MEDS ORDERED: PERCOCET 5-3251 EACH PO (12:56)
== END 2020-08-13 13:02 | disposition home or self-care (01) ==
LOC: ED 10:16
PROVIDERS: Emergency Medicine
DX: T82.897A Other specified complication of cardiac prosthetic devices, implants and grafts, initial encounter (principal); I21.4 Non-ST elevation (NSTEMI) myocardial infarction; I49.01 Ventricular fibrillation; N18.30 Chronic kidney disease, stage 3 unspecified; K21.9 Gastro-esophageal reflux disease without esophagitis; Z98.51 Tubal ligation status; Z90.49 Acquired absence of other specified parts of digestive tract; Z98.890 Other specified postprocedural states; Z79.899 Other long term (current) drug therapy; Z79.82 Long term (current) use of aspirin; Y92.89 Other specified places as the place of occurrence of the external cause

== ENCOUNTER 2020-08-19 19:36 | Inpatient (IN) | payer OTHER ==
[~2020-08-19] VITALS: Ht 165.1 cm; Wt 127.0 kg
[2020-08-19 19:36] VITALS: BP 147/95
[2020-08-19 19:55] LABS: BASO # 0.1 10*3/uL (0.0-0.1); BASO % 0.5 % (0.0-1.0); EOS # 0.6 10*3/uL (0.0-0.4); EOS % 5.7 % (1.0-4.0); HEMATOCRIT 43.5 % (37.0-47.0); LYMPH # 1.5 10*3/uL (1.3-4.4); LYMPH % 15.1 % (27.0-41.0); MEAN CELL VOLUME 97.8 fl (81.0-99.0); MEAN CORPUSCULAR HGB 31.5 pg (27.0-31.0); MEAN CORPUSCULAR HGB CONC 32.2 g/dl (33.0-37.0); MEAN PLATELET VOLUME 10.4 fl (9.6-12.3); MONO # 0.5 10*3/uL (0.1-1.0); NEUT # 7.4 10*3/uL (2.3-7.9); NEUT % 73.2 % (47.0-73.0); PLATELET COUNT AUTOMATED 259 10*3/uL (130-400); RED BLOOD COUNT 4.45 10*6/uL (4.10-5.10); RED CELL DISTRI WIDTH 12.6 % (0-14.5); WHITE BLOOD COUNT 10.2 10*3/uL (4.8-10.8)
[2020-08-19 20:06] LABS: ACT PARTIAL THROMBO TIME 25.8 SECONDS (20.0-32.1); INTERNATIONAL NORM RATIO 1.1 (2.0-3.5)
[2020-08-19 20:12] LABS: ALBUMIN 3.8 gm/dl (3.1-4.5); ALKALINE PHOSPHATASE 118 U/L (45-117); BUN 17 mg/dl (7-24); CHLORIDE 110 mmol/L (98-107); CREATININE 1.22 mg/dL (0.55-1.02); POTASSIUM 3.8 mmol/L (3.5-5.1); SGOT/AST 12 IU/L (3-35); SGPT/ALT 16 U/L (12-78); SODIUM 141 mmol/L (136-145)
[2020-08-19 20:27] LABS: TROPONIN I < 0.015 ng/ml (<0.045)
[2020-08-19 21:45] VITALS: BP 122/78
[2020-08-20 04:23] VITALS: BP 133/78
[2020-08-20 04:45] VITALS: BP 145/80
[2020-08-20 06:35] LABS: BASO # 0.1 10*3/uL (0.0-0.1); BASO % 0.7 % (0.0-1.0); EOS # 0.6 10*3/uL (0.0-0.4); EOS % 8.5 % (1.0-4.0); HEMATOCRIT 41.9 % (37.0-47.0); LYMPH % 27.5 % (27.0-41.0); MEAN CELL VOLUME 97.9 fl (81.0-99.0); MEAN CORPUSCULAR HGB 31.8 pg (27.0-31.0); MEAN CORPUSCULAR HGB CONC 32.5 g/dl (33.0-37.0); MEAN PLATELET VOLUME 10.4 fl (9.6-12.3); MONO # 0.4 10*3/uL (0.1-1.0); MONO % 6.1 % (3.0-9.0); NEUT % 56.9 % (47.0-73.0); PLATELET COUNT AUTOMATED 225 10*3/uL (130-400); RED BLOOD COUNT 4.28 10*6/uL (4.10-5.10); RED CELL DISTRI WIDTH 12.8 % (0-14.5); WHITE BLOOD COUNT 7.1 10*3/uL (4.8-10.8)
[2020-08-20 06:56] LABS: ALBUMIN 3.8 gm/dl (3.1-4.5); ALKALINE PHOSPHATASE 96 U/L (45-117); BUN 17 mg/dl (7-24); CHLORIDE 108 mmol/L (98-107); CREATININE 1.09 mg/dL (0.55-1.02); SGOT/AST 10 IU/L (3-35); SGPT/ALT 15 U/L (12-78); SODIUM 141 mmol/L (136-145); TOTAL PROTEIN 7.4 gm/dL (6.4-8.2)
[2020-08-20 08:00] VITALS: BP 137/99
[2020-08-20 12:00] VITALS: BP 132/83
[2020-08-20 16:00] VITALS: BP 124/78
[2020-08-20 20:00] VITALS: BP 109/71
[2020-08-21] VITALS: BP 120/64
[2020-08-21 06:14] LABS: BASO # 0.1 10*3/uL (0.0-0.1); BASO % 0.7 % (0.0-1.0); EOS # 0.6 10*3/uL (0.0-0.4); EOS % 8.7 % (1.0-4.0); HEMATOCRIT 46.7 % (37.0-47.0); LYMPH # 1.9 10*3/uL (1.3-4.4); MEAN CELL VOLUME 99.2 fl (81.0-99.0); MEAN CORPUSCULAR HGB 31.2 pg (27.0-31.0); MEAN CORPUSCULAR HGB CONC 31.5 g/dl (33.0-37.0); MEAN PLATELET VOLUME 10.4 fl (9.6-12.3); MONO # 0.5 10*3/uL (0.1-1.0); MONO % 6.5 % (3.0-9.0); NEUT # 3.9 10*3/uL (2.3-7.9); NEUT % 56.8 % (47.0-73.0); PLATELET COUNT AUTOMATED 206 10*3/uL (130-400); RED BLOOD COUNT 4.71 10*6/uL (4.10-5.10); RED CELL DISTRI WIDTH 12.5 % (0-14.5); WHITE BLOOD COUNT 6.9 10*3/uL (4.8-10.8)
[2020-08-21 06:17] LABS: BUN 19 mg/dl (7-24); CHLORIDE 107 mmol/L (98-107); POTASSIUM 4.4 mmol/L (3.5-5.1); SODIUM 140 mmol/L (136-145)
[2020-08-21 06:19] LABS: CREATININE 1.11 mg/dL (0.55-1.02)
[2020-08-21 08:00] VITALS: BP 131/68
[2020-08-21] MEDS ORDERED: NAPROXEN500 MG PO (11:47)
[2020-08-21] MEDS ORDERED: COLCHICINE0.6 M2 PO (11:47)
[2020-08-21] MEDS ORDERED: PERCOCET 5-3251 EACH PO (11:48)
== END 2020-08-21 12:40 | disposition home health service (06) | DRG 311 ==
LOC: ED 19:36 → 5E 08-20 03:20 → EDHOLD 08-20 03:20 → 5E 08-20 04:05
PROVIDERS: Emergency Medicine; Internal Medicine; ADMIT Student in an Organized Health Care Education/Training Program; ATTEND Student in an Organized Health Care Education/Training Program
DX: I20.1 Angina pectoris with documented spasm (principal); N17.0 Acute kidney failure with tubular necrosis; Z68.42 Body mass index [BMI] 45.0-49.9, adult; I50.32 Chronic diastolic (congestive) heart failure; E83.41 Hypermagnesemia; E87.8 Other disorders of electrolyte and fluid balance, not elsewhere classified; K21.9 Gastro-esophageal reflux disease without esophagitis; N18.31 Chronic kidney disease, stage 3a; E66.01 Morbid (severe) obesity due to excess calories; G47.33 Obstructive sleep apnea (adult) (pediatric)

== ENCOUNTER 2020-09-06 20:53 | Emergency (ER) | payer OTHER ==
[~2020-09-06 20:53] MED LIST changes: +COLCHICINE0.6 M2 PO; +NAPROXEN500 MG PO
[2020-09-06 21:49] LABS: BASO % 0.4 % (0.0-1.0); EOS # 0.5 10*3/uL (0.0-0.4); EOS % 5.8 % (1.0-4.0); HEMATOCRIT 42.8 % (37.0-47.0); LYMPH # 1.5 10*3/uL (1.3-4.4); LYMPH % 18.6 % (27.0-41.0); MEAN CELL VOLUME 98.4 fl (81.0-99.0); MEAN CORPUSCULAR HGB 31.7 pg (27.0-31.0); MEAN CORPUSCULAR HGB CONC 32.2 g/dl (33.0-37.0); MEAN PLATELET VOLUME 11.8 fl (9.6-12.3); MONO # 0.5 10*3/uL (0.1-1.0); MONO % 5.5 % (3.0-9.0); NEUT # 5.8 10*3/uL (2.3-7.9); NEUT % 69.5 % (47.0-73.0); PLATELET COUNT AUTOMATED 200 10*3/uL (130-400); RED BLOOD COUNT 4.35 10*6/uL (4.10-5.10); RED CELL DISTRI WIDTH 12.5 % (0-14.5); WHITE BLOOD COUNT 8.3 10*3/uL (4.8-10.8)
[2020-09-06 22:06] LABS: ALBUMIN 3.6 gm/dl (3.1-4.5); ALKALINE PHOSPHATASE 109 U/L (45-117); BUN 16 mg/dl (7-24); CHLORIDE 106 mmol/L (98-107); CREATININE 1.16 mg/dL (0.55-1.02); POTASSIUM 3.8 mmol/L (3.5-5.1); SGOT/AST 21 IU/L (3-35); SGPT/ALT 18 U/L (12-78); SODIUM 138 mmol/L (136-145); TOTAL PROTEIN 7.9 gm/dL (6.4-8.2)
[2020-09-06 22:08] LABS: TROPONIN I < 0.015 ng/ml (<0.045)
== END 2020-09-07 03:45 | disposition home or self-care (01) ==
LOC: ED 20:53
PROVIDERS: Emergency Medicine
DX: R07.9 Chest pain, unspecified (principal); N18.30 Chronic kidney disease, stage 3 unspecified; F32.9 Major depressive disorder, single episode, unspecified; K21.9 Gastro-esophageal reflux disease without esophagitis; I25.2 Old myocardial infarction; Z90.49 Acquired absence of other specified parts of digestive tract; Z79.899 Other long term (current) drug therapy; Z98.890 Other specified postprocedural states

== ENCOUNTER 2020-09-29 18:30 | Emergency (ER) | payer OTHER ==
[~2020-09-29 18:30] MED LIST changes: +AMLODIPINE BESY10 MG PO
[2020-09-29 18:58] LABS: BASO % 0.4 % (0.0-1.0); EOS # 0.4 10*3/uL (0.0-0.4); HEMATOCRIT 41.1 % (37.0-47.0); LYMPH # 2.1 10*3/uL (1.3-4.4); LYMPH % 29.2 % (27.0-41.0); MEAN CELL VOLUME 98.1 fl (81.0-99.0); MEAN CORPUSCULAR HGB CONC 31.6 g/dl (33.0-37.0); MEAN PLATELET VOLUME 10.5 fl (9.6-12.3); MONO # 0.4 10*3/uL (0.1-1.0); MONO % 6.1 % (3.0-9.0); NEUT # 4.2 10*3/uL (2.3-7.9); NEUT % 58.6 % (47.0-73.0); PLATELET COUNT AUTOMATED 208 10*3/uL (130-400); RED BLOOD COUNT 4.19 10*6/uL (4.10-5.10); RED CELL DISTRI WIDTH 12.5 % (0-14.5); WHITE BLOOD COUNT 7.2 10*3/uL (4.8-10.8)
[2020-09-29 19:15] LABS: ALBUMIN 3.9 gm/dl (3.1-4.5); ALKALINE PHOSPHATASE 90 U/L (45-117); BUN 18 mg/dl (7-24); CHLORIDE 107 mmol/L (98-107); CREATININE 1.18 mg/dL (0.55-1.02); POTASSIUM 4.4 mmol/L (3.5-5.1); SGOT/AST 10 IU/L (3-35); SGPT/ALT 20 U/L (12-78); SODIUM 137 mmol/L (136-145); TOTAL PROTEIN 7.3 gm/dL (6.4-8.2)
[2020-09-29 19:16] LABS: TROPONIN I < 0.015 ng/ml (<0.045)
== END 2020-09-29 22:07 | disposition home or self-care (01) ==
LOC: ED 18:30
PROVIDERS: Emergency Medicine
DX: R07.89 Other chest pain (principal); R06.02 Shortness of breath; I25.2 Old myocardial infarction; Z79.899 Other long term (current) drug therapy; Z79.82 Long term (current) use of aspirin; Z98.61 Coronary angioplasty status; Z90.49 Acquired absence of other specified parts of digestive tract; Z98.84 Bariatric surgery status; Z90.89 Acquired absence of other organs; Z96.22 Myringotomy tube(s) status; Z98.890 Other specified postprocedural states

== ENCOUNTER 2020-10-08 17:33 | Inpatient (IN) | payer OTHER ==
[~2020-10-08] VITALS: Ht 165.1 cm; Wt 122.6 kg
[2020-10-08 17:47] VITALS: BP 159/69
[2020-10-08 18:00] LABS: BASO % 0.5 % (0.0-1.0); EOS # 0.3 10*3/uL (0.0-0.4); EOS % 3.7 % (1.0-4.0); HEMATOCRIT 44.9 % (37.0-47.0); LYMPH # 1.8 10*3/uL (1.3-4.4); LYMPH % 22.5 % (27.0-41.0); MEAN CELL VOLUME 95.7 fl (81.0-99.0); MEAN CORPUSCULAR HGB 30.9 pg (27.0-31.0); MEAN CORPUSCULAR HGB CONC 32.3 g/dl (33.0-37.0); MEAN PLATELET VOLUME 10.9 fl (9.6-12.3); MONO # 0.6 10*3/uL (0.1-1.0); MONO % 6.8 % (3.0-9.0); NEUT # 5.4 10*3/uL (2.3-7.9); NEUT % 66.1 % (47.0-73.0); PLATELET COUNT AUTOMATED 211 10*3/uL (130-400); RED BLOOD COUNT 4.69 10*6/uL (4.10-5.10); RED CELL DISTRI WIDTH 12.7 % (0-14.5); WHITE BLOOD COUNT 8.1 10*3/uL (4.8-10.8)
[2020-10-08 18:19] LABS: ALBUMIN 4.2 gm/dl (3.1-4.5); ALKALINE PHOSPHATASE 101 U/L (45-117); BUN 13 mg/dl (7-24); CHLORIDE 107 mmol/L (98-107); CREATININE 1.06 mg/dL (0.55-1.02); SGOT/AST 14 IU/L (3-35); SGPT/ALT 22 U/L (12-78); SODIUM 138 mmol/L (136-145)
[2020-10-08 18:34] LABS: TROPONIN I < 0.015 ng/ml (<0.045)
[2020-10-08 18:35] VITALS: BP 124/77
[2020-10-08 20:00] VITALS: BP 117/78
[2020-10-08 20:29] VITALS: BP 120/80
[2020-10-08 20:50] VITALS: BP 119/88
[2020-10-08] MEDS ORDERED: CRESTOR20 M1 PO (21:09)
[2020-10-08] MEDS ORDERED: TRAZODONE50 MG PO (21:12)
[2020-10-08] MEDS ORDERED: PROTONIX40 MG PO (21:13)
[2020-10-09] VITALS: BP 119/74
[2020-10-09 06:14] LABS: BASO # 0.1 10*3/uL (0.0-0.1); BASO % 0.7 % (0.0-1.0); EOS # 0.4 10*3/uL (0.0-0.4); EOS % 5.6 % (1.0-4.0); HEMATOCRIT 43.7 % (37.0-47.0); LYMPH # 2.6 10*3/uL (1.3-4.4); LYMPH % 34.4 % (27.0-41.0); MEAN CORPUSCULAR HGB 31.3 pg (27.0-31.0); MEAN CORPUSCULAR HGB CONC 31.6 g/dl (33.0-37.0); MEAN PLATELET VOLUME 11.2 fl (9.6-12.3); MONO # 0.5 10*3/uL (0.1-1.0); MONO % 7.1 % (3.0-9.0); NEUT # 3.8 10*3/uL (2.3-7.9); NEUT % 51.5 % (47.0-73.0); PLATELET COUNT AUTOMATED 172 10*3/uL (130-400); RED BLOOD COUNT 4.41 10*6/uL (4.10-5.10); RED CELL DISTRI WIDTH 12.8 % (0-14.5); WHITE BLOOD COUNT 7.4 10*3/uL (4.8-10.8)
[2020-10-09 06:20] LABS: ALBUMIN 3.8 gm/dl (3.1-4.5); ALKALINE PHOSPHATASE 87 U/L (45-117); BUN 16 mg/dl (7-24); CHLORIDE 108 mmol/L (98-107); CREATININE 0.85 mg/dL (0.55-1.02); POTASSIUM 3.8 mmol/L (3.5-5.1); SGOT/AST 12 IU/L (3-35); SGPT/ALT 19 U/L (12-78); SODIUM 139 mmol/L (136-145); TOTAL PROTEIN 7.3 gm/dL (6.4-8.2)
[2020-10-09 06:44] LABS: MEAN CELL VOLUME 99.1 fl (81.0-99.0)
[2020-10-09 08:00] VITALS: BP 119/76
[2020-10-09 08:36] VITALS: BP 118/85
[2020-10-09 11:23] VITALS: BP 122/64
[2020-10-09 16:00] VITALS: BP 115/61; BP 118/70
[2020-10-09 20:00] VITALS: BP 118/82
[2020-10-10] VITALS: BP 116/79
[2020-10-10 06:18] LABS: BUN 14 mg/dl (7-24); CHLORIDE 106 mmol/L (98-107); CREATININE 0.88 mg/dL (0.55-1.02); POTASSIUM 3.9 mmol/L (3.5-5.1); SODIUM 139 mmol/L (136-145)
[2020-10-10 06:36] LABS: BASO % 0.4 % (0.0-1.0); EOS # 0.5 10*3/uL (0.0-0.4); EOS % 6.3 % (1.0-4.0); HEMATOCRIT 42.5 % (37.0-47.0); LYMPH # 1.8 10*3/uL (1.3-4.4); LYMPH % 24.3 % (27.0-41.0); MEAN CORPUSCULAR HGB 31.5 pg (27.0-31.0); MEAN CORPUSCULAR HGB CONC 32.5 g/dl (33.0-37.0); MEAN PLATELET VOLUME 11.2 fl (9.6-12.3); MONO # 0.5 10*3/uL (0.1-1.0); MONO % 6.5 % (3.0-9.0); NEUT # 4.5 10*3/uL (2.3-7.9); NEUT % 62.1 % (47.0-73.0); PLATELET COUNT AUTOMATED 167 10*3/uL (130-400); RED BLOOD COUNT 4.38 10*6/uL (4.10-5.10); RED CELL DISTRI WIDTH 12.8 % (0-14.5); WHITE BLOOD COUNT 7.2 10*3/uL (4.8-10.8)
[2020-10-10 08:05] VITALS: BP 108/75
[2020-10-10 11:07] VITALS: BP 128/86
[2020-10-10] MEDS ORDERED: HYDROCODON-ACE1 EACH PO (11:12)
== END 2020-10-10 13:15 | disposition home or self-care (01) | DRG 391 ==
LOC: ED 17:33 → EDHOLD 18:42 → 5E 18:42 → EDHOLD 19:50 → 5E 20:20
PROVIDERS: Emergency Medicine; Internal Medicine; ADMIT Internal Medicine; ATTEND Internal Medicine
DX: K21.9 Gastro-esophageal reflux disease without esophagitis (principal); N17.0 Acute kidney failure with tubular necrosis; I20.1 Angina pectoris with documented spasm; I50.32 Chronic diastolic (congestive) heart failure; Z68.41 Body mass index [BMI] 40.0-44.9, adult; R91.8 Other nonspecific abnormal finding of lung field; N18.31 Chronic kidney disease, stage 3a; F32.9 Major depressive disorder, single episode, unspecified; G47.33 Obstructive sleep apnea (adult) (pediatric); R73.9 Hyperglycemia, unspecified; E55.9 Vitamin D deficiency, unspecified; Z80.42 Family history of malignant neoplasm of prostate; Z85.41 Personal history of malignant neoplasm of cervix uteri; I25.2 Old myocardial infarction; Z92.21 Personal history of antineoplastic chemotherapy; Z98.51 Tubal ligation status; Z90.49 Acquired absence of other specified parts of digestive tract; Z98.891 History of uterine scar from previous surgery; Z82.49 Family history of ischemic heart disease and other diseases of the circulatory system; Z95.810 Presence of automatic (implantable) cardiac defibrillator

== ENCOUNTER → 2020-10-14 | Outpatient (CLI) | payer OTHER ==
[~2020-10-14] MED LIST changes: +CRESTOR20 M1 PO; +HYDROCODON-ACE1 EACH PO; +PROTONIX40 MG PO; +TRAZODONE50 MG PO
[2020-10-14 12:47] LABS: FREE T4 0.76 ng/dl (0.76-1.46); THYROXINE (T4) TOTAL 7.4 ug/dl (4.8-13.9)
[2020-10-14 12:52] LABS: THYROID STIM HORMONE (HS) 0.825 uIU/ml (0.358-4.75)
[2020-10-15 08:09] LABS: THYROID PEROXIDASE (TPO) AB <8 IU/mL (0-34); TOTAL T3 (TT3) 72 ng/dL (71-180)
[2020-10-15 15:07] LABS: THYROGLOBULIN ANTIBODY <1.0 IU/mL (0.0-0.9)
== END | disposition home or self-care (01) ==
LOC: LAB 11:48
PROVIDERS: ATTEND Internal Medicine Endocrinology, Diabetes & Metabolism
DX: R94.6 Abnormal results of thyroid function studies (principal)

== ENCOUNTER 2020-10-28 17:13 | Inpatient (IN) | payer OTHER ==
[~2020-10-28] VITALS: Ht 165.1 cm; Wt 127.0 kg
[2020-10-28 17:27] VITALS: BP 110/68
[2020-10-28 17:41] LABS: BASO % 0.5 % (0.0-1.0); EOS # 0.5 10*3/uL (0.0-0.4); EOS % 5.9 % (1.0-4.0); HEMATOCRIT 41.7 % (37.0-47.0); LYMPH # 1.9 10*3/uL (1.3-4.4); MEAN CELL VOLUME 98.3 fl (81.0-99.0); MEAN CORPUSCULAR HGB 31.1 pg (27.0-31.0); MEAN CORPUSCULAR HGB CONC 31.7 g/dl (33.0-37.0); MEAN PLATELET VOLUME 11.1 fl (9.6-12.3); MONO # 0.5 10*3/uL (0.1-1.0); MONO % 6.1 % (3.0-9.0); NEUT # 5.7 10*3/uL (2.3-7.9); NEUT % 64.8 % (47.0-73.0); PLATELET COUNT AUTOMATED 212 10*3/uL (130-400); RED BLOOD COUNT 4.24 10*6/uL (4.10-5.10); RED CELL DISTRI WIDTH 13.5 % (0-14.5); WHITE BLOOD COUNT 8.7 10*3/uL (4.8-10.8)
[2020-10-28 17:59] LABS: ALBUMIN 3.5 gm/dl (3.1-4.5); ALKALINE PHOSPHATASE 90 U/L (45-117); BUN 14 mg/dl (7-24); CHLORIDE 104 mmol/L (98-107); CREATININE 1.11 mg/dL (0.55-1.02); POTASSIUM 5.7 mmol/L (3.5-5.1); SGOT/AST 45 IU/L (3-35); SGPT/ALT 25 U/L (12-78); SODIUM 137 mmol/L (136-145); TOTAL PROTEIN 7.1 gm/dL (6.4-8.2)
[2020-10-28 18:02] VITALS: BP 101/66
[2020-10-28 18:06] LABS: TROPONIN I < 0.015 ng/ml (<0.045)
[2020-10-28 19:04] VITALS: BP 122/68
[2020-10-29 00:25] VITALS: BP 114/78
[2020-10-29 03:12] VITALS: BP 109/74
[2020-10-29 04:00] VITALS: BP 121/82
[2020-10-29 05:40] LABS: ALBUMIN 3.7 gm/dl (3.1-4.5); BUN 13 mg/dl (7-24); CHLORIDE 106 mmol/L (98-107); CREATININE 0.98 mg/dL (0.55-1.02); SGOT/AST 10 IU/L (3-35); SGPT/ALT 20 U/L (12-78); SODIUM 139 mmol/L (136-145)
[2020-10-29 05:47] LABS: ALKALINE PHOSPHATASE 79 U/L (45-117); FREE T4 0.82 ng/dl (0.76-1.46)
[2020-10-29 05:55] LABS: POTASSIUM 3.9 mmol/L (3.5-5.1)
[2020-10-29 06:56] LABS: BASO % 0.5 % (0.0-1.0); EOS # 0.5 10*3/uL (0.0-0.4); HEMATOCRIT 42.8 % (37.0-47.0); LYMPH # 2.3 10*3/uL (1.3-4.4); LYMPH % 27.2 % (27.0-41.0); MEAN CELL VOLUME 98.8 fl (81.0-99.0); MEAN CORPUSCULAR HGB 31.2 pg (27.0-31.0); MEAN CORPUSCULAR HGB CONC 31.5 g/dl (33.0-37.0); MEAN PLATELET VOLUME 11.5 fl (9.6-12.3); MONO # 0.6 10*3/uL (0.1-1.0); NEUT # 4.9 10*3/uL (2.3-7.9); NEUT % 58.6 % (47.0-73.0); PLATELET COUNT AUTOMATED 207 10*3/uL (130-400); RED BLOOD COUNT 4.33 10*6/uL (4.10-5.10); RED CELL DISTRI WIDTH 13.4 % (0-14.5); WHITE BLOOD COUNT 8.4 10*3/uL (4.8-10.8)
[2020-10-29 07:41] VITALS: BP 122/90
[2020-10-29 11:57] VITALS: BP 112/77
[2020-10-29 15:53] VITALS: BP 118/74
== END 2020-10-29 16:30 | disposition home or self-care (01) | DRG 311 ==
LOC: ED 17:13 → EDHOLD 23:41
PROVIDERS: Emergency Medicine; Internal Medicine; ADMIT Internal Medicine; ATTEND Internal Medicine
DX: I20.1 Angina pectoris with documented spasm (principal); N17.0 Acute kidney failure with tubular necrosis; J98.11 Atelectasis; I50.32 Chronic diastolic (congestive) heart failure; Z68.42 Body mass index [BMI] 45.0-49.9, adult; G47.33 Obstructive sleep apnea (adult) (pediatric); R91.8 Other nonspecific abnormal finding of lung field; E78.5 Hyperlipidemia, unspecified; R74.01 Elevation of levels of liver transaminase levels; F32.9 Major depressive disorder, single episode, unspecified; K21.9 Gastro-esophageal reflux disease without esophagitis; E55.9 Vitamin D deficiency, unspecified; E87.5 Hyperkalemia; E66.01 Morbid (severe) obesity due to excess calories; T82.120D Displacement of cardiac electrode, subsequent encounter; Z90.49 Acquired absence of other specified parts of digestive tract; Z98.891 History of uterine scar from previous surgery; Z95.810 Presence of automatic (implantable) cardiac defibrillator; Z87.891 Personal history of nicotine dependence; Z82.49 Family history of ischemic heart disease and other diseases of the circulatory system; Z79.82 Long term (current) use of aspirin; Z79.899 Other long term (current) drug therapy; I89.0 Lymphedema, not elsewhere classified

== ENCOUNTER 2020-12-14 16:44 | Inpatient (IN) | payer OTHER ==
[~2020-12-14] VITALS: Ht 165.1 cm; Wt 131.5 kg
[2020-12-14 16:47] VITALS: BP 135/70
[2020-12-14 17:21] LABS: BASO % 0.7 % (0.0-1.0); EOS # 0.3 10*3/uL (0.0-0.4); EOS % 4.6 % (1.0-4.0); HEMATOCRIT 42.1 % (37.0-47.0); LYMPH # 1.5 10*3/uL (1.3-4.4); MEAN CELL VOLUME 99.3 fl (81.0-99.0); MEAN CORPUSCULAR HGB 31.6 pg (27.0-31.0); MEAN CORPUSCULAR HGB CONC 31.8 g/dl (33.0-37.0); MEAN PLATELET VOLUME 10.9 fl (9.6-12.3); MONO # 0.5 10*3/uL (0.1-1.0); MONO % 7.5 % (3.0-9.0); NEUT # 3.8 10*3/uL (2.3-7.9); NEUT % 61.9 % (47.0-73.0); PLATELET COUNT AUTOMATED 211 10*3/uL (130-400); RED BLOOD COUNT 4.24 10*6/uL (4.10-5.10); RED CELL DISTRI WIDTH 13.3 % (0-14.5); WHITE BLOOD COUNT 6.1 10*3/uL (4.8-10.8)
[2020-12-14 17:41] LABS: ALBUMIN 3.6 gm/dl (3.1-4.5); ALKALINE PHOSPHATASE 90 U/L (45-117); BUN 18 mg/dl (7-24); CHLORIDE 105 mmol/L (98-107); CREATININE 1.17 mg/dL (0.55-1.02); SGOT/AST 14 IU/L (3-35); SGPT/ALT 21 U/L (12-78); SODIUM 141 mmol/L (136-145); TOTAL PROTEIN 6.9 gm/dL (6.4-8.2)
[2020-12-14 17:43] LABS: TROPONIN I < 0.015 ng/ml (<0.045)
[2020-12-14] MEDS ORDERED: PENICILLIN VK500 MG PO (21:55)
[2020-12-15 00:55] VITALS: BP 153/62
[2020-12-15 03:52] VITALS: BP 158/58
[2020-12-15 05:11] VITALS: BP 112/53
[2020-12-15 05:58] LABS: BUN 19 mg/dl (7-24); CHLORIDE 109 mmol/L (98-107); CREATININE 1.05 mg/dL (0.55-1.02); SODIUM 140 mmol/L (136-145)
[2020-12-15 06:20] LABS: BASO % 0.8 % (0.0-1.0); EOS # 0.3 10*3/uL (0.0-0.4); EOS % 6.4 % (1.0-4.0); HEMATOCRIT 41.7 % (37.0-47.0); LYMPH # 1.8 10*3/uL (1.3-4.4); LYMPH % 34.1 % (27.0-41.0); MEAN CELL VOLUME 101.2 fl (81.0-99.0); MEAN CORPUSCULAR HGB 32.3 pg (27.0-31.0); MEAN CORPUSCULAR HGB CONC 31.9 g/dl (33.0-37.0); MEAN PLATELET VOLUME 11.5 fl (9.6-12.3); MONO # 0.4 10*3/uL (0.1-1.0); MONO % 8.3 % (3.0-9.0); NEUT # 2.7 10*3/uL (2.3-7.9); PLATELET COUNT AUTOMATED 197 10*3/uL (130-400); RED BLOOD COUNT 4.12 10*6/uL (4.10-5.10); RED CELL DISTRI WIDTH 13.5 % (0-14.5); WHITE BLOOD COUNT 5.3 10*3/uL (4.8-10.8)
[2020-12-15] MEDS ORDERED: PERCOCET 5-3251 EACH PO (14:05)
== END 2020-12-15 15:36 | disposition home or self-care (01) | DRG 308 ==
LOC: ED 16:44 → EDHOLD 20:12
PROVIDERS: Emergency Medicine; Student in an Organized Health Care Education/Training Program; ADMIT Family Medicine; ATTEND Family Medicine
DX: T82.120A Displacement of cardiac electrode, initial encounter (principal); N17.0 Acute kidney failure with tubular necrosis; I49.01 Ventricular fibrillation; I20.1 Angina pectoris with documented spasm; I50.32 Chronic diastolic (congestive) heart failure; I13.0 Hypertensive heart and chronic kidney disease with heart failure and stage 1 through stage 4 chronic kidney disease, or unspecified chronic kidney disease; Z68.42 Body mass index [BMI] 45.0-49.9, adult; E87.8 Other disorders of electrolyte and fluid balance, not elsewhere classified; E83.41 Hypermagnesemia; K21.9 Gastro-esophageal reflux disease without esophagitis; E78.5 Hyperlipidemia, unspecified; Y83.8 Other surgical procedures as the cause of abnormal reaction of the patient, or of later complication, without mention of misadventure at the time of the procedure; E66.01 Morbid (severe) obesity due to excess calories; N18.30 Chronic kidney disease, stage 3 unspecified; I25.2 Old myocardial infarction; Z95.810 Presence of automatic (implantable) cardiac defibrillator; Z90.49 Acquired absence of other specified parts of digestive tract; Y92.89 Other specified places as the place of occurrence of the external cause; Z98.891 History of uterine scar from previous surgery; Z87.891 Personal history of nicotine dependence; Z82.49 Family history of ischemic heart disease and other diseases of the circulatory system; Z79.82 Long term (current) use of aspirin; Z79.899 Other long term (current) drug therapy; Z80.42 Family history of malignant neoplasm of prostate

== ENCOUNTER 2021-02-08 16:29 | Emergency (ER) | payer OTHER ==
[~2021-02-08] VITALS: Ht 165.1 cm; Wt 131.5 kg
[~2021-02-08 16:29] MED LIST changes: +PENICILLIN VK500 MG PO
[2021-02-08 17:08] LABS: BASO % 0.3 % (0.0-1.0); EOS # 0.5 10*3/uL (0.0-0.4); EOS % 7.6 % (1.0-4.0); HEMATOCRIT 44.4 % (37.0-47.0); LYMPH # 1.8 10*3/uL (1.3-4.4); LYMPH % 27.8 % (27.0-41.0); MEAN CELL VOLUME 97.8 fl (81.0-99.0); MEAN CORPUSCULAR HGB 31.5 pg (27.0-31.0); MEAN CORPUSCULAR HGB CONC 32.2 g/dl (33.0-37.0); MEAN PLATELET VOLUME 10.9 fl (9.6-12.3); MONO # 0.4 10*3/uL (0.1-1.0); MONO % 6.1 % (3.0-9.0); NEUT # 3.7 10*3/uL (2.3-7.9); NEUT % 57.4 % (47.0-73.0); PLATELET COUNT AUTOMATED 206 10*3/uL (130-400); RED BLOOD COUNT 4.54 10*6/uL (4.10-5.10); RED CELL DISTRI WIDTH 12.7 % (0-14.5); WHITE BLOOD COUNT 6.4 10*3/uL (4.8-10.8)
[2021-02-08 17:18] LABS: ACT PARTIAL THROMBO TIME 24.8 SECONDS (20.0-32.1)
[2021-02-08 17:26] LABS: ALBUMIN 3.7 gm/dl (3.1-4.5); ALKALINE PHOSPHATASE 98 U/L (45-117); BUN 12 mg/dl (7-24); CHLORIDE 106 mmol/L (98-107); CREATININE 1.06 mg/dL (0.55-1.02); POTASSIUM 3.9 mmol/L (3.5-5.1); SGOT/AST 20 IU/L (3-35); SGPT/ALT 36 U/L (12-78); SODIUM 139 mmol/L (136-145); TOTAL PROTEIN 7.4 gm/dL (6.4-8.2)
[2021-02-08 17:32] LABS: TROPONIN I < 0.015 ng/ml (<0.045)
== END 2021-02-09 00:47 | disposition home or self-care (01) ==
LOC: ED 16:29
PROVIDERS: Emergency Medicine
DX: I20.8 Other forms of angina pectoris (principal); Z79.899 Other long term (current) drug therapy; Z79.82 Long term (current) use of aspirin

== ENCOUNTER 2021-07-06 20:20 | Emergency (ER) | payer OTHER ==
[~2021-07-06 20:20] MED LIST changes: +BUSPIRONE HCL10 MG PO; +TOPROL XL50 M1 PO
[2021-07-06 20:49] LABS: BASO % 0.6 % (0.0-1.0); EOS # 0.4 10*3/uL (0.0-0.4); EOS % 5.3 % (1.0-4.0); HEMATOCRIT 41.5 % (37.0-47.0); LYMPH # 1.6 10*3/uL (1.3-4.4); LYMPH % 22.5 % (27.0-41.0); MEAN CELL VOLUME 95.2 fl (81.0-99.0); MEAN CORPUSCULAR HGB 31.7 pg (27.0-31.0); MEAN CORPUSCULAR HGB CONC 33.3 g/dl (33.0-37.0); MEAN PLATELET VOLUME 10.7 fl (9.6-12.3); MONO # 0.5 10*3/uL (0.1-1.0); MONO % 7.5 % (3.0-9.0); NEUT # 4.4 10*3/uL (2.3-7.9); NEUT % 62.1 % (47.0-73.0); PLATELET COUNT AUTOMATED 252 10*3/uL (130-400); RED BLOOD COUNT 4.36 10*6/uL (4.10-5.10); RED CELL DISTRI WIDTH 12.5 % (0-14.5)
[2021-07-06 21:03] LABS: CREATININE 1.2 mg/dL (0.55-1.02); POTASSIUM 3.3 mmol/L (3.5-5.1); TOTAL PROTEIN 7.1 gm/dL (6.4-8.2)
== END 2021-07-06 22:47 | disposition home or self-care (01) ==
LOC: ED 20:20
PROVIDERS: Internal Medicine
DX: R07.9 Chest pain, unspecified (principal); E87.6 Hypokalemia; N18.31 Chronic kidney disease, stage 3a; I25.2 Old myocardial infarction; Z79.899 Other long term (current) drug therapy; Z79.82 Long term (current) use of aspirin; Z98.890 Other specified postprocedural states; Z98.51 Tubal ligation status; Z90.49 Acquired absence of other specified parts of digestive tract

== ENCOUNTER 2021-07-09 10:48 | Emergency (ER) | payer OTHER ==
[~2021-07-09] VITALS: Wt 127.0 kg
[2021-07-09] MEDS ORDERED: CYCLOBENZAPRINE10 MG PO (17:34)
[2021-07-09] MEDS ORDERED: SEPTDS PO (18:00)
== END 2021-07-09 17:10 | disposition home or self-care (01) ==
LOC: ED 10:48
DX: S29.012A Strain of muscle and tendon of back wall of thorax, initial encounter (principal); M54.50 Low back pain, unspecified; Z98.890 Other specified postprocedural states; Z98.51 Tubal ligation status; Z90.49 Acquired absence of other specified parts of digestive tract; Z79.82 Long term (current) use of aspirin; Z79.899 Other long term (current) drug therapy; W01.198A Fall on same level from slipping, tripping and stumbling with subsequent striking against other object, initial encounter; Y93.89 Activity, other specified; Y92.89 Other specified places as the place of occurrence of the external cause; Y99.9 Unspecified external cause status

== ENCOUNTER 2021-07-28 08:09 | Emergency (ER) | payer OTHER ==
[~2021-07-28] VITALS: Ht 165.1 cm; Wt 128.4 kg
[~2021-07-28 08:09] MED LIST changes: +SEPTDS PO
[2021-07-28 08:28] LABS: BASO % 0.6 % (0.0-1.0); EOS # 0.7 10*3/uL (0.0-0.4); EOS % 11.4 % (1.0-4.0); LYMPH % 30.8 % (27.0-41.0); MEAN CELL VOLUME 95.4 fl (81.0-99.0); MEAN CORPUSCULAR HGB 31.7 pg (27.0-31.0); MEAN CORPUSCULAR HGB CONC 33.3 g/dl (33.0-37.0); MEAN PLATELET VOLUME 11.6 fl (9.6-12.3); MONO # 0.5 10*3/uL (0.1-1.0); MONO % 7.4 % (3.0-9.0); NEUT # 3.2 10*3/uL (2.3-7.9); NEUT % 49.3 % (47.0-73.0); PLATELET COUNT AUTOMATED 190 10*3/uL (130-400); RED BLOOD COUNT 4.82 10*6/uL (4.10-5.10); RED CELL DISTRI WIDTH 12.4 % (0-14.5); WHITE BLOOD COUNT 6.5 10*3/uL (4.8-10.8)
[2021-07-28 08:47] LABS: CREATININE 1.22 mg/dL (0.55-1.02); POTASSIUM 3.2 mmol/L (3.5-5.1); TOTAL PROTEIN 8.3 gm/dL (6.4-8.2)
[2021-07-28] MEDS ORDERED: HYDROCODONE-AC1 EAC1 PO (11:32)
[2021-07-28] MEDS ORDERED: PREDNISONE50 MG PO (11:32)
== END 2021-07-28 11:36 | disposition home or self-care (01) ==
LOC: ED 08:09
PROVIDERS: Student in an Organized Health Care Education/Training Program
DX: R09.1 Pleurisy (principal); Z79.899 Other long term (current) drug therapy; Z79.82 Long term (current) use of aspirin; Z98.890 Other specified postprocedural states; Z90.49 Acquired absence of other specified parts of digestive tract; Z90.89 Acquired absence of other organs; Z98.51 Tubal ligation status; Z87.891 Personal history of nicotine dependence

== ENCOUNTER 2021-08-12 19:45 | Emergency (ER) | payer OTHER ==
[~2021-08-12] VITALS: Ht 162.5 cm; Wt 90.7 kg
[~2021-08-12 19:45] MED LIST changes: +PREDNISONE50 MG PO
[2021-08-12 20:35] LABS: BASO % 0.3 % (0.0-1.0); EOS # 0.4 10*3/uL (0.0-0.4); EOS % 4.2 % (1.0-4.0); HEMATOCRIT 42.9 % (37.0-47.0); LYMPH # 1.8 10*3/uL (1.3-4.4); LYMPH % 17.7 % (27.0-41.0); MEAN CELL VOLUME 96.6 fl (81.0-99.0); MEAN CORPUSCULAR HGB 31.1 pg (27.0-31.0); MEAN CORPUSCULAR HGB CONC 32.2 g/dl (33.0-37.0); MONO # 0.7 10*3/uL (0.1-1.0); MONO % 7.2 % (3.0-9.0); NEUT # 7.2 10*3/uL (2.3-7.9); NEUT % 69.8 % (47.0-73.0); PLATELET COUNT AUTOMATED 193 10*3/uL (130-400); RED BLOOD COUNT 4.44 10*6/uL (4.10-5.10); RED CELL DISTRI WIDTH 12.7 % (0-14.5); WHITE BLOOD COUNT 10.3 10*3/uL (4.8-10.8)
[2021-08-12 20:55] LABS: ALKALINE PHOSPHATASE 87 U/L (45-117); BUN 14 mg/dl (7-24); CHLORIDE 108 mmol/L (98-107); CREATININE 0.98 mg/dL (0.55-1.02); POTASSIUM 3.8 mmol/L (3.5-5.1); SGOT/AST 16 IU/L (3-35); SGPT/ALT 28 U/L (12-78); SODIUM 138 mmol/L (136-145); TOTAL PROTEIN 6.9 gm/dL (6.4-8.2)
== END 2021-08-12 22:37 | disposition home or self-care (01) ==
LOC: ED 19:45
PROVIDERS: Internal Medicine
DX: R07.89 Other chest pain (principal); R11.2 Nausea with vomiting, unspecified; Z98.890 Other specified postprocedural states; Z98.51 Tubal ligation status; Z98.84 Bariatric surgery status; Z79.82 Long term (current) use of aspirin; Z79.899 Other long term (current) drug therapy

== ENCOUNTER 2021-08-20 10:38 | Emergency (ER) | payer OTHER ==
[~2021-08-20] VITALS: Ht 165.1 cm; Wt 122.5 kg
[2021-08-20 14:05] LABS: BASO % 0.5 % (0.0-1.0); EOS # 0.3 10*3/uL (0.0-0.4); EOS % 4.1 % (1.0-4.0); HEMATOCRIT 43.3 % (37.0-47.0); LYMPH # 1.6 10*3/uL (1.3-4.4); LYMPH % 19.1 % (27.0-41.0); MEAN CELL VOLUME 93.7 fl (81.0-99.0); MEAN CORPUSCULAR HGB 31.6 pg (27.0-31.0); MEAN CORPUSCULAR HGB CONC 33.7 g/dl (33.0-37.0); MEAN PLATELET VOLUME 11.8 fl (9.6-12.3); MONO # 0.5 10*3/uL (0.1-1.0); MONO % 6.3 % (3.0-9.0); NEUT # 5.7 10*3/uL (2.3-7.9); NEUT % 69.6 % (47.0-73.0); PLATELET COUNT AUTOMATED 209 10*3/uL (130-400); RED BLOOD COUNT 4.62 10*6/uL (4.10-5.10); RED CELL DISTRI WIDTH 12.3 % (0-14.5); WHITE BLOOD COUNT 8.2 10*3/uL (4.8-10.8)
[2021-08-20 14:11] LABS: BUN 16 mg/dl (7-24); CHLORIDE 108 mmol/L (98-107); CREATININE 1.03 mg/dL (0.55-1.02); POTASSIUM 3.2 mmol/L (3.5-5.1); SODIUM 142 mmol/L (136-145)
[2021-08-20] MEDS ORDERED: AUGMENTIN 875-875 MG PO (17:54)
[2021-08-20] MEDS ORDERED: IBU800 M1 PO (17:54)
== END 2021-08-20 18:07 | disposition home or self-care (01) ==
LOC: ED 10:38
PROVIDERS: Nurse Practitioner Family
DX: J18.9 Pneumonia, unspecified organism (principal); E86.0 Dehydration; E87.6 Hypokalemia; I50.9 Heart failure, unspecified; Z98.51 Tubal ligation status; Z90.89 Acquired absence of other organs; Z98.890 Other specified postprocedural states

== ENCOUNTER 2021-09-07 10:50 | Emergency (ER) | payer OTHER ==
[~2021-09-07 10:50] MED LIST changes: +IBU800 M1 PO
[2021-09-07 11:13] LABS: BASO % 0.7 % (0.0-1.0); EOS # 0.3 10*3/uL (0.0-0.4); EOS % 5.6 % (1.0-4.0); HEMATOCRIT 44.6 % (37.0-47.0); LYMPH # 1.1 10*3/uL (1.3-4.4); LYMPH % 18.1 % (27.0-41.0); MEAN CELL VOLUME 95.3 fl (81.0-99.0); MEAN CORPUSCULAR HGB 31.6 pg (27.0-31.0); MEAN CORPUSCULAR HGB CONC 33.2 g/dl (33.0-37.0); MEAN PLATELET VOLUME 10.9 fl (9.6-12.3); MONO # 0.4 10*3/uL (0.1-1.0); MONO % 6.4 % (3.0-9.0); NEUT # 4.1 10*3/uL (2.3-7.9); NEUT % 68.7 % (47.0-73.0); PLATELET COUNT AUTOMATED 178 10*3/uL (130-400); RED BLOOD COUNT 4.68 10*6/uL (4.10-5.10); RED CELL DISTRI WIDTH 12.3 % (0-14.5); WHITE BLOOD COUNT 5.9 10*3/uL (4.8-10.8)
[2021-09-07 11:24] LABS: ACT PARTIAL THROMBO TIME 26.6 SECONDS (20.0-32.1)
[2021-09-07 11:32] LABS: ALKALINE PHOSPHATASE 99 U/L (45-117); BUN 13 mg/dl (7-24); CHLORIDE 106 mmol/L (98-107); CREATININE 1.12 mg/dL (0.55-1.02); LIPASE 82 U/L (73-393); SGOT/AST 16 IU/L (3-35); SGPT/ALT 26 U/L (12-78); SODIUM 139 mmol/L (136-145)
== END 2021-09-07 14:05 | disposition home or self-care (01) ==
LOC: ED 10:50
PROVIDERS: Emergency Medicine
DX: S20.212A Contusion of left front wall of thorax, initial encounter (principal); W18.39XA Other fall on same level, initial encounter; Y93.89 Activity, other specified; Y92.89 Other specified places as the place of occurrence of the external cause; Y99.8 Other external cause status

== ENCOUNTER 2021-09-13 22:06 | Emergency (ER) | payer OTHER ==
[~2021-09-13] VITALS: Wt 122.5 kg
[2021-09-13 22:24] LABS: BASO % 0.5 % (0.0-1.0); EOS # 0.4 10*3/uL (0.0-0.4); EOS % 5.3 % (1.0-4.0); LYMPH # 1.7 10*3/uL (1.3-4.4); LYMPH % 21.8 % (27.0-41.0); MEAN CORPUSCULAR HGB 31.7 pg (27.0-31.0); MEAN CORPUSCULAR HGB CONC 33.7 g/dl (33.0-37.0); MEAN PLATELET VOLUME 11.2 fl (9.6-12.3); MONO # 0.6 10*3/uL (0.1-1.0); MONO % 7.3 % (3.0-9.0); NEUT % 64.7 % (47.0-73.0); PLATELET COUNT AUTOMATED 195 10*3/uL (130-400); RED BLOOD COUNT 4.36 10*6/uL (4.10-5.10); RED CELL DISTRI WIDTH 11.9 % (0-14.5); WHITE BLOOD COUNT 7.8 10*3/uL (4.8-10.8)
[2021-09-13 22:41] LABS: CREATININE 1.29 mg/dL (0.55-1.02); POTASSIUM 3.9 mmol/L (3.5-5.1)
[2021-09-14] MEDS ORDERED: SEPTDS PO (00:35)
== END 2021-09-14 00:54 | disposition home or self-care (01) ==
LOC: ED 22:06
PROVIDERS: Internal Medicine
DX: R07.9 Chest pain, unspecified (principal); L03.115 Cellulitis of right lower limb; Z79.899 Other long term (current) drug therapy; N18.30 Chronic kidney disease, stage 3 unspecified

== ENCOUNTER 2021-09-22 11:49 | Emergency (ER) | payer OTHER ==
[~2021-09-22] VITALS: Ht 165.1 cm; Wt 122.5 kg
[2021-09-22 12:54] LABS: BASO % 0.6 % (0.0-1.0); EOS # 0.4 10*3/uL (0.0-0.4); EOS % 6.4 % (1.0-4.0); HEMATOCRIT 43.5 % (37.0-47.0); LYMPH # 1.3 10*3/uL (1.3-4.4); LYMPH % 20.3 % (27.0-41.0); MEAN CELL VOLUME 95.4 fl (81.0-99.0); MEAN CORPUSCULAR HGB 31.6 pg (27.0-31.0); MEAN CORPUSCULAR HGB CONC 33.1 g/dl (33.0-37.0); MEAN PLATELET VOLUME 11.4 fl (9.6-12.3); MONO # 0.4 10*3/uL (0.1-1.0); MONO % 5.5 % (3.0-9.0); NEUT # 4.4 10*3/uL (2.3-7.9); NEUT % 66.9 % (47.0-73.0); PLATELET COUNT AUTOMATED 198 10*3/uL (130-400); RED BLOOD COUNT 4.56 10*6/uL (4.10-5.10); WHITE BLOOD COUNT 6.6 10*3/uL (4.8-10.8)
[2021-09-22 13:10] LABS: ALKALINE PHOSPHATASE 101 U/L (45-117); BUN 12 mg/dl (7-24); CHLORIDE 106 mmol/L (98-107); CREATININE 1.13 mg/dL (0.55-1.02); POTASSIUM 3.5 mmol/L (3.5-5.1); SGOT/AST 15 IU/L (3-35); SGPT/ALT 17 U/L (12-78); SODIUM 142 mmol/L (136-145); TOTAL PROTEIN 6.9 gm/dL (6.4-8.2)
[2021-09-22] MEDS ORDERED: HYDROCODONE-AC1 EAC1 PO (16:03)
== END 2021-09-22 16:14 | disposition home or self-care (01) ==
LOC: ED 11:49
PROVIDERS: Physician Assistant
DX: R51.9 Headache, unspecified (principal); Z79.899 Other long term (current) drug therapy; Z90.49 Acquired absence of other specified parts of digestive tract; Z98.51 Tubal ligation status; Z98.890 Other specified postprocedural states; Z90.89 Acquired absence of other organs

== ENCOUNTER 2021-10-06 15:40 | Emergency (ER) | payer OTHER ==
[~2021-10-06] VITALS: Ht 165.1 cm; Wt 122.5 kg
[2021-10-06 16:48] LABS: BASO % 0.5 % (0.0-1.0); EOS # 0.8 10*3/uL (0.0-0.4); HEMATOCRIT 44.3 % (37.0-47.0); LYMPH # 1.4 10*3/uL (1.3-4.4); LYMPH % 18.9 % (27.0-41.0); MEAN CELL VOLUME 97.6 fl (81.0-99.0); MEAN CORPUSCULAR HGB 31.9 pg (27.0-31.0); MEAN CORPUSCULAR HGB CONC 32.7 g/dl (33.0-37.0); MEAN PLATELET VOLUME 11.7 fl (9.6-12.3); MONO # 0.5 10*3/uL (0.1-1.0); MONO % 6.1 % (3.0-9.0); NEUT # 4.7 10*3/uL (2.3-7.9); NEUT % 63.2 % (47.0-73.0); PLATELET COUNT AUTOMATED 184 10*3/uL (130-400); RED BLOOD COUNT 4.54 10*6/uL (4.10-5.10); RED CELL DISTRI WIDTH 12.2 % (0-14.5); WHITE BLOOD COUNT 7.4 10*3/uL (4.8-10.8)
[2021-10-06 17:00] LABS: ACT PARTIAL THROMBO TIME 27.8 SECONDS (20.0-32.1)
[2021-10-06 17:10] LABS: ALKALINE PHOSPHATASE 94 U/L (45-117); BUN 13 mg/dl (7-24); CHLORIDE 106 mmol/L (98-107); CREATININE 1.11 mg/dL (0.55-1.02); LIPASE 97 U/L (73-393); POTASSIUM 4.2 mmol/L (3.5-5.1); SGOT/AST 19 IU/L (3-35); SGPT/ALT 20 U/L (12-78); SODIUM 136 mmol/L (136-145); TOTAL PROTEIN 7.2 gm/dL (6.4-8.2)
[2021-10-06] MEDS ORDERED: PHENERGAN25 M3 PO (18:22)
== END 2021-10-06 18:30 | disposition home or self-care (01) ==
LOC: ED 15:40
PROVIDERS: Emergency Medicine
DX: R07.89 Other chest pain (principal); Z98.51 Tubal ligation status; Z98.890 Other specified postprocedural states; Z90.49 Acquired absence of other specified parts of digestive tract; Z79.899 Other long term (current) drug therapy; Z79.82 Long term (current) use of aspirin

== ENCOUNTER → 2021-10-28 | Outpatient (CLI) | payer OTHER | END | disposition home or self-care (01) | LOC: COVID19 12:42 | PROVIDERS: ATTEND Internal Medicine | DX: Z20.822 Contact with and (suspected) exposure to COVID-19 (principal) ==

== ENCOUNTER 2021-11-02 11:25 | Emergency (ER) | payer OTHER ==
[~2021-11-02] VITALS: Ht 165.1 cm; Wt 117.9 kg
[2021-11-02 12:17] LABS: BASO % 0.4 % (0.0-1.0); EOS # 0.4 10*3/uL (0.0-0.4); EOS % 7.9 % (1.0-4.0); HEMATOCRIT 44.3 % (37.0-47.0); LYMPH % 19.5 % (27.0-41.0); MEAN CELL VOLUME 92.5 fl (81.0-99.0); MEAN CORPUSCULAR HGB 30.9 pg (27.0-31.0); MEAN CORPUSCULAR HGB CONC 33.4 g/dl (33.0-37.0); MEAN PLATELET VOLUME 10.8 fl (9.6-12.3); MONO # 0.3 10*3/uL (0.1-1.0); MONO % 6.7 % (3.0-9.0); NEUT # 3.3 10*3/uL (2.3-7.9); NEUT % 65.1 % (47.0-73.0); PLATELET COUNT AUTOMATED 188 10*3/uL (130-400); RED BLOOD COUNT 4.79 10*6/uL (4.10-5.10); RED CELL DISTRI WIDTH 12.3 % (0-14.5); WHITE BLOOD COUNT 5.1 10*3/uL (4.8-10.8)
[2021-11-02 12:32] LABS: ACT PARTIAL THROMBO TIME 26.5 SECONDS (20.0-32.1); INTERNATIONAL NORM RATIO 1.1 (2.0-3.5)
[2021-11-02 12:41] LABS: BUN 12 mg/dl (7-24); CHLORIDE 104 mmol/L (98-107); POTASSIUM 3.2 mmol/L (3.5-5.1); SODIUM 143 mmol/L (136-145)
[2021-11-02 12:44] LABS: ALKALINE PHOSPHATASE 97 U/L (45-117); CREATININE 1.08 mg/dL (0.55-1.02); SGOT/AST 20 IU/L (3-35); SGPT/ALT 25 U/L (12-78)
== END 2021-11-02 15:40 | disposition home or self-care (01) ==
LOC: ED 11:25
PROVIDERS: Nurse Practitioner Family
DX: U07.1 COVID-19 (principal); R07.89 Other chest pain; Z90.49 Acquired absence of other specified parts of digestive tract; Z98.890 Other specified postprocedural states; Z79.82 Long term (current) use of aspirin; Z79.899 Other long term (current) drug therapy; Z88.6 Allergy status to analgesic agent

== ENCOUNTER 2021-11-14 19:54 | Emergency (ER) | payer OTHER ==
[~2021-11-14] VITALS: Ht 165.1 cm; Wt 124.7 kg
[2021-11-14] MEDS ORDERED: NEXIUM40 MG PO (20:30)
[2021-11-14 20:46] LABS: BASO % 0.4 % (0.0-1.0); EOS # 0.5 10*3/uL (0.0-0.4); EOS % 5.6 % (1.0-4.0); HEMATOCRIT 39.5 % (37.0-47.0); LYMPH # 1.7 10*3/uL (1.3-4.4); LYMPH % 21.6 % (27.0-41.0); MEAN CELL VOLUME 94.5 fl (81.0-99.0); MEAN CORPUSCULAR HGB 31.6 pg (27.0-31.0); MEAN CORPUSCULAR HGB CONC 33.4 g/dl (33.0-37.0); MEAN PLATELET VOLUME 10.9 fl (9.6-12.3); MONO # 0.5 10*3/uL (0.1-1.0); MONO % 6.6 % (3.0-9.0); NEUT # 5.3 10*3/uL (2.3-7.9); NEUT % 65.3 % (47.0-73.0); PLATELET COUNT AUTOMATED 210 10*3/uL (130-400); RED BLOOD COUNT 4.18 10*6/uL (4.10-5.10); RED CELL DISTRI WIDTH 13.4 % (0-14.5); WHITE BLOOD COUNT 8.1 10*3/uL (4.8-10.8)
[2021-11-14 20:57] LABS: ACT PARTIAL THROMBO TIME 25.6 SECONDS (20.0-32.1)
[2021-11-14 21:05] LABS: ALKALINE PHOSPHATASE 98 U/L (45-117); BUN 15 mg/dl (7-24); CHLORIDE 108 mmol/L (98-107); CREATININE 0.92 mg/dL (0.55-1.02); POTASSIUM 4.1 mmol/L (3.5-5.1); SGOT/AST 15 IU/L (3-35); SGPT/ALT 20 U/L (12-78); SODIUM 140 mmol/L (136-145); TOTAL PROTEIN 6.7 gm/dL (6.4-8.2)
[2021-11-14] MEDS ORDERED: Percocet 325 MG1 TAB PO (23:01)
== END 2021-11-14 23:33 | disposition home or self-care (01) ==
LOC: ED 19:54
PROVIDERS: Emergency Medicine
DX: K20.90 Esophagitis, unspecified without bleeding (principal); R11.2 Nausea with vomiting, unspecified; Z88.6 Allergy status to analgesic agent; Z79.899 Other long term (current) drug therapy; Z79.82 Long term (current) use of aspirin; Z90.49 Acquired absence of other specified parts of digestive tract; Z98.84 Bariatric surgery status; Z95.810 Presence of automatic (implantable) cardiac defibrillator; Z98.51 Tubal ligation status; Z98.890 Other specified postprocedural states; Z96.22 Myringotomy tube(s) status

== ENCOUNTER 2022-01-13 10:39 | Emergency (ER) | payer OTHER ==
[~2022-01-13] VITALS: Ht 165.1 cm; Wt 119.7 kg
[~2022-01-13 10:39] MED LIST changes: +CLONAZEPAM0.5 M2 PO; +NEXIUM40 MG PO
[2022-01-13 11:22] LABS: BASO % 0.5 % (0.0-1.0); EOS # 0.5 10*3/uL (0.0-0.4); EOS % 6.4 % (1.0-4.0); HEMATOCRIT 43.7 % (37.0-47.0); LYMPH # 1.4 10*3/uL (1.3-4.4); LYMPH % 17.3 % (27.0-41.0); MEAN CELL VOLUME 95.8 fl (81.0-99.0); MEAN CORPUSCULAR HGB 31.8 pg (27.0-31.0); MEAN CORPUSCULAR HGB CONC 33.2 g/dl (33.0-37.0); MEAN PLATELET VOLUME 11.2 fl (9.6-12.3); MONO # 0.5 10*3/uL (0.1-1.0); MONO % 6.4 % (3.0-9.0); NEUT # 5.6 10*3/uL (2.3-7.9); PLATELET COUNT AUTOMATED 221 10*3/uL (130-400); RED BLOOD COUNT 4.56 10*6/uL (4.10-5.10); RED CELL DISTRI WIDTH 13.2 % (0-14.5); WHITE BLOOD COUNT 8.1 10*3/uL (4.8-10.8)
[2022-01-13 11:53] LABS: ALKALINE PHOSPHATASE 100 U/L (45-117); BUN 16 mg/dl (7-24); CHLORIDE 107 mmol/L (98-107); CREATININE 1.09 mg/dL (0.55-1.02); POTASSIUM 3.7 mmol/L (3.5-5.1); SGOT/AST 14 IU/L (3-35); SGPT/ALT 22 U/L (12-78); SODIUM 141 mmol/L (136-145); TOTAL PROTEIN 7.3 gm/dL (6.4-8.2)
[2022-01-13] MEDS ORDERED: HYDROCODONE-AC1 EAC1 PO (13:30)
== END 2022-01-13 13:41 ==
LOC: ED 10:39
PROVIDERS: Internal Medicine
DX: M94.0 Chondrocostal junction syndrome [Tietze] (principal); I25.2 Old myocardial infarction; Z88.6 Allergy status to analgesic agent; Z79.899 Other long term (current) drug therapy; Z79.82 Long term (current) use of aspirin; Z98.51 Tubal ligation status; Z98.890 Other specified postprocedural states; Z90.89 Acquired absence of other organs

== ENCOUNTER 2022-02-03 20:25 | Emergency (ER) | payer OTHER ==
[2022-02-03 20:46] LABS: BASO % 0.4 % (0.0-1.0); EOS # 0.4 10*3/uL (0.0-0.4); HEMATOCRIT 44.4 % (37.0-47.0); LYMPH # 1.9 10*3/uL (1.3-4.4); LYMPH % 24.6 % (27.0-41.0); MEAN CELL VOLUME 96.9 fl (81.0-99.0); MEAN CORPUSCULAR HGB 31.7 pg (27.0-31.0); MEAN CORPUSCULAR HGB CONC 32.7 g/dl (33.0-37.0); MEAN PLATELET VOLUME 10.7 fl (9.6-12.3); MONO # 0.5 10*3/uL (0.1-1.0); MONO % 7.1 % (3.0-9.0); NEUT # 4.8 10*3/uL (2.3-7.9); NEUT % 62.5 % (47.0-73.0); PLATELET COUNT AUTOMATED 210 10*3/uL (130-400); RED BLOOD COUNT 4.58 10*6/uL (4.10-5.10); RED CELL DISTRI WIDTH 13.1 % (0-14.5); WHITE BLOOD COUNT 7.6 10*3/uL (4.8-10.8)
[2022-02-03 21:00] LABS: CREATININE 1.18 mg/dL (0.55-1.02); POTASSIUM 3.7 mmol/L (3.5-5.1); TOTAL PROTEIN 7.2 gm/dL (6.4-8.2)
[2022-02-03 21:41] LABS: LIPASE 168 U/L (73-393)
== END 2022-02-04 00:08 | disposition home or self-care (01) ==
LOC: ED 20:25
PROVIDERS: Family Medicine
DX: R07.89 Other chest pain (principal); Z98.890 Other specified postprocedural states; Z98.51 Tubal ligation status; Z90.49 Acquired absence of other specified parts of digestive tract; Z79.82 Long term (current) use of aspirin; Z79.899 Other long term (current) drug therapy; Z88.6 Allergy status to analgesic agent

== ENCOUNTER 2022-02-10 15:46 | Emergency (ER) | payer OTHER ==
[~2022-02-10] VITALS: Ht 165.1 cm; Wt 115.7 kg
[2022-02-10 16:12] LABS: BASO % 0.4 % (0.0-1.0); EOS # 0.4 10*3/uL (0.0-0.4); EOS % 5.8 % (1.0-4.0); HEMATOCRIT 42.6 % (37.0-47.0); LYMPH # 1.6 10*3/uL (1.3-4.4); LYMPH % 22.9 % (27.0-41.0); MEAN CELL VOLUME 94.9 fl (81.0-99.0); MEAN CORPUSCULAR HGB 32.3 pg (27.0-31.0); MEAN PLATELET VOLUME 11.2 fl (9.6-12.3); MONO # 0.4 10*3/uL (0.1-1.0); MONO % 6.3 % (3.0-9.0); NEUT # 4.4 10*3/uL (2.3-7.9); NEUT % 64.3 % (47.0-73.0); PLATELET COUNT AUTOMATED 204 10*3/uL (130-400); RED BLOOD COUNT 4.49 10*6/uL (4.10-5.10); RED CELL DISTRI WIDTH 12.6 % (0-14.5); WHITE BLOOD COUNT 6.9 10*3/uL (4.8-10.8)
[2022-02-10 16:22] LABS: ACT PARTIAL THROMBO TIME 25.4 SECONDS (20.0-32.1)
[2022-02-10 16:28] LABS: ALKALINE PHOSPHATASE 99 U/L (45-117); BUN 18 mg/dl (7-24); CHLORIDE 108 mmol/L (98-107); CREATININE 1.03 mg/dL (0.55-1.02); POTASSIUM 3.6 mmol/L (3.5-5.1); SGOT/AST 12 IU/L (3-35); SGPT/ALT 20 U/L (12-78); SODIUM 140 mmol/L (136-145); TOTAL PROTEIN 7.1 gm/dL (6.4-8.2)
[2022-02-10] MEDS ORDERED: HYDROCODONE-AC1 EAC1 PO (18:34)
== END 2022-02-10 20:30 | disposition home or self-care (01) ==
LOC: ED 15:46
PROVIDERS: Family Medicine
DX: R07.9 Chest pain, unspecified (principal); Z88.6 Allergy status to analgesic agent; Z79.899 Other long term (current) drug therapy; Z79.82 Long term (current) use of aspirin; Z90.49 Acquired absence of other specified parts of digestive tract; Z90.89 Acquired absence of other organs; Z98.51 Tubal ligation status; Z98.890 Other specified postprocedural states

== ENCOUNTER 2022-02-28 09:18 | Emergency (ER) | payer OTHER ==
[~2022-02-28] VITALS: Ht 165.1 cm; Wt 117.9 kg
[2022-02-28 10:23] LABS: BASO % 0.6 % (0.0-1.0); EOS # 0.7 10*3/uL (0.0-0.4); EOS % 9.9 % (1.0-4.0); HEMATOCRIT 44.3 % (37.0-47.0); LYMPH % 14.7 % (27.0-41.0); MEAN CELL VOLUME 96.7 fl (81.0-99.0); MEAN CORPUSCULAR HGB 31.2 pg (27.0-31.0); MEAN CORPUSCULAR HGB CONC 32.3 g/dl (33.0-37.0); MEAN PLATELET VOLUME 11.8 fl (9.6-12.3); MONO # 0.5 10*3/uL (0.1-1.0); MONO % 7.8 % (3.0-9.0); NEUT # 4.4 10*3/uL (2.3-7.9); NEUT % 66.7 % (47.0-73.0); PLATELET COUNT AUTOMATED 144 10*3/uL (130-400); RED BLOOD COUNT 4.58 10*6/uL (4.10-5.10); RED CELL DISTRI WIDTH 12.9 % (0-14.5); WHITE BLOOD COUNT 6.7 10*3/uL (4.8-10.8)
[2022-02-28 10:39] LABS: ALKALINE PHOSPHATASE 93 U/L (46-116); BUN 9 mg/dl (9-23); CHLORIDE 105 mmol/L (98-107); CREATININE 1.01 mg/dL (0.55-1.02); LIPASE 29 U/L (12-53); POTASSIUM 3.4 mmol/L (3.4-5.1); SODIUM 141 mmol/L (136-145); TOTAL PROTEIN 6.8 gm/dL (6.0-8.0)
[2022-02-28 10:41] LABS: ACT PARTIAL THROMBO TIME 26.7 SECONDS (20.0-32.1)
[2022-02-28 11:09] LABS: SGPT/ALT 16 U/L (10-49)
== END 2022-02-28 13:58 | disposition home or self-care (01) ==
LOC: ED 09:18
PROVIDERS: Family Medicine
DX: R07.89 Other chest pain (principal); Z88.8 Allergy status to other drugs, medicaments and biological substances; Z90.49 Acquired absence of other specified parts of digestive tract; Z90.89 Acquired absence of other organs; Z98.51 Tubal ligation status; Z98.890 Other specified postprocedural states

== ENCOUNTER 2022-04-04 13:17 | Emergency (ER) | payer OTHER ==
[~2022-04-04] VITALS: Ht 165.1 cm; Wt 117.9 kg
[2022-04-04 14:42] LABS: BASO % 0.5 % (0.0-1.0); EOS # 0.7 10*3/uL (0.0-0.4); EOS % 8.4 % (1.0-4.0); HEMATOCRIT 42.4 % (37.0-47.0); LYMPH # 1.2 10*3/uL (1.3-4.4); LYMPH % 15.2 % (27.0-41.0); MEAN CELL VOLUME 95.7 fl (81.0-99.0); MEAN CORPUSCULAR HGB 31.2 pg (27.0-31.0); MEAN CORPUSCULAR HGB CONC 32.5 g/dl (33.0-37.0); MEAN PLATELET VOLUME 11.8 fl (9.6-12.3); MONO # 0.4 10*3/uL (0.1-1.0); MONO % 5.4 % (3.0-9.0); NEUT # 5.6 10*3/uL (2.3-7.9); PLATELET COUNT AUTOMATED 186 10*3/uL (130-400); RED BLOOD COUNT 4.43 10*6/uL (4.10-5.10); RED CELL DISTRI WIDTH 12.8 % (0-14.5)
[2022-04-04 14:55] LABS: ACT PARTIAL THROMBO TIME 23.9 SECONDS (20.0-32.1)
[2022-04-04 15:00] LABS: ALKALINE PHOSPHATASE 101 U/L (46-116); BUN 12 mg/dl (9-23); CHLORIDE 99 mmol/L (98-107); POTASSIUM 4.1 mmol/L (3.4-5.1); TOTAL PROTEIN 7.2 gm/dL (6.0-8.0)
[2022-04-04 15:08] LABS: SGPT/ALT < 7 U/L (10-49)
== END 2022-04-04 16:36 | disposition home or self-care (01) ==
LOC: ED 13:17
PROVIDERS: Emergency Medicine
DX: R07.89 Other chest pain (principal); Z88.8 Allergy status to other drugs, medicaments and biological substances; Z90.49 Acquired absence of other specified parts of digestive tract; Z98.51 Tubal ligation status; Z90.89 Acquired absence of other organs; Z98.890 Other specified postprocedural states; F10.20 Alcohol dependence, uncomplicated

== ENCOUNTER 2022-04-19 15:23 | Emergency (ER) | payer OTHER ==
[~2022-04-19] VITALS: Ht 165.1 cm; Wt 117.9 kg
[2022-04-19 16:44] LABS: BASO % 0.3 % (0.0-1.0); EOS # 0.4 10*3/uL (0.0-0.4); HEMATOCRIT 45.9 % (37.0-47.0); LYMPH # 1.6 10*3/uL (1.3-4.4); LYMPH % 18.1 % (27.0-41.0); MEAN CORPUSCULAR HGB 30.7 pg (27.0-31.0); MEAN CORPUSCULAR HGB CONC 31.6 g/dl (33.0-37.0); MEAN PLATELET VOLUME 11.3 fl (9.6-12.3); MONO # 0.6 10*3/uL (0.1-1.0); MONO % 6.6 % (3.0-9.0); NEUT # 6.2 10*3/uL (2.3-7.9); NEUT % 69.5 % (47.0-73.0); PLATELET COUNT AUTOMATED 229 10*3/uL (130-400); RED BLOOD COUNT 4.73 10*6/uL (4.10-5.10); RED CELL DISTRI WIDTH 12.9 % (0-14.5); WHITE BLOOD COUNT 8.8 10*3/uL (4.8-10.8)
[2022-04-19 16:54] LABS: ACT PARTIAL THROMBO TIME 25.6 SECONDS (20.0-32.1)
[2022-04-19 17:00] LABS: ALKALINE PHOSPHATASE 93 U/L (46-116); BUN 15 mg/dl (9-23); CHLORIDE 105 mmol/L (98-107); POTASSIUM 3.6 mmol/L (3.4-5.1); SGPT/ALT 13 U/L (10-49); TOTAL PROTEIN 7.1 gm/dL (6.0-8.0)
== END 2022-04-19 18:55 | disposition home or self-care (01) ==
LOC: ED 15:23
PROVIDERS: Emergency Medicine
DX: R07.89 Other chest pain (principal); Z88.8 Allergy status to other drugs, medicaments and biological substances; Z90.49 Acquired absence of other specified parts of digestive tract; Z90.89 Acquired absence of other organs; Z98.51 Tubal ligation status; Z98.890 Other specified postprocedural states; F10.20 Alcohol dependence, uncomplicated

== ENCOUNTER 2022-05-18 14:34 | Emergency (ER) | payer OTHER ==
[2022-05-18 14:54] LABS: BASO # 0.1 10*3/uL (0.0-0.1); BASO % 0.7 % (0.0-1.0); EOS # 0.6 10*3/uL (0.0-0.4); EOS % 7.9 % (1.0-4.0); HEMATOCRIT 47.2 % (37.0-47.0); LYMPH # 1.6 10*3/uL (1.3-4.4); LYMPH % 21.2 % (27.0-41.0); MEAN CELL VOLUME 96.7 fl (81.0-99.0); MEAN CORPUSCULAR HGB 30.9 pg (27.0-31.0); MEAN PLATELET VOLUME 11.7 fl (9.6-12.3); MONO # 0.4 10*3/uL (0.1-1.0); MONO % 5.9 % (3.0-9.0); NEUT # 4.7 10*3/uL (2.3-7.9); PLATELET COUNT AUTOMATED 172 10*3/uL (130-400); RED BLOOD COUNT 4.88 10*6/uL (4.10-5.10); RED CELL DISTRI WIDTH 12.6 % (0-14.5); WHITE BLOOD COUNT 7.3 10*3/uL (4.8-10.8)
[2022-05-18 15:09] LABS: ALKALINE PHOSPHATASE 102 U/L (46-116); BUN 12 mg/dl (9-23); CHLORIDE 102 mmol/L (98-107); POTASSIUM 3.8 mmol/L (3.4-5.1); SGPT/ALT 8 U/L (10-49); TOTAL PROTEIN 7.3 gm/dL (6.0-8.0)
[2022-05-18 16:17] LABS: BILIRUBIN Negative (Negative); BLOOD Negative (Negative); CLARITY Clear (Clear); COLOR Yellow (Yellow); GLUCOSE Negative (Negative); KETONE Negative (Negative); LEUKO ESTERASE 3+ (Negative); NITRITE Negative (Negative); SPECIFIC GRAVITY <= 1.005 (1.001-1.030); UROBILINOGEN 0.2 E.U./dl (0.0-1.0)
[2022-05-18 16:25] LABS: BACTERIA 1+; WBC 21-30 wbc/hpf (0-5)
[2022-05-18] MEDS ORDERED: HYDROCODONE-AC1 EAC1 PO (17:11)
== END 2022-05-18 17:23 | disposition home or self-care (01) ==
LOC: ED 14:34
PROVIDERS: Family Medicine
DX: R07.89 Other chest pain (principal); Z88.8 Allergy status to other drugs, medicaments and biological substances; Z98.890 Other specified postprocedural states; Z90.49 Acquired absence of other specified parts of digestive tract; Z90.89 Acquired absence of other organs; Z98.51 Tubal ligation status; Z79.899 Other long term (current) drug therapy

== ENCOUNTER 2022-06-13 21:53 | Emergency (ER) | payer OTHER ==
[2022-06-13 22:20] LABS: BASO % 0.5 % (0.0-1.0); EOS # 0.9 10*3/uL (0.0-0.4); EOS % 11.4 % (1.0-4.0); HEMATOCRIT 45.8 % (37.0-47.0); LYMPH # 1.8 10*3/uL (1.3-4.4); LYMPH % 23.8 % (27.0-41.0); MEAN CORPUSCULAR HGB 31.4 pg (27.0-31.0); MEAN CORPUSCULAR HGB CONC 32.3 g/dl (33.0-37.0); MONO # 0.5 10*3/uL (0.1-1.0); MONO % 6.5 % (3.0-9.0); NEUT # 4.4 10*3/uL (2.3-7.9); NEUT % 57.4 % (47.0-73.0); PLATELET COUNT AUTOMATED 210 10*3/uL (130-400); RED BLOOD COUNT 4.72 10*6/uL (4.10-5.10); RED CELL DISTRI WIDTH 12.3 % (0-14.5); WHITE BLOOD COUNT 7.7 10*3/uL (4.8-10.8)
[2022-06-13 22:35] LABS: TOTAL PROTEIN 7.2 gm/dL (6.0-8.0)
== END 2022-06-14 02:12 | disposition home or self-care (01) ==
LOC: ED 21:53
PROVIDERS: Internal Medicine
DX: R07.89 Other chest pain (principal); R00.1 Bradycardia, unspecified; N18.31 Chronic kidney disease, stage 3a; Z88.8 Allergy status to other drugs, medicaments and biological substances; Z90.49 Acquired absence of other specified parts of digestive tract; Z90.89 Acquired absence of other organs; Z98.51 Tubal ligation status; Z98.890 Other specified postprocedural states; F10.20 Alcohol dependence, uncomplicated

== ENCOUNTER 2022-07-08 15:12 | Emergency (ER) | payer OTHER ==
[~2022-07-08] VITALS: Wt 113.4 kg
[2022-07-08] MEDS ORDERED: Percocet 325 MG1 TAB PO (17:22)
== END 2022-07-08 18:15 | disposition home or self-care (01) ==
LOC: ED 15:12
DX: S82.64XA Nondisplaced fracture of lateral malleolus of right fibula, initial encounter for closed fracture (principal); Z88.6 Allergy status to analgesic agent; Z79.899 Other long term (current) drug therapy; Z79.82 Long term (current) use of aspirin; Z90.49 Acquired absence of other specified parts of digestive tract; Z98.51 Tubal ligation status; Z98.890 Other specified postprocedural states; Z90.89 Acquired absence of other organs; W10.8XXA Fall (on) (from) other stairs and steps, initial encounter; Y93.89 Activity, other specified; Y92.89 Other specified places as the place of occurrence of the external cause; Y99.8 Other external cause status

== ENCOUNTER → 2022-07-21 | Outpatient (CLI) | payer OTHER | END | disposition home or self-care (01) | LOC: ORTHO 01:29 | PROVIDERS: ATTEND Orthopaedic Surgery | DX: S82.64XD Nondisplaced fracture of lateral malleolus of right fibula, subsequent encounter for closed fracture with routine healing (principal); X58.XXXD Exposure to other specified factors, subsequent encounter ==

== ENCOUNTER 2022-08-04 20:35 | Emergency (ER) | payer OTHER ==
[~2022-08-04] VITALS: Ht 165.1 cm; Wt 113.4 kg
[2022-08-04 21:39] LABS: BASO % 0.5 % (0.0-1.0); EOS # 0.8 10*3/uL (0.0-0.4); EOS % 9.1 % (1.0-4.0); LYMPH # 1.8 10*3/uL (1.3-4.4); LYMPH % 21.4 % (27.0-41.0); MEAN CORPUSCULAR HGB 31.4 pg (27.0-31.0); MEAN CORPUSCULAR HGB CONC 31.8 g/dl (33.0-37.0); MEAN PLATELET VOLUME 11.8 fl (9.6-12.3); MONO # 0.4 10*3/uL (0.1-1.0); MONO % 5.3 % (3.0-9.0); NEUT # 5.2 10*3/uL (2.3-7.9); NEUT % 63.3 % (47.0-73.0); PLATELET COUNT AUTOMATED 189 10*3/uL (130-400); RED BLOOD COUNT 4.04 10*6/uL (4.10-5.10); RED CELL DISTRI WIDTH 13.1 % (0-14.5); WHITE BLOOD COUNT 8.3 10*3/uL (4.8-10.8)
[2022-08-04 21:51] LABS: ACT PARTIAL THROMBO TIME 26.7 SECONDS (20.0-32.1); INTERNATIONAL NORM RATIO 1.1 (2.0-3.5)
[2022-08-04 22:02] LABS: POTASSIUM 3.8 mmol/L (3.4-5.1); TOTAL PROTEIN 6.7 gm/dL (6.0-8.0)
== END 2022-08-05 00:17 | disposition home or self-care (01) ==
LOC: ED 20:35
PROVIDERS: Emergency Medicine
DX: R07.89 Other chest pain (principal); R73.9 Hyperglycemia, unspecified; E83.41 Hypermagnesemia; E87.6 Hypokalemia; F32.A Depression, unspecified; K21.9 Gastro-esophageal reflux disease without esophagitis; I25.2 Old myocardial infarction; Z86.718 Personal history of other venous thrombosis and embolism; I13.0 Hypertensive heart and chronic kidney disease with heart failure and stage 1 through stage 4 chronic kidney disease, or unspecified chronic kidney disease; N18.31 Chronic kidney disease, stage 3a; I50.9 Heart failure, unspecified; Z88.8 Allergy status to other drugs, medicaments and biological substances; E87.8 Other disorders of electrolyte and fluid balance, not elsewhere classified; Z90.49 Acquired absence of other specified parts of digestive tract; Z90.89 Acquired absence of other organs; Z98.51 Tubal ligation status; Z98.890 Other specified postprocedural states

== ENCOUNTER 2022-08-07 13:50 | Emergency (ER) | payer OTHER ==
[~2022-08-07] VITALS: Wt 127.0 kg
[2022-08-07 14:40] LABS: BASO % 0.6 % (0.0-1.0); EOS # 0.3 10*3/uL (0.0-0.4); EOS % 4.2 % (1.0-4.0); LYMPH # 1.4 10*3/uL (1.3-4.4); LYMPH % 19.5 % (27.0-41.0); MEAN CELL VOLUME 97.2 fl (81.0-99.0); MEAN CORPUSCULAR HGB 31.7 pg (27.0-31.0); MEAN CORPUSCULAR HGB CONC 32.6 g/dl (33.0-37.0); MEAN PLATELET VOLUME 11.8 fl (9.6-12.3); MONO # 0.4 10*3/uL (0.1-1.0); MONO % 5.1 % (3.0-9.0); NEUT # 4.9 10*3/uL (2.3-7.9); NEUT % 70.5 % (47.0-73.0); PLATELET COUNT AUTOMATED 191 10*3/uL (130-400); RED BLOOD COUNT 4.32 10*6/uL (4.10-5.10); WHITE BLOOD COUNT 6.9 10*3/uL (4.8-10.8)
[2022-08-07 14:50] LABS: ACT PARTIAL THROMBO TIME 27.3 SECONDS (20.0-32.1); INTERNATIONAL NORM RATIO 1.1 (2.0-3.5)
[2022-08-07 15:06] LABS: POTASSIUM 3.7 mmol/L (3.4-5.1); TOTAL PROTEIN 6.9 gm/dL (6.0-8.0)
[2022-08-07] MEDS ORDERED: TRAMADOL HCL50 MG PO (15:50)
== END 2022-08-07 15:54 | disposition home or self-care (01) ==
LOC: ED 13:50
PROVIDERS: Emergency Medicine
DX: R07.89 Other chest pain (principal); I25.2 Old myocardial infarction; Z86.718 Personal history of other venous thrombosis and embolism; Z88.8 Allergy status to other drugs, medicaments and biological substances; Z98.890 Other specified postprocedural states; Z90.49 Acquired absence of other specified parts of digestive tract; Z90.89 Acquired absence of other organs; Z98.51 Tubal ligation status

== ENCOUNTER → 2022-08-31 | Outpatient (CLI) | payer MEDICARE ==
[~2022-08-31] MED LIST changes: +TRAMADOL HCL50 MG PO
== END ==
LOC: US 01:46
PROVIDERS: ATTEND Family Medicine
DX: E04.1 Nontoxic single thyroid nodule (principal)

== ENCOUNTER 2022-09-11 12:56 | Emergency (ER) | payer MEDICARE ==
[~2022-09-11] VITALS: Ht 165.1 cm; Wt 97.5 kg
[2022-09-11 13:38] LABS: BILIRUBIN Negative (Negative); BLOOD Negative (Negative); CLARITY Clear (Clear); COLOR Yellow (Yellow); GLUCOSE Negative (Negative); KETONE Negative (Negative); LEUKO ESTERASE 2+ (Negative); NITRITE Negative (Negative)
[2022-09-11 13:39] LABS: BASO % 0.7 % (0.0-1.0); EOS # 0.4 10*3/uL (0.0-0.4); EOS % 6.8 % (1.0-4.0); HEMATOCRIT 41.5 % (37.0-47.0); LYMPH % 17.2 % (27.0-41.0); MEAN CELL VOLUME 98.3 fl (81.0-99.0); MEAN CORPUSCULAR HGB 31.5 pg (27.0-31.0); MEAN PLATELET VOLUME 11.7 fl (9.6-12.3); MONO # 0.4 10*3/uL (0.1-1.0); MONO % 6.3 % (3.0-9.0); NEUT # 4.2 10*3/uL (2.3-7.9); NEUT % 68.7 % (47.0-73.0); PLATELET COUNT AUTOMATED 169 10*3/uL (130-400); RED BLOOD COUNT 4.22 10*6/uL (4.10-5.10); RED CELL DISTRI WIDTH 13.3 % (0-14.5); WHITE BLOOD COUNT 6.1 10*3/uL (4.8-10.8)
[2022-09-11 13:50] LABS: WBC 16-20 wbc/hpf (0-5)
[2022-09-11 13:51] LABS: BACTERIA 3+; RBC 0-2 rbc/hpf (0-2)
[2022-09-11 14:00] LABS: ALKALINE PHOSPHATASE 100 U/L (46-116); BUN 12 mg/dl (9-23); CHLORIDE 107 mmol/L (98-107); POTASSIUM 4.1 mmol/L (3.4-5.1); SGPT/ALT 38 U/L (10-49)
[2022-09-11] MEDS ORDERED: CEPHALEXIN500 M1 PO (15:15)
== END 2022-09-11 15:33 | disposition home or self-care (01) ==
LOC: ED 12:56
PROVIDERS: Physician Assistant
DX: N39.0 Urinary tract infection, site not specified (principal); Z88.6 Allergy status to analgesic agent; Z79.899 Other long term (current) drug therapy; Z79.82 Long term (current) use of aspirin; Z90.49 Acquired absence of other specified parts of digestive tract; Z98.84 Bariatric surgery status; Z90.89 Acquired absence of other organs; Z98.890 Other specified postprocedural states

== ENCOUNTER 2022-11-19 14:12 | Emergency (ER) | payer MEDICARE ==
[~2022-11-19] VITALS: Ht 170.1 cm; Wt 79.4 kg
[2022-11-19 15:07] LABS: BASO % 0.5 % (0.0-1.0); EOS # 0.5 10*3/uL (0.0-0.4); HEMATOCRIT 40.6 % (37.0-47.0); LYMPH # 1.5 10*3/uL (1.3-4.4); LYMPH % 24.1 % (27.0-41.0); MEAN CELL VOLUME 95.5 fl (81.0-99.0); MEAN CORPUSCULAR HGB 31.8 pg (27.0-31.0); MEAN CORPUSCULAR HGB CONC 33.3 g/dl (33.0-37.0); MONO # 0.5 10*3/uL (0.1-1.0); MONO % 7.7 % (3.0-9.0); NEUT # 3.6 10*3/uL (2.3-7.9); NEUT % 59.4 % (47.0-73.0); PLATELET COUNT AUTOMATED 175 10*3/uL (130-400); RED BLOOD COUNT 4.25 10*6/uL (4.10-5.10); RED CELL DISTRI WIDTH 12.6 % (0-14.5); WHITE BLOOD COUNT 6.1 10*3/uL (4.8-10.8)
[2022-11-19 15:28] LABS: ALKALINE PHOSPHATASE 99 U/L (46-116); BUN 16 mg/dl (9-23); CHLORIDE 105 mmol/L (98-107); POTASSIUM 3.8 mmol/L (3.4-5.1); SGPT/ALT 14 U/L (10-49); TOTAL PROTEIN 6.5 gm/dL (6.0-8.0)
== END 2022-11-19 16:37 | disposition home or self-care (01) ==
LOC: ED 14:12
PROVIDERS: Emergency Medicine
DX: I20.9 Angina pectoris, unspecified (principal); R07.89 Other chest pain; Z88.8 Allergy status to other drugs, medicaments and biological substances; Z79.899 Other long term (current) drug therapy; Z79.82 Long term (current) use of aspirin; Z90.49 Acquired absence of other specified parts of digestive tract; Z98.84 Bariatric surgery status; Z98.51 Tubal ligation status; Z90.89 Acquired absence of other organs; Z98.890 Other specified postprocedural states

== ENCOUNTER 2022-12-02 13:35 | Emergency (ER) | payer MEDICARE ==
[~2022-12-02] VITALS: Wt 117.9 kg
[2022-12-02 14:31] LABS: BASO % 0.4 % (0.0-1.0); EOS # 0.2 10*3/uL (0.0-0.4); EOS % 3.6 % (1.0-4.0); HEMATOCRIT 43.3 % (37.0-47.0); LYMPH # 1.3 10*3/uL (1.3-4.4); LYMPH % 19.7 % (27.0-41.0); MEAN CELL VOLUME 97.1 fl (81.0-99.0); MEAN CORPUSCULAR HGB 31.4 pg (27.0-31.0); MEAN CORPUSCULAR HGB CONC 32.3 g/dl (33.0-37.0); MEAN PLATELET VOLUME 10.9 fl (9.6-12.3); MONO # 0.4 10*3/uL (0.1-1.0); MONO % 6.2 % (3.0-9.0); NEUT # 4.7 10*3/uL (2.3-7.9); NEUT % 69.7 % (47.0-73.0); PLATELET COUNT AUTOMATED 194 10*3/uL (130-400); RED BLOOD COUNT 4.46 10*6/uL (4.10-5.10); RED CELL DISTRI WIDTH 13.1 % (0-14.5); WHITE BLOOD COUNT 6.8 10*3/uL (4.8-10.8)
[2022-12-02 14:52] LABS: ALKALINE PHOSPHATASE 89 U/L (46-116); BUN 10 mg/dl (9-23); CHLORIDE 106 mmol/L (98-107); POTASSIUM 3.7 mmol/L (3.4-5.1); SGPT/ALT 11 U/L (10-49); TOTAL PROTEIN 7.2 gm/dL (6.0-8.0)
== END 2022-12-02 16:44 | disposition home or self-care (01) ==
LOC: ED 13:35
PROVIDERS: Physician Assistant Medical
DX: I50.9 Heart failure, unspecified (principal); Z86.718 Personal history of other venous thrombosis and embolism; I25.2 Old myocardial infarction; Z88.8 Allergy status to other drugs, medicaments and biological substances; Z95.5 Presence of coronary angioplasty implant and graft; Z90.49 Acquired absence of other specified parts of digestive tract; Z98.890 Other specified postprocedural states; Z90.89 Acquired absence of other organs; Z98.51 Tubal ligation status

== ENCOUNTER 2023-02-21 06:30 | Emergency (ER) | payer MEDICARE ==
[~2023-02-21] VITALS: Ht 165.1 cm; Wt 115.7 kg
[2023-02-21 07:17] LABS: BASO % 0.3 % (0.0-1.0); EOS # 1.2 10*3/uL (0.0-0.4); EOS % 11.2 % (1.0-4.0); HEMATOCRIT 44.6 % (37.0-47.0); LYMPH # 1.1 10*3/uL (1.3-4.4); LYMPH % 9.8 % (27.0-41.0); MEAN CELL VOLUME 94.9 fl (81.0-99.0); MEAN CORPUSCULAR HGB 32.1 pg (27.0-31.0); MEAN CORPUSCULAR HGB CONC 33.9 g/dl (33.0-37.0); MEAN PLATELET VOLUME 10.4 fl (9.6-12.3); MONO # 0.7 10*3/uL (0.1-1.0); MONO % 6.7 % (3.0-9.0); NEUT # 7.7 10*3/uL (2.3-7.9); NEUT % 71.6 % (47.0-73.0); PLATELET COUNT AUTOMATED 202 10*3/uL (130-400); RED CELL DISTRI WIDTH 12.3 % (0-14.5); WHITE BLOOD COUNT 10.8 10*3/uL (4.8-10.8)
[2023-02-21 07:34] LABS: ACT PARTIAL THROMBO TIME 30.5 SECONDS (20.0-32.1)
[2023-02-21 07:35] LABS: ALKALINE PHOSPHATASE 125 U/L (46-116); BUN 12 mg/dl (9-23); CHLORIDE 101 mmol/L (98-107); POTASSIUM 3.1 mmol/L (3.4-5.1); SGPT/ALT 11 U/L (5-49); TOTAL PROTEIN 7.6 gm/dL (6.0-8.0)
== END 2023-02-21 09:08 | disposition home or self-care (01) ==
LOC: ED 06:30
PROVIDERS: Internal Medicine
DX: I20.9 Angina pectoris, unspecified (principal); I25.2 Old myocardial infarction; Z88.8 Allergy status to other drugs, medicaments and biological substances; Z90.49 Acquired absence of other specified parts of digestive tract; Z90.89 Acquired absence of other organs; Z98.890 Other specified postprocedural states; Z95.5 Presence of coronary angioplasty implant and graft; Z98.51 Tubal ligation status

== ENCOUNTER 2023-05-31 12:17 | Emergency (ER) | payer MEDICARE ==
[~2023-05-31] VITALS: Ht 165.1 cm; Wt 117.9 kg
[~2023-05-31 12:17] MED LIST changes: +AMITRIPTYLINE10 MG PO
[2023-05-31 13:08] LABS: BASO % 0.5 % (0.0-1.0); EOS # 0.7 10*3/uL (0.0-0.4); EOS % 8.5 % (1.0-4.0); HEMATOCRIT 41.7 % (37.0-47.0); LYMPH # 1.4 10*3/uL (1.3-4.4); LYMPH % 17.6 % (27.0-41.0); MEAN CELL VOLUME 96.8 fl (81.0-99.0); MEAN CORPUSCULAR HGB 31.8 pg (27.0-31.0); MEAN CORPUSCULAR HGB CONC 32.9 g/dl (33.0-37.0); MEAN PLATELET VOLUME 10.6 fl (9.6-12.3); MONO # 0.5 10*3/uL (0.1-1.0); MONO % 6.2 % (3.0-9.0); NEUT # 5.4 10*3/uL (2.3-7.9); NEUT % 66.8 % (47.0-73.0); PLATELET COUNT AUTOMATED 162 10*3/uL (130-400); RED BLOOD COUNT 4.31 10*6/uL (4.10-5.10); RED CELL DISTRI WIDTH 12.5 % (0-14.5); WHITE BLOOD COUNT 8.1 10*3/uL (4.8-10.8)
[2023-05-31 13:30] LABS: ALKALINE PHOSPHATASE 97 U/L (46-116); BUN 13 mg/dl (9-23); CHLORIDE 110 mmol/L (98-107); LIPASE 35 U/L (12-53); POTASSIUM 4.4 mmol/L (3.4-5.1); SGPT/ALT 13 U/L (5-49); TOTAL PROTEIN 6.7 gm/dL (6.0-8.0)
[2023-05-31] MEDS ORDERED: Acetaminophen/Hydrocodone 5 MG/325 MG TABLET PO ONE (13:30)
[2023-05-31 13:34] LABS: ACT PARTIAL THROMBO TIME 21.4 SECONDS (20.0-32.1)
== END 2023-05-31 16:03 | disposition home or self-care (01) ==
LOC: ED 12:17
PROVIDERS: Emergency Medicine
DX: R07.89 Other chest pain (principal); R51.9 Headache, unspecified; I25.2 Old myocardial infarction; N18.9 Chronic kidney disease, unspecified; Z88.8 Allergy status to other drugs, medicaments and biological substances; Z95.5 Presence of coronary angioplasty implant and graft; Z90.49 Acquired absence of other specified parts of digestive tract; Z98.890 Other specified postprocedural states; Z90.89 Acquired absence of other organs; Z98.51 Tubal ligation status

== ENCOUNTER 2023-07-03 14:00 | Emergency (ER) | payer MEDICARE ==
[~2023-07-03] VITALS: Wt 136.1 kg
[2023-07-03] MEDS ORDERED: diphenhydrAMINE hydrochloride 50 MG/ML VIAL IV ONE (14:15)
[2023-07-03] MEDS ORDERED: Metoclopramide Hydrochloride 10 MG/2 ML AMP IV ONE (14:15)
[2023-07-03] MEDS ORDERED: Dexamethasone Sodium Phospha 20 MG/5 ML VIAL IV ONE (14:15)
[2023-07-03 14:32] LABS: BASO % 0.4 % (0.0-1.0); EOS # 0.5 10*3/uL (0.0-0.4); EOS % 6.7 % (1.0-4.0); LYMPH # 1.3 10*3/uL (1.3-4.4); LYMPH % 17.5 % (27.0-41.0); MEAN CELL VOLUME 98.5 fl (81.0-99.0); MEAN CORPUSCULAR HGB CONC 31.5 g/dl (33.0-37.0); MEAN PLATELET VOLUME 10.9 fl (9.6-12.3); MONO # 0.5 10*3/uL (0.1-1.0); MONO % 6.5 % (3.0-9.0); NEUT % 68.2 % (47.0-73.0); PLATELET COUNT AUTOMATED 192 10*3/uL (130-400); RED BLOOD COUNT 4.67 10*6/uL (4.10-5.10); WHITE BLOOD COUNT 7.4 10*3/uL (4.8-10.8)
[2023-07-03 14:48] LABS: ALKALINE PHOSPHATASE 99 U/L (46-116); BUN 14 mg/dl (9-23); CHLORIDE 106 mmol/L (98-107); POTASSIUM 4.1 mmol/L (3.4-5.1); SGPT/ALT 16 U/L (5-49); TOTAL PROTEIN 6.9 gm/dL (6.0-8.0)
== END 2023-07-03 16:07 | disposition home or self-care (01) ==
LOC: ED 14:00
PROVIDERS: Physician Assistant Medical
DX: R07.89 Other chest pain (principal); R51.9 Headache, unspecified; I50.9 Heart failure, unspecified; K21.9 Gastro-esophageal reflux disease without esophagitis; I21.4 Non-ST elevation (NSTEMI) myocardial infarction; N18.9 Chronic kidney disease, unspecified; Z88.8 Allergy status to other drugs, medicaments and biological substances; Z95.5 Presence of coronary angioplasty implant and graft; Z90.49 Acquired absence of other specified parts of digestive tract; Z90.89 Acquired absence of other organs; Z98.51 Tubal ligation status; Z98.890 Other specified postprocedural states; Z86.718 Personal history of other venous thrombosis and embolism

== ENCOUNTER 2023-08-01 14:43 | Emergency (ER) | payer MEDICARE ==
[~2023-08-01] VITALS: Ht 165.1 cm; Wt 117.9 kg
[2023-08-01 15:27] LABS: BASO % 0.5 % (0.0-1.0); EOS # 0.5 10*3/uL (0.0-0.4); EOS % 6.9 % (1.0-4.0); HEMATOCRIT 44.5 % (37.0-47.0); LYMPH # 1.4 10*3/uL (1.3-4.4); LYMPH % 19.4 % (27.0-41.0); MEAN CELL VOLUME 98.5 fl (81.0-99.0); MEAN CORPUSCULAR HGB 31.2 pg (27.0-31.0); MEAN CORPUSCULAR HGB CONC 31.7 g/dl (33.0-37.0); MEAN PLATELET VOLUME 10.7 fl (9.6-12.3); MONO # 0.5 10*3/uL (0.1-1.0); MONO % 6.5 % (3.0-9.0); NEUT # 4.9 10*3/uL (2.3-7.9); NEUT % 66.3 % (47.0-73.0); PLATELET COUNT AUTOMATED 189 10*3/uL (130-400); RED BLOOD COUNT 4.52 10*6/uL (4.10-5.10); RED CELL DISTRI WIDTH 12.4 % (0-14.5); WHITE BLOOD COUNT 7.4 10*3/uL (4.8-10.8)
[2023-08-01 15:37] LABS: ACT PARTIAL THROMBO TIME 25.4 SECONDS (20.0-32.1)
[2023-08-01 15:47] LABS: ALKALINE PHOSPHATASE 103 U/L (46-116); BUN 13 mg/dl (9-23); CHLORIDE 104 mmol/L (98-107); LIPASE 57 U/L (12-53); POTASSIUM 4.1 mmol/L (3.4-5.1); SGPT/ALT 12 U/L (5-49); TOTAL PROTEIN 7.1 gm/dL (6.0-8.0)
== END 2023-08-01 16:09 | disposition home or self-care (01) ==
LOC: ED 14:43
PROVIDERS: Internal Medicine
DX: R07.89 Other chest pain (principal); I25.2 Old myocardial infarction; Z86.718 Personal history of other venous thrombosis and embolism; Z88.8 Allergy status to other drugs, medicaments and biological substances; Z90.49 Acquired absence of other specified parts of digestive tract; Z90.89 Acquired absence of other organs; Z98.890 Other specified postprocedural states; Z98.51 Tubal ligation status; Z95.5 Presence of coronary angioplasty implant and graft

== ENCOUNTER 2023-10-12 12:46 | Emergency (ER) | payer MEDICARE ==
[~2023-10-12] VITALS: Ht 165.1 cm; Wt 117.9 kg
[2023-10-12 13:28] LABS: BASO # 0.1 10*3/uL (0.0-0.1); BASO % 0.6 % (0.0-1.0); EOS # 0.7 10*3/uL (0.0-0.4); EOS % 8.6 % (1.0-4.0); HEMATOCRIT 42.7 % (37.0-47.0); LYMPH # 1.5 10*3/uL (1.3-4.4); LYMPH % 17.7 % (27.0-41.0); MEAN CELL VOLUME 96.8 fl (81.0-99.0); MEAN CORPUSCULAR HGB 31.5 pg (27.0-31.0); MEAN CORPUSCULAR HGB CONC 32.6 g/dl (33.0-37.0); MEAN PLATELET VOLUME 10.9 fl (9.6-12.3); MONO # 0.5 10*3/uL (0.1-1.0); MONO % 6.2 % (3.0-9.0); NEUT # 5.6 10*3/uL (2.3-7.9); NEUT % 66.5 % (47.0-73.0); PLATELET COUNT AUTOMATED 194 10*3/uL (130-400); RED BLOOD COUNT 4.41 10*6/uL (4.10-5.10); RED CELL DISTRI WIDTH 12.4 % (0-14.5); WHITE BLOOD COUNT 8.4 10*3/uL (4.8-10.8)
[2023-10-12 13:40] LABS: ACT PARTIAL THROMBO TIME 26.5 SECONDS (20.0-32.1)
[2023-10-12 13:50] LABS: BUN 9 mg/dl (9-23); CHLORIDE 105 mmol/L (98-107); POTASSIUM 3.6 mmol/L (3.4-5.1)
[2023-10-12] MEDS ORDERED: FUROSEMIDE 40 MG/4 ML VIAL IV ONE (14:05)
[2023-10-12] MEDS ORDERED: MORPHINE Sulfate 2 MG/ML SYR IV ONE (14:05)
[2023-10-12] MEDS ORDERED: LASIX20 MG PO (14:43)
== END 2023-10-12 14:48 | disposition home or self-care (01) ==
LOC: ED 12:46
PROVIDERS: Nurse Practitioner Family
DX: R07.89 Other chest pain (principal); R60.0 Localized edema; R06.02 Shortness of breath; R79.89 Other specified abnormal findings of blood chemistry; Z88.8 Allergy status to other drugs, medicaments and biological substances; Z79.899 Other long term (current) drug therapy; Z79.82 Long term (current) use of aspirin; Z85.41 Personal history of malignant neoplasm of cervix uteri; K21.9 Gastro-esophageal reflux disease without esophagitis; I25.2 Old myocardial infarction; I50.9 Heart failure, unspecified; Z90.49 Acquired absence of other specified parts of digestive tract; Z98.84 Bariatric surgery status; Z95.810 Presence of automatic (implantable) cardiac defibrillator; Z90.89 Acquired absence of other organs; Z98.51 Tubal ligation status; Z96.22 Myringotomy tube(s) status; Z98.890 Other specified postprocedural states

== ENCOUNTER 2023-11-23 14:36 | Emergency (ER) | payer MEDICARE ==
[~2023-11-23] VITALS: Ht 165.1 cm; Wt 122.5 kg
[2023-11-23 15:18] LABS: BASO % 0.3 % (0.0-1.0); EOS # 0.8 10*3/uL (0.0-0.4); EOS % 8.7 % (1.0-4.0); HEMATOCRIT 41.6 % (37.0-47.0); LYMPH # 1.9 10*3/uL (1.3-4.4); LYMPH % 21.4 % (27.0-41.0); MEAN CELL VOLUME 97.9 fl (81.0-99.0); MEAN CORPUSCULAR HGB CONC 32.7 g/dl (33.0-37.0); MEAN PLATELET VOLUME 10.9 fl (9.6-12.3); MONO # 0.5 10*3/uL (0.1-1.0); MONO % 6.1 % (3.0-9.0); NEUT # 5.6 10*3/uL (2.3-7.9); PLATELET COUNT AUTOMATED 191 10*3/uL (130-400); RED BLOOD COUNT 4.25 10*6/uL (4.10-5.10); RED CELL DISTRI WIDTH 12.6 % (0-14.5); WHITE BLOOD COUNT 8.9 10*3/uL (4.8-10.8)
[2023-11-23] MEDS ORDERED: NITROGLYCERIN 0.2 MG PATCH T ONE (15:20)
[2023-11-23 15:34] LABS: ACT PARTIAL THROMBO TIME 25.8 SECONDS (20.0-32.1)
[2023-11-23 15:39] LABS: POTASSIUM 3.9 mmol/L (3.4-5.1); TOTAL PROTEIN 6.8 gm/dL (6.0-8.0)
[2023-11-23] MEDS ORDERED: MORPHINE Sulfate 2 MG/ML SYR IV ONE (16:15)
[2023-11-23] MEDS ORDERED: OMEPRAZOLE 20 MG CAP PO ONE (16:15)
[2023-11-23] MEDS ORDERED: Ceftriaxone Sodium 1 GM/10 ML SYR IV ONE (17:30)
== END 2023-11-23 17:50 | disposition home or self-care (01) ==
LOC: ED 14:36
PROVIDERS: Emergency Medicine
DX: R07.89 Other chest pain (principal); R61 Generalized hyperhidrosis; I25.10 Atherosclerotic heart disease of native coronary artery without angina pectoris; Z95.810 Presence of automatic (implantable) cardiac defibrillator; Z88.6 Allergy status to analgesic agent; Z79.899 Other long term (current) drug therapy; Z79.82 Long term (current) use of aspirin; Z90.49 Acquired absence of other specified parts of digestive tract; Z98.84 Bariatric surgery status; Z90.89 Acquired absence of other organs; Z98.51 Tubal ligation status; Z98.890 Other specified postprocedural states; Z96.22 Myringotomy tube(s) status

== ENCOUNTER 2024-01-14 20:05 | Emergency (ER) | payer MEDICARE ==
[~2024-01-14] VITALS: Ht 165.1 cm; Wt 117.9 kg
[2024-01-14 20:36] LABS: BASO % 0.5 % (0.0-1.0); EOS # 0.5 10*3/uL (0.0-0.4); EOS % 6.9 % (1.0-4.0); HEMATOCRIT 43.9 % (37.0-47.0); LYMPH # 1.7 10*3/uL (1.3-4.4); LYMPH % 23.1 % (27.0-41.0); MEAN CORPUSCULAR HGB 31.7 pg (27.0-31.0); MEAN CORPUSCULAR HGB CONC 32.3 g/dl (33.0-37.0); MEAN PLATELET VOLUME 10.5 fl (9.6-12.3); MONO # 0.5 10*3/uL (0.1-1.0); MONO % 6.4 % (3.0-9.0); NEUT # 4.7 10*3/uL (2.3-7.9); NEUT % 62.7 % (47.0-73.0); PLATELET COUNT AUTOMATED 188 10*3/uL (130-400); RED BLOOD COUNT 4.48 10*6/uL (4.10-5.10); RED CELL DISTRI WIDTH 12.6 % (0-14.5); WHITE BLOOD COUNT 7.5 10*3/uL (4.8-10.8)
[2024-01-14] MEDS ORDERED: CLONAZEPAM0.5 M2 PO (20:46)
[2024-01-14] MEDS ORDERED: VRAYLAR1.5 MG PO (20:46)
[2024-01-14 20:54] LABS: POTASSIUM 3.6 mmol/L (3.4-5.1)
[2024-01-14] MEDS ORDERED: Acetaminophen/Hydrocodone 5 MG/325 MG TABLET PO ONE (21:00)
[2024-01-14] MEDS ORDERED: PREDNISONE20 M1 PO (22:06)
[2024-01-14] MEDS ORDERED: methylPREDNISolone sod succ 125 MG VIAL IM ONE (22:10)
== END 2024-01-14 22:24 | disposition home or self-care (01) ==
LOC: ED 20:05
PROVIDERS: Nurse Practitioner Family
DX: R07.89 Other chest pain (principal); M25.512 Pain in left shoulder; I25.2 Old myocardial infarction; Z86.718 Personal history of other venous thrombosis and embolism; I10 Essential (primary) hypertension; Z88.8 Allergy status to other drugs, medicaments and biological substances; Z95.5 Presence of coronary angioplasty implant and graft; Z90.49 Acquired absence of other specified parts of digestive tract; Z90.89 Acquired absence of other organs; Z98.51 Tubal ligation status; Z98.890 Other specified postprocedural states

== ENCOUNTER 2024-03-25 12:56 | Emergency (ER) | payer MEDICARE ==
[~2024-03-25 12:56] MED LIST changes: +PREDNISONE20 M1 PO; +VRAYLAR1.5 MG PO
[2024-03-25] MEDS ORDERED: MORPHINE Sulfate 2 MG/ML SYR IV ONE (13:15)
[2024-03-25] MEDS ORDERED: Ondansetron Hydrochloride 4 MG/2 ML VIAL IV ONE (13:15)
[2024-03-25] MEDS ORDERED: MAGNESIUM SULFATE 50 ML IV ONE (13:25)
[2024-03-25 13:29] LABS: BASO % 0.4 % (0.0-1.0); EOS # 0.3 10*3/uL (0.0-0.4); EOS % 4.4 % (1.0-4.0); HEMATOCRIT 41.3 % (37.0-47.0); MEAN CELL VOLUME 96.9 fl (81.0-99.0); MEAN PLATELET VOLUME 11.8 fl (9.6-12.3); MONO # 0.5 10*3/uL (0.1-1.0); MONO % 6.2 % (3.0-9.0); NEUT # 5.1 10*3/uL (2.3-7.9); NEUT % 70.9 % (47.0-73.0); PLATELET COUNT AUTOMATED 182 10*3/uL (130-400); RED BLOOD COUNT 4.26 10*6/uL (4.10-5.10); RED CELL DISTRI WIDTH 12.3 % (0-14.5); WHITE BLOOD COUNT 7.3 10*3/uL (4.8-10.8)
[2024-03-25 13:49] LABS: BUN 16 mg/dl (9-23); CHLORIDE 104 mmol/L (98-107); POTASSIUM 4.2 mmol/L (3.4-5.1)
[2024-03-25] MEDS ORDERED: LASIX20 MG PO (14:34)
== END 2024-03-25 16:00 | disposition home or self-care (01) ==
LOC: ED 12:56
PROVIDERS: Emergency Medicine
DX: R07.89 Other chest pain (principal); R06.02 Shortness of breath; E78.5 Hyperlipidemia, unspecified; I13.0 Hypertensive heart and chronic kidney disease with heart failure and stage 1 through stage 4 chronic kidney disease, or unspecified chronic kidney disease; N18.9 Chronic kidney disease, unspecified; I50.9 Heart failure, unspecified; Z86.718 Personal history of other venous thrombosis and embolism; Z88.8 Allergy status to other drugs, medicaments and biological substances; Z95.5 Presence of coronary angioplasty implant and graft; Z90.49 Acquired absence of other specified parts of digestive tract; Z90.89 Acquired absence of other organs; Z98.890 Other specified postprocedural states

== ENCOUNTER 2024-06-19 11:25 | Emergency (ER) | payer MEDICARE ==
[~2024-06-19] VITALS: Ht 165.1 cm; Wt 139.5 kg
[~2024-06-19 11:25] MED LIST changes: +PANTOPRAZOLE SO40 MG PO
[2024-06-19 11:58] LABS: BASO % 0.3 % (0.0-1.0); EOS # 0.2 10*3/uL (0.0-0.4); EOS % 3.2 % (1.0-4.0); HEMATOCRIT 42.1 % (37.0-47.0); MEAN CELL VOLUME 97.2 fl (81.0-99.0); MEAN CORPUSCULAR HGB 30.5 pg (27.0-31.0); MEAN CORPUSCULAR HGB CONC 31.4 g/dl (33.0-37.0); MEAN PLATELET VOLUME 11.2 fl (9.6-12.3); MONO # 0.3 10*3/uL (0.1-1.0); MONO % 5.1 % (3.0-9.0); NEUT # 4.6 10*3/uL (2.3-7.9); PLATELET COUNT AUTOMATED 161 10*3/uL (130-400); RED BLOOD COUNT 4.33 10*6/uL (4.10-5.10); RED CELL DISTRI WIDTH 13.4 % (0-14.5); WHITE BLOOD COUNT 5.9 10*3/uL (4.8-10.8)
[2024-06-19 12:09] LABS: ACT PARTIAL THROMBO TIME 25.7 SECONDS (20.0-32.1)
[2024-06-19 12:17] LABS: ALKALINE PHOSPHATASE 92 U/L (46-116); BUN 12 mg/dl (9-23); CHLORIDE 104 mmol/L (98-107); POTASSIUM 3.8 mmol/L (3.4-5.1); SGPT/ALT 12 U/L (5-49); TOTAL PROTEIN 6.7 gm/dL (6.0-8.0)
[2024-06-19] MEDS ORDERED: MORPHINE Sulfate 2 MG/ML SYR IV ONE (12:30)
[2024-06-19] MEDS ORDERED: FUROSEMIDE 40 MG TAB PO ONE (14:35)
== END 2024-06-19 14:48 | disposition home or self-care (01) ==
LOC: ED 11:25
PROVIDERS: Internal Medicine
DX: G89.29 Other chronic pain (principal); R07.89 Other chest pain; R60.0 Localized edema; I10 Essential (primary) hypertension; E78.5 Hyperlipidemia, unspecified; Z79.899 Other long term (current) drug therapy; Z88.8 Allergy status to other drugs, medicaments and biological substances; Z90.49 Acquired absence of other specified parts of digestive tract; Z90.89 Acquired absence of other organs; Z98.51 Tubal ligation status; Z98.890 Other specified postprocedural states

== ENCOUNTER 2024-07-23 16:03 | Observation (INO) | payer MEDICARE ==
[~2024-07-23] VITALS: Ht 165.1 cm; Wt 130.9 kg
[2024-07-23 16:12] VITALS: BP 108/76
[2024-07-23 16:41] LABS: BASO % 0.4 % (0.0-1.0); EOS # 0.4 10*3/uL (0.0-0.4); EOS % 4.9 % (1.0-4.0); MEAN CELL VOLUME 94.4 fl (81.0-99.0); MEAN CORPUSCULAR HGB 30.3 pg (27.0-31.0); MEAN CORPUSCULAR HGB CONC 32.1 g/dl (33.0-37.0); MEAN PLATELET VOLUME 10.8 fl (9.6-12.3); MONO # 0.5 10*3/uL (0.1-1.0); MONO % 6.8 % (3.0-9.0); NEUT # 5.6 10*3/uL (2.3-7.9); PLATELET COUNT AUTOMATED 196 10*3/uL (130-400); RED BLOOD COUNT 4.45 10*6/uL (4.10-5.10); RED CELL DISTRI WIDTH 12.8 % (0-14.5); WHITE BLOOD COUNT 7.9 10*3/uL (4.8-10.8)
[2024-07-23 17:04] LABS: POTASSIUM 3.1 mmol/L (3.4-5.1)
[2024-07-23] MEDS ORDERED: POTASSIUM CHLORIDE 20 MEQ TAB PO ONE (17:10)
[2024-07-23] MEDS ORDERED: SERTRALINE HYD100 MG PO (17:27)
[2024-07-23] MEDS ORDERED: TIZANIDINE HCL4 MG PO (17:28)
[2024-07-23] MEDS ORDERED: HYDROCHLOROTHIA25 M1 PO (17:29)
[2024-07-23] MEDS ORDERED: MORPHINE Sulfate 2 MG/ML SYR IV PRN (17:40)
[2024-07-23] MEDS ORDERED: Acetaminophen/Hydrocodone 5 MG/325 MG TABLET PO PRN (17:40)
[2024-07-23] MEDS ORDERED: NITROGLYCERIN 0.4 MG BOT SL PRN (17:50)
[2024-07-23] MEDS ORDERED: clonAZEPAM 0.5 MG TAB PO SCH (18:00)
[2024-07-23] MEDS ORDERED: tiZANidine Hydrochloride 4 MG TAB PO PRN (18:00)
[2024-07-23] MEDS ORDERED: Sertraline Hydrochloride 50 MG TAB PO SCH ×2 (18:00→22:00)
[2024-07-23 21:15] VITALS: BP 111/58
[2024-07-23] MEDS ORDERED: METOPROLOL SUCCINATE XR 50 MG TAB PO SCH (22:00)
[2024-07-24 00:05] VITALS: BP 116/70
[2024-07-24 03:33] VITALS: BP 108/67
[2024-07-24 04:10] LABS: BASO % 0.4 % (0.0-1.0); EOS # 0.4 10*3/uL (0.0-0.4); HEMATOCRIT 43.7 % (37.0-47.0); MEAN CORPUSCULAR HGB 30.3 pg (27.0-31.0); MEAN CORPUSCULAR HGB CONC 31.6 g/dl (33.0-37.0); MONO # 0.6 10*3/uL (0.1-1.0); MONO % 8.1 % (3.0-9.0); NEUT # 4.7 10*3/uL (2.3-7.9); NEUT % 64.3 % (47.0-73.0); PLATELET COUNT AUTOMATED 191 10*3/uL (130-400); RED BLOOD COUNT 4.55 10*6/uL (4.10-5.10); RED CELL DISTRI WIDTH 13.1 % (0-14.5); WHITE BLOOD COUNT 7.4 10*3/uL (4.8-10.8)
[2024-07-24 04:33] LABS: POTASSIUM 3.5 mmol/L (3.4-5.1)
[2024-07-24] MEDS ORDERED: Regadenoson 0.4 MG/5 ML SYR IV ONE (05:21)
[2024-07-24 05:33] VITALS: BP 126/96
[2024-07-24] MEDS ORDERED: Pantoprazole Sodium 40 MG TAB PO SCH (06:00)
[2024-07-24] MEDS ORDERED: Technetium Tc 99M Tetrofosmi 0.23 MG KIT IJ SCH (07:10)
[2024-07-24 10:00] VITALS: BP 137/86
[2024-07-24] MEDS ORDERED: Enoxaparin Sodium 40 MG/0.4 ML SYR SC SCH (10:00)
[2024-07-24] MEDS ORDERED: ISOSORBIDE MONONITRATE 30 MG TAB PO SCH (10:00)
[2024-07-24] MEDS ORDERED: ATORVASTATIN CALCIUM 20 MG TAB PO SCH (10:00)
[2024-07-24] MEDS ORDERED: ASPIRIN ENTERIC COATED 81 MG TAB PO SCH (10:00)
[2024-07-24] MEDS ORDERED: Scopolamine 1 PATCH PATCH T SCH (13:00)
[2024-07-24 15:12] VITALS: BP 132/78
[2024-07-24] MEDS ORDERED: diphenhydrAMINE hydrochloride 50 MG/ML VIAL IV ONE (16:15)
[2024-07-24] MEDS ORDERED: Dicyclomine Hydrochloride 20 MG/10 ML OSYR PO STA (16:16)
[2024-07-24] MEDS ORDERED: Lidocaine Hydrochloride 15 ML UDC PO STA (16:16)
[2024-07-24] MEDS ORDERED: MG-AL HYDROXIDE/SIMETICONE 30 ML UDC PO STA (16:16)
[2024-07-24 21:00] VITALS: BP 138/81
[2024-07-25] VITALS: BP 121/66
[2024-07-25 08:00] VITALS: BP 128/89
== END 2024-07-25 11:20 | disposition home or self-care (01) ==
LOC: ED 16:03 → EDHOLD 17:20 → 5E 07-24 20:47
PROVIDERS: Internal Medicine; ADMIT Student in an Organized Health Care Education/Training Program; ATTEND Student in an Organized Health Care Education/Training Program
DX: R07.89 Other chest pain (principal); E87.6 Hypokalemia; N17.0 Acute kidney failure with tubular necrosis; R73.9 Hyperglycemia, unspecified; R00.1 Bradycardia, unspecified; I89.0 Lymphedema, not elsewhere classified; I21.4 Non-ST elevation (NSTEMI) myocardial infarction; I50.32 Chronic diastolic (congestive) heart failure; Z79.899 Other long term (current) drug therapy; Z88.6 Allergy status to analgesic agent; Z90.49 Acquired absence of other specified parts of digestive tract; Z90.89 Acquired absence of other organs

== ENCOUNTER 2024-08-29 19:26 | Emergency (ER) | payer MEDICARE ==
[~2024-08-29] VITALS: Ht 165.1 cm; Wt 127.0 kg
[~2024-08-29 19:26] MED LIST changes: +HYDROCHLOROTHIA25 M1 PO; +TIZANIDINE HCL4 MG PO
[2024-08-29] MEDS ORDERED: MORPHINE Sulfate 2 MG/ML SYR IV ONE ×2 (20:00→21:50)
[2024-08-29 20:15] LABS: BASO % 0.4 % (0.0-1.0); EOS # 0.4 10*3/uL (0.0-0.4); EOS % 4.3 % (1.0-4.0); HEMATOCRIT 43.2 % (37.0-47.0); MEAN CELL VOLUME 94.1 fl (81.0-99.0); MEAN CORPUSCULAR HGB 30.7 pg (27.0-31.0); MEAN CORPUSCULAR HGB CONC 32.6 g/dl (33.0-37.0); MEAN PLATELET VOLUME 11.2 fl (9.6-12.3); MONO # 0.6 10*3/uL (0.1-1.0); MONO % 6.9 % (3.0-9.0); NEUT # 5.5 10*3/uL (2.3-7.9); NEUT % 64.6 % (47.0-73.0); PLATELET COUNT AUTOMATED 208 10*3/uL (130-400); RED BLOOD COUNT 4.59 10*6/uL (4.10-5.10); RED CELL DISTRI WIDTH 12.5 % (0-14.5); WHITE BLOOD COUNT 8.6 10*3/uL (4.8-10.8)
[2024-08-29] MEDS ORDERED: ALBUTEROL HFA 90MCG INH (20:25)
[2024-08-29] MEDS ORDERED: ALBUTEROL SULFATE HF INH (20:26)
[2024-08-29] MEDS ORDERED: PANTOPRAZOLE SO40 MG PO (20:27)
[2024-08-29] MEDS ORDERED: NATURE'S BLEND F1 MG PO (20:27)
[2024-08-29 20:35] LABS: POTASSIUM 3.5 mmol/L (3.4-5.1)
== END 2024-08-29 22:49 | disposition home or self-care (01) ==
LOC: ED 19:26
PROVIDERS: Nurse Practitioner Family
DX: R07.89 Other chest pain (principal); N18.9 Chronic kidney disease, unspecified; E78.5 Hyperlipidemia, unspecified; K21.9 Gastro-esophageal reflux disease without esophagitis; Z79.82 Long term (current) use of aspirin; Z79.899 Other long term (current) drug therapy; Z88.8 Allergy status to other drugs, medicaments and biological substances; Z90.49 Acquired absence of other specified parts of digestive tract; Z90.89 Acquired absence of other organs; Z98.51 Tubal ligation status; Z98.890 Other specified postprocedural states

== ENCOUNTER 2024-09-24 11:08 | Emergency (ER) | payer MEDICARE ==
[~2024-09-24] VITALS: Ht 165.1 cm; Wt 127.0 kg
[~2024-09-24 11:08] MED LIST changes: +ALBUTEROL HFA 90MCG INH; +ALBUTEROL SULFATE HF INH
[2024-09-24 11:49] LABS: BASO % 0.5 % (0.0-1.0); EOS # 0.3 10*3/uL (0.0-0.4); EOS % 4.8 % (1.0-4.0); HEMATOCRIT 39.8 % (37.0-47.0); MEAN CELL VOLUME 96.1 fl (81.0-99.0); MEAN CORPUSCULAR HGB 30.4 pg (27.0-31.0); MEAN CORPUSCULAR HGB CONC 31.7 g/dl (33.0-37.0); MEAN PLATELET VOLUME 11.1 fl (9.6-12.3); MONO # 0.4 10*3/uL (0.1-1.0); MONO % 6.3 % (3.0-9.0); NEUT # 4.4 10*3/uL (2.3-7.9); NEUT % 72.4 % (47.0-73.0); PLATELET COUNT AUTOMATED 149 10*3/uL (130-400); RED BLOOD COUNT 4.14 10*6/uL (4.10-5.10); RED CELL DISTRI WIDTH 12.8 % (0-14.5); WHITE BLOOD COUNT 6.1 10*3/uL (4.8-10.8)
[2024-09-24 12:00] LABS: ACT PARTIAL THROMBO TIME 24.2 SECONDS (20.0-32.1)
[2024-09-24 12:12] LABS: BUN 16 mg/dl (9-23); CHLORIDE 104 mmol/L (98-107); POTASSIUM 3.9 mmol/L (3.4-5.1)
[2024-09-24] MEDS ORDERED: Ketorolac Tromethamine 15 MG/ML VIAL IV ONE (14:30)
== END 2024-09-24 14:47 | disposition home or self-care (01) ==
LOC: ED 11:08
PROVIDERS: Internal Medicine
DX: R07.89 Other chest pain (principal); Z79.82 Long term (current) use of aspirin; Z79.899 Other long term (current) drug therapy; Z90.49 Acquired absence of other specified parts of digestive tract; Z90.89 Acquired absence of other organs; Z98.51 Tubal ligation status; Z98.890 Other specified postprocedural states

== ENCOUNTER 2025-01-01 13:53 | Emergency (ER) | payer MEDICARE ==
[~2025-01-01] VITALS: Wt 127.0 kg
[~2025-01-01 13:53] MED LIST changes: +VIBRA-TAB100 MG PO
[2025-01-01] MEDS ORDERED: Ondansetron Hydrochloride 4 MG/2 ML VIAL IV ONE (14:20)
[2025-01-01] MEDS ORDERED: SODIUM CHLORIDE 0.9% 500 ML IV ONE (14:20)
[2025-01-01 14:29] LABS: BILIRUBIN Negative (Negative); BLOOD 2+ (Negative); CLARITY Clear (Clear); COLOR Yellow (Yellow); KETONE Negative (Negative); LEUKO ESTERASE 1+ (Negative); NITRITE Negative (Negative); PH 5.5 (4.5-8.0); SPECIFIC GRAVITY 1.015 (1.001-1.030); UROBILINOGEN 0.2 E.U./dl (0.0-1.0)
[2025-01-01 14:36] LABS: BACTERIA 1+; RBC 21-30 rbc/hpf (0-2)
[2025-01-01 14:50] LABS: BASO # 0.1 10*3/uL (0.0-0.1); BASO % 0.8 % (0.0-1.0); EOS # 0.4 10*3/uL (0.0-0.4); EOS % 6.4 % (1.0-4.0); MEAN CELL VOLUME 96.8 fl (81.0-99.0); MEAN CORPUSCULAR HGB 30.1 pg (27.0-31.0); MEAN PLATELET VOLUME 11.7 fl (9.6-12.3); MONO # 0.4 10*3/uL (0.1-1.0); MONO % 6.4 % (3.0-9.0); NEUT # 4.3 10*3/uL (2.3-7.9); NEUT % 67.7 % (47.0-73.0); NUCLEATED RED BLOOD CELL 0.0 % (0.0-0.0); NUCLEATED RED BLOOD CELL 0.0 10*3/uL (0.0-0.0); PLATELET COUNT AUTOMATED 172 10*3/uL (130-400); RED CELL DISTRI WIDTH 13.1 % (0-14.5)
[2025-01-01 15:10] LABS: BUN 10.0 mg/dl (9-23); CPK 63.0 U/L (34-171)
[2025-01-01] MEDS ORDERED: HYDROmorphONE Hydrochloride 0.5 MG/0.5 ML SYRINGE IV ONE (16:00)
[2025-01-01] MEDS ORDERED: METHOCARBAMOL750 M1 PO (16:58)
[2025-01-01] MEDS ORDERED: MACROBID100 M1 PO (16:58)
== END 2025-01-01 17:08 | disposition home or self-care (01) ==
LOC: ED 13:53
PROVIDERS: Emergency Medicine
DX: R07.2 Precordial pain (principal); R30.0 Dysuria; R31.9 Hematuria, unspecified; N28.9 Disorder of kidney and ureter, unspecified; I25.2 Old myocardial infarction; Z98.890 Other specified postprocedural states; Z90.89 Acquired absence of other organs; Z98.84 Bariatric surgery status; Z90.49 Acquired absence of other specified parts of digestive tract

== ENCOUNTER → 2025-01-22 | Outpatient (CLI) | payer MEDICARE ==
[~2025-01-22] MED LIST changes: +MACROBID100 M1 PO; +METHOCARBAMOL750 M1 PO
[2025-01-22 12:59] LABS: BUN 13.0 mg/dl (9-23)
== END | disposition home or self-care (01) ==
LOC: LAB 12:08
PROVIDERS: ATTEND Family Medicine
DX: N18.31 Chronic kidney disease, stage 3a (principal)

== ENCOUNTER 2025-02-19 11:49 | Emergency (ER) | payer MEDICARE ==
[~2025-02-19] VITALS: Wt 127.0 kg
[2025-02-19] MEDS ORDERED: Ondansetron Hydrochloride 4 MG/2 ML VIAL IV ONE (12:10)
[2025-02-19] MEDS ORDERED: SODIUM CHLORIDE 0.9% 1,000 ML IV ONE (12:10)
[2025-02-19 12:24] LABS: BASO # 0.0 10*3/uL (0.0-0.1); BASO % 0.4 % (0.0-1.0); EOS # 0.4 10*3/uL (0.0-0.4); EOS % 5.5 % (1.0-4.0); MEAN CELL VOLUME 96.1 fl (81.0-99.0); MEAN CORPUSCULAR HGB 28.9 pg (27.0-31.0); MEAN PLATELET VOLUME 11.2 fl (9.6-12.3); MONO # 0.4 10*3/uL (0.1-1.0); MONO % 6.6 % (3.0-9.0); NEUT # 4.6 10*3/uL (2.3-7.9); NEUT % 68.1 % (47.0-73.0); NUCLEATED RED BLOOD CELL 0.0 % (0.0-0.0); NUCLEATED RED BLOOD CELL 0.0 10*3/uL (0.0-0.0); PLATELET COUNT AUTOMATED 201 10*3/uL (130-400); RED CELL DISTRI WIDTH 13.2 % (0-14.5)
[2025-02-19 12:45] LABS: BUN 14 mg/dl (9-23)
[2025-02-19 13:20] LABS: BILIRUBIN Negative (Negative); BLOOD Trace-Intact (Negative); CLARITY Clear (Clear); COLOR Yellow (Yellow); KETONE Negative (Negative); LEUKO ESTERASE 2+ (Negative); NITRITE Negative (Negative); PH 6.5 (4.5-8.0); SPECIFIC GRAVITY 1.010 (1.001-1.030); UROBILINOGEN 0.0 E.U./dl (0.0-1.0)
[2025-02-19 13:21] LABS: BACTERIA 1+
[2025-02-19] MEDS ORDERED: CIPRO500 MG PO (15:27)
[2025-02-19] MEDS ORDERED: Acetaminophen/Hydrocodone 5 MG/325 MG TABLET PO ONE (15:30)
[2025-02-19] MEDS ORDERED: Ciprofloxacin Hydrochloride 500 MG TAB PO ONE (15:30)
== END 2025-02-19 15:49 | disposition home or self-care (01) ==
LOC: ED 11:49
PROVIDERS: Nurse Practitioner Family
DX: R07.89 Other chest pain (principal); N30.01 Acute cystitis with hematuria; I25.2 Old myocardial infarction; Z98.890 Other specified postprocedural states; Z98.84 Bariatric surgery status; Z90.89 Acquired absence of other organs

== ENCOUNTER → 2025-03-13 | Outpatient (CLI) | payer MEDICARE ==
[~2025-03-13] MED LIST changes: +CIPRO500 MG PO
[2025-03-13 09:51] LABS: BASO # 0.0 10*3/uL (0.0-0.1); BASO % 0.7 % (0.0-1.0); EOS # 0.4 10*3/uL (0.0-0.4); EOS % 6.4 % (1.0-4.0); MEAN CELL VOLUME 93.4 fl (81.0-99.0); MEAN CORPUSCULAR HGB 29.4 pg (27.0-31.0); MEAN PLATELET VOLUME 11.5 fl (9.6-12.3); MONO # 0.4 10*3/uL (0.1-1.0); MONO % 6.9 % (3.0-9.0); NEUT # 3.8 10*3/uL (2.3-7.9); NEUT % 67.6 % (47.0-73.0); NUCLEATED RED BLOOD CELL 0.0 % (0.0-0.0); NUCLEATED RED BLOOD CELL 0.0 10*3/uL (0.0-0.0); PLATELET COUNT AUTOMATED 194 10*3/uL (130-400); RED CELL DISTRI WIDTH 13.4 % (0-14.5)
== END | disposition home or self-care (01) ==
LOC: LAB 00:21
PROVIDERS: ATTEND Family Medicine
DX: N18.32 Chronic kidney disease, stage 3b (principal); R30.0 Dysuria; R31.9 Hematuria, unspecified